=== PATIENT | female | born 1965 | race Caucasian/White ===

== ENCOUNTER 2023-09-18 17:48 | Inpatient (IN) | payer MEDICARE, MEDICAID, SELFPAY ==
[2023-09-18 17:57] VITALS: BP 158/99; PULSE 88; TEMP 36.6; O2SAT 98; BMI 39.5
--- NOTE | 2023-09-18 18:24 | XR_ITS ---
The [address] [address] Patient Name: DALIA MELENDEZ MRN: [id number] date: 1965 Sex: F Assigned Patient Location: ER Current Patient Location: ED.MAIN Accession/Order Number: [id number] Exam Date: 09/18/2023 18:59 Report Date: 09/18/2023 19:52 At the request of: CARMEN CONNELLY Procedure: XR foot LT min 3V IMAGES REVIEWED: XR foot LT min 3V COMPARISON: None available. CLINICAL INDICATION: osteomyelitis of heel FINDINGS/IMPRESSION: No radiographic evidence of osteomyelitis or acute osseous abnormality of the left foot/calcaneus. Mild calcaneal enthesopathy. Osteopenia. Mild dorsal foot soft tissue swelling. Electronically authenticated by: NELLY GARCIA Date: 09/18/2023 19:52
--- NOTE | 2023-09-18 18:25 | ED_ITS ---
HPI HPI - General Adult General Chief complaint: Wound/Laceration Stated complaint: lower extremity pain-sore on heal Time Seen by Provider: 09/18/23 18:11 Source: patient Mode of arrival: Wheelchair Limitations: no limitations History of Present Illness HPI narrative: Patient is a 57-year-old female with a history of diabetes who presents to the emergency department for redness and worsening diabetic ulcer of the left heel. She states she had an area almost 2 months ago that started as a blood blister. She states the area opened and ulcerated. She has had a visiting home physician coming to her home to manage the wound. The physician, Dr. Barbosa, evaluated the patient today and noted worsening redness surrounding the wound. There is no drainage. Patient states she has had no fevers or vomiting but does feel shaky. The area around the ulcer was marked and Dr. Barbosa apparently wrote his comments on orders for the patient on her skin next to the wound. No medications taken prior to arrival. Related Data Home Medications ?Medication ?Instructions ?Recorded ?Confirmed amitriptyline 150 mg tablet 150 mg PO .qhs 09/18/23 09/18/23 amlodipine 5 mg tablet 5 mg PO QDAY 09/18/23 09/18/23 atorvastatin 40 mg tablet 40 mg PO .qhs 09/18/23 09/18/23 baclofen 10 mg tablet 10 mg PO Q8H 09/18/23 09/18/23 cholecalciferol (vitamin D3) 50 50 mcg PO QDAY 09/18/23 09/18/23 mcg (2,000 unit) capsule (Vitamin D3) dicyclomine 20 mg tablet 20 mg PO TID 09/18/23 09/18/23 duloxetine 60 mg capsule,delayed 60 mg PO BID 09/18/23 09/18/23 release empagliflozin 10 mg tablet 10 mg PO QDAY 09/18/23 09/18/23 (Jardiance) gabapentin 100 mg capsule 100 mg PO .COMPLEX 09/18/23 09/18/23 glipizide 10 mg tablet 10 mg PO BID 09/18/23 09/18/23 hydroxyzine HCl 50 mg tablet 50 mg PO Q8H PRN anxiety 09/18/23 09/18/23 insulin glargine 100 unit/mL (3 70 unit subcut QPM 09/18/23 09/18/23 mL) subcutaneous pen (Lantus Solostar U-100 Insulin) lisinopril 20 mg tablet 20 mg PO QDAY 09/18/23 09/18/23 omeprazole 40 mg capsule,delayed 40 mg PO QAM 09/18/23 09/18/23 release semaglutide 0.25 mg or 0.5 mg (2 0.25 mg subcut .weekly 09/18/23 09/18/23 mg/3 mL) subcutaneous pen injector (Ozempic) Allergies Allergy/AdvReac Type Severity Reaction Status Date / Time bactrim Allergy Uncoded 09/18/23 17:57 diuretics AdvReac Severe Uncoded 09/18/23 17:57 Opioid HPI Opioid Management Most Recent Opioid Data: Last Pain Scale 7 09/18/23 18:47 Last MAR Pain Assessment 09/18/23 18:36 Review of Systems ROS Constitutional Denies: fever or chills Ears, nose, mouth, and throat Denies: throat pain or nasal congestion Cardiovascular Denies: chest pain Respiratory Denies: shortness of breath or cough Gastrointestinal Denies: nausea or vomiting Integumentary/Breast Reports: redness, skin pain and sores; Denies: rash Neurological Denies: headache Hematologic/Lymphatic Denies: easy bruising or easy bleeding Exam Narrative Exam Narrative: Gen.: Awake, alert, in no distress Head: Normocephalic, atraumatic ENT: Moist mucous membranes Respiratory: No respiratory distress Extremities: Moves extremities equally, 1.5 cm ulcerated area to the left medial calcaneus with surrounding erythema. No bony exposure or active drainage. No visible abscess. No red streaking or circumferential erythema of the left foot. Black marker surrounding the wound and on the foot. Psych: Normal mood and affect Neuro: No focal neuro deficit Skin: Warm, dry Constitutional Vital Signs, click to edit/add: Last Vital Signs Temp 97.8 F 09/18/23 17:57 Pulse 88 09/18/23 17:57 Resp 14 09/18/23 17:57 BP 158/99 H 09/18/23 17:57 Pulse Ox 98 09/18/23 17:57 O2 Del Method Room Air 09/18/23 17:57 Course Vital Signs Vital signs: Vital Signs Temperature 97.8 F 09/18/23 17:57 Pulse Rate 88 09/18/23 17:57 Respiratory Rate 14 09/18/23 17:57 Blood Pressure 158/99 H 09/18/23 17:57 Pulse Oximetry 98 09/18/23 17:57 Oxygen Delivery Method Room Air 09/18/23 17:57 Temperature 97.8 F 09/18/23 17:57 Pulse Rate 88 09/18/23 17:57 Respiratory Rate 14 09/18/23 17:57 Blood Pressure 158/99 H 09/18/23 17:57 Pulse Oximetry 98 09/18/23 17:57 Oxygen Delivery Method Room Air 09/18/23 17:57 Medical Decision Making MDM Narrative Medical decision making narrative: Labs obtained, no leukocytosis or evidence of sepsis. Sed rate is elevated although CRP is negative. X-ray with no evidence of osteomyelitis. Patient treated with IV fluids, Zosyn, vancomycin. Percocet given for pain. Case with Dr. Aguiar for podiatry, he will see the patient tomorrow, plan for debridement. N.p.o. after midnight. Patient stable at time of admission. Medical Records Medical records reviewed: Yes I reviewed the patient's medical records Lab Data Lab results reviewed: Yes I reviewed the patient's lab results Labs: Lab Results 09/18/23 09/18/23 Range/Units 18:51 19:02 WBC 9.1 (4.0-11.0) 10^3/uL RBC 4.41 (4.20-5.40) 10^6/uL Hgb 12.7 (12.0-16.0) g/dL Hct 39.5 (36.0-48.0) % MCV 89.6 (81.0-99.0) fL MCH 28.8 (26.7-34.0) pg MCHC 32.2 (29.9-35.2) g/dL RDW 13.2 (11.0-15.0) % Plt Count 197 (150-450) 10^3/uL MPV 9.7 (9.5-13.5) fL Neut % (Auto) 50.5 (43.0-75.0) % Lymph % (Auto) 39.1 (20.5-60.0) % [place] % (Auto) 7.2 (1.7-12.0) % Eos % (Auto) 2.1 (0.9-7.0) % Baso % (Auto) 0.7 (0.2-2.0) % Neut # (Auto) 4.6 (1.4-6.5) 10^3/uL Lymph # (Auto) 3.6 (1.2-3.8) 10^3/uL [place] # (Auto) 0.7 (0.3-0.8) 10^3/uL Eos # (Auto) 0.2 (0.0-0.7) 10^3/uL Baso # (Auto) 0.1 (0.0-0.1) 10^3/uL Abs Immat Gran (auto) 0.04 H (0.00-0.03) 10^3/uL Imm/Tot Granulo (auto) 0.4 (0.0-0.5) % ESR 73 H (<=30) mm/hr VBG pH 7.382 (7.330-7.430) VBG pCO2 42.4 (40.0-52.0) mmHg Sodium 134 L (136-145) mmol/L Potassium 4.1 (3.5-5.1) mmol/L Chloride 98 (98-107) mmol/L Carbon Dioxide 26.6 (21.0-32.0) mmol/L Anion Gap 13.5 BUN 22.0 H (7.0-18.0) mg/dL Creatinine 1.11 H (0.55-1.02) mg/dL Est GFR ( Amer) >60 (>=60) Est GFR (Non-Af Amer) 51 L (>=60) BUN/Creatinine Ratio 19.8 Glucose 327 H (74-106) mg/dL Lactate 1.9 (0.4-2.0) mmol/L Calcium 9.7 (8.5-10.1) mg/dL Total Bilirubin 0.3 (0.2-1.0) mg/dL AST 26 (15-37) U/L ALT 29 (14-59) U/L Alkaline Phosphatase 126 H (46-116) U/L C-Reactive Protein <0.50 (<=0.50) mg/dL Total Protein 8.1 (6.4-8.2) g/dL Albumin 3.4 (3.4-5.0) g/dL Globulin 4.7 g/dL Albumin/Globulin Ratio 0.7 Procalcitonin <0.05 (0.00-0.50) ng/mL Imaging Data xr foot: Attestation: I have reviewed the pertinent imaging results. Radiologist's impression: Procedure: XR foot LT min 3V IMAGES REVIEWED: XR foot LT min 3V COMPARISON: None available. CLINICAL INDICATION: osteomyelitis of heel FINDINGS/IMPRESSION: No radiographic evidence of osteomyelitis or acute osseous abnormality of the left foot/calcaneus. Mild calcaneal enthesopathy. Osteopenia. Mild dorsal foot soft tissue swelling. Electronically authenticated by: NELLY GARCIA Date: 09/18/2023 19:52 Discharge Plan Discharge Stand Alone Forms: Portal Instructions Chief Complaint: Wound/Laceration Patient Disposition: Admitted as Observation Time of Disposition Decision: 20:42 Prescriptions / Home Meds: No Action amitriptyline 150 mg tablet 150 mg PO .qhs amlodipine 5 mg tablet 5 mg PO QDAY atorvastatin 40 mg tablet 40 mg PO .qhs baclofen 10 mg tablet 10 mg PO Q8H cholecalciferol (vitamin D3) [Vitamin D3] 50 mcg (2,000 unit) capsule 50 mcg PO QDAY dicyclomine 20 mg tablet 20 mg PO TID duloxetine 60 mg capsule,delayed release(DR/EC) 60 mg PO BID Jardiance 10 mg tablet 10 mg PO QDAY gabapentin 100 mg capsule 100 mg PO .COMPLEX Rx Instructions: 100 mg orally 1tab at 9am and 3pm and 2 tabs at bedtime; glipizide 10 mg tablet 10 mg PO BID hydroxyzine HCl 50 mg tablet 50 mg PO Q8H PRN (Reason: anxiety) insulin glargine [Lantus Solostar U-100 Insulin] 100 unit/mL (3 mL) insulin pen 70 unit SUBCUT QPM lisinopril 20 mg tablet 20 mg PO QDAY omeprazole 40 mg capsule,delayed release(DR/EC) 40 mg PO QAM Rx Instructions: before breakfast Ozempic 0.25 mg or 0.5 mg (2 mg/3 mL) pen injector 0.25 mg SUBCUT .weekly Print Language: Serbian Referrals: Physician,Non-Staff, MD [Primary Care Provider] - 1 week
[2023-09-18] MEDS: OXYCODONE HCL/ACETAMINOPHEN 5MG/325MG 1 TAB PO ×2 (18:36→23:30)
[2023-09-18] MEDS: PIPERACILLIN SODIUM/TAZOBACTAM 3.375 GM in 0.9 % SODIUM CHLORIDE 50 ML IV (19:03)
[2023-09-18] MEDS: 0.9 % SODIUM CHLORIDE 1,000 ML 999 ML IV (19:03)
[2023-09-18 19:11] LABS: PCO2 VBG 42.4 mmHg (40.0-52.0); pH VBG 7.382 (7.330-7.430)
[2023-09-18 19:14] LABS: Basophils Absolute Auto 0.1 10^3/uL (0.0-0.1); Basophils Percent Auto 0.7 % (0.2-2.0); Eosinophils Absolute Auto 0.2 10^3/uL (0.0-0.7); Eosinophils Percent Auto 2.1 % (0.9-7.0); Hematocrit 39.5 % (36.0-48.0); Hemoglobin 12.7 g/dL (12.0-16.0); Immature Granulocytes Abs Auto 0.04 10^3/uL (0.00-0.03); Immature Granulocytes Pct Auto 0.4 % (0.0-0.5); Lymphocytes Absolute Auto 3.6 10^3/uL (1.2-3.8); Lymphocytes Percent Auto 39.1 % (20.5-60.0); Mean Corpuscular HGB Conc 32.2 g/dL (29.9-35.2); Mean Corpuscular Hemoglobin 28.8 pg (26.7-34.0); Mean Corpuscular Volume 89.6 fL (81.0-99.0); Mean Platelet Volume 9.7 fL (9.5-13.5); Monocytes Absolute Auto 0.7 10^3/uL (0.3-0.8); Monocytes Percent Auto 7.2 % (1.7-12.0); Neutrophils Absolute Auto 4.6 10^3/uL (1.4-6.5); Neutrophils Percent Auto 50.5 % (43.0-75.0); Platelet Count 197 10^3/uL (150-450); Red Blood Count 4.41 10^6/uL (4.20-5.40); Red Cell Distribution Width 13.2 % (11.0-15.0); White Blood Count 9.1 10^3/uL (4.0-11.0)
[2023-09-18 19:26] LABS: Erythrocyte Sedimentation Rate 73 mm/hr (<=30)
[2023-09-18] MEDS: VANCOMYCIN HCL 1,000 MG in 0.9 % SODIUM CHLORIDE 250 ML 250 MG IV (19:31)
[2023-09-18 19:33] LABS: Lactate/Lactic Acid 1.9 mmol/L (0.4-2.0)
[2023-09-18 19:40] LABS: Alanine Aminotransferase 29 U/L (14-59); Albumin Globulin Ratio 0.7; Albumin Level 3.4 g/dL (3.4-5.0); Alkaline Phosphatase 126 U/L (46-116); Anion Gap 13.5; Aspartate Amino Transferase 26 U/L (15-37); BUN Creatinine Ratio 19.8; Bilirubin Total 0.3 mg/dL (0.2-1.0); C Reactive Protein <0.50 mg/dL (<=0.50); Calcium 9.7 mg/dL (8.5-10.1); Carbon Dioxide 26.6 mmol/L (21.0-32.0); Chloride 98 mmol/L (98-107); Estimated GFR (African America >60 (>=60); Estimated GFR (Non-African Ame 51 (>=60); Globulin 4.7 g/dL; Glucose 327 mg/dL (74-106); Potassium 4.1 mmol/L (3.5-5.1); Sodium 134 mmol/L (136-145); Total Protein 8.1 g/dL (6.4-8.2)
[2023-09-18 19:46] LABS: PROCALCITONIN <0.05 ng/mL (0.00-0.50)
[2023-09-18 21:00] VITALS: BP 160/98; PULSE 80; O2SAT 99
[2023-09-18 21:26] VITALS: BP 148/88; PULSE 87; TEMP 36.6; O2SAT 96; BMI 41.0
--- NOTE | 2023-09-18 21:46 | PC.NURSE ---
2 brady earrings to right ear and 1 to left ear. They were put in with a tool. has a brady and blue fidget ringon left index finger
[2023-09-18 22:09] LABS: Glucometer 308 mg/dL (74-106)
[2023-09-18] MEDS: ENOXAPARIN SODIUM 40 MG/0.4 ML SYRINGE SUBQ (22:15)
[2023-09-18] MEDS: INSULIN ASPART 300 UNIT/3 ML PEN SUBQ (22:15)
[2023-09-18] MEDS: 0.9 % SODIUM CHLORIDE 1,000 ML 75 ML IV (22:16)
[2023-09-18] MEDS: BACLOFEN 10 MG TABLET PO (23:25)
[2023-09-18] MEDS: HYDROXYZINE PAMOATE 25 MG CAPSULE 50 MG PO (23:26)
[2023-09-18] MEDS: ATORVASTATIN CALCIUM 40 MG TABLET PO (23:26)
[2023-09-18] MEDS: DICYCLOMINE HCL 10 MG CAPSULE 20 MG PO (23:26)
[2023-09-18] MEDS: GABAPENTIN 100 MG CAPSULE 200 MG PO (23:26)
[2023-09-18] MEDS: AMITRIPTYLINE HCL 50 MG TABLET 150 MG PO (23:26)
[2023-09-19] VITALS (22 sets, daily range): BP systolic 104–151; BP diastolic 44–105; PULSE 85–91; TEMP 36.1–36.6; O2SAT 90–98
[2023-09-19] MEDS: PIPERACILLIN SODIUM/TAZOBACTAM 3.375 GM in 0.9 % SODIUM CHLORIDE 50 ML IV ×3 (02:34→22:37)
[2023-09-19 05:38] LABS: Basophils Absolute Auto 0.1 10^3/uL (0.0-0.1); Basophils Percent Auto 0.6 % (0.2-2.0); Eosinophils Absolute Auto 0.3 10^3/uL (0.0-0.7); Eosinophils Percent Auto 3.1 % (0.9-7.0); Hematocrit 35.6 % (36.0-48.0); Hemoglobin 11.5 g/dL (12.0-16.0); Immature Granulocytes Abs Auto 0.03 10^3/uL (0.00-0.03); Immature Granulocytes Pct Auto 0.4 % (0.0-0.5); Lymphocytes Absolute Auto 4.4 10^3/uL (1.2-3.8); Lymphocytes Percent Auto 55.2 % (20.5-60.0); Mean Corpuscular HGB Conc 32.3 g/dL (29.9-35.2); Mean Corpuscular Hemoglobin 28.9 pg (26.7-34.0); Mean Corpuscular Volume 89.4 fL (81.0-99.0); Mean Platelet Volume 9.8 fL (9.5-13.5); Monocytes Absolute Auto 0.7 10^3/uL (0.3-0.8); Monocytes Percent Auto 8.5 % (1.7-12.0); Neutrophils Absolute Auto 2.6 10^3/uL (1.4-6.5); Neutrophils Percent Auto 32.2 % (43.0-75.0); Platelet Count 192 10^3/uL (150-450); Red Blood Count 3.98 10^6/uL (4.20-5.40); Red Cell Distribution Width 13.2 % (11.0-15.0)
[2023-09-19 05:52] LABS: C Reactive Protein <0.50 mg/dL (<=0.50); Erythrocyte Sedimentation Rate 43 mm/hr (<=30)
[2023-09-19 06:05] LABS: Alanine Aminotransferase 24 U/L (14-59); Albumin Globulin Ratio 0.7; Albumin Level 2.9 g/dL (3.4-5.0); Alkaline Phosphatase 110 U/L (46-116); Anion Gap 13.8; Aspartate Amino Transferase 20 U/L (15-37); BUN Creatinine Ratio 20.4; Bilirubin Total 0.2 mg/dL (0.2-1.0); Calcium 9.3 mg/dL (8.5-10.1); Carbon Dioxide 25.2 mmol/L (21.0-32.0); Chloride 101 mmol/L (98-107); Estimated GFR (African America >60 (>=60); Estimated GFR (Non-African Ame 59 (>=60); Glucose 300 mg/dL (74-106); Sodium 136 mmol/L (136-145); Total Protein 6.9 g/dL (6.4-8.2)
[2023-09-19] MEDS: INSULIN ASPART 300 UNIT/3 ML PEN SUBQ ×3 (08:25→22:58)
[2023-09-19] MEDS: HYDROXYZINE PAMOATE 25 MG CAPSULE 50 MG PO (08:25)
[2023-09-19] MEDS: OXYCODONE HCL/ACETAMINOPHEN 5MG/325MG 2 TAB PO (08:25)
[2023-09-19] MEDS: LEVOTHYROXINE SODIUM 75 MCG TABLET 150 MCG PO (08:26)
--- NOTE | 2023-09-19 09:18 | P.PODCN_ITS ---
HPI - Podiatry Data of Consult Patient: new to practice Consult date: 09/19/23 Requesting physician: Shaikh Remy MD Primary care provider: Non-Staff Physician, Family provider: DMISC Consult Narrative Reason for consult: Left heel wound with concern for abscess and cellulitis Narrative: Patient is a pleasant 57F w/ PMH t2dm presents to [facility] with complaints of worsening left medial heel ulceration. States The wound has been present for approximately 3 weeks, started as a blister, denies any trauma. 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 She was recommended to present to the emergency department and was ultimately admitted with started on IV antibiotics and podiatry consulted for potential surgical intervention. She denies any other lower extremity complaints at this time denies any constitutional symptoms. She is on oxygen appeared to be short of breath during conversation, however she states this is normal for her. cc:: CC: Shaikh Remy MD [facility] Medical History (Updated 09/19/23 @ 09:25 by Luis Washburn DPM) Nocturnal hypoxia ?G47.34 - Idiopathic sleep related nonobstructive alveolar hypoventilation (ICD-10) History of heart attack ?I25.2 - Old myocardial infarction (ICD-10) Autoimmune thyroiditis ?E06.3 - Autoimmune thyroiditis (ICD-10) Hypothyroid ?E03.9 - Hypothyroidism, unspecified (ICD-10) Gastroparesis ?K31.84 - Gastroparesis (ICD-10) High blood pressure ?I10 - Essential (primary) hypertension (ICD-10) Manic-depression ?F31.9 - Bipolar disorder, unspecified (ICD-10) Anxiety ?F41.9 - Anxiety disorder, unspecified (ICD-10) Bipolar 1 disorder ?F31.9 - Bipolar disorder, unspecified (ICD-10) Diabetes ?E11.9 - Type 2 diabetes mellitus without complications (ICD-10) Surgical History (Updated 09/19/23 @ 02:37 by Joie Alvarez) Status post dilation of esophageal narrowing ?Z98.890 - Other specified postprocedural states (ICD-10) ?Z87.19 - Personal history of other diseases of the digestive system (ICD-10) S/P knee replacement ?Z96.659 - Presence of unspecified artificial knee joint (ICD-10) Femur fracture, right ?S72.91XA - Unspecified fracture of right femur, initial encounter for closed fracture (ICD-10) History of appendectomy ?Z90.49 - Acquired absence of other specified parts of digestive tract (ICD- 10) History of cholecystectomy ?Z90.49 - Acquired absence of other specified parts of digestive tract (ICD- 10) History of hysterectomy ?Z90.710 - Acquired absence of both cervix and uterus (ICD-10) Family History (Updated 09/18/23 @ 21:54 by Joie Alvarez) Sister Family history of cancer Family history of hypertension Mother Family history of diabetes mellitus Social History (Updated 09/18/23 @ 21:56 by Joie Alvarez) Within the past year, how often did you have a drink containing alcohol: monthly or less Smoking status: Former smoker Non-prescribed substance use: former substance user and crack/cocaine Previous occupational history: disabled Highest level of school completed/degree received: 11th grade Are you now , , , , never or living with a partner: refused to answer In a typical week, how many times do you talk on the telephone with family, friends, or neighbors: 3 or more times per week How often do you get together with friends or relatives: 3 or more times per week How often do you attend scientologist or zoroastrianism services: never Little interest or pleasure in doing things: several days Feeling down, depressed, or hopeless: several days Feel stressed/tense/nervous/anxious/difficulty sleeping: to some extent Do you think of yourself as: straight/heterosexual Gender Identity: female Exam Narrative Exam Narrative: Vascular: DP and PT pulses faintly palpable secondary to edema. CFT intact. Skin temperature warm and symmetric, mild focal increase to the left medial heel at the ulceration site. Approximately 2 cm erythema surrounding the medial heel ulcer, no ascending lymphangitis. 2+ pitting edema noted bilateral. Mild varicosities throughout lower extremities Neuro: Light touch and gross sensation intact. Protective sensation diminished. No hypersensitivity Derm: Circular full-thickness ulceration to the left medial heel with mixed fibrogranular base and central necrotic plug. Mild serous drainage, no malodor. No purulence. There is a superficial region of fluctuance just proximal to the ulcer, no crepitus or bogginess. MSK: Ankle subtalar range of motion supple with without pain or crepitus. Direct palpatory tenderness to develop scribed ulceration, and plantar medial instep of the left foot. Compartments are soft and compressible, no pain with calf or thigh compression. Constitutional Vital Signs, click to edit/add: Last Vital Signs Temp 97.8 F 09/19/23 08:20 Pulse 88 09/19/23 08:20 Resp 18 09/19/23 08:20 BP 121/79 09/19/23 08:20 Pulse Ox 97 09/19/23 08:20 O2 Del Method Nasal Cannula 09/19/23 08:20 O2 Flow Rate 4 09/19/23 08:20 Assessment and Plan Assessment and Plan (1) Non-pressure chronic ulcer of other part of left foot with fat layer exposed: (2) Cutaneous abscess of left foot: (3) T2DM (type 2 diabetes mellitus): Plan Patient examined evaluated. All findings discussed with patient all questions answered to patient's satisfaction. Pertinent labs and imaging reviewed. No leukocytosis, ESR mildly elevated, however CRP PCT and lactate within normal limits. Blood glucose was 350 upon admission, 300 today. No A1c as of yet. X-ray does not show any signs of cortical erosive changes, however the medial border of the calcaneus is difficult to visualize on provided views. Does appear to be superficial abscess just proximal to the left medial heel ulcer, recommended bedside debridement which patient declined and therefore we discussed incision and drainage in the operative room setting which we she was agreeable to. She has been n.p.o. since midnight. Will add onto the OR schedule for I&D of the left heel with possible wound VAC application at around 1130 today. Continue broad-spectrum antibiotics Will update plan following procedure today. Please call with questions or concerns.
[2023-09-19] MEDS: LACTATED RINGER'S SOLUTION 1,000 ML 50 ML IV (10:08)
[2023-09-19] MEDS: VANCOMYCIN HCL 1,250 MG in 0.9 % SODIUM CHLORIDE 250 ML 166.667000000000002 MG IV ×2 (11:23→22:38)
[2023-09-19 11:27] LABS: Glucometer 212 mg/dL (74-106)
--- NOTE | 2023-09-19 12:18 | CM.NOTE ---
Rounds made with Dr. Alberto, pt will go to OR today for I&D of foot wound. Pt will change to inpt status d/t need of IV antibiotics and possible wound vac therapy.
[2023-09-19 13:18] LABS: Glucometer 191 mg/dL (74-106)
--- NOTE | 2023-09-19 13:21 | W.PM.OPNOTE ---
Surgery Operative Note Operative Note Procedure Date: 09/19/23 Time Out Performed: yes Pre-op Diagnosis: Chronic nonhealing ulcer left foot, abscess left foot Post-op Diagnosis: same as pre-op Procedures performed: Incision and drainage with incision of bone cortex and primary closure of wound Anesthesia: MAC Primary Surgeon: Luis Miguel Aguiar Estimated blood loss (mL): 10 Findings: No purulence encountered. Specimens from calcaneus were obtained and appeared to have normal anatomic appearance and no clinical signs of infection. Specimens: Left heel wound for pathology, left calcaneus for micro and path Indications for Procedures: This is a pleasant 57-year-old female who presented to [facility] emergency department yesterday due to concerns of worsening left medial heel wound. States his wound has been present for approximately 3 weeks, started as a blister and were progressively worsened. 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 Her vital signs are stable and WBC, CRP, PCT and lactate were within normal limits. Her ESR was mildly elevated. Upon my examination, she did have a area of fluctuance just proximal to the wound as well as some tenderness at the plantar medial instep. Due to this I was concerned for abscess and was deemed necessary at this time to perform incision and drainage in the operative room setting. The nature of the problem anticipated procedures postoperative recovery and convalescence risk, risk and complications including not limited to infection, wound healing complications, hypertrophic scarring, none numbness tingling chronic pain, recurrence of condition and need for further procedures discussed with the patient in detail. All questions were answered today satisfaction and no guarantees were given as to the outcome of the procedure. She expressed understanding of this and agreed to move forward with surgical intervention. Detailed description of Procedure: Under mild sedation the patient was brought to the operating room placed on the operating table supine position. She was administered under monitored anesthesia care and the left lower extremity was prepped and draped in standard aseptic technique. The left lower extremity was exsanguinated with Esmarch and ankle tourniquet was insufflated 250 mmHg for total of 31 minutes for the procedure. After anesthesia was confirmed, attention was directed to the wound at the medial instep of the left heel where a 3-1 elliptical incision was made to excise the wound in its entirety. This was sent for pathologic diagnosis. Sharp and blunt dissection was then used to probe and dilate for any deeper underlying abscess of which none were found. I then used sharp dissection to access the medial border of the calcaneal tuberosity and clean instrumentation was used to obtain bone specimen for micro as well as pathology assessment. The bone had strong cortical properties and normal anatomic appearance. Hemostat was used to dilate proximally as well as distally into the plantar medial instep and no tracking tunneling or undermining was observed. 3 L of normal saline was used under pulsatile lavage to irrigate the surgical site. The tourniquet was then deflated and complete hemostasis was achieved with pressure.. The wound was then able to be primarily closed with 0 Prolene and 2-0 nylon retention sutures. There was a moderate amount of tension on the skin with intact CFT and therefore an incisional Prevena wound VAC was placed with Adaptic, black foam and VAC film dressing. VAC was set to 125 mmHg continuous. Left lower extremity was then well-padded at all bony prominences and around the VAC tubing and a well-padded modified Rodgers compressive dressing with short leg posterior splint was applied. Patient tolerated the procedure and anesthesia well in apparent satisfactory condition was transported to PACU for further monitoring prior to transfer back to her inpatient suite. Her vital signs are stable and vascular status intact all digits bilaterally. No complications were encountered She will be transported back to [facility] for further monitoring. LLE dressing to be left CDI. Nonweightbearing to left lower extremity. I understand she is essentially wheelchair-bound at baseline. May toe-touch for transfers if needed. Continue IV antibiotics, may be able to discharge as early as tomorrow with broad-spectrum oral antibiotics depending on pain control. Incisional wound VAC to the left heel to be changed 3 times per week via home health care with Adaptic over the incision, followed by black foam followed by adhesive film with VAC settings at 125 mmHg continuous. Follow-up in the [place] [facility] 1 week from discharge. Please call with any questions or concerns. Clarity Developer: Luis Washburn
--- NOTE | 2023-09-19 13:22 | PM.HP ---
HPI H&P: HPI History of Present Illness Chief complaint: lower extremity pain-sore on heal DIABETIC FOOT UL Narrative: 57-year-old female presents with chronic nonhealing ulcer of left foot associated with pain/swelling and erythema. She has been treated for it as outpatient and finished an oral antibiotic course about a month ago. Status started off as a blister about 2 months ago and has progressively worsened. Patient was evaluated in ER and was admitted for observation. Patient was started on IV vancomycin and Zosyn. She was evaluated by podiatry and although she was originally admitted as observation, based on my clinical evaluation and podiatry's assessment, she is sicker than originally thought and will require incision and drainage along with bone biopsy for her chronic nonhealing ulcer with high suspicion of osteomyelitis and foot abscess based on clinical exam. She is a type II diabetic with peripheral neuropathy and is at high risk of treatment failure/poor prognosis including possible support and amputation and will require at least 48 hours of IV antibiotics along with incision and drainage of abscess. I changed her to inpatient status as a result of factors explained above. She is scheduled for OR in the afternoon. There is also a possibility that she will require application of wound VAC postoperatively. Upon my evaluation, she was complaining of mild foot pain. She denies fever, chills, nausea, vomiting, constipation, diarrhea. Opioid HPI Opioid Management Most Recent Opioid Data: Last Pain Scale 6 09/19/23 09:25 Last Pain Assessment 09/19/23 13:26 Last MAR Pain Assessment 09/19/23 09:25 Last ORT Total Score 4 09/18/23 21:26 Last ORT Risk Category Moderate Risk 09/18/23 21:26 Review of Systems ROS Status of ROS 10 or more systems reviewed and unremarkable except as noted in history and below [facility] Medical History (Updated 09/19/23 @ 13:32 by Shaikh Remy MD) Nocturnal hypoxia ?G47.34 - Idiopathic sleep related nonobstructive alveolar hypoventilation (ICD-10) History of heart attack ?I25.2 - Old myocardial infarction (ICD-10) Autoimmune thyroiditis ?E06.3 - Autoimmune thyroiditis (ICD-10) Hypothyroid ?E03.9 - Hypothyroidism, unspecified (ICD-10) Gastroparesis ?K31.84 - Gastroparesis (ICD-10) High blood pressure ?I10 - Essential (primary) hypertension (ICD-10) Manic-depression ?F31.9 - Bipolar disorder, unspecified (ICD-10) Anxiety ?F41.9 - Anxiety disorder, unspecified (ICD-10) Bipolar 1 disorder ?F31.9 - Bipolar disorder, unspecified (ICD-10) Diabetes ?E11.9 - Type 2 diabetes mellitus without complications (ICD-10) Surgical History (Updated 09/19/23 @ 02:37 by Joie Alvarez) Status post dilation of esophageal narrowing ?Z98.890 - Other specified postprocedural states (ICD-10) ?Z87.19 - Personal history of other diseases of the digestive system (ICD-10) S/P knee replacement ?Z96.659 - Presence of unspecified artificial knee joint (ICD-10) Femur fracture, right ?S72.91XA - Unspecified fracture of right femur, initial encounter for closed fracture (ICD-10) History of appendectomy ?Z90.49 - Acquired absence of other specified parts of digestive tract (ICD-10) History of cholecystectomy ?Z90.49 - Acquired absence of other specified parts of digestive tract (ICD-10) History of hysterectomy ?Z90.710 - Acquired absence of both cervix and uterus (ICD-10) Family History (Updated 09/18/23 @ 21:54 by Joie Alvarez) Sister Family history of cancer Family history of hypertension Mother Family history of diabetes mellitus Social History (Updated 09/18/23 @ 21:56 by Joie Alvarez) Within the past year, how often did you have a drink containing alcohol: monthly or less Smoking status: Former smoker Non-prescribed substance use: former substance user and crack/cocaine Previous occupational history: disabled Highest level of school completed/degree received: 11th grade Are you now , , , , never or living with a partner: refused to answer In a typical week, how many times do you talk on the telephone with family, friends, or neighbors: 3 or more times per week How often do you get together with friends or relatives: 3 or more times per week How often do you attend buddhism or adventism services: never Little interest or pleasure in doing things: several days Feeling down, depressed, or hopeless: several days Feel stressed/tense/nervous/anxious/difficulty sleeping: to some extent Do you think of yourself as: straight/heterosexual Gender Identity: female Meds Home Medications and Allergies Home Medications ?Medication ?Instructions ?Recorded ?Confirmed ?Type amitriptyline 150 mg tablet 150 mg PO .qhs 09/18/23 09/18/23 History amlodipine 5 mg tablet 5 mg PO QDAY 09/18/23 09/18/23 History atorvastatin 40 mg tablet 40 mg PO .qhs 09/18/23 09/18/23 History baclofen 10 mg tablet 10 mg PO Q8H 09/18/23 09/18/23 History cholecalciferol (vitamin D3) 50 50 mcg PO QDAY 09/18/23 09/18/23 History mcg (2,000 unit) capsule (Vitamin D3) dicyclomine 20 mg tablet 20 mg PO TID 09/18/23 09/18/23 History duloxetine 60 mg capsule,delayed 60 mg PO BID 09/18/23 09/18/23 History release empagliflozin 10 mg tablet 10 mg PO QDAY 09/18/23 09/18/23 History (Jardiance) ezetimibe 10 mg tablet 10 mg PO DAILY 09/18/23 09/18/23 History gabapentin 100 mg capsule 100 mg PO .COMPLEX 09/18/23 09/18/23 History glipizide 10 mg tablet 10 mg PO BID 09/18/23 09/18/23 History home oxygen BEDTIME 09/18/23 History hydroxyzine HCl 50 mg tablet 50 mg PO Q8H PRN anxiety 09/18/23 09/18/23 History insulin glargine 100 unit/mL (3 70 unit subcut .qam and qpm 09/18/23 09/18/23 History mL) subcutaneous pen (Lantus Solostar U-100 Insulin) insulin glargine 100 unit/mL 60 unit subcut QAM 09/18/23 09/18/23 History subcutaneous solution (Lantus U-100 Insulin) levothyroxine 150 mcg capsule 150 mcg PO DAILY 09/18/23 09/18/23 History lisinopril 20 mg tablet 20 mg PO QDAY 09/18/23 09/18/23 History omeprazole 40 mg capsule,delayed 40 mg PO QAM 09/18/23 09/18/23 History release semaglutide 0.25 mg or 0.5 mg (2 0.25 mg subcut .weekly 09/18/23 09/18/23 History mg/3 mL) subcutaneous pen injector (Ozempic) Allergies Allergy/AdvReac Type Severity Reaction Status Date / Time bactrim Allergy Uncoded 09/18/23 17:57 diuretics AdvReac Severe Uncoded 09/18/23 17:57 Exam Constitutional Vital Signs, click to edit/add: Last Vital Signs Temp 96.9 F L 09/19/23 13:11 Pulse 91 H 09/19/23 13:11 Resp 14 09/19/23 13:11 BP 151/105 H 09/19/23 13:11 Pulse Ox 92 L 09/19/23 13:11 O2 Del Method Room Air 09/19/23 13:11 O2 Flow Rate 4 09/19/23 08:20 Documenting provider has reviewed patient's vital signs: yes Common normals: no apparent distress and oriented x3 Nutritional appearance: obese HENMT Common normals: normocephalic Respiratory Common normals: normal respiratory effort, no use of accessory muscles and clear to auscultation bilaterally Effort & inspection: able to speak in complete sentences Cardio Common normals: regular rate, regular rhythm, S1 normal heart sound and S2 normal heart sound GI Common normals: Normal to inspection, nondistended, normoactive bowel sounds present, soft to palpation and non-tender Extremity Other: Left foot --> ulcer with muscles exposed. Size of about a golf ball. Pain on palpation. Possible foot abscess. Associated cellulitis of surrounding skin Neuro Common normals: oriented x3, moves all extremities, no focal motor deficits and no sensory deficits noted Psych Common normals: mental status grossly normal, denies homicidal ideation and denies suicidal ideation Results Labs Labs: Short CBC 09/18/23 09/19/23 Range/Units 19:02 04:57 WBC 9.1 8.0 (4.0-11.0) 10^3/uL Hgb 12.7 11.5 L (12.0-16.0) g/dL Hct 39.5 35.6 L (36.0-48.0) % Plt Count 197 192 (150-450) 10^3/uL BMP 09/18/23 09/19/23 09/19/23 19:02 04:57 04:57 Sodium 134 L 136 136 Potassium 4.1 4.0 Chloride 98 Carbon Dioxide 26.6 BUN 22.0 H Creatinine 1.11 H Glucose 327 H Calcium 9.7 09/19/23 09/19/23 09/19/23 04:57 04:57 04:57 Sodium Potassium 4.0 Chloride 101 101 Carbon Dioxide 24.8 25.2 BUN 20.0 H Creatinine Glucose Calcium 09/19/23 09/19/23 09/19/23 04:57 04:57 04:57 Sodium Potassium Chloride Carbon Dioxide BUN 20.0 H Creatinine 1.02 0.98 Glucose 294 H 300 H Calcium 9.2 09/19/23 04:57 Sodium Potassium Chloride Carbon Dioxide BUN Creatinine Glucose Calcium 9.3 Liver Function 09/18/23 09/19/23 09/19/23 Range/Units 19:02 04:57 04:57 Total Bilirubin 0.3 0.2 0.2 (0.2-1.0) mg/dL AST 26 20 (15-37) U/L ALT 29 (14-59) U/L Alkaline Phosphatase 126 H (46-116) U/L Albumin 3.4 (3.4-5.0) g/dL 09/19/23 09/19/23 09/19/23 Range/Units 04:57 04:57 04:57 Total Bilirubin (0.2-1.0) mg/dL AST 20 (15-37) U/L ALT 25 24 (14-59) U/L Alkaline Phosphatase 108 110 (46-116) U/L Albumin 2.9 L (3.4-5.0) g/dL 09/19/23 Range/Units 04:57 Total Bilirubin (0.2-1.0) mg/dL AST (15-37) U/L ALT (14-59) U/L Alkaline Phosphatase (46-116) U/L Albumin 2.9 L (3.4-5.0) g/dL ABG ABG results: 09/18/23 18:51 VBG pH 7.382 VBG pCO2 42.4 Assessment and Plan Assessment and Plan (1) Non-pressure chronic ulcer of other part of left foot with fat layer exposed: Assessment and Plan: Continue with IV vancomycin and IV Zosyn. Patient is scheduled for incision and drainage in OR. Follow-up OR report, bone biopsy, cultures. (2) Cutaneous abscess of left foot: Assessment and Plan: Possible abscess on exam. Scheduled for incision and drainage later today. On broad-spectrum antibiotics (3) T2DM (type 2 diabetes mellitus): Assessment and Plan: Continue with home medications. Monitor blood glucose closely. 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 At baseline. (5) Hypothyroid: Assessment and Plan: Continue with levothyroxine. Qualifiers: Hypothyroidism type: unspecified Qualified Code(s): E03.9 - Hypothyroidism, unspecified (6) High blood pressure: Assessment and Plan: Continue with home medical Qualifiers: Hypertension type: primary hypertension Qualified Code(s): I10 - Essential (primary) hypertension (7) Bipolar 1 disorder: Assessment and Plan: Denies suicidal ideation/homicidal ideation. Continue with home medications
[2023-09-19] MEDS: LACTATED RINGER'S SOLUTION 1,000 ML 75 ML IV (13:56)
--- NOTE | 2023-09-19 15:58 | CM.NOTE ---
Important Message From Medicare discussed with pt, pt verbalizes understanding and signs paper. Original given to pt and copy placed in pt's chart. Discussed with pt about HH services, pt is active with [facility]. SW will send clinical for updates. Pt now will discharge to home with wound vac.
--- NOTE | 2023-09-19 16:14 | SWNOTE1 ---
CHASE and case management saw in operative note that pt has an incisional wound vac and needs dressing changes. Case management spoke with nursing and unsure of plan. VIN went to speak with pt and she is current with [facility]. SW and Case management called and spoke with wound fellow, Luis Washburn in regards to wound vac. It was decided that pt will come to wound center on Friday for a wound vac dressing change and that will allow time for HH to get supplies ordered. Luis voiced for her to come around 1:00 or 2:00. CHASE called and left a message for trade union secretary at wound center and for Giulia at wound center to call the patient on Friday morning to confirm the time of dressing change. CHASE sent physician note and operative note to [facility], along with the CRF with orders for dressing change. Plan is for discharge tomorrow. Case management updated nursing with all information.
[2023-09-19] MEDS: ENOXAPARIN SODIUM 40 MG/0.4 ML SYRINGE SUBQ (16:34)
[2023-09-19] MEDS: EZETIMIBE 10 MG TABLET PO (16:34)
[2023-09-19] MEDS: OMEPRAZOLE 40 MG CAPSULE.DR PO (16:35)
[2023-09-19 16:38] LABS: Glucometer 202 mg/dL (74-106)
--- NOTE | 2023-09-19 17:05 | US_ITS ---
The [address] [address] Patient Name: DALIA MELENDEZ MRN: [id number] date: 1965 Sex: F Assigned Patient Location: [place] Current Patient Location: [place] Accession/Order Number: [id number] Exam Date: 09/19/2023 18:40 Report Date: 09/19/2023 23:56 At the request of: DALILA ESTRADA Procedure: US arterial duplex LE LT EXAM: US arterial duplex LE LT; [id number] HISTORY: decreased pulses. TECHNIQUE: Arterial duplex examination utilizing B-mode, color flow Doppler and Spectral Doppler. COMPARISON: None. FINDINGS: LEFT: Peak systolic velocities as follows: Common femoral artery PSV: proximal 111 cm/s. Superficial femoral artery PSV: 133 cm/s, mid 117 cm/s, and distal 108 cm/s. Popliteal artery PSV: proximal 133 cm/s. Posterior tibial artery PSV: 55 cm/s Anterior tibial artery PSV: 68 cm/s Left waveforms: Triphasic waveforms level of the popliteal artery. There is mild blunting and loss of normal triphasic waveform in the proximal posterior tibial artery, however, the waveforms in the mid and distal posterior tibial artery has a more normal appearance. Waveforms in the anterior tibial artery are within expected limits. 1. IMPRESSION: No areas of abnormal focal velocity elevation to indicate significant arterial stenosis. 2. There is blunting of the waveform in the proximal posterior tibial artery with subsequent normal waveform distal to this. Differential includes mild upstream stenosis at the level of the distal popliteal versus sampling artifact. Electronically authenticated by: LOLITA SMITH Date: 09/19/2023 23:56
[2023-09-19] MEDS: ONDANSETRON PF 4 MG/2 ML VIAL IV (17:07)
[2023-09-19] MEDS: ACETAMINOPHEN 500 MG TABLET 1000 MG PO (19:59)
[2023-09-19] MEDS: OXYCODONE HCL 5 MG TABLET PO (19:59)
[2023-09-19] MEDS: 0.9 % SODIUM CHLORIDE 1,000 ML 75 ML IV (19:59)
[2023-09-19] MEDS: AMITRIPTYLINE HCL 50 MG TABLET 150 MG PO (22:38)
[2023-09-19] MEDS: BACLOFEN 10 MG TABLET PO (22:39)
[2023-09-19] MEDS: PREGABALIN 75 MG CAPSULE PO (22:39)
[2023-09-19] MEDS: GABAPENTIN 100 MG CAPSULE 200 MG PO (22:39)
[2023-09-19] MEDS: ATORVASTATIN CALCIUM 40 MG TABLET PO (22:39)
[2023-09-19] MEDS: DULOXETINE HCL 60 MG CAPSULE.DR PO (22:39)
[2023-09-19] MEDS: DICYCLOMINE HCL 10 MG CAPSULE 20 MG PO (22:39)
[2023-09-19] MEDS: INSULIN DETEMIR 300 UNIT/3 ML INSULN.PEN 70 UNIT SUBQ (22:59)
[2023-09-19 23:06] LABS: Glucometer 220 mg/dL (74-106)
[2023-09-20 01:00] VITALS: BP 127/74; PULSE 84; TEMP 36.4; O2SAT 94
[2023-09-20 05:58] LABS: Basophils Percent Auto 0.4 % (0.2-2.0); Eosinophils Absolute Auto 0.2 10^3/uL (0.0-0.7); Eosinophils Percent Auto 2.7 % (0.9-7.0); Hematocrit 37.5 % (36.0-48.0); Hemoglobin 11.5 g/dL (12.0-16.0); Immature Granulocytes Abs Auto 0.03 10^3/uL (0.00-0.03); Immature Granulocytes Pct Auto 0.3 % (0.0-0.5); Lymphocytes Absolute Auto 3.4 10^3/uL (1.2-3.8); Lymphocytes Percent Auto 38.5 % (20.5-60.0); Mean Corpuscular HGB Conc 30.7 g/dL (29.9-35.2); Mean Corpuscular Hemoglobin 28.6 pg (26.7-34.0); Mean Corpuscular Volume 93.3 fL (81.0-99.0); Mean Platelet Volume 9.8 fL (9.5-13.5); Monocytes Percent Auto 11.1 % (1.7-12.0); Neutrophils Absolute Auto 4.2 10^3/uL (1.4-6.5); Platelet Count 198 10^3/uL (150-450); Red Blood Count 4.02 10^6/uL (4.20-5.40); Red Cell Distribution Width 13.7 % (11.0-15.0); White Blood Count 8.9 10^3/uL (4.0-11.0)
[2023-09-20 06:00] VITALS: BP 132/76; PULSE 64; TEMP 36.4; O2SAT 95
[2023-09-20] MEDS: PIPERACILLIN SODIUM/TAZOBACTAM 3.375 GM in 0.9 % SODIUM CHLORIDE 50 ML IV (06:07)
[2023-09-20] MEDS: BACLOFEN 10 MG TABLET PO ×2 (06:07→14:18)
[2023-09-20] MEDS: LEVOTHYROXINE SODIUM 75 MCG TABLET 150 MCG PO (06:08)
[2023-09-20] MEDS: OXYCODONE HCL 5 MG TABLET 10 MG PO (06:08)
[2023-09-20] MEDS: DICYCLOMINE HCL 10 MG CAPSULE 20 MG PO ×2 (06:08→14:18)
[2023-09-20 06:16] LABS: Alanine Aminotransferase 27 U/L (14-59); Albumin Globulin Ratio 0.7; Alkaline Phosphatase 110 U/L (46-116); Anion Gap 11.7; Aspartate Amino Transferase 20 U/L (15-37); BUN Creatinine Ratio 17.7; Bilirubin Total 0.3 mg/dL (0.2-1.0); Calcium 9.4 mg/dL (8.5-10.1); Carbon Dioxide 26.4 mmol/L (21.0-32.0); Chloride 104 mmol/L (98-107); Estimated GFR (African America >60 (>=60); Estimated GFR (Non-African Ame >60 (>=60); Globulin 4.1 g/dL; Glucose 223 mg/dL (74-106); Potassium 4.1 mmol/L (3.5-5.1); Sodium 138 mmol/L (136-145); Total Protein 7.1 g/dL (6.4-8.2)
--- NOTE | 2023-09-20 07:23 | PM.PN ---
Progress Note: Subjective Subjective Interval history: Patient is POD1 from heel ulcer debridement. Patient sleeping at bedside. Relates to having difficulty with splint and heel pain. Denies n/v/f/c/sob/chest and calf pain Exam Narrative Exam Narrative: No strikethrough on the bandage however Marquis wrap is disheveled. The VAC holding suction with scant output. no calf pain on squeeze Constitutional Vital Signs, click to edit/add: Last Vital Signs Temp 97.6 F 09/20/23 06:00 Pulse 64 09/20/23 06:00 Resp 16 09/20/23 06:00 BP 132/76 09/20/23 06:00 Pulse Ox 95 09/20/23 06:00 O2 Del Method Nasal Cannula 09/20/23 06:00 O2 Flow Rate 4 09/20/23 06:00 Progress Note: Objective Labs Labs: Short CBC 09/20/23 Range/Units 04:33 WBC 8.9 (4.0-11.0) 10^3/uL Hgb 11.5 L (12.0-16.0) g/dL Hct 37.5 (36.0-48.0) % Plt Count 198 (150-450) 10^3/uL BMP 09/20/23 04:33 Sodium 138 Potassium 4.1 Chloride 104 Carbon Dioxide 26.4 BUN 17.0 Creatinine 0.96 Glucose 223 H Calcium 9.4 Liver Function 09/20/23 Range/Units 04:33 Total Bilirubin 0.3 (0.2-1.0) mg/dL AST 20 (15-37) U/L ALT 27 (14-59) U/L Alkaline Phosphatase 110 (46-116) U/L Albumin 3.0 L (3.4-5.0) g/dL Progress Note: A&P Assessment and Plan (1) Non-pressure chronic ulcer of other part of left foot with fat layer exposed: (2) Type 2 diabetes mellitus with diabetic polyneuropathy: Plan patient seen at bedside Patient underwent operative debridement with Dr. Washburn yesterday Cultures pending Rx for augmentin/doxycycline sent to pharmacy - will adjust if needed once cultures have returned Patient already has home health who can change VAC 3d a week F/u in [facility] wound center the week Dr. Alberto notified
[2023-09-20 08:12] LABS: Glucometer 191 mg/dL (74-106)
[2023-09-20] MEDS: DULOXETINE HCL 60 MG CAPSULE.DR PO (08:47)
[2023-09-20] MEDS: LISINOPRIL 20 MG TABLET PO (08:47)
[2023-09-20] MEDS: OMEPRAZOLE 40 MG CAPSULE.DR PO (08:47)
[2023-09-20] MEDS: PREGABALIN 75 MG CAPSULE PO (08:47)
[2023-09-20] MEDS: AMLODIPINE BESYLATE 5 MG TABLET PO (08:47)
[2023-09-20] MEDS: GABAPENTIN 100 MG CAPSULE PO ×2 (08:47→14:18)
[2023-09-20] MEDS: EZETIMIBE 10 MG TABLET PO (08:47)
[2023-09-20] MEDS: CHOLECALCIFEROL (VITAMIN D3) 25 MCG/1,000 UNITS TABLET 50 MCG PO (08:47)
[2023-09-20] MEDS: CANAGLIFLOZIN 100 MG TABLET PO (08:47)
[2023-09-20] MEDS: ENOXAPARIN SODIUM 40 MG/0.4 ML SYRINGE SUBQ (08:48)
[2023-09-20] MEDS: VANCOMYCIN HCL 1,250 MG in 0.9 % SODIUM CHLORIDE 250 ML 166 MG IV (08:48)
[2023-09-20] MEDS: INSULIN ASPART 300 UNIT/3 ML PEN SUBQ (08:49)
[2023-09-20] MEDS: INSULIN DETEMIR 300 UNIT/3 ML INSULN.PEN 70 UNIT SUBQ (08:50)
[2023-09-20 09:00] VITALS: BP 135/75; PULSE 87; TEMP 36.7; O2SAT 91
--- NOTE | 2023-09-20 09:46 | PM.DS1 ---
DS: Providers Provider Date of admission: 09/19/23 13:22 Primary care physician: Non-Staff Physician, Consults: 09/18/23 21:09 Consult to Pharmacy Routine Consulting Provider: Reason for consultation: vanco dose please Has provider been notified: No 09/18/23 21:16 Consult to Podiatry Routine Consulting Provider: Luis Miguel Aguiar Reason for consultation: Diabetif L Ankle ulcer Has provider been notified: Yes 09/19/23 13:37 Consult to Film Processing Utility Worker Routine Reason for consult:: Prison Other reason:: Possible SNF, anticipate DC home Physical Therapy Eval and Treat Routine Reason for consultation: postop gait eval/fall risk, nwb LLE DS: Diagnosis Discharge Diagnosis (1) Non-pressure chronic ulcer of other part of left foot with fat layer exposed: (2) Cutaneous abscess of left foot: (3) Type 2 diabetes mellitus with diabetic polyneuropathy: Qualifiers: Diabetes mellitus prison insulin use: with prison use Qualified Code(s): E11.42 - Type 2 diabetes mellitus with diabetic polyneuropathy; Z79.4 - group home (current) use of insulin (4) Controlled diabetes mellitus with hyperglycemia, with long-term current use of insulin: Qualifiers: Diabetes mellitus type: type 2 Qualified Code(s): E11.65 - Type 2 diabetes mellitus with hyperglycemia; Z79.4 - group home (current) use of insulin (5) High blood pressure: Qualifiers: Hypertension type: primary hypertension Qualified Code(s): I10 - Essential (primary) hypertension (6) Nocturnal hypoxia: (7) Bipolar 1 disorder: (8) Hypothyroid: Qualifiers: Hypothyroidism type: unspecified Qualified Code(s): E03.9 - Hypothyroidism, unspecified (9) Morbid obesity due to excess calories: DS: Summary Hospital Course Hospital Course: Reason for admission: See ER note and H&P for details. 57 y/o female to ER with redness and swelling to left foot. History of chronic ulcer and follows with podiatry. Home check found increased redness and drainage and sent to ER. In ER normal WBC and afebrile. X-ray without evidence of osteomyelitis and admitted. Hospital course: Started IV vancomycin and zosyn. Podiatry consulted. Resumed home medication. To OR for I&D and wound vac placed. Pain tolerable with medication. Remained without fever and normal WBC. Cultures pending. Discharged home in stable condition. Will take doxycycline and augmentin for infection. Home health to change wound vac. Use norco for pain. Resume home medication as directed. Follow up with podiatry in 1 week. Time Spent with Patient Time attestation: Total time spent providing and/or coordinating discharge services: Time spent: less than 30 minutes Exam Constitutional Vital Signs, click to edit/add: Last Vital Signs Temp 97.6 F 09/20/23 06:00 Pulse 64 09/20/23 06:00 Resp 16 09/20/23 06:00 BP 132/76 09/20/23 06:00 Pulse Ox 95 09/20/23 06:00 O2 Del Method Nasal Cannula 09/20/23 06:00 O2 Flow Rate 4 09/20/23 06:00 Documenting provider has reviewed patient's vital signs: yes Common normals: no apparent distress, oriented x3 and alert HENMT Common normals: normocephalic Eye Common normals: PERRL and EOMs intact bilaterally Respiratory Common normals: normal respiratory effort and clear to auscultation bilaterally Cardio Common normals: regular rate, regular rhythm, no gallops, no murmurs and no rub GI Common normals: Normal to inspection, nondistended, normoactive bowel sounds present and non-tender Extremity Common normals: no pedal edema DS: Data Data Completed and Pending Labs on day of discharge: Labs from last 24 hours 09/20/23 09/20/23 09/19/23 08:11 04:33 22:55 WBC 8.9 RBC 4.02 L Hgb 11.5 L Hct 37.5 MCV 93.3 MCH 28.6 MCHC 30.7 RDW 13.7 Plt Count 198 MPV 9.8 Neut % (Auto) 47.0 Lymph % (Auto) 38.5 [place] % (Auto) 11.1 Eos % (Auto) 2.7 Baso % (Auto) 0.4 Neut # (Auto) 4.2 Lymph # (Auto) 3.4 [place] # (Auto) 1.0 H Eos # (Auto) 0.2 Baso # (Auto) 0.0 Abs Immat Gran (auto) 0.03 Imm/Tot Granulo (auto) 0.3 Sodium 138 Potassium 4.1 Chloride 104 Carbon Dioxide 26.4 Anion Gap 11.7 BUN 17.0 Creatinine 0.96 Est GFR ( Amer) >60 Est GFR (Non-Af Amer) >60 BUN/Creatinine Ratio 17.7 Glucose 223 H Calcium 9.4 Total Bilirubin 0.3 AST 20 ALT 27 Alkaline Phosphatase 110 Total Protein 7.1 Albumin 3.0 L Globulin 4.1 Albumin/Globulin Ratio 0.7 POC Glucose 191 H 220 H 09/19/23 09/19/23 09/19/23 16:27 13:16 11:25 WBC RBC Hgb Hct MCV MCH MCHC RDW Plt Count MPV Neut % (Auto) Lymph % (Auto) [place] % (Auto) Eos % (Auto) Baso % (Auto) Neut # (Auto) Lymph # (Auto) [place] # (Auto) Eos # (Auto) Baso # (Auto) Abs Immat Gran (auto) Imm/Tot Granulo (auto) Sodium Potassium Chloride Carbon Dioxide Anion Gap BUN Creatinine Est GFR ( Amer) Est GFR (Non-Af Amer) BUN/Creatinine Ratio Glucose Calcium Total Bilirubin AST ALT Alkaline Phosphatase Total Protein Albumin Globulin Albumin/Globulin Ratio POC Glucose 202 H 191 H 212 H Discharge Plan Discharge Disposition: Home Health Service Condition: Good Discharge Medications: New doxycycline hyclate 100 mg capsule 100 mg PO BID 14 Days Qty: 28 0RF hydrocodone-acetaminophen 5-325 mg tablet 1 tab PO Q6H PRN (Reason: pain) 7 Days Qty: 28 0RF aspirin [Adult Low Dose Aspirin] 81 mg tablet,delayed release (DR/EC) 81 mg PO BID 30 Days Qty: 60 0RF ondansetron 4 mg tablet,disintegrating 4 mg PO Q8H PRN (Reason: nausea and vomiting) 5 Days Qty: 15 0RF naloxone [Narcan] 4 mg/actuation spray,non-aerosol 1 spray intranasal Q2M PRN (Reason: opioid overdose) Qty: 2 0RF Rx Instructions: spray 1 dose into ONE nostril; alternate nostrils w each dose until help arrives amoxicillin-pot clavulanate [Augmentin] 500-125 mg tablet 1 tab PO BID Qty: 30 0RF Continued amitriptyline 150 mg tablet 150 mg PO .qhs amlodipine 5 mg tablet 5 mg PO QDAY atorvastatin 40 mg tablet 40 mg PO .qhs baclofen 10 mg tablet 10 mg PO Q8H cholecalciferol (vitamin D3) [Vitamin D3] 50 mcg (2,000 unit) capsule 50 mcg PO QDAY dicyclomine 20 mg tablet 20 mg PO TID duloxetine 60 mg capsule,delayed release(DR/EC) 60 mg PO BID Jardiance 10 mg tablet 10 mg PO QDAY gabapentin 100 mg capsule 100 mg PO .COMPLEX Rx Instructions: 100 mg orally 1tab at 9am and 3pm and 2 tabs at bedtime; glipizide 10 mg tablet 10 mg PO BID hydroxyzine HCl 50 mg tablet 50 mg PO Q8H PRN (Reason: anxiety) insulin glargine [Lantus Solostar U-100 Insulin] 100 unit/mL (3 mL) insulin pen 70 unit SUBCUT .qam and qpm lisinopril 20 mg tablet 20 mg PO QDAY omeprazole 40 mg capsule,delayed release(DR/EC) 40 mg PO QAM Rx Instructions: before breakfast Ozempic 0.25 mg or 0.5 mg (2 mg/3 mL) pen injector 0.25 mg SUBCUT .weekly ezetimibe 10 mg tablet 10 mg PO DAILY levothyroxine 150 mcg capsule 150 mcg PO DAILY insulin glargine [Lantus U-100 Insulin] 100 unit/mL solution 60 unit subcut QAM home oxygen BEDTIME Activity: increase activity as tolerated Diet: advance to your usual diet Print Language: Greek 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 Aguiar's office to change wound vac dressing on Friday ( office will call patient Friday morning with time) other changes will be done by Home Health. Forms: Portal Instructions
[2023-09-20 10:57] LABS: Vancomycin Trough 22.6 ug/mL (5.0-20.0)
[2023-09-20 11:03] VITALS: O2SAT 92
--- NOTE | 2023-09-20 11:45 | PC.NURSE ---
[employer]ater called [facility] in [place] and left message for pharmacy to cancel prescription sent for Narcan. Dr Aguiar did not want this medication to be filled.
[2023-09-20 12:49] LABS: Glucometer 156 mg/dL (74-106)
[2023-09-20] MEDS: ACETAMINOPHEN 500 MG TABLET 1000 MG PO (14:18)
[2023-09-20 14:20] VITALS: BP 152/81; PULSE 87; TEMP 36.4; O2SAT 91
--- NOTE | 2023-09-23 09:32 | SWNOTE1 ---
SW sent over discharge summary, dc med rec, and progress note from podiatry to [facility]. SW was not in on 09/22/23 to send over finalized discharge information. The CRF was sent over on 09/19/23 to [facility] in regards to wound vac care orders.
--- NOTE | 2023-09-23 14:27 | CM.DCFOLLOWU ---
Person spoke with: patient How are you feeling? well How is your pain? minimal pain Did you understand your discharge instructions? yes Do you have any questions about your discharge instructions? no Were you given any prescriptions at discharge? yes Were you able to get your prescriptions filled? yes Do you understand how to take your medications as ordered? yes Do you have any questions about your follow up appointment and do you plan to keep your follow up appointment? no questions, had follow up with Dr. Aguiar on Friday, and [facility] has came in to home Is there anything else that you would like to discuss? no Questions/Comments/Concerns/Other: N/A
--- NOTE | 2023-09-24 12:05 | PC.NURSE ---
bovie pad applied but bovie not used
== END 2023-09-20 16:13 | disposition home health service (06) | DRG 629 ==
LOC: ER 20:43 → MS 09-19 09:07
PROVIDERS: Nurse Practitioner Acute Care; Physician Assistant; Podiatrist Foot & Ankle Surgery; Admitting Provider Internal Medicine; Emergency Provider Internal Medicine; Visit Provider Family Medicine
PROC: 0QBM3ZX Excision of Left Tarsal, Percutaneous Approach, Diagnostic (ICD-10-PCS; principal; 2023-09-19 11:30)
DX: E11.621 Type 2 diabetes mellitus with foot ulcer (principal); L02.612 Cutaneous abscess of left foot; Z68.41 Body mass index [BMI] 40.0-44.9, adult; L97.522 Non-pressure chronic ulcer of other part of left foot with fat layer exposed; Z79.4 Long term (current) use of insulin; E11.42 Type 2 diabetes mellitus with diabetic polyneuropathy; E11.65 Type 2 diabetes mellitus with hyperglycemia; I10 Essential (primary) hypertension; E66.01 Morbid (severe) obesity due to excess calories; Z79.899 Other long term (current) drug therapy; Z79.84 Long term (current) use of oral hypoglycemic drugs; Z79.85 Long-term (current) use of injectable non-insulin antidiabetic drugs; G47.34 Idiopathic sleep related nonobstructive alveolar hypoventilation; I25.2 Old myocardial infarction; E06.3 Autoimmune thyroiditis; F31.9 Bipolar disorder, unspecified; F41.9 Anxiety disorder, unspecified; Z96.659 Presence of unspecified artificial knee joint; Z90.49 Acquired absence of other specified parts of digestive tract; Z90.710 Acquired absence of both cervix and uterus; Z87.891 Personal history of nicotine dependence; Z87.898 Personal history of other specified conditions; B96.89 Other specified bacterial agents as the cause of diseases classified elsewhere; B95.61 Methicillin susceptible Staphylococcus aureus infection as the cause of diseases classified elsewhere
CPT/HCPCS: 36415; 73630; 80053; 80202; 82800; 82948; 83605; 84145; 85025; 85652; 86140; 87040; 87070; 87102; 87116; 87150; 87186; 87205; 87206; 88304; 88305; 93926; 94761; 96365; 96366; 96367; 96368; 96372; 97605; 99285; G0378; J2704; J3370

== ENCOUNTER 2023-09-22 15:10 | Outpatient (OUT) | payer MEDICARE, MEDICAID, SELFPAY | END 2023-09-22 15:11 | disposition home or self-care (01) | LOC: WC 15:10 | PROVIDERS: Visit Provider Physician Assistant | DX: E11.621 Type 2 diabetes mellitus with foot ulcer (principal); L97.422 Non-pressure chronic ulcer of left heel and midfoot with fat layer exposed | CPT/HCPCS: G0463 ==

== ENCOUNTER 2023-09-30 15:38 | Outpatient (OUT) | payer MEDICARE, MEDICAID, SELFPAY | END 2023-09-30 15:39 | disposition home or self-care (01) | LOC: WC 15:38 | PROVIDERS: Visit Provider Podiatrist Foot & Ankle Surgery | DX: E11.621 Type 2 diabetes mellitus with foot ulcer (principal); L97.422 Non-pressure chronic ulcer of left heel and midfoot with fat layer exposed | CPT/HCPCS: G0463 ==

== ENCOUNTER 2023-10-09 13:50 | Emergency (ER) | payer MEDICARE, MEDICAID, SELFPAY ==
[2023-10-09] VITALS (15 sets, daily range): BP systolic 167; BP diastolic 92; PULSE 72–88; TEMP 36.6; O2SAT 98; BMI 41.0
--- NOTE | 2023-10-09 14:30 | ED_ITS ---
HPI HPI - General Adult General Chief complaint: Skin/Abscess/Foreign Body Stated complaint: LOWER LEFT EXYTREMITY PAIN POST OP Time Seen by Provider: 10/09/23 14:21 Source: patient Mode of arrival: Wheelchair History of Present Illness HPI narrative: This patient is here for evaluation of a healing wound. She states that approximately 2 or 3 weeks ago she had Dr. Gelacio Becerril at this will perform a surgical procedure on her left foot. She said they went all the way to the bone but did not believe the bone was infected. She has followed up with them once but the stool sugars are still in place. She now has a home ground helper street railway doctor who looks at her wounds on a regular basis and he felt that she should come to the hospital because a history of labile blood sugars and some mild erythema around the wound. She has not had rigors or shaking chills. She is not currently on any antibiotics. Her sugars been running between 140 and 400. She is not having any chest pain or shortness of breath. She denies previous history of heart disease but says she may have had silent heart attack. Related Data Home Medications ?Medication ?Instructions ?Recorded ?Confirmed amitriptyline 150 mg tablet 150 mg PO .qhs 09/18/23 10/09/23 amlodipine 5 mg tablet 5 mg PO QDAY 09/18/23 10/09/23 atorvastatin 40 mg tablet 40 mg PO .qhs 09/18/23 10/09/23 baclofen 10 mg tablet 10 mg PO Q8H 09/18/23 10/09/23 cholecalciferol (vitamin D3) 50 50 mcg PO QDAY 09/18/23 09/18/23 mcg (2,000 unit) capsule (Vitamin D3) dicyclomine 20 mg tablet 20 mg PO TID 09/18/23 10/09/23 duloxetine 60 mg capsule,delayed 60 mg PO BID 09/18/23 10/09/23 release empagliflozin 10 mg tablet 10 mg PO QDAY 09/18/23 10/09/23 (Jardiance) ezetimibe 10 mg tablet 10 mg PO DAILY 09/18/23 10/09/23 gabapentin 100 mg capsule 100 mg PO .COMPLEX 09/18/23 10/09/23 glipizide 10 mg tablet 10 mg PO BID 09/18/23 10/09/23 home oxygen BEDTIME 09/18/23 hydroxyzine HCl 50 mg tablet 50 mg PO Q8H PRN anxiety 09/18/23 09/18/23 insulin glargine 100 unit/mL (3 70 unit subcut .qam and qpm 09/18/23 09/18/23 mL) subcutaneous pen (Lantus Solostar U-100 Insulin) insulin glargine 100 unit/mL 60 unit subcut QAM 09/18/23 09/18/23 subcutaneous solution (Lantus U-100 Insulin) levothyroxine 150 mcg capsule 150 mcg PO DAILY 09/18/23 09/18/23 lisinopril 20 mg tablet 20 mg PO QDAY 09/18/23 10/09/23 omeprazole 40 mg capsule,delayed 40 mg PO QAM 09/18/23 10/09/23 release semaglutide 0.25 mg or 0.5 mg (2 0.25 mg subcut .weekly 09/18/23 09/18/23 mg/3 mL) subcutaneous pen injector (Ozempic) Previous Rx's ?Medication ?Instructions ?Recorded aspirin 81 mg tablet,delayed 81 mg PO BID 30 days #60 tabs 09/19/23 release (Adult Low Dose Aspirin) doxycycline hyclate 100 mg capsule 100 mg PO BID 14 days #28 caps 09/19/23 hydrocodone 5 mg-acetaminophen 325 1 tab PO Q6H PRN pain 7 days #28 09/19/23 mg tablet tabs naloxone 4 mg/actuation nasal 1 spray intranasal Q2M PRN opioid 09/19/23 spray (Narcan) overdose #2 ea ondansetron 4 mg disintegrating 4 mg PO Q8H PRN nausea and 09/19/23 tablet vomiting 5 days #15 tabs hydrocodone 5 mg-acetaminophen 325 1 tab PO Q8H PRN pain 7 days #21 09/30/23 mg tablet tabs Allergies Allergy/AdvReac Type Severity Reaction Status Date / Time sulfamethoxazole Allergy Verified 10/09/23 14:04 [From Bactrim] trimethoprim [From Bactrim] Allergy Verified 10/09/23 14:04 diuretics AdvReac Severe Uncoded 10/09/23 14:01 Opioid HPI Opioid Management Most Recent Opioid Data: Last Pain Scale 7 10/09/23 14:46 Last ORT Total Score 4 09/18/23 21:26 Last ORT Risk Category Moderate Risk 09/18/23 21:[facility] Medical History (Updated 10/09/23 @ 16:55 by Thierno Figueroa MD) Morbid obesity due to excess calories ?E66.01 - Morbid (severe) obesity due to excess calories (ICD-10) Type 2 diabetes mellitus with diabetic polyneuropathy ?E11.42 - Type 2 diabetes mellitus with diabetic polyneuropathy (ICD-10) Controlled diabetes mellitus with hyperglycemia, with long-term current use of insulin ?E11.65 - Type 2 diabetes mellitus with hyperglycemia (ICD-10) ?Z79.4 - buttermaker continuous churn (current) use of insulin (ICD-10) Non-pressure chronic ulcer of other part of left foot with fat layer exposed ?L97.522 - Non-pressure chronic ulcer of other part of left foot with fat layer exposed (ICD-10) Nocturnal hypoxia ?G47.34 - Idiopathic sleep related nonobstructive alveolar hypoventilation (ICD-10) Hypothyroid ?E03.9 - Hypothyroidism, unspecified (ICD-10) High blood pressure ?I10 - Essential (primary) hypertension (ICD-10) Bipolar 1 disorder ?F31.9 - Bipolar disorder, unspecified (ICD-10) Diabetic foot ulcer ?E11.621 - Type 2 diabetes mellitus with foot ulcer (ICD-10) ?L97.509 - Non-pressure chronic ulcer of other part of unspecified foot with unspecified severity (ICD-10) T2DM (type 2 diabetes mellitus) ?E11.9 - Type 2 diabetes mellitus without complications (ICD-10) Wound infection ?T14.8XXA - Other injury of unspecified body region, initial encounter (ICD- 10) ?L08.9 - Local infection of the skin and subcutaneous tissue, unspecified (ICD-10) History of heart attack ?I25.2 - Old myocardial infarction (ICD-10) Autoimmune thyroiditis ?E06.3 - Autoimmune thyroiditis (ICD-10) Gastroparesis ?K31.84 - Gastroparesis (ICD-10) Manic-depression ?F31.9 - Bipolar disorder, unspecified (ICD-10) Anxiety ?F41.9 - Anxiety disorder, unspecified (ICD-10) Diabetes ?E11.9 - Type 2 diabetes mellitus without complications (ICD-10) Surgical History (Updated 09/19/23 @ 02:37 by Joie Alvarez) Status post dilation of esophageal narrowing ?Z98.890 - Other specified postprocedural states (ICD-10) ?Z87.19 - Personal history of other diseases of the digestive system (ICD-10) S/P knee replacement ?Z96.659 - Presence of unspecified artificial knee joint (ICD-10) Femur fracture, right ?S72.91XA - Unspecified fracture of right femur, initial encounter for closed fracture (ICD-10) History of appendectomy ?Z90.49 - Acquired absence of other specified parts of digestive tract (ICD- 10) History of cholecystectomy ?Z90.49 - Acquired absence of other specified parts of digestive tract (ICD- 10) History of hysterectomy ?Z90.710 - Acquired absence of both cervix and uterus (ICD-10) Family History (Updated 09/18/23 @ 21:54 by Joie Alvarez) Sister Family history of cancer Family history of hypertension Mother Family history of diabetes mellitus Social History (Updated 09/18/23 @ 21:56 by Joie Alvarez) Within the past year, how often did you have a drink containing alcohol: monthly or less Smoking status: Former smoker Non-prescribed substance use: former substance user and crack/cocaine Previous occupational history: disabled Highest level of school completed/degree received: 11th grade Are you now , , , , never or living with a partner: refused to answer In a typical week, how many times do you talk on the telephone with family, friends, or neighbors: 3 or more times per week How often do you get together with friends or relatives: 3 or more times per week How often do you attend yazdanism or christian services: never Little interest or pleasure in doing things: several days Feeling down, depressed, or hopeless: several days Feel stressed/tense/nervous/anxious/difficulty sleeping: to some extent Do you think of yourself as: straight/heterosexual Gender Identity: female Exam Narrative Exam Narrative: Awake alert oriented x 3 does not appear ill or toxic Vitals: There are no did not appear normal. Temperature is a. Blood pressure good. Problem focused examination she does have some swelling of her right leg. We are awaiting for the ultrasound come back on that side. Her left leg the dressings were taken down and she does have a healing wound with sutures intact. There is normal tissue healing in my opinion with very minimal erythema around the wound margins. There is no subcutaneous emphysema or necrotic tissue. There is no purulence or drainage. Constitutional Vital Signs, click to edit/add: Last Vital Signs Temp 97.9 F 10/09/23 14:01 Pulse 80 10/09/23 16:50 Resp 16 10/09/23 16:50 BP 167/92 H 10/09/23 14:01 Pulse Ox 98 10/09/23 14:01 O2 Del Method Room Air 10/09/23 14:01 Course Vital Signs Vital signs: Vital Signs Temperature 97.9 F 10/09/23 14:01 Pulse Rate 88 10/09/23 14:01 Respiratory Rate 20 10/09/23 14:01 Blood Pressure 167/92 H 10/09/23 14:01 Pulse Oximetry 98 10/09/23 14:01 Oxygen Delivery Method Room Air 10/09/23 14:01 Temperature 97.9 F 10/09/23 14:01 Pulse Rate 80 10/09/23 16:50 Respiratory Rate 16 10/09/23 16:50 Blood Pressure 167/92 H 10/09/23 14:01 Pulse Oximetry 98 10/09/23 14:01 Oxygen Delivery Method Room Air 10/09/23 14:01 Medical Decision Making MDM Narrative Medical decision making narrative: After obtaining laboratory values and x-rays I discussed the case with the on- call ground helper street railway Dr. Hicks. He is familiar with the patient as he performed the surgery. He said there there really was no infection at the time of the wound debridement. With her white blood cell count being normal and afebrile x-rays being normal he feels we can safely see her in the patient in the office tomorrow. We will give her a dose of Unasyn and then start her on Augmentin. This was explained carefully to the patient that she does not need acute admission at this time but will monitor very very closely as an outpatient. Although she is a diabetic I think the current treatment recommendations should be sufficient. We did recognize that her lactate was up but she is not tachycardic or hypotensive and clinically is stable Lab Data Labs: Lab Results 10/09/23 Range/Units 14:39 WBC 9.9 (4.0-11.0) 10^3/uL RBC 4.39 (4.20-5.40) 10^6/uL Hgb 12.8 (12.0-16.0) g/dL Hct 40.3 (36.0-48.0) % MCV 91.8 (81.0-99.0) fL MCH 29.2 (26.7-34.0) pg MCHC 31.8 (29.9-35.2) g/dL RDW 13.7 (11.0-15.0) % Plt Count 229 (150-450) 10^3/uL MPV 9.6 (9.5-13.5) fL Neut % (Auto) 48.6 (43.0-75.0) % Lymph % (Auto) 39.8 (20.5-60.0) % Carson % (Auto) 8.6 (1.7-12.0) % Eos % (Auto) 2.3 (0.9-7.0) % Baso % (Auto) 0.4 (0.2-2.0) % Neut # (Auto) 4.8 (1.4-6.5) 10^3/uL Lymph # (Auto) 3.9 H (1.2-3.8) 10^3/uL Carson # (Auto) 0.9 H (0.3-0.8) 10^3/uL Eos # (Auto) 0.2 (0.0-0.7) 10^3/uL Baso # (Auto) 0.0 (0.0-0.1) 10^3/uL Abs Immat Gran (auto) 0.03 (0.00-0.03) 10^3/uL Imm/Tot Granulo (auto) 0.3 (0.0-0.5) % ESR 45 H (<=30) mm/hr VBG pH 7.390 (7.330-7.430) VBG pCO2 41.0 (40.0-52.0) mmHg Sodium 133 L (136-145) mmol/L Potassium 4.4 (3.5-5.1) mmol/L Chloride 97 L (98-107) mmol/L Carbon Dioxide 27.3 (21.0-32.0) mmol/L Anion Gap 13.1 BUN 22.0 H (7.0-18.0) mg/dL Creatinine 1.14 H (0.55-1.02) mg/dL Est GFR ( Amer) 60 (>=60) Est GFR (Non-Af Amer) 49 L (>=60) BUN/Creatinine Ratio 19.3 Glucose 266 H (74-106) mg/dL Lactate 3.4 H* (0.4-2.0) mmol/L Calcium 9.2 (8.5-10.1) mg/dL Magnesium 1.9 (1.8-2.4) mg/dL Discharge Plan Discharge Stand Alone Forms: Portal Instructions Chief Complaint: Skin/Abscess/Foreign Body Clinical Impression: Healing wound Patient Disposition: Home, Self-Care Time of Disposition Decision: 16:54 Prescriptions / Home Meds: No Action amitriptyline 150 mg tablet 150 mg PO .qhs amlodipine 5 mg tablet 5 mg PO QDAY atorvastatin 40 mg tablet 40 mg PO .qhs baclofen 10 mg tablet 10 mg PO Q8H cholecalciferol (vitamin D3) [Vitamin D3] 50 mcg (2,000 unit) capsule 50 mcg PO QDAY dicyclomine 20 mg tablet 20 mg PO TID duloxetine 60 mg capsule,delayed release(DR/EC) 60 mg PO BID Jardiance 10 mg tablet 10 mg PO QDAY gabapentin 100 mg capsule 100 mg PO .COMPLEX Rx Instructions: 100 mg orally 1tab at 9am and 3pm and 2 tabs at bedtime; glipizide 10 mg tablet 10 mg PO BID hydroxyzine HCl 50 mg tablet 50 mg PO Q8H PRN (Reason: anxiety) insulin glargine [Lantus Solostar U-100 Insulin] 100 unit/mL (3 mL) insulin pen 70 unit SUBCUT .qam and qpm lisinopril 20 mg tablet 20 mg PO QDAY omeprazole 40 mg capsule,delayed release(DR/EC) 40 mg PO QAM Rx Instructions: before breakfast Ozempic 0.25 mg or 0.5 mg (2 mg/3 mL) pen injector 0.25 mg SUBCUT .weekly ezetimibe 10 mg tablet 10 mg PO DAILY levothyroxine 150 mcg capsule 150 mcg PO DAILY insulin glargine [Lantus U-100 Insulin] 100 unit/mL solution 60 unit subcut QAM home oxygen BEDTIME doxycycline hyclate 100 mg capsule 100 mg PO BID 14 Days Qty: 28 0RF hydrocodone-acetaminophen 5-325 mg tablet 1 tab PO Q6H PRN (Reason: pain) 7 Days Qty: 28 0RF aspirin [Adult Low Dose Aspirin] 81 mg tablet,delayed release (DR/EC) 81 mg PO BID 30 Days Qty: 60 0RF ondansetron 4 mg tablet,disintegrating 4 mg PO Q8H PRN (Reason: nausea and vomiting) 5 Days Qty: 15 0RF naloxone [Narcan] 4 mg/actuation spray,non-aerosol 1 spray intranasal Q2M PRN (Reason: opioid overdose) Qty: 2 0RF Rx Instructions: spray 1 dose into ONE nostril; alternate nostrils w each dose until help arrives hydrocodone-acetaminophen 5-325 mg tablet 1 tab PO Q8H PRN (Reason: pain) 7 Days Qty: 21 0RF Print Language: Nauruan Additional Instructions: Start Augmentin late tonight, begin doxycycline today. See your foot doctor tomorrow Referrals: Physician,Non-Staff, MD [Primary Care Provider] - 1 week
--- NOTE | 2023-10-09 14:31 | ECG_ITS ---
[facility] Test Date: 2023-10-09 Pat Name: DALIA MELENDEZ Department: Room: - Gender: Female [employer]: : 1965 Requested By: Order Number: [id number] Reading MD: MARQUITA GLOVER Measurements Intervals [place] Rate: 82 P: 62 HI: 174 QRS: 79 QRSD: 116 T: -30 QT: 390 QTc: 428 Interpretive Statements 1100 Sinus rhythm 3633 Inferior myocardial infarction, probably old 9150 abnormal ECG No previous ECG available for comparison Electronically Signed On 10-09-2023 22:40:05 EDT by MARQUITA GLOVER
--- NOTE | 2023-10-09 14:40 | US_ITS ---
[address] [address] Patient Name: DALIA MELENDEZ MRN: [id number] date: 1965 Sex: F Assigned Patient Location: ER Current Patient Location: ER Accession/Order Number: [id number] Exam Date: 10/09/2023 14:41 Report Date: 10/09/2023 16:04 At the request of: RAQUEL AMADOR Procedure: US venous doppler LE RT EXAM: US venous doppler LE RT HISTORY: swelling COMPARISON: None. TECHNIQUE: Grayscale, color and Doppler FINDINGS: Region: Right leg Thrombus: None Flow: Normal Augmentation: Normal Compressibility: Normal Other: Limited visualization of the peroneal veins US/US venous doppler LE RT IMPRESSION: No deep or superficial vein thrombus identified in the right leg Electronically authenticated by: ROMAN METZGER Date: 10/09/2023 16:04
[2023-10-09] MEDS: 0.9 % SODIUM CHLORIDE 1,000 ML 100 ML IV (15:01)
--- NOTE | 2023-10-09 15:03 | PC.NURSE ---
patient was seen at by her in home pediatrist for check up following surgery with dr. brown 3 weeks ago for infected abscess that was debrided here at [facility]. patient states she finished her amoxicillin last week. today pediatrist when to change dressing and states that she should come to ED for antibiotic therapy and have diabetic counseling. patient states home blood sugars have been all over the place. patient takes ozempic, regular insulin and lantas. states last night her sugar was 400 and this morning it was 140s. patient abscess is dress nicely. sutures intact with light yellow/white/greenish drainage. not enough to saturate pad. pagtient is nonweight baring for 5 years.
[2023-10-09 15:04] LABS: Basophils Percent Auto 0.4 % (0.2-2.0); Eosinophils Absolute Auto 0.2 10^3/uL (0.0-0.7); Eosinophils Percent Auto 2.3 % (0.9-7.0); Hematocrit 40.3 % (36.0-48.0); Hemoglobin 12.8 g/dL (12.0-16.0); Immature Granulocytes Abs Auto 0.03 10^3/uL (0.00-0.03); Immature Granulocytes Pct Auto 0.3 % (0.0-0.5); Lymphocytes Absolute Auto 3.9 10^3/uL (1.2-3.8); Lymphocytes Percent Auto 39.8 % (20.5-60.0); Mean Corpuscular HGB Conc 31.8 g/dL (29.9-35.2); Mean Corpuscular Hemoglobin 29.2 pg (26.7-34.0); Mean Corpuscular Volume 91.8 fL (81.0-99.0); Mean Platelet Volume 9.6 fL (9.5-13.5); Monocytes Absolute Auto 0.9 10^3/uL (0.3-0.8); Monocytes Percent Auto 8.6 % (1.7-12.0); Neutrophils Absolute Auto 4.8 10^3/uL (1.4-6.5); Neutrophils Percent Auto 48.6 % (43.0-75.0); Platelet Count 229 10^3/uL (150-450); Red Blood Count 4.39 10^6/uL (4.20-5.40); Red Cell Distribution Width 13.7 % (11.0-15.0); White Blood Count 9.9 10^3/uL (4.0-11.0)
--- NOTE | 2023-10-09 15:05 | XR_ITS ---
The [address] [address] Patient Name: DALIA MELENDEZ MRN: [id number] date: 1965 Sex: F Assigned Patient Location: ER Current Patient Location: ER Accession/Order Number: [id number] Exam Date: 10/09/2023 14:58 Report Date: 10/09/2023 15:38 At the request of: RAQUEL AMADOR Procedure: XR foot LT min 3V PROCEDURE: XR foot LT min 3V COMPARISON: 09/14/2023 HISTORY: Rule out osteomyelitis FINDINGS: BONES:No acute fracture or dislocation. Mild degenerative changes. Mild enthesopathic spurring the calcaneus. No focal lytic or sclerotic changes SOFT TISSUES:Soft tissue injury/ulcer to the plantar heel EFFUSION:None visible. OTHER: Negative. XR/XR foot LT min 3V IMPRESSION: No plain film evidence of osteomyelitis Electronically authenticated by: ROMAN METZGER Date: 10/09/2023 15:38
--- NOTE | 2023-10-09 15:05 | XR_ITS ---
The [address] [address] Patient Name: DALIA MELENDEZ MRN: [id number] date: 1965 Sex: F Assigned Patient Location: ER Current Patient Location: ER Accession/Order Number: [id number] Exam Date: 10/09/2023 14:58 Report Date: 10/09/2023 15:36 At the request of: RAQUEL AMADOR Procedure: XR chest 1V EXAMINATION: XR chest 1V HISTORY: Weakness COMPARISON: No relevant comparison available. TECHNIQUE: AP portable FINDINGS: LUNGS: No significant pulmonary parenchymal abnormalities. VASCULATURE: No increased pulmonary vasculature. PLEURA: No pneumothorax, effusion, or pleural thickening. CARDIAC: No cardiomegaly or cardiac silhouette abnormality. MEDIASTINUM: No visible mass or adenopathy. BONES: No fracture or visible bone lesion. OTHER: Negative. XR/XR chest 1V IMPRESSION: No acute cardiopulmonary process Electronically authenticated by: ROMAN METZGER Date: 10/09/2023 15:36
[2023-10-09 15:15] LABS: Anion Gap 13.1; BUN Creatinine Ratio 19.3; Calcium 9.2 mg/dL (8.5-10.1); Carbon Dioxide 27.3 mmol/L (21.0-32.0); Chloride 97 mmol/L (98-107); Erythrocyte Sedimentation Rate 45 mm/hr (<=30); Estimated GFR (African America 60 (>=60); Estimated GFR (Non-African Ame 49 (>=60); Glucose 266 mg/dL (74-106); Magnesium 1.9 mg/dL (1.8-2.4); Potassium 4.4 mmol/L (3.5-5.1); Sodium 133 mmol/L (136-145)
[2023-10-09 15:30] LABS: Lactate/Lactic Acid 3.4 mmol/L (0.4-2.0)
[2023-10-09] MEDS: AMPICILLIN SODIUM/SULBACTAM NA 3 GM in 0.9 % SODIUM CHLORIDE 100 ML IV (15:46)
== END 2023-10-09 17:02 | disposition home or self-care (01) ==
PROVIDERS: Emergency Provider Emergency Medicine Emergency Medical Services
DX: Z09 Encounter for follow-up examination after completed treatment for conditions other than malignant neoplasm (principal); E11.9 Type 2 diabetes mellitus without complications; M79.89 Other specified soft tissue disorders
CPT/HCPCS: 36415; 71045; 73630; 80048; 82800; 83605; 83735; 85025; 85652; 87040; 93005; 93971; 96365; 99285

== ENCOUNTER 2023-10-10 11:05 | Outpatient (OUT) | payer MEDICARE, MEDICAID, SELFPAY | END 2023-10-10 11:06 | disposition home or self-care (01) | LOC: WC 11:06 | PROVIDERS: Visit Provider Podiatrist Foot & Ankle Surgery | DX: E11.621 Type 2 diabetes mellitus with foot ulcer (principal); L97.422 Non-pressure chronic ulcer of left heel and midfoot with fat layer exposed | CPT/HCPCS: G0463 ==

== ENCOUNTER 2023-11-21 16:40 | Observation (INO) | payer MEDICARE, MEDICAID, SELFPAY ==
[2023-11-21 16:55] VITALS: BP 150/90; PULSE 90; TEMP 36.8; O2SAT 96; BMI 40.7
--- NOTE | 2023-11-21 20:02 | XR_ITS ---
The [address] [address] Patient Name: DALIA MELENDEZ MRN: [id number] date: 1965 Sex: F Assigned Patient Location: ER Current Patient Location: ER Accession/Order Number: [id number] Exam Date: 11/21/2023 20:25 Report Date: 11/21/2023 21:11 At the request of: CARMEN CONNELLY Procedure: XR calcaneus LT min 2V EXAM: XR calcaneus LT min 2V HISTORY: Osteomyelitis COMPARISON: 10/09/2023 TECHNIQUE: 2 views are performed. FINDINGS: There is a tiny retrocalcaneal spur, and a tiny enthesophyte at the insertion of the Achilles tendon. No fracture or bony erosion. No soft tissue gas. XR/XR calcaneus LT min 2V IMPRESSION: No acute bony abnormality. Electronically authenticated by: OZRAN CLARK Date: 11/21/2023 21:11
--- NOTE | 2023-11-21 20:04 | ED.GENADUL1 ---
HPI HPI - General Adult General Chief complaint: Wound/Laceration Stated complaint: lower extremity wound draining Time Seen by Provider: 11/21/23 17:01 Source: patient Mode of arrival: Wheelchair Limitations: no limitations History of Present Illness HPI narrative: Patient is a 58-year-old female with a history of diabetes who presents to the emergency department for worsening redness and necrosis and wound of the left medial heel. This wound has been present for several months, she states her home health nurse has been doing weekly dressing changes and noted an open blistered area with necrosis and surrounding erythema today. Patient believes the area has been open for the last 2 days. She has not had fevers or vomiting. She reports some pain in the wound. Related Data Home Medications ?Medication ?Instructions ?Recorded ?Confirmed amitriptyline 150 mg tablet 150 mg PO .qhs 09/18/23 11/21/23 amlodipine 5 mg tablet 5 mg PO QDAY 09/18/23 11/21/23 atorvastatin 40 mg tablet 40 mg PO .qhs 09/18/23 11/21/23 baclofen 10 mg tablet 10 mg PO Q8H 09/18/23 11/21/23 cholecalciferol (vitamin D3) 50 50 mcg PO QDAY 09/18/23 11/21/23 mcg (2,000 unit) capsule (Vitamin D3) dicyclomine 20 mg tablet 20 mg PO TID 09/18/23 11/21/23 duloxetine 60 mg capsule,delayed 60 mg PO BID 09/18/23 11/21/23 release empagliflozin 10 mg tablet 10 mg PO QDAY 09/18/23 11/21/23 (Jardiance) ezetimibe 10 mg tablet 10 mg PO DAILY 09/18/23 11/21/23 glipizide 10 mg tablet 10 mg PO BID 09/18/23 11/21/23 home oxygen BEDTIME 09/18/23 hydroxyzine HCl 50 mg tablet 50 mg PO Q8H PRN anxiety 09/18/23 11/21/23 insulin glargine 100 unit/mL (3 70 unit subcut .qam and qpm 09/18/23 11/21/23 mL) subcutaneous pen (Lantus Solostar U-100 Insulin) lisinopril 20 mg tablet 20 mg PO QDAY 09/18/23 11/21/23 omeprazole 40 mg capsule,delayed 40 mg PO QAM 09/18/23 11/21/23 release gabapentin 300 mg capsule 300 mg PO Q8H 11/21/23 11/21/23 levothyroxine 200 mcg tablet 200 mcg PO DAILY 11/21/23 11/21/23 nystatin 100,000 unit/gram topical 1 applic topical TID PRN skin 11/21/23 11/21/23 powder irritation semaglutide 2 mg/dose (8 mg/3 mL) 2 mg subcut .WEEKLY 11/21/23 11/21/23 subcutaneous pen injector (Ozempic) Previous Rx's ?Medication ?Instructions ?Recorded aspirin 81 mg tablet,delayed 81 mg PO BID 30 days #60 tabs 09/19/23 release (Adult Low Dose Aspirin) naloxone 4 mg/actuation nasal 1 spray intranasal Q2M PRN opioid 09/19/23 spray (Narcan) overdose #2 ea Allergies Allergy/AdvReac Type Severity Reaction Status Date / Time sulfamethoxazole Allergy itchy Verified 11/21/23 17:02 [From Bactrim] trimethoprim [From Bactrim] Allergy itchy Verified 11/21/23 17:02 diuretics AdvReac Severe organ Uncoded 11/21/23 17:02 failure Opioid HPI Opioid Management Most Recent Opioid Data: Last Pain Scale 6 11/22/23 04:20 Last Pain Assessment 11/22/23 06:00 Last MAR Pain Assessment 11/22/23 05:20 Last ORT Total Score 6 11/21/23 22:45 Last ORT Risk Category Moderate Risk 11/21/23 22:45 Review of Systems ROS Constitutional Denies: fever or chills Ears, nose, mouth, and throat Denies: throat pain or nasal congestion Respiratory Denies: shortness of breath Gastrointestinal Denies: nausea or vomiting Musculoskeletal Denies: back pain Integumentary/Breast Reports: redness, skin pain, skin tenderness and new lesion; Denies: rash Hematologic/Lymphatic Denies: easy bruising or easy bleeding [facility] Medical History (Updated 11/21/23 @ 21:42 by DION Johnson) Morbid obesity due to excess calories ?E66.01 - Morbid (severe) obesity due to excess calories (ICD-10) Type 2 diabetes mellitus with diabetic polyneuropathy ?E11.42 - Type 2 diabetes mellitus with diabetic polyneuropathy (ICD-10) Controlled diabetes mellitus with hyperglycemia, with long-term current use of insulin ?E11.65 - Type 2 diabetes mellitus with hyperglycemia (ICD-10) ?Z79.4 - [facility] care (current) use of insulin (ICD-10) Non-pressure chronic ulcer of other part of left foot with fat layer exposed ?L97.522 - Non-pressure chronic ulcer of other part of left foot with fat layer exposed (ICD-10) Nocturnal hypoxia ?G47.34 - Idiopathic sleep related nonobstructive alveolar hypoventilation (ICD-10) Hypothyroid ?E03.9 - Hypothyroidism, unspecified (ICD-10) High blood pressure ?I10 - Essential (primary) hypertension (ICD-10) Bipolar 1 disorder ?F31.9 - Bipolar disorder, unspecified (ICD-10) Diabetic foot ulcer ?E11.621 - Type 2 diabetes mellitus with foot ulcer (ICD-10) ?L97.509 - Non-pressure chronic ulcer of other part of unspecified foot with unspecified severity (ICD-10) T2DM (type 2 diabetes mellitus) ?E11.9 - Type 2 diabetes mellitus without complications (ICD-10) Wound infection ?T14.8XXA - Other injury of unspecified body region, initial encounter (ICD-10) ?L08.9 - Local infection of the skin and subcutaneous tissue, unspecified (ICD-10) History of heart attack ?I25.2 - Old myocardial infarction (ICD-10) Autoimmune thyroiditis ?E06.3 - Autoimmune thyroiditis (ICD-10) Gastroparesis ?K31.84 - Gastroparesis (ICD-10) Manic-depression ?F31.9 - Bipolar disorder, unspecified (ICD-10) Anxiety ?F41.9 - Anxiety disorder, unspecified (ICD-10) Diabetes ?E11.9 - Type 2 diabetes mellitus without complications (ICD-10) Surgical History (Updated 09/19/23 @ 02:37 by Joie Alvarez) Status post dilation of esophageal narrowing ?Z98.890 - Other specified postprocedural states (ICD-10) ?Z87.19 - Personal history of other diseases of the digestive system (ICD-10) S/P knee replacement ?Z96.659 - Presence of unspecified artificial knee joint (ICD-10) Femur fracture, right ?S72.91XA - Unspecified fracture of right femur, initial encounter for closed fracture (ICD-10) History of appendectomy ?Z90.49 - Acquired absence of other specified parts of digestive tract (ICD-10) History of cholecystectomy ?Z90.49 - Acquired absence of other specified parts of digestive tract (ICD-10) History of hysterectomy ?Z90.710 - Acquired absence of both cervix and uterus (ICD-10) Family History (Updated 09/18/23 @ 21:54 by Joie Alvarez) Sister Family history of cancer Family history of hypertension Mother Family history of diabetes mellitus Social History Within the past year, how often did you have a drink containing alcohol: monthly or less Smoking status: Former smoker Non-prescribed substance use: former substance user and crack/cocaine Previous occupational history: disabled Highest level of school completed/degree received: high school graduate Are you now , , , , never or living with a partner: refused to answer In a typical week, how many times do you talk on the telephone with family, friends, or neighbors: 3 or more times per week How often do you get together with friends or relatives: 3 or more times per week How often do you attend denominational or denominational services: never Little interest or pleasure in doing things: several days Feeling down, depressed, or hopeless: several days Feel stressed/tense/nervous/anxious/difficulty sleeping: to some extent Do you think of yourself as: straight/heterosexual Gender Identity: female Exam Narrative Exam Narrative: Gen.: Awake, alert, in no distress Head: Normocephalic, atraumatic ENT: Moist mucous membranes Respiratory: No respiratory distress Extremities: Moves extremities equally, 3 cm open blistered wound consistent with diabetic ulcer to the left medial calcaneus with surrounding blanching erythema. No circumferential swelling or redness of the foot. No bony exposure Psych: Normal mood and affect Neuro: No focal neuro deficit Skin: Warm, dry, intact Constitutional Vital Signs, click to edit/add: Last Vital Signs Temp 98.7 F 11/22/23 05:38 Pulse 94 H 11/22/23 05:38 Resp 18 11/22/23 05:38 BP 111/67 11/22/23 05:38 Pulse Ox 95 11/22/23 05:38 O2 Del Method Nasal Cannula 11/22/23 05:38 O2 Flow Rate 2 11/22/23 05:38 Course Vital Signs Vital signs: Vital Signs Temperature 98.2 F 11/21/23 16:55 Pulse Rate 90 11/21/23 16:55 Respiratory Rate 18 11/21/23 16:55 Blood Pressure 150/90 H 11/21/23 16:55 Pulse Oximetry 96 11/21/23 16:55 Oxygen Delivery Method Room Air 11/21/23 16:55 Temperature 98.7 F 11/22/23 05:38 Pulse Rate 94 H 11/22/23 05:38 Respiratory Rate 18 11/22/23 05:38 Blood Pressure 111/67 11/22/23 05:38 Pulse Oximetry 95 11/22/23 05:38 Oxygen Delivery Method Nasal Cannula 11/22/23 05:38 Oxygen Delivery Flow Rate 2 11/22/23 05:38 Medical Decision Making MDM Narrative Medical decision making narrative: Patient treated with IV antibiotics. Labs are stable, patient is hemodynamically stable. Based on her history of diabetes and wound infection, we will admit for IV antibiotics, Dr. Aguiar will see the patient in the morning to determine if she needs a bedside debridement. She does not need to be n.p.o. after midnight at this time. Stable at time of admission. SUPERVISED APC VISIT, PHYSICIAN ATTESTATION: Based on the medical record the care appears appropriate. ? Medical Records Medical records reviewed: Yes I reviewed the patient's medical records Lab Data Lab results reviewed: Yes I reviewed the patient's lab results Labs: Lab Results 11/21/23 Range/Units 20:22 WBC 9.6 (4.0-11.0) 10^3/uL RBC 4.46 (4.20-5.40) 10^6/uL Hgb 13.1 (12.0-16.0) g/dL Hct 40.2 (36.0-48.0) % MCV 90.1 (81.0-99.0) fL MCH 29.4 (26.7-34.0) pg MCHC 32.6 (29.9-35.2) g/dL RDW 12.9 (11.0-15.0) % Plt Count 246 (150-450) 10^3/uL MPV 9.6 (9.5-13.5) fL Neut % (Auto) 46.2 (43.0-75.0) % Lymph % (Auto) 43.7 (20.5-60.0) % [place] % (Auto) 7.7 (1.7-12.0) % Eos % (Auto) 1.6 (0.9-7.0) % Baso % (Auto) 0.5 (0.2-2.0) % Neut # (Auto) 4.4 (1.4-6.5) 10^3/uL Lymph # (Auto) 4.2 H (1.2-3.8) 10^3/uL [place] # (Auto) 0.7 (0.3-0.8) 10^3/uL Eos # (Auto) 0.2 (0.0-0.7) 10^3/uL Baso # (Auto) 0.1 (0.0-0.1) 10^3/uL Abs Immat Gran (auto) 0.03 (0.00-0.03) 10^3/uL Imm/Tot Granulo (auto) 0.3 (0.0-0.5) % ESR 66 H (<=30) mm/hr PT 10.4 (9.0-11.6) sec INR 0.98 VBG pH 7.376 (7.330-7.430) VBG pCO2 37.9 L (40.0-52.0) mmHg Sodium 132 L (136-145) mmol/L Potassium 4.3 (3.5-5.1) mmol/L Chloride 98 (98-107) mmol/L Carbon Dioxide 22.3 (21.0-32.0) mmol/L Anion Gap 16.0 BUN 19.0 H (7.0-18.0) mg/dL Creatinine 1.35 H (0.55-1.02) mg/dL Est GFR ( Amer) 49 L (>=60) Est GFR (Non-Af Amer) 41 L (>=60) BUN/Creatinine Ratio 14.1 Glucose 285 H (74-106) mg/dL Lactate 2.2 H* (0.4-2.0) mmol/L Calcium 9.3 (8.5-10.1) mg/dL Total Bilirubin 0.4 (0.2-1.0) mg/dL AST 19 (15-37) U/L ALT 34 (14-59) U/L Alkaline Phosphatase 122 H (46-116) U/L C-Reactive Protein <0.50 (<=0.50) mg/dL Total Protein 8.3 H (6.4-8.2) g/dL Albumin 3.6 (3.4-5.0) g/dL Globulin 4.7 g/dL Albumin/Globulin Ratio 0.8 Imaging Data xr calcaneus: Attestation: I have reviewed the pertinent imaging results. Radiologist's impression: ITS Impressions Calcaneus X-Ray 11/21/23 20:02 IMPRESSION: No acute bony abnormality. Electronically authenticated by: ZORAN CLARK Date: 11/21/2023 21:11 Discharge Plan Discharge Chief Complaint: Wound/Laceration Clinical Impression: Diabetic foot ulcer, Wound infection Patient Disposition: Admitted as Observation Time of Disposition Decision: 21:42 Discharge Date/Time: 11/21/23 22:30
[2023-11-21 20:38] LABS: Basophils Absolute Auto 0.1 10^3/uL (0.0-0.1); Basophils Percent Auto 0.5 % (0.2-2.0); Eosinophils Absolute Auto 0.2 10^3/uL (0.0-0.7); Eosinophils Percent Auto 1.6 % (0.9-7.0); Hematocrit 40.2 % (36.0-48.0); Hemoglobin 13.1 g/dL (12.0-16.0); Immature Granulocytes Abs Auto 0.03 10^3/uL (0.00-0.03); Immature Granulocytes Pct Auto 0.3 % (0.0-0.5); Lymphocytes Absolute Auto 4.2 10^3/uL (1.2-3.8); Lymphocytes Percent Auto 43.7 % (20.5-60.0); Mean Corpuscular HGB Conc 32.6 g/dL (29.9-35.2); Mean Corpuscular Hemoglobin 29.4 pg (26.7-34.0); Mean Corpuscular Volume 90.1 fL (81.0-99.0); Mean Platelet Volume 9.6 fL (9.5-13.5); Monocytes Absolute Auto 0.7 10^3/uL (0.3-0.8); Monocytes Percent Auto 7.7 % (1.7-12.0); Neutrophils Absolute Auto 4.4 10^3/uL (1.4-6.5); Neutrophils Percent Auto 46.2 % (43.0-75.0); Platelet Count 246 10^3/uL (150-450); Red Blood Count 4.46 10^6/uL (4.20-5.40); Red Cell Distribution Width 12.9 % (11.0-15.0); White Blood Count 9.6 10^3/uL (4.0-11.0)
[2023-11-21 20:44] LABS: PCO2 VBG 37.9 mmHg (40.0-52.0); pH VBG 7.376 (7.330-7.430)
[2023-11-21 20:46] LABS: Erythrocyte Sedimentation Rate 66 mm/hr (<=30)
[2023-11-21 20:54] LABS: INR 0.98; Prothrombin Time 10.4 sec (9.0-11.6)
[2023-11-21] MEDS: VANCOMYCIN HCL 1,750 MG in 0.9 % SODIUM CHLORIDE 500 ML 250 MG IV (20:55)
[2023-11-21 20:57] LABS: Alanine Aminotransferase 34 U/L (14-59); Albumin Globulin Ratio 0.8; Albumin Level 3.6 g/dL (3.4-5.0); Alkaline Phosphatase 122 U/L (46-116); Aspartate Amino Transferase 19 U/L (15-37); BUN Creatinine Ratio 14.1; Bilirubin Total 0.4 mg/dL (0.2-1.0); C Reactive Protein <0.50 mg/dL (<=0.50); Calcium 9.3 mg/dL (8.5-10.1); Carbon Dioxide 22.3 mmol/L (21.0-32.0); Chloride 98 mmol/L (98-107); Estimated GFR (African America 49 (>=60); Estimated GFR (Non-African Ame 41 (>=60); Globulin 4.7 g/dL; Glucose 285 mg/dL (74-106); Potassium 4.3 mmol/L (3.5-5.1); Sodium 132 mmol/L (136-145); Total Protein 8.3 g/dL (6.4-8.2)
[2023-11-21] MEDS: OXYCODONE HCL/ACETAMINOPHEN 5MG/325MG 1 TAB PO (20:57)
[2023-11-21 21:21] LABS: Lactate/Lactic Acid 2.2 mmol/L (0.4-2.0)
[2023-11-21 21:43] VITALS: BP 141/74; PULSE 86; TEMP 36.4; O2SAT 97
[2023-11-21 22:45] VITALS: BP 141/74; PULSE 86; TEMP 36.4; O2SAT 97; BMI 41.8
--- NOTE | 2023-11-21 22:53 | PC.NURSE ---
Picture taken at this time of stasis ulcer on patients left heel with the IPAD for wound management to see in morning.
[2023-11-21] MEDS: ATORVASTATIN CALCIUM 40 MG TABLET PO (23:08)
[2023-11-21] MEDS: DICYCLOMINE HCL 10 MG CAPSULE 20 MG PO (23:08)
[2023-11-21] MEDS: GABAPENTIN 300 MG CAPSULE PO (23:08)
[2023-11-21] MEDS: INSULIN ASPART 300 UNIT/3 ML PEN SUBQ (23:08)
[2023-11-21] MEDS: AMITRIPTYLINE HCL 50 MG TABLET 150 MG PO (23:08)
[2023-11-21] MEDS: HYDROXYZINE HCL 25 MG TABLET 50 MG PO (23:08)
[2023-11-21] MEDS: 0.9 % SODIUM CHLORIDE 1,000 ML 100 ML IV (23:09)
[2023-11-21] MEDS: PIPERACILLIN SODIUM/TAZOBACTAM 3.375 GM in 0.9 % SODIUM CHLORIDE 50 ML IV (23:09)
[2023-11-21] MEDS: BACLOFEN 10 MG TABLET PO (23:12)
[2023-11-21 23:18] LABS: Glucometer 284 mg/dL (74-106)
[2023-11-22 00:07] LABS: Lactate/Lactic Acid 1.9 mmol/L (0.4-2.0)
[2023-11-22] MEDS: PIPERACILLIN SODIUM/TAZOBACTAM 3.375 GM in 0.9 % SODIUM CHLORIDE 50 ML IV ×2 (04:20→11:12)
[2023-11-22] MEDS: OXYCODONE HCL/ACETAMINOPHEN 5MG/325MG 1 TAB PO (04:20)
[2023-11-22 05:38] VITALS: BP 111/67; PULSE 94; TEMP 37.1; O2SAT 95
[2023-11-22 06:05] LABS: Alanine Aminotransferase 30 U/L (14-59); Albumin Globulin Ratio 0.7; Alkaline Phosphatase 103 U/L (46-116); Anion Gap 12.7; Aspartate Amino Transferase 19 U/L (15-37); BUN Creatinine Ratio 14.4; Bilirubin Total 0.4 mg/dL (0.2-1.0); Calcium 8.9 mg/dL (8.5-10.1); Carbon Dioxide 24.4 mmol/L (21.0-32.0); Chloride 102 mmol/L (98-107); Estimated GFR (African America 57 (>=60); Estimated GFR (Non-African Ame 47 (>=60); Globulin 4.1 g/dL; Glucose 235 mg/dL (74-106); Potassium 4.1 mmol/L (3.5-5.1); Sodium 135 mmol/L (136-145); Total Protein 7.1 g/dL (6.4-8.2)
[2023-11-22] MEDS: GABAPENTIN 300 MG CAPSULE PO (06:12)
[2023-11-22] MEDS: DICYCLOMINE HCL 10 MG CAPSULE 20 MG PO (06:12)
[2023-11-22] MEDS: BACLOFEN 10 MG TABLET PO (06:12)
[2023-11-22] MEDS: LEVOTHYROXINE SODIUM 100 MCG TABLET 200 MCG PO (06:12)
[2023-11-22 06:14] LABS: Basophils Percent Auto 0.3 % (0.2-2.0); Eosinophils Absolute Auto 0.2 10^3/uL (0.0-0.7); Eosinophils Percent Auto 2.3 % (0.9-7.0); Hematocrit 35.9 % (36.0-48.0); Hemoglobin 11.9 g/dL (12.0-16.0); Immature Granulocytes Abs Auto 0.02 10^3/uL (0.00-0.03); Immature Granulocytes Pct Auto 0.3 % (0.0-0.5); Lymphocytes Absolute Auto 2.3 10^3/uL (1.2-3.8); Lymphocytes Percent Auto 31.5 % (20.5-60.0); Mean Corpuscular HGB Conc 33.1 g/dL (29.9-35.2); Mean Corpuscular Hemoglobin 29.9 pg (26.7-34.0); Mean Corpuscular Volume 90.2 fL (81.0-99.0); Mean Platelet Volume 11.2 fL (9.5-13.5); Monocytes Absolute Auto 0.9 10^3/uL (0.3-0.8); Monocytes Percent Auto 11.7 % (1.7-12.0); Neutrophils Percent Auto 53.9 % (43.0-75.0); Platelet Count 107 10^3/uL (150-450); Red Blood Count 3.98 10^6/uL (4.20-5.40); White Blood Count 7.4 10^3/uL (4.0-11.0)
[2023-11-22 07:21] LABS: C Reactive Protein <0.50 mg/dL (<=0.50)
--- NOTE | 2023-11-22 07:25 | P.CN_ITS ---
Consult Note: [facility] Data of Consult Consult date: 11/22/23 Requesting Physician: Rikki Cameron MD Primary Care Provider: Non-Staff Physician, Family Provider: DMISC Consult Narrative Reason for consult: Left heel ulcer Narrative: Patient is a 58-year-old poorly controlled diabetic female who has had a nonhealing left heel ulcer for months. She initially presented to me in September of this year for this left heel ulcer and underwent operative debridement on 10/03/2023. At that time bone biopsy was negative for osteomyelitis but the wound cultured staph aureus and Enterobacter. And since she has been following up in the wound center. She relates that she finished her last oral antibiotics at least a week ago. Yesterday home health care was changing her dressing and noted increased drainage which concerned the patient so she presented to the emergency department. X-rays were negative for bony abnormality and soft tissue gas. No leukocytosis, CRP less than 0.5, ESR 66 and creatinine 1.18. Vital signs have been stable since admission and she has been afebrile. At bedside she denies systemic signs of infection. Relates to a good appetite. She denies pain unless she puts weight/pressure over her heel. cc:: CC: Rikki Cameron MD Review of Systems ROS Status of ROS 10 or more systems reviewed and unremark able except as noted in history and below [facility] Medical History (Updated 11/22/23 @ 07:40 by Luis Miguel Aguiar DPM) Morbid obesity due to excess calories ?E66.01 - Morbid (severe) obesity due to excess calories (ICD-10) Type 2 diabetes mellitus with diabetic polyneuropathy ?E11.42 - Type 2 diabetes mellitus with diabetic polyneuropathy (ICD-10) Controlled diabetes mellitus with hyperglycemia, with long-term current use of insulin ?E11.65 - Type 2 diabetes mellitus with hyperglycemia (ICD-10) ?Z79.4 - [facility] (current) use of insulin (ICD-10) Non-pressure chronic ulcer of other part of left foot with fat layer exposed ?L97.522 - Non-pressure chronic ulcer of other part of left foot with fat layer exposed (ICD-10) Nocturnal hypoxia ?G47.34 - Idiopathic sleep related nonobstructive alveolar hypoventilation (ICD-10) Hypothyroid ?E03.9 - Hypothyroidism, unspecified (ICD-10) High blood pressure ?I10 - Essential (primary) hypertension (ICD-10) Bipolar 1 disorder ?F31.9 - Bipolar disorder, unspecified (ICD-10) Diabetic foot ulcer ?E11.621 - Type 2 diabetes mellitus with foot ulcer (ICD-10) ?L97.509 - Non-pressure chronic ulcer of other part of unspecified foot with unspecified severity (ICD-10) T2DM (type 2 diabetes mellitus) ?E11.9 - Type 2 diabetes mellitus without complications (ICD-10) Wound infection ?T14.8XXA - Other injury of unspecified body region, initial encounter (ICD- 10) ?L08.9 - Local infection of the skin and subcutaneous tissue, unspecified (ICD-10) History of heart attack ?I25.2 - Old myocardial infarction (ICD-10) Autoimmune thyroiditis ?E06.3 - Autoimmune thyroiditis (ICD-10) Gastroparesis ?K31.84 - Gastroparesis (ICD-10) Manic-depression ?F31.9 - Bipolar disorder, unspecified (ICD-10) Anxiety ?F41.9 - Anxiety disorder, unspecified (ICD-10) Diabetes ?E11.9 - Type 2 diabetes mellitus without complications (ICD-10) Surgical History (Updated 09/19/23 @ 02:37 by Joie Alvarez) Status post dilation of esophageal narrowing ?Z98.890 - Other specified postprocedural states (ICD-10) ?Z87.19 - Personal history of other diseases of the digestive system (ICD-10) S/P knee replacement ?Z96.659 - Presence of unspecified artificial knee joint (ICD-10) Femur fracture, right ?S72.91XA - Unspecified fracture of right femur, initial encounter for closed fracture (ICD-10) History of appendectomy ?Z90.49 - Acquired absence of other specified parts of digestive tract (ICD- 10) History of cholecystectomy ?Z90.49 - Acquired absence of other specified parts of digestive tract (ICD- 10) History of hysterectomy ?Z90.710 - Acquired absence of both cervix and uterus (ICD-10) Family History (Updated 09/18/23 @ 21:54 by Joie Alvarez) Sister Family history of cancer Family history of hypertension Mother Family history of diabetes mellitus Social History Within the past year, how often did you have a drink containing alcohol: monthly or less Smoking status: Former smoker Non-prescribed substance use: former substance user and crack/cocaine Previous occupational history: disabled Highest level of school completed/degree received: high school graduate Are you now , , , , never or living with a partner: refused to answer In a typical week, how many times do you talk on the telephone with family, friends, or neighbors: 3 or more times per week How often do you get together with friends or relatives: 3 or more times per week How often do you attend yarsani or cheondoism services: never Little interest or pleasure in doing things: several days Feeling down, depressed, or hopeless: several days Feel stressed/tense/nervous/anxious/difficulty sleeping: to some extent Do you think of yourself as: straight/heterosexual Gender Identity: female Meds Home Medications and Allergies Home Medications ?Medication ?Instructions ?Recorded ?Confirmed ?Type amitriptyline 150 mg tablet 150 mg PO .qhs 09/18/23 11/21/23 History amlodipine 5 mg tablet 5 mg PO QDAY 09/18/23 11/21/23 History atorvastatin 40 mg tablet 40 mg PO .qhs 09/18/23 11/21/23 History baclofen 10 mg tablet 10 mg PO Q8H 09/18/23 11/21/23 History cholecalciferol (vitamin D3) 50 50 mcg PO QDAY 09/18/23 11/21/23 History mcg (2,000 unit) capsule (Vitamin D3) dicyclomine 20 mg tablet 20 mg PO TID 09/18/23 11/21/23 History duloxetine 60 mg capsule,delayed 60 mg PO BID 09/18/23 11/21/23 History release empagliflozin 10 mg tablet 10 mg PO QDAY 09/18/23 11/21/23 History (Jardiance) ezetimibe 10 mg tablet 10 mg PO DAILY 09/18/23 11/21/23 History glipizide 10 mg tablet 10 mg PO BID 09/18/23 11/21/23 History home oxygen BEDTIME 09/18/23 History hydroxyzine HCl 50 mg tablet 50 mg PO Q8H PRN anxiety 09/18/23 11/21/23 History insulin glargine 100 unit/mL (3 70 unit subcut .qam and qpm 09/18/23 11/21/23 History mL) subcutaneous pen (Lantus Solostar U-100 Insulin) lisinopril 20 mg tablet 20 mg PO QDAY 09/18/23 11/21/23 History omeprazole 40 mg capsule,delayed 40 mg PO QAM 09/18/23 11/21/23 History release aspirin 81 mg tablet,delayed 81 mg PO BID 30 days #60 tabs 09/19/23 11/21/23 Rx release (Adult Low Dose Aspirin) naloxone 4 mg/actuation nasal 1 spray intranasal Q2M PRN opioid 09/19/23 11/21/23 Rx spray (Narcan) overdose #2 ea gabapentin 300 mg capsule 300 mg PO Q8H 11/21/23 11/21/23 History levothyroxine 200 mcg tablet 200 mcg PO DAILY 11/21/23 11/21/23 History nystatin 100,000 unit/gram topical 1 applic topical TID PRN skin 11/21/23 11/21/23 History powder irritation semaglutide 2 mg/dose (8 mg/3 mL) 2 mg subcut .WEEKLY 11/21/23 11/21/23 History subcutaneous pen injector (Ozempic) Allergies Allergy/AdvReac Type Severity Reaction Status Date / Time sulfamethoxazole Allergy itchy Verified 11/21/23 17:02 [From Bactrim] trimethoprim [From Bactrim] Allergy itchy Verified 11/21/23 17:02 diuretics AdvReac Severe organ Uncoded 11/21/23 17:02 failure Exam Narrative Exam Narrative: Skin: There is a granular full-thickness wound on the posterior medial left heel with less than 2 cm of surrounding erythema. Negative probe to bone. Mild periwound maceration. Vascular: Pedal pulses are faintly palpable, absent digital hair growth, no calf pain on squeeze Neuro: Light touch sensation is intact however protective sensation is absent Musculoskeletal: No pain on palpation. No fluctuance. Patient is able to wiggle toes and no significant gross deformity Constitutional Vital Signs, click to edit/add: Last Vital Signs Temp 98.7 F 11/22/23 05:38 Pulse 94 H 11/22/23 05:38 Resp 18 11/22/23 05:38 BP 111/67 11/22/23 05:38 Pulse Ox 95 11/22/23 05:38 O2 Del Method Nasal Cannula 11/22/23 05:38 O2 Flow Rate 2 11/22/23 05:38 Results Labs Labs: Short CBC 11/21/23 11/22/23 Range/Units 20:22 04:53 WBC 9.6 7.4 (4.0-11.0) 10^3/uL Hgb 13.1 11.9 L (12.0-16.0) g/dL Hct 40.2 35.9 L (36.0-48.0) % Plt Count 246 107 L (150-450) 10^3/uL BMP 11/21/23 11/22/23 20:22 04:53 Sodium 132 L 135 L Potassium 4.3 4.1 Chloride 98 102 Carbon Dioxide 22.3 24.4 BUN 19.0 H 17.0 Creatinine 1.35 H 1.18 H Glucose 285 H 235 H Calcium 9.3 8.9 Liver Function 11/21/23 11/22/23 Range/Units 20:22 04:53 Total Bilirubin 0.4 0.4 (0.2-1.0) mg/dL AST 19 19 (15-37) U/L ALT 34 30 (14-59) U/L Alkaline Phosphatase 122 H 103 (46-116) U/L Albumin 3.6 3.0 L (3.4-5.0) g/dL ABG ABG results: 11/21/23 20:22 VBG pH 7.376 VBG pCO2 37.9 L Additional Findings Additional findings: X-rays were reviewed of the left heel which were obtained yesterday in the emergency department. I agree with radiologist interpretation of no acute bony abnormality. Small posterior calcaneal enthesophyte Assessment and Plan Assessment and Plan (1) Ulcer of left foot due to type 2 diabetes mellitus: Assessment and Plan: Dressing was removed to assess wound. Recommended daily dressing changes with Santyl to the wound base then to paint with Betadine followed by a nonadherent dry sterile dressing. 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 Mann notified Patient may be discharged home on oral antibiotics and should follow-up next week Cultures obtained on 10/02 resulted & staph aureus and Enterobacter Bone biopsy was negative for osteomyelitis on 10/02 Daily dressing changes with Santyl and Betadine No surgery necessary during this visit Wound is 100% granular with no deep soft tissue or bone exposure Please call with changes or updates
[2023-11-22 07:50] LABS: Glucometer 274 mg/dL (74-106)
[2023-11-22 08:23] VITALS: BP 102/51; PULSE 87; TEMP 36.6; O2SAT 92
[2023-11-22] MEDS: CHOLECALCIFEROL (VITAMIN D3) 25 MCG/1,000 UNITS TABLET 50 MCG PO (08:33)
[2023-11-22] MEDS: OMEPRAZOLE 40 MG CAPSULE.DR PO (08:33)
[2023-11-22] MEDS: ASPIRIN 81 MG TAB.CHEW PO (08:33)
[2023-11-22] MEDS: GLIPIZIDE 10 MG TABLET PO (08:33)
[2023-11-22] MEDS: DULOXETINE HCL 60 MG CAPSULE.DR PO (08:33)
[2023-11-22] MEDS: CANAGLIFLOZIN 100 MG TABLET PO (08:33)
[2023-11-22] MEDS: VANCOMYCIN HCL 1,000 MG in 0.9 % SODIUM CHLORIDE 250 ML 250 MG IV (08:33)
[2023-11-22] MEDS: EZETIMIBE 10 MG TABLET PO (08:33)
[2023-11-22] MEDS: INSULIN DETEMIR 300 UNIT/3 ML INSULN.PEN 70 UNIT SQ (08:34)
[2023-11-22] MEDS: ENOXAPARIN SODIUM 40 MG/0.4 ML SYRINGE SUBQ (08:34)
[2023-11-22] MEDS: INSULIN ASPART 300 UNIT/3 ML PEN SUBQ ×2 (08:36→11:13)
[2023-11-22] MEDS: COLLAGENASE CLOSTRIDIUM HIST. 250 UNITS/GM 30 GRAM TUBE 1 APPLIC TOPICAL (08:37)
[2023-11-22] MEDS: HYDROXYZINE HCL 25 MG TABLET 50 MG PO (08:53)
--- NOTE | 2023-11-22 10:03 | P.HP_ITS ---
HPI H&P: HPI History of Present Illness Chief complaint: DIABETIC FOOT ULCER, WOUND INFECTION Narrative: Patient presented to the emergency room with increasing erythema and pain in her foot. She had a history of MRSA and Enterococcus infections in the foot. She states been wound has been getting worse over the last several days. Patient was admitted for IV antibiotics. When I saw the patient up on the medical surgical floor, she was resting comfortably in bed, foot felt about the same to her, discussed evaluation from podiatry who is recommending switching to orals and outpatient treatment. Patient also admitted with some mild dehydration on laboratory evaluation appears to be improved. Opioid HPI Opioid Management Most Recent Pain and Opioid Data: Last Pain Scale 0 11/22/23 11:38 Last Pain Assessment 11/22/23 11:38 Last MAR Pain Assessment 11/22/23 05:20 Last ORT Total Score 6 11/21/23 22:45 Last ORT Risk Category Moderate Risk 11/21/23 22:45 Review of Systems ROS Status of ROS 10 or more systems reviewed and unremark able except as noted in history and below PFSH PFS Medical History (Updated 11/22/23 @ 07:40 by Luis Miguel Aguiar DPM) Morbid obesity due to excess calories ?E66.01 - Morbid (severe) obesity due to excess calories (ICD-10) Type 2 diabetes mellitus with diabetic polyneuropathy ?E11.42 - Type 2 diabetes mellitus with diabetic polyneuropathy (ICD-10) Controlled diabetes mellitus with hyperglycemia, with long-term current use of insulin ?E11.65 - Type 2 diabetes mellitus with hyperglycemia (ICD-10) ?Z79.4 - alf (current) use of insulin (ICD-10) Non-pressure chronic ulcer of other part of left foot with fat layer exposed ?L97.522 - Non-pressure chronic ulcer of other part of left foot with fat layer exposed (ICD-10) Nocturnal hypoxia ?G47.34 - Idiopathic sleep related nonobstructive alveolar hypoventilation (ICD-10) Hypothyroid ?E03.9 - Hypothyroidism, unspecified (ICD-10) High blood pressure ?I10 - Essential (primary) hypertension (ICD-10) Bipolar 1 disorder ?F31.9 - Bipolar disorder, unspecified (ICD-10) Diabetic foot ulcer ?E11.621 - Type 2 diabetes mellitus with foot ulcer (ICD-10) ?L97.509 - Non-pressure chronic ulcer of other part of unspecified foot with unspecified severity (ICD-10) T2DM (type 2 diabetes mellitus) ?E11.9 - Type 2 diabetes mellitus without complications (ICD-10) Wound infection ?T14.8XXA - Other injury of unspecified body region, initial encounter (ICD- 10) ?L08.9 - Local infection of the skin and subcutaneous tissue, unspecified (ICD-10) History of heart attack ?I25.2 - Old myocardial infarction (ICD-10) Autoimmune thyroiditis ?E06.3 - Autoimmune thyroiditis (ICD-10) Gastroparesis ?K31.84 - Gastroparesis (ICD-10) Manic-depression ?F31.9 - Bipolar disorder, unspecified (ICD-10) Anxiety ?F41.9 - Anxiety disorder, unspecified (ICD-10) Diabetes ?E11.9 - Type 2 diabetes mellitus without complications (ICD-10) Surgical History (Updated 09/19/23 @ 02:37 by Joie Alvarez) Status post dilation of esophageal narrowing ?Z98.890 - Other specified postprocedural states (ICD-10) ?Z87.19 - Personal history of other diseases of the digestive system (ICD-10) S/P knee replacement ?Z96.659 - Presence of unspecified artificial knee joint (ICD-10) Femur fracture, right ?S72.91XA - Unspecified fracture of right femur, initial encounter for closed fracture (ICD-10) History of appendectomy ?Z90.49 - Acquired absence of other specified parts of digestive tract (ICD- 10) History of cholecystectomy ?Z90.49 - Acquired absence of other specified parts of digestive tract (ICD- 10) History of hysterectomy ?Z90.710 - Acquired absence of both cervix and uterus (ICD-10) Family History (Updated 09/18/23 @ 21:54 by Joie Alvarez) Sister Family history of cancer Family history of hypertension Mother Family history of diabetes mellitus Social History Within the past year, how often did you have a drink containing alcohol: monthly or less Smoking status: Former smoker Non-prescribed substance use: former substance user and crack/cocaine Previous occupational history: disabled Highest level of school completed/degree received: high school graduate Are you now , , , , never or living with a partner: refused to answer In a typical week, how many times do you talk on the telephone with family, friends, or neighbors: 3 or more times per week How often do you get together with friends or relatives: 3 or more times per week How often do you attend methodist or mandaeism services: never Little interest or pleasure in doing things: several days Feeling down, depressed, or hopeless: several days Feel stressed/tense/nervous/anxious/difficulty sleeping: to some extent Do you think of yourself as: straight/heterosexual Gender Identity: female Meds Home Medications and Allergies Home Medications ?Medication ?Instructions ?Recorded ?Confirmed ?Type amitriptyline 150 mg tablet 150 mg PO .qhs 09/18/23 11/21/23 History amlodipine 5 mg tablet 5 mg PO QDAY 09/18/23 11/21/23 History atorvastatin 40 mg tablet 40 mg PO .qhs 09/18/23 11/21/23 History baclofen 10 mg tablet 10 mg PO Q8H 09/18/23 11/21/23 History cholecalciferol (vitamin D3) 50 50 mcg PO QDAY 09/18/23 11/21/23 History mcg (2,000 unit) capsule (Vitamin D3) dicyclomine 20 mg tablet 20 mg PO TID 09/18/23 11/21/23 History duloxetine 60 mg capsule,delayed 60 mg PO BID 09/18/23 11/21/23 History release empagliflozin 10 mg tablet 10 mg PO QDAY 09/18/23 11/21/23 History (Jardiance) ezetimibe 10 mg tablet 10 mg PO DAILY 09/18/23 11/21/23 History glipizide 10 mg tablet 10 mg PO BID 09/18/23 11/21/23 History home oxygen BEDTIME 09/18/23 History hydroxyzine HCl 50 mg tablet 50 mg PO Q8H PRN anxiety 09/18/23 11/21/23 History insulin glargine 100 unit/mL (3 70 unit subcut .qam and qpm 09/18/23 11/21/23 History mL) subcutaneous pen (Lantus Solostar U-100 Insulin) lisinopril 20 mg tablet 20 mg PO QDAY 09/18/23 11/21/23 History omeprazole 40 mg capsule,delayed 40 mg PO QAM 09/18/23 11/21/23 History release aspirin 81 mg tablet,delayed 81 mg PO BID 30 days #60 tabs 09/19/23 11/21/23 Rx release (Adult Low Dose Aspirin) naloxone 4 mg/actuation nasal 1 spray intranasal Q2M PRN opioid 09/19/23 11/21/23 Rx spray (Narcan) overdose #2 ea gabapentin 300 mg capsule 300 mg PO Q8H 11/21/23 11/21/23 History levothyroxine 200 mcg tablet 200 mcg PO DAILY 11/21/23 11/21/23 History nystatin 100,000 unit/gram topical 1 applic topical TID PRN skin 11/21/23 11/21/23 History powder irritation semaglutide 2 mg/dose (8 mg/3 mL) 2 mg subcut .WEEKLY 11/21/23 11/21/23 History subcutaneous pen injector (Ozempic) cefdinir 300 mg capsule 600 mg (2 x 300 mg) PO DAILY #20 11/22/23 Rx caps doxycycline monohydrate 100 mg 100 mg PO BID 10 days #20 caps 11/22/23 Rx capsule Allergies Allergy/AdvReac Type Severity Reaction Status Date / Time sulfamethoxazole Allergy itchy Verified 11/21/23 17:02 [From Bactrim] trimethoprim [From Bactrim] Allergy itchy Verified 11/21/23 17:02 diuretics AdvReac Severe organ Uncoded 11/21/23 17:02 failure Exam Constitutional Vital Signs, click to edit/add: Last Vital Signs Temp 97.9 F 11/22/23 08:23 Pulse 87 11/22/23 08:23 Resp 16 11/22/23 08:23 BP 102/51 11/22/23 08:23 Pulse Ox 92 L 11/22/23 08:23 O2 Del Method Room Air 11/22/23 08:23 O2 Flow Rate 2 11/22/23 05:38 Documenting provider has reviewed patient's vital signs: yes Common normals: no apparent distress Chest Common normals: inspection of chest normal Respiratory Common normals: normal respiratory effort and no retractions Cardio Common normals: regular rate, regular rhythm and no murmurs GI Common normals: Normal to inspection, nondistended, normoactive bowel sounds present and soft to palpation Extremity Common normals: abnormal to inspection (See podiatry notes) Results Labs Labs: Short CBC 11/21/23 11/22/23 Range/Units 20:22 04:53 WBC 9.6 7.4 (4.0-11.0) 10^3/uL Hgb 13.1 11.9 L (12.0-16.0) g/dL Hct 40.2 35.9 L (36.0-48.0) % Plt Count 246 107 L (150-450) 10^3/uL BMP 11/21/23 11/22/23 20:22 04:53 Sodium 132 L 135 L Potassium 4.3 4.1 Chloride 98 102 Carbon Dioxide 22.3 24.4 BUN 19.0 H 17.0 Creatinine 1.35 H 1.18 H Glucose 285 H 235 H Calcium 9.3 8.9 Liver Function 11/21/23 11/22/23 Range/Units 20:22 04:53 Total Bilirubin 0.4 0.4 (0.2-1.0) mg/dL AST 19 19 (15-37) U/L ALT 34 30 (14-59) U/L Alkaline Phosphatase 122 H 103 (46-116) U/L Albumin 3.6 3.0 L (3.4-5.0) g/dL ABG ABG results: 11/21/23 20:22 VBG pH 7.376 VBG pCO2 37.9 L Assessment and Plan Assessment and Plan (1) Ulcer of left foot due to type 2 diabetes mellitus: (2) Ulcer of left heel and midfoot with fat layer exposed: (3) Type 2 diabetes mellitus with diabetic polyneuropathy: Qualifiers: Diabetes mellitus half-way insulin use: with watermaster use Qualified Code(s): E11.42 - Type 2 diabetes mellitus with diabetic polyneuropathy; Z79.4 - alf (current) use of insulin Plan Diabetic foot ulcer with a history of MRSA and Enterococcus, foot ulcer secon doug to poorly controlled diabetes mellitus-evaluation by podiatry, no surgical intervention at this time, recommending oral agents, the organism previously was actually fairly sensitive organism. So at this point as long as she is eating, I believe her mild dehydration is improved, she can be discharged home in improving condition later today Mild dehydration secondary to poorly controlled diabetes-hyponatremia on admission is improved, acute kidney injury on admission, would follow-up with that as an outpatient, it is improved today. She is approximately 135% above baseline on admission. IDDM-continue with home protocol. GERD-continue with home medications Hypothyroidism-continue with home medications Diabetic neuropathy-continue with home medications Irritable bowel syndrome-continue with home medications Hypertension-continue with home medications Admission status: Patient with diabetic foot ulcer, cleared by podiatry for oral agents, so we will likely discharge patient to home later today. Observation status.
--- NOTE | 2023-11-22 10:03 | P.DS_ITS ---
DS: Providers Provider Date of admission: 11/21/23 22:30 Primary care physician: Non-Staff Physician, Consults: 11/22/23 07:06 Consult to Podiatry Routine Consulting Provider: Luis Miguel Aguiar Reason for consultation: foot infection Has provider been notified: No 11/22/23 07:09 Physical Therapy Eval and Treat Routine Reason for consultation: Eval and Treat Has provider been notified: No DS: Diagnosis Discharge Diagnosis (1) Ulcer of left foot due to type 2 diabetes mellitus: (2) Ulcer of left heel and midfoot with fat layer exposed: (3) Type 2 diabetes mellitus with diabetic polyneuropathy: Qualifiers: 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 So at this point as long as she is eating, I believe her mild dehydration is improved, she can be discharged home in improving condition later today, medication see list, follow-up with podiatry-wound next week Mild dehydration secondary to poorly controlled diabetes-hyponatremia on ad mission is improved, acute kidney injury on admission, improving at the time of discharge IDDM-continue with home protocol. GERD-continue with home medications Hypothyroidism-continue with home medications Diabetic neuropathy-continue with home medications Irritable bowel syndrome-continue with home medications Hypertension-continue with home medications Admission status: Patient with diabetic foot ulcer, cleared by podiatry for oral agents, so we will likely discharge patient to home later today. Observation status. DS: Summary Hospital Course Hospital Course: Patient mated for evaluation of diabetic foot ulcer secondary to poorly controlled diabetes mellitus and diabetic peripheral neuropathy. Mild dehydration as well. She was given IV fluids overnight. Started on Zosyn and vancomycin. Evaluation by podiatry felt no surgical intervention was involved. Medications to be managed as an outpatient. With her dehydration improved acute kidney injury improved, she will be discharged home in improving condition. Medications see list. Follow-up with PCP within the next week. Follow-up with podiatry within the next week also. Status at Discharge Overall status at discharge: patient is not back to baseline Time Spent with Patient Time attestation: Total time spent providing and/or coordinating discharge services: Time spent: greater than 30 minutes Exam Constitutional Vital Signs, click to edit/add: Last Vital Signs Temp 97.9 F 11/22/23 08:23 Pulse 87 11/22/23 08:23 Resp 16 11/22/23 08:23 BP 102/51 11/22/23 08:23 Pulse Ox 92 L 11/22/23 08:23 O2 Del Method Room Air 11/22/23 08:23 O2 Flow Rate 2 11/22/23 05:38 Documenting provider has reviewed patient's vital signs: yes Common normals: no apparent distress Chest Common normals: inspection of chest normal Respiratory Common normals: normal respiratory effort and no retractions Cardio Common normals: regular rate, regular rhythm and no murmurs GI Common normals: Normal to inspection, nondistended, normoactive bowel sounds present and soft to palpation Extremity Common normals: abnormal to inspection (See podiatry notes) DS: Data Data Completed and Pending Labs on day of discharge: Labs from last 24 hours 11/22/23 11/22/23 11/21/23 07:49 04:53 23:35 WBC 7.4 RBC 3.98 L Hgb 11.9 L Hct 35.9 L MCV 90.2 MCH 29.9 MCHC 33.1 RDW 13.0 Plt Count 107 L MPV 11.2 Neut % (Auto) 53.9 Lymph % (Auto) 31.5 Glenn % (Auto) 11.7 Eos % (Auto) 2.3 Baso % (Auto) 0.3 Neut # (Auto) 4.0 Lymph # (Auto) 2.3 Glenn # (Auto) 0.9 H Eos # (Auto) 0.2 Baso # (Auto) 0.0 Abs Immat Gran (auto) 0.02 Imm/Tot Granulo (auto) 0.3 ESR PT INR VBG pH VBG pCO2 Sodium 135 L Potassium 4.1 Chloride 102 Carbon Dioxide 24.4 Anion Gap 12.7 BUN 17.0 Creatinine 1.18 H Est GFR ( Amer) 57 L Est GFR (Non-Af Amer) 47 L BUN/Creatinine Ratio 14.4 Glucose 235 H Lactate 1.9 Calcium 8.9 Total Bilirubin 0.4 AST 19 ALT 30 Alkaline Phosphatase 103 C-Reactive Protein <0.50 Total Protein 7.1 Albumin 3.0 L Globulin 4.1 Albumin/Globulin Ratio 0.7 POC Glucose 274 H 11/21/23 11/21/23 23:07 20:22 WBC 9.6 RBC 4.46 Hgb 13.1 Hct 40.2 MCV 90.1 MCH 29.4 MCHC 32.6 RDW 12.9 Plt Count 246 MPV 9.6 Neut % (Auto) 46.2 Lymph % (Auto) 43.7 Glenn % (Auto) 7.7 Eos % (Auto) 1.6 Baso % (Auto) 0.5 Neut # (Auto) 4.4 Lymph # (Auto) 4.2 H Glenn # (Auto) 0.7 Eos # (Auto) 0.2 Baso # (Auto) 0.1 Abs Immat Gran (auto) 0.03 Imm/Tot Granulo (auto) 0.3 ESR 66 H PT 10.4 INR 0.98 VBG pH 7.376 VBG pCO2 37.9 L Sodium 132 L Potassium 4.3 Chloride 98 Carbon Dioxide 22.3 Anion Gap 16.0 BUN 19.0 H Creatinine 1.35 H Est GFR ( Amer) 49 L Est GFR (Non-Af Amer) 41 L BUN/Creatinine Ratio 14.1 Glucose 285 H Lactate 2.2 H* Calcium 9.3 Total Bilirubin 0.4 AST 19 ALT 34 Alkaline Phosphatase 122 H C-Reactive Protein <0.50 Total Protein 8.3 H Albumin 3.6 Globulin 4.7 Albumin/Globulin Ratio 0.8 POC Glucose 284 H Discharge Plan Discharge Disposition: Home, Self-Care Discharge Medications: New cefdinir 300 mg capsule 600 mg PO DAILY Qty: 20 0RF doxycycline monohydrate 100 mg capsule 100 mg PO BID 10 Days Qty: 20 0RF Continued gabapentin 300 mg capsule 300 mg PO Q8H levothyroxine 200 mcg tablet 200 mcg PO DAILY nystatin 100,000 unit/gram powder 1 applic TOPICAL TID PRN (Reason: skin irritation) Ozempic 2 mg/dose (8 mg/3 mL) pen injector 2 mg SUBCUT .WEEKLY amitriptyline 150 mg tablet 150 mg PO .qhs amlodipine 5 mg tablet 5 mg PO QDAY atorvastatin 40 mg tablet 40 mg PO .qhs baclofen 10 mg tablet 10 mg PO Q8H cholecalciferol (vitamin D3) [Vitamin D3] 50 mcg (2,000 unit) capsule 50 mcg PO QDAY dicyclomine 20 mg tablet 20 mg PO TID duloxetine 60 mg capsule,delayed release(DR/EC) 60 mg PO BID Jardiance 10 mg tablet 10 mg PO QDAY glipizide 10 mg tablet 10 mg PO BID hydroxyzine HCl 50 mg tablet 50 mg PO Q8H PRN (Reason: anxiety) insulin glargine [Lantus Solostar U-100 Insulin] 100 unit/mL (3 mL) insulin pen 70 unit SUBCUT .qam and qpm lisinopril 20 mg tablet 20 mg PO QDAY omeprazole 40 mg capsule,delayed release(DR/EC) 40 mg PO QAM Rx Instructions: before breakfast ezetimibe 10 mg tablet 10 mg PO DAILY home oxygen BEDTIME aspirin [Adult Low Dose Aspirin] 81 mg tablet,delayed release (DR/EC) 81 mg PO BID 30 Days Qty: 60 0RF naloxone [Narcan] 4 mg/actuation spray,non-aerosol 1 spray intranasal Q2M PRN (Reason: opioid overdose) Qty: 2 0RF Rx Instructions: spray 1 dose into ONE nostril; alternate nostrils w each dose until help arrives Activity: increase activity as tolerated Diet: advance to your usual diet Print Language: [place] Patient Instructions: Doxycycline (By mouth), Cefdinir (By mouth), Foot Care for People with Diabetes (DC), Chronic Wounds (DC) Forms: Portal Instructions Follow Up Appointments: please schedule follow up with dr aguiar on friday for within one week [phone]
[2023-11-22 10:58] LABS: Glucometer 243 mg/dL (74-106)
[2023-11-22 12:23] VITALS: O2SAT 95
[2023-11-22 12:25] VITALS: O2SAT 100
--- NOTE | 2023-11-24 13:46 | CM.DCFOLLOWU ---
1st attempt 11/24/23
--- NOTE | 2023-11-25 12:39 | CM.DCFOLLOWU ---
Person spoke with: patient How are you feeling? well How is your pain? controlled Did you understand your discharge instructions? yes Do you have any questions about your discharge instructions? no Were you given any prescriptions at discharge? yes Were you able to get your prescriptions filled? yes Do you understand how to take your medications as ordered? yes Do you have any questions about your follow up appointment and do you plan to keep your follow up appointment? no questions, follow up scheduled Is there anything else that you would like to discuss? no Questions/Comments/Concerns/Other: none
== END 2023-11-22 14:08 | disposition home or self-care (01) ==
LOC: ER 21:42 → MS 22:45
PROVIDERS: Family Medicine; Physician Assistant; Registered Nurse; Admitting Provider Family Medicine; Emergency Provider Internal Medicine; Visit Provider Family Medicine
DX: E11.621 Type 2 diabetes mellitus with foot ulcer (principal); L97.422 Non-pressure chronic ulcer of left heel and midfoot with fat layer exposed; E11.42 Type 2 diabetes mellitus with diabetic polyneuropathy; E11.65 Type 2 diabetes mellitus with hyperglycemia; E86.0 Dehydration; N17.9 Acute kidney failure, unspecified; K21.9 Gastro-esophageal reflux disease without esophagitis; E03.9 Hypothyroidism, unspecified; I10 Essential (primary) hypertension; K58.9 Irritable bowel syndrome, unspecified; Z79.4 Long term (current) use of insulin; Z87.891 Personal history of nicotine dependence; Z86.14 Personal history of Methicillin resistant Staphylococcus aureus infection
CPT/HCPCS: 36415; 73650; 80053; 82800; 82948; 83605; 85025; 85610; 85652; 86140; 87040; 94761; 96361; 96365; 96366; 96368; 96372; 99285; G0378; J1650; J2543; J3370

== ENCOUNTER 2023-11-27 15:46 | Outpatient (OUT) | payer MEDICARE, MEDICAID, SELFPAY | END 2023-11-27 15:47 | disposition home or self-care (01) | LOC: WC 15:47 | PROVIDERS: Visit Provider Physician Assistant | DX: E11.621 Type 2 diabetes mellitus with foot ulcer (principal); L97.422 Non-pressure chronic ulcer of left heel and midfoot with fat layer exposed | CPT/HCPCS: G0463 ==

== ENCOUNTER 2023-12-13 20:45 | Emergency (ER) | payer MEDICARE, MEDICAID, SELFPAY ==
[2023-12-13 20:52] VITALS: BP 140/80; PULSE 89; TEMP 36.8; O2SAT 96; BMI 39.5
--- OUTSIDE RECORDS SUMMARY | 2023-12-13 20:55 | XMS_ITS | CCD ---
Author Organization [facility] Care Team Providers Care Hearing Aid Assistant Name Role Phone TRINITY MINISTERIO Unavailable Unavailable RUMSCHLAG, JOY Unavailable Unavailable LYSTER, MINISTERIO Unavailable Unavailable RUMSCHLAG, JOY Unavailable Unavailable MA Procedure Practitioner Unavailab le SELF, REFERRED Referring Unavailable JAY TAPIA Surgeon Unavailable KASSANDRA SIMS Admitting Unavailable REY HICKS Attending Unavailable [facility] Primary Care Unavai lable UNKNOWN, PHYSICIAN Referring Unavailable UNKNOWN, PHYSICIAN Primary Care Unavailable ROMAN RYAN Admitting Unavailable GORDON REECE Attending Unavailable UNKNOWN, PHYSICIAN Referring Unavailable PENG PASCUAL Primary Care Unavailable EBRAHEIMADAM Attending Unavailable EBRAHEIM, ADAM Admitting Unavailable MA Procedure Practitioner Unavailab le EBRAHEIM, ADAM Surgeon Unavailable Mast, Desire E Primary Care Provider Aliyah Gagnon Unavailable [phone] Freddie Dumont Unavailable MD Megha Pascual Primary Care Provider MD Johnnie Shetty Attending Provider DENIS Adkins Attending Provider DO Freddie Dumont Attending Provider ALIYAH GAGNON Primary Care Physician Boo Ruano Unavailable MD Megha Pascual Primary Care Provider MD Johnnie Shetty Attending Provider DENIS Adkins Attending Provider Donny Lozano Unavailable MD Megha Pascula Primary Care Provider DENIS Shane Emergency Provider MD Aliyah Gagnon Attending Provider MD Donny Lozano Attending Provider MD Megha Pascual Primary Care Provider DENIS Shane Emergency Provider [phone] MD Aliyah Gagnon Attending Provider MD Donny Lozano Attending Provider DO Jose Keyes Emergency Provider NON STAFF Primary Care Provider UnavailMD Aliyah Jules Attending Provider DENIS Castellano Emergency Provider DO Jose Keyes Emergency Provider Unavailab le NON STAFF Primary Care Provider UnavailDENIS Valdez Emergency Provider [phone] DO Shalom Reed Emergency Provider [phone] NON STAFF Primary Care Provider UnavailMD Aliyah Jules Attending Provider [phone] NON STAFF Primary Care Provider Unavailabl e LÓPEZ Jennings Emergency Provider DO Josiah Castellano Emergency Provider [phone] [facility] Primary Care Prov ider NORBERT Pittman Attending Pr ovider LÓPEZ Carpio Attending Provider NO FAMILY, PHYSICIAN Primary Care Provider Unava ilable DO Shalom Reed Emergency Provider [phone] DILSHAD Aguiar Attending Provider [facility] Primary Care Prov ider NORBERT Pittman Attending Pr ovider Laila Pittman Attending U [facility] Primary Care U [facility] Laila Pittman Admitting U navailable NON STAFF Primary Care Unavailable Saffle, Annamarie N Admitting Unavailable Saffle, Annamarie N Attending Unavailable Josiah Castellano Admitting Unavailable Josiah Castellano Attending Unavailable NON STAFF Primary Care Unavailable NON STAFF Primary Care Unavailable Saffle, Annamarie N Admitting Unavailable Saffle, Annamarie N Attending Unavailable NON STAFF Primary Care Unavailable Josiah Castellano M Admitting Unavailable Josiah Castellano Attending Unavailable NO FAMILY, PHYSICIAN Primary Care Unavailable Shalom Reed Admitting Unavailable Shalom Reed Attending Unavailable Luis Miguel Aguiar Admitting Unavailable Luis Miguel Aguiar Attending Unavailable Zain, Laila Ramírez [facility], Laila Ramírez Admitting U [facility] Primary Care U navailable Pittman, Laila Ramírez Attending U navailable Pittman, Laila Ramírez Admitting U navailable Pittman, Laila Ramírez Attending [facility] Pittman, Laila Ramírez Admitting U navailable Pittman, Laila Ramírez Attending U [facility] Primary Care U navailable Pittman, Laila Ramírez Admitting U [facility] Primary Care U navailable Dalia Carpio Admitting Unavailable Dalia Carpio Attending Unavailable Allergies Allergy Classification Reported Allergen(s) Allergy Type Date of Onset Reaction(s) Facility Acetaminophen / HYDROcodone (1 source) Acetaminophen / HYDROcodone Drug Allergy 11-27-19 [address] Status Change [facility] Anti-Epileptic Agents (1 source) gabapentin Drug Allergy 11-27-19 13 Other: See Comments [facility] Furosemide (1 source) Furosemide Drug Allergy 08-26-[address] [facility] Iodine (and Iodine containting drugs) (1 source) Iodine Drug Allergy 09-06-[address] [facility] Work Phone: Opioid Agonists (1 source) traMADol Drug Allergy 11-27-19 [address] Status Change [facility] Unclassified (1 source) Thiazides Propensity to adverse reactions 08-26-[address] [facility] Unclassified (1 source) seafood [Other] Propensity to adverse reactions 09-06-[address] [facility] Work Phone: (1 source) Acetaminophen / oxyCODONE Drug Allergy 06-24-19 20 [facility] (20 sources) ARIPiprazole Drug Allergy 05-01-20 18 Unknown [facility] (7 sources) Codeine Drug Allergy 02-18-20 17 Unknown Reaction [facility] (2 sources) Furosemide; Translations: [LASIX] Drug Allergy 10-20-19 [facility] (20 sources) HYDROcodone Drug Allergy 02-18-20 17 Hives [facility] (1 source) Iodine (And Iodine Containting Drugs) Drug allergy (disorder) 03-22-20 09 [facility] (3 sources) traMADol; Translations: [ULTRAM] Drug Allergy 12-19-19 18 [facility] (1 source) all diuretics; Translations: [Unknown] Propensity to adverse reactions (disorder) 12-19-19 18 [facility] (20 sources) Acetaminophen / HYDROcodone; Translations: [Acetaminophen / Hydrocodone] Drug Allergy Unknown [employer] Other (20 sources) Codeine Drug Allergy Unknown [employer] Other (20 sources) HYDROcodone Drug Allergy Unknown [employer] Other (20 sources) Iodine; Translations: [iodine] Drug Allergy 09-21-19 Unknown, Dry Mucus Membranes [facility] (20 sources) tiZANidine Drug Allergy Unknown [facility] [employer] Other (20 sources) traMADol Drug Allergy 09-21-19 Unknown, Swelling of Lip/Tongue/Thr oat [facility] (20 sources) ALL DIURECTICS Propensity to adverse reactions 04-10-20 Unknown, Unknown Reaction [facility] (20 sources) Ultram,neurontin, iodine Propensity to adverse reactions 04-10-20 ([facility]) 03/25/2011 [facility] (20 sources) Furosemide Drug Allergy 09-21-19 22 all diuretics, SYNCOPE, SYNCOPE, all diuretics [facility] (11 sources) gabapentin; Translations: [gabapentin] Drug Allergy 09-21-19 Unknown (qualifier value) [facility] (20 sources) meloxicam Drug Allergy 09-21-19 Unknown Reaction [facility] (20 sources) oxyCODONE Drug Allergy 09-21-19 HISTORY OF ADDICTION [facility] (20 sources) diuretics Allergy to substance 09-21-19 Unknown Reaction [facility] (2 sources) Contrast media Drug allergy [facility] (2 sources) Shellfish; Translations: [shellfish] Drug allergy [facility] (1 source) Acetaminophen / oxyCODONE; Translations: [acetaminophen-ox ycodone] Drug Allergy Unknown (qualifier value) [facility] (6 sources) Acetaminophen Drug Allergy 04-10-20 Unknown Reaction [facility] (6 sources) ARIPiprazole Drug Allergy 04-10-20 Unknown Reaction [facility] (6 sources) tiZANidine Drug Allergy 04-10-20 Unknown Reaction [facility] Medications Current Medications Medication Drug Class(es) Dates Sig (Normalized) Sig (Original) Excedrin (1 source) Platelet Aggregation Inhibitor, Nonsteroidal Anti-inflammatory Drug, Central Nervous System Stimulant, Methylxanthine Start: 10-13-2013 take 2 tablets by mouth every six hours Excedrin 2 tab(s), Oral, q6hr, Refill(s) 0 Start Date: 10/13/13 Status: Ordered amitriptyline hydrochloride 150 mg oral tablet (20 sources) Tricyclic Antidepressant Start: 03-19-2021 take 150 mg by mouth once daily Amitriptyline Active 150 MG PO Daily March 19, 2021 1:00am Start: 10-06-2018 End: 07-02-2020 take 150 mg by mouth at bedtime Amitriptyline Disconti nued 150 MG PO Bedtime 45 October 08, 2019 10:37am July 02, 2020 1:48pm Start: 07-10-2017 End: 10-06-2018 take 200 mg by mouth at bedtime Amitriptyline Disconti nued 200 MG PO Bedtime July 11, 2017 10:48am October 06, 2018 5:21pm take 1 tablet by jon th once daily at bedtime amitriptyline 25 mg tablet Indications: Gastroparesis Take 25 mg by mouth daily at bedtime. 0 Active Comment on above: Take 25 mg by mouth daily at bedtime. amLODIPine 5 mg oral tablet (20 sources) Dihydropyridine Calcium Channel Apolonia Start: 2 take 1 mg by mouth once daily amLODIPine 5 mg Tab mg tab(s), Oral, Daily, Refills(s) 0 Start Date: 01/04/22 Status: Ordered Start: 06-30-2020 take 10 mg by mouth once daily Amlodipine Active 10 MG PO Daily June 30, 2020 1:00am Start: 12-28-2018 End: 09-29-2019 take 2.5 mg by mouth once daily Amlodipine Discontinue d 2.5 MG PO Daily December 28, 2018 12:00am September 29, 2019 12:22am Start: 10-06-2018 End: 12-28-2018 take 5 mg by mouth once daily Amlodipine Discontinued 5 MG PO Daily October 06, 2018 12:00am December 28, 2018 9:58pm take 1 tablet by jon th every twenty-four hours amLODIPine Besylate 2.5 MG 1 tablet Orally Once a day Active Comment on above: Take 5 mg by mouth o nce daily. atorvastatin 40 mg oral tablet (20 sources) HMG-CoA Reductase Inhibitor Start: take 40 mg by mouth once daily at bedtime Atorvastatin Active 40 MG PO Daily at bedtime August 12, 2023 12:00am Start: 07-02-2019 End: 07-26-2022 take 1 tablet by mouth once daily Atorvastatin (Lipitor) 20 mg Tablet Discontinued 20 MG PO Daily October 08, 2019 10:37am March 19, 2021 11:20pm Start: 07-10-2017 End: 11-10-2018 take 40 mg by mouth once daily Atorvastatin Discontinu ed 40 MG PO Daily July 10, 2017 1:00am November 10, 2018 9:56am baclofen 10 mg oral tablet (20 sources) gamma-Aminobutyric Acid-ergic Agonist Start: 08-12-2023 take 10 mg by mouth once daily Baclofen Active 10 MG PO Daily August 12, 2023 12:00am Start: 06-30-2020 take 10 mg by mouth three times daily Baclofen Active 10 MG PO Three times daily June 30, 2020 2:01am Start: 10-08-2019 End: 06-30-2020 take 10 mg by mouth twice daily Baclofen Discontinued 10 MG PO Twice daily 60 October 08, 2019 10:37am June 30, 2020 2:01am Start: 11-10-2018 End: 10-08-2019 take 10 mg by mouth three times daily Baclofen Discontinued 10 MG PO Three times daily November 10, 2018 12:00am October 08, 2019 10:38am Comment on above: Take 10 mg by mouth three times daily. buPROPion hydrochloride 100 mg oral tablet (2 sources) Aminoketone Start: 4 take 100 mg by mouth twice daily Wellbutrin 100 mg, Oral, BID, Refills(s) 0 Start Date: 10/13/13 Status: Ordered BUPROPION HCL (W ELLBUTRIN ORAL) Take 40 mg by mouth. 0 Active Comment on above: Take 40 mg by mouth. cholecalciferol 0.05 mg oral capsule (5 sources) Vitamin D Start: 024 take 50 ug by mouth once daily Cholecalciferol (Vitamin D3) Active 50 MCG PO Daily August 12, 2023 12:00am dicyclomine hydrochloride 20 mg oral tablet (20 sources) Anticholinergic Start: 022 take 1 mg by mouth four times daily dicyclomine 20 mg Tab mg tab(s), Oral, QID, Refills(s) 0 Start Date: 01/04/22 Status: Ordered Start: 10-06-2018 End: 10-08-2019 take 20 mg by mouth three times daily Dicyclomine Active 20 MG PO Three times daily 90 October 08, 2019 10:37am Start: 01-10-2017 End: 07-10-2017 take 2 capsules by mouth four times daily Dicyclomine (Bentyl) 10 mg Capsule Discontinued 20 MG PO Four times daily January 10, 2017 12:00am July 10, 2017 10:27am take 1 tablet by jon every eight hours Comment on above: Take 20 mg by mouth every 6 hours. DULoxetine 60 mg delayed release oral capsule (20 sources) Serotonin and Norepinephrine Reuptake Inhibitor Start: 1 take 60 mg by mouth once daily Duloxetine Active 60 MG PO Daily March 19, 2021 1:00am Start: 07-02-2019 End: 09-29-2019 take 30 mg by mouth once daily in the morning Duloxetine Discontinued 30 MG PO Every morning July 02, 2019 1:00am September 29, 2019 12:26am Start: 12-05-2018 End: 03-19-2021 take 60 mg by mouth twice daily Duloxetine Discontinue d 60 MG PO Twice daily 60 30 October 08, 2019 10:37am March 19, 2021 11:39pm Start: 11-10-2018 End: 12-05-2018 take 30 mg by mouth once daily Duloxetine Discontinued 30 MG PO Daily November 10, 2018 12:00am December 05, 2018 5:31pm Start: 10-06-2018 End: 12-05-2018 Duloxetine (Cymbalta) 60 mg capsule,delayed release(DR/EC) Discontinued 30 MG PO Every morning October 06, 2018 5:21pm December 05, 2018 5:31pm Start: 10-06-2018 End: 12-28-2018 take 30 mg by mouth once daily in the morning Duloxetine Discontinued 30 MG PO Every morning October 06, 2018 12:00am December 28, 2018 10:06pm Start: 01-10-2017 End: 10-06-2018 take 1 capsule by mouth at bedtime Duloxetine (Cymbalta) 60 mg Capsule,Delayed Release(Dr/Ec) Discontinued 60 MG PO Bedtime July 11, 2017 10:48am October 06, 2018 5:21pm Start: 10-13-2013 take 60 mg by mouth twice marcelo y Cymbalta 60 mg, Oral, BID, Refills(s) 0 Start Date: 10/13/13 Status: Ordered Comment on above: Take 60 mg by mouth once daily. empagliflozin 10 mg oral tablet (5 sources) Sodium-Glucose Cotransporter 2 Inhibitor Start: 08-12-19 24 take 1 tablet by mouth once daily Empagliflozin (Jardiance) 10 mg tablet Active 10 MG PO Daily August 12, 2023 12:00am estradiol 0.1 mg/ml vaginal cream (1 source) Estrogen Start: 01-05-20 22 Estrace 0.1 mg/g Cream See Instructions, 42.5 gm, Refill(s) 5, Insert 1 gram vaginally and rub some around urethral opening nightly x 3 weeks then 3x/week thereafter for maintenance., [facility] [id number], 167, cm, 01/04/22 14:38:00 EDT, Height/Length Dosing Start Date: 01/04/22 Status: Ordered ezetimibe 10 mg oral tablet (5 sources) Dietary Cholesterol Absorption Inhibitor Start: 08-12-19 take 10 mg by mouth once daily Ezetimibe Active 10 MG PO Daily August 12, 2023 12:00am folic acid 0.8 mg oral tablet (5 sources) Start: 08-12-19 take 0.8 mg by mouth once daily Folic Acid Active 0.8 MG PO Daily August 12, 2023 12:00am gabapentin 100 mg oral capsule (20 sources) Anti-epileptic Agent Start: 08-12-19 take 100 mg by mouth three times daily Gabapentin Active 100 MG PO Three times daily August 12, 2023 12:00am Start: 07-10-2017 End: 07-11-2017 take 300 mg by mouth twice daily Gabapentin Discontinued 300 MG PO Twice daily July 10, 2017 1:00am July 11, 2017 10:45am glipiZIDE 10 mg oral tablet (5 sources) Sulfonylurea Start: 08-12-2023 take 10 mg by mouth twice daily Glipizide Active 10 MG PO Twice daily August 12, 2023 12:00am insulin aspart, human (20 sources) Insulin Analog Start: 10-08-2019 inject 1 dose by subcutaneous injection at bedtime Insulin Aspart U-100 Active 1 sliding scale dose SUBCUT Before meals and at bedtime October 08, 2019 9:37am Start: 10-08-2019 inject 1 dose by sub cutaneous injection at bedtime Insulin Aspart U-100 Active 1 sliding scale dose SUBCUT Before meals and at bedtime October 08, 2019 10:37am Start: 07-02-2019 End: 10-08-2019 inject 1 dose by subcutaneous injection at bedtime Insulin Aspart U-100 Discontinued 1 sliding scale dose SUBCUT Before meals and at bedtime July 02, 2019 12:00am October 08, 2019 9:38am Start: 07-02-2019 End: 10-08-2019 inject 1 dose by subcutaneous injection at bedtime Insulin Aspart U-100 Discontinued 1 sliding scale dose SUBCUT Before meals and at bedtime July 02, 2019 1:00am October 08, 2019 10:38am Start: 09-06-2017 End: 07-02-2019 Insulin Aspart U-100 (Novolo g Flexpen U-100 Insulin) 100 unit/mL insulin pen Discontinued 0 .ROUTE .COMPLEX September 06, 2017 6:36pm July 02, 2019 12:25pm Sliding scale. Start: 07-14-2017 End: 09-06-2017 inject 1 [IU] by subcutaneous injection at bedtime Insulin Aspart U-100 (Novolog Flexpen U-100 Insulin) 100 unit/mL Insulin Pen Discontinued 1 UNITS SUBCUT Before meals and at bedtime 1 July 14, 2017 1:59pm September 06, 2017 6:36pm Continue sliding scale as before Start: 07-14-2017 End: 07-14-2017 Insulin Aspart U-100 (Novolo g Flexpen) 100 unit/mL Insulin Pen Discontinued July 14, 2017 1:00am July 14, 2017 1:59pm Patient has information on sliding scale at home. Start: 01-10-2017 End: 07-10-2017 Insulin Aspart U-100 (Novolo g Flexpen U-100 Insulin) 100 unit/mL Insulin Pen Discontinued 10 UNIT SUBCUT As Directed January 10, 2017 12:00am July 10, 2017 10:51am Start: 10-13-2013 NovoLog 10 uni t(s), SubCutaneous, blood sugar above 150, Refills(s) 0 Start Date: 10/13/13 Status: Ordered INSULIN ASPART ( NOVOLOG SUBCUTANEOUS) Inject subcutaneously. Sliding scale 0 Active Comment on above: Inject subcutaneousl y. Sliding scale 3 ml insulin glargine 100 unt/ml pen injector (20 sources) Insulin Analog Start: 03-19-2021 Insulin Glargine (Lantus Solostar U-100 Insulin) 100 unit/mL (3 mL) insulin pen Active 70 UNIT SUBCUT Bedtime March 19, 2021 1:00am Start: 07-02-2019 End: 03-19-2021 inject 48 [IU] by subcutaneous injection twice daily Insulin Glargine Discontinued 48 UNIT SUBCUT Twice daily October 08, 2019 10:37am March 19, 2021 11:22pm Start: 12-08-2018 End: 07-02-2019 inject 60 [IU] by subcutaneous injection once daily at bedtime Insulin Glargine Discontinued 60 UNIT SUBCUT Daily at bedtime 0 December 08, 2018 12:03pm July 02, 2019 12:22pm Start: 12-05-2018 End: 12-08-2018 Insulin Glargine (Lantus Pricila ostar U-100 Insulin) 100 unit/mL (3 mL) insulin pen Discontinued 40 UNITS SUBCUT Daily at bedtime December 05, 2018 12:00am December 08, 2018 12:04pm Start: 10-06-2018 End: 12-05-2018 inject 40 [IU] by subcutaneous injection once daily at bedtime Insulin Glargine (Lantus U-100 Insulin) 100 unit/mL solution Discontinued 40 UNIT SUBCUT Daily at bedtime October 06, 2018 5:21pm December 05, 2018 5:35pm Start: 07-14-2017 End: 10-06-2018 inject 70 [IU] by subcutaneous injection once daily Insulin Glargine (Lantus U-100 Insulin) 100 unit/mL Solution Discontinued 70 UNIT SUBCUT Daily July 14, 2017 1:59pm October 06, 2018 5:21pm Start: 01-10-2017 End: 07-10-2017 Insulin Glargine (Lantus Pricila ostar U-100 Insulin) 100 unit/mL (3 mL) Insulin Pen Discontinued 45 UNIT SUBCUT Daily at bedtime January 10, 2017 12:00am July 10, 2017 10:51am Start: 10-13-2013 inject 80 [IU] by llamas bcutaneous injection twice daily Lantus 80 unit(s), SubCutaneous, BID, Refills(s) 0 Start Date: 10/13/13 Status: Ordered lactulose 667 mg/ml oral solution (20 sources) Osmotic Laxative Start: 12-27-2022 take 30 mL by mouth four times daily Lactulose 20 GM/30ML 30 ml Orally four times a day for 30 days Dec, Active Start: 08-20-2022 End: 08-12-2023 take 20 g by mouth four times daily Lactulose Discontinued 20 GM PO Four times daily 1199August 20, 2022 12:00am August 12, 2023 1:50pm Start: 07-02-2020 End: 03-19-2021 take 20 g by mouth twice daily Lactulose Discontinued 20 GM PO Twice daily July 24, 2020 3:54pm March 19, 2021 11:22pm levothyroxine sodium 0.2 mg oral tablet (20 sources) l-Thyroxine Start: 01-04-2022 take 1 tablet by mouth once daily levothyroxine 200 mcg (0.2 mg) Tab mcg tab(s), Oral, Daily, Refills(s) 0 Start Date: 01/04/22 Status: Ordered Start: 03-19-2021 take 200 ug by mouth once daily Levothyroxine Active 200 MCG PO Daily March 19, 2021 1:00am Start: 09-29-2019 End: 03-19-2021 take 175 ug by mouth once daily Levothyroxine Discontinued 175 MCG PO Daily October 08, 2019 12:00am March 19, 2021 11:23pm Start: 12-28-2018 End: 07-02-2019 take 175 ug by mouth once daily Levothyroxine Discontinued 175 MCG PO Daily December 28, 2018 12:00am July 02, 2019 12:21pm Start: 01-10-2017 End: 12-28-2018 take 175 ug by mouth once daily Levothyroxine Discontinued 175 MCG PO Daily January 10, 2017 12:00am December 28, 2018 9:58pm Start: 10-13-2013 Synthroid 300 microgram, Oral, Daily, Refills(s) 0 Start Date: 10/13/13 Status: Ordered Start: 10-09-2004 SYNTHROID 300 MCG ORAL TAB .qod 0 10/09/2004 Active take 1 tablet by jon th every twenty-four hours Levothyroxine Sodium 50 MCG 1 tablet Orally Once a day Active Comment on above: .qod lisinopril 20 mg oral tablet (20 sources) Angiotensin Converting Enzyme Inhibitor Start: 03-19-2021 take 20 mg by mouth once daily Lisinopril Active 20 MG PO Daily March 19, 2021 1:00am Start: 07-02-2019 End: 03-19-2021 take 5 mg by mouth once daily Lisinopril Discontinued 5 MG PO Daily October 08, 2019 10:37am March 19, 2021 11:44pm Start: 10-13-2013 End: 07-02-2019 take 40 mg by mouth once daily Lisinopril Discontinued 40 MG PO Daily July 10, 2017 1:00am July 02, 2019 12:20pm Comment on above: Take 40 mg by mouth once daily. nystatin 100 unt/mg topical powder (20 sources) Polyene Antifungal Start: 03-19-2021 Nystatin (Nyamyc) 100,000 unit/gram powder Active 30 APPLIC TOPICAL Three times daily March 19, 2021 1:00am Start: 10-08-2019 End: 06-30-2020 Nystatin (Nystop) 100,000 un it/gram Powder Discontinued 1 APPLIC TOPICAL Twice daily October 08, 2019 12:00am June 30, 2020 10:27am Start: 07-11-2017 End: 07-02-2019 Nystatin (Nystop) 100,000 un it/gram Powder Discontinued 1 APPLIC TOPICAL Twice daily July 11, 2017 1:00am July 02, 2019 12:21pm omeprazole 20 mg delayed release oral capsule (20 sources) Proton Pump Inhibitor Start: 01-04-2022 take 1 mg by mouth once daily omeprazole 20 mg Cap-DR mg cap(s), Oral, Daily, Refills(s) 0 Start Date: 01/04/22 Status: Ordered Start: 03-19-2021 take 20 mg by mouth twice marcelo y Omeprazole Active 20 MG PO Twice daily March 19, 2021 1:00am Start: 01-10-2017 End: 03-19-2021 take 20 mg by mouth once daily Omeprazole Discontinued 20 MG PO daily October 08, 2019 10:37am March 19, 2021 11:42pm Start: 10-13-2013 take 20 mg by mouth once daily Prilosec 20 mg, Oral, Daily, Refills(s) 0 Start Date: 10/13/13 Status: Ordered take 1 capsule by [facility] once daily Omeprazole 40 mg capsule Indications: Gastroparesis Take 40 mg by mouth once daily. 0 Active Comment on above: Take 40 mg by mouth once daily. polyethylene glycol [id number] [id number] mg / potassium chloride 2970 mg / sodium bicarbonate 6740 mg / sodium chloride 5860 mg / sodium sulfate 07288 mg powder for oral solution (5 sources) Osmotic Laxative Start: 08-02-2022 Golytely 236 GM At 4:00 pm the day prior to colonoscopy Orally 8 ounces every 15 minutes for 1 days PLEASE CHECK ALLERGIES Aug, Active Completed/Discontinued Medications Medication Drug Class(es) Dates Sig (Normalized) Sig (Original) acetaminophen 325 mg oral tablet (20 sources) Start: 07-02-2019 End: 10-08-2019 take 650 mg by mouth every six hours Acetaminophen Discontinued 650 MG PO Q6H July 02, 2019 1:00am October 08, 2019 10:38am acetaminophen 325 mg / butalbital 50 mg / caffeine 40 mg oral tablet (20 sources) Barbiturate, Central Nervous System Stimulant, Methylxanthine Start: 07-24-2020 End: 03-19-2021 take 1 tablet by mouth every four hours Butalbital-Acetami nophen-Caff Discontinued 1 TAB PO Q4H July 24, 2020 12:00am March 19, 2021 11:20pm Start: 11-10-2018 End: 07-02-2019 take 1 capsule by mouth every four to six hours Zvatjhzsyb-Dlhldgzfqigrm-Emoz (Fioricet) 50-300-40 mg Capsule Discontinued 1 CAP PO EVERY 4-6 HOURS November 10, 2018 12:00am July 02, 2019 12:21pm Start: 11-29-2014 Fioricet See I nstructions, as needed for pain, Refill(s) 0, 350/50/50 not to exceed 6 tablets/day Start Date: 11/29/14 Status: Ordered acetaminophen 325 mg / HYDROcodone bitartrate 5 mg oral tablet (20 sources) Opioid Agonist Start: 09-20-2021 End: 07-26-2022 take 1 tablet by mouth every six hours Hydrocodone-Acetaminophen Discontinued 1 TAB PO Q6H 20 5 September 20, 2021 July 26, 2022 1:35pm ascorbic acid 500 mg oral tablet (1 source) Vitamin C Start: 09-24-2004 take 1 tablet by mouth once daily VITAMIN C 500 MG ORAL TAB Take one(1) tablet daily. 0 09/24/2004 Active Comment on above: Take one(1) tablet d aily. atropine sulfate 0.025 mg / diphenoxylate hydrochloride 2.5 mg oral tablet (20 sources) Anticholinergic, Cholinergic Muscarinic Antagonist, Antidiarrheal Start: 07-02-2019 End: 10-08-2019 take 2 tablets by mouth twice daily Diphenoxylate-Atropine Discontinued 2 TAB PO Twice daily July 02, 2019 1:00am October 08, 2019 10:38am Balsam [place] Oil (Venelex) Ointment (20 sources) Start: 10-08-2019 End: 06-30-2020 Balsam [place] Oil (Venelex) Ointment Discontinued 1 APPLIC TOPICAL Twice daily 30 October 07, 2019 11:00pm June 30, 2020 9:27am Start: 10-08-2019 End: 06-30-2020 Balsam [place] Oil (Vene tamela) Ointment Discontinued 1 APPLIC TOPICAL Twice daily October 08, 2019 12:00am June 30, 2020 10:27am benzonatate 100 mg oral capsule (20 sources) Non-narcotic Antitussive Start: 05-24-2021 End: 07-26-2022 take 100 mg by mouth twice daily Benzonatate Discontinued 100 MG PO Twice daily 10 May 24, 2021 1:00am July 26, 2022 1:35pm bethanechol chloride 10 mg oral tablet (1 source) Cholinergic Muscarinic Agonist take 1 tablet by mouth three times daily bethanechol 10 mg tablet Indications: Gastroparesis Take 10 mg by mouth three times daily. 0 Active Comment on above: Take 10 mg by mouth three times daily. bisacodyl 10 mg rectal suppository (20 sources) Stimulant Laxative Start: 07-02-2019 End: 09-29-2019 Bisacodyl Discontinued 10 MG MA Q6H July 02, 2019 1:00am September 29, 2019 12:43am Budesonide (20 sources) Corticosteroid Start: 05-24-2021 End: 07-26-2022 Budesonide Discontinued 1 INH INHALATION Twice daily 05 18May 24, 2021 3:58pm July 26, 2022 1:35pm Start: 05-24-2021 Budesonide Act nanda 1 INH INHALATION Twice daily 1 May 24, 2021 2:58pm Start: 05-24-2021 Budesonide Act nanda 1 INH INHALATION Twice daily 05 18May 24, 2021 3:58pm busPIRone hydrochloride 15 mg oral tablet (20 sources) Start: 07-02-2019 End: 07-26-2022 take 15 mg by mouth twice daily Buspirone Discontinued 15 MG PO Twice daily 60 October 08, 2019 10:37am March 19, 2021 11:38pm canagliflozin 300 mg oral tablet (20 sources) Sodium-Glucose Cotransporter 2 Inhibitor Start: 01-10-2017 End: 07-26-2022 take 1 tablet by mouth once daily Canagliflozin (Invokana) 300 mg Tablet Discontinued 300 MG PO Daily 30 October 08, 2019 10:37am July 26, 2022 1:36pm cariprazine 3 mg oral capsule (20 sources) Atypical Antipsychotic Start: 07-11-2017 End: 12-05-2018 take 3 mg by mouth once daily at bedtime Cariprazine Discontinued 3 MG PO Daily at bedtime July 11, 2017 1:00am December 05, 2018 5:31pm cefdinir 300 mg oral capsule (20 sources) Cephalosporin Antibacterial Start: 09-29-2019 End: 10-08-2019 take 1 dose by mouth every twelve hours Cefdinir Discontinued 300 MG PO Q12H September 29, 2019 12:00am October 08, 2019 10:38am LAST DOSE TO BE ON 09/29/19 AT 2200 cephalexin 500 mg oral capsule (20 sources) Cephalosporin Antibacterial Start: 01-06-2023 End: 08-12-2023 take 500 mg by mouth twice daily Cephalexin Discontinued 500 MG PO Twice daily 28 02February 04, 2023 12:00am August 12, 2023 1:45pm Start: 12-13-2022 End: 08-12-2023 take 500 mg by mouth three times daily Cephalexin Discontinued 500 MG PO Three times daily 30 December 13, 2022 12:00am August 12, 2023 1:45pm Start: 05-08-2019 End: 09-29-2019 take 1 capsule by mouth twice daily Cephalexin (Keflex) 500 mg capsule Discontinued 500 MG PO Twice daily 14 July 02, 2019 1:00am September 29, 2019 12:24am Start: 10-06-2018 End: 11-10-2018 take 1 capsule by mouth four times daily Cephalexin (Keflex) 500 mg Capsule Discontinued 500 MG PO Four times daily October 06, 2018 12:00am November 10, 2018 10:01am Start: 05-20-2017 End: 07-09-2017 take 1 capsule by mouth four times daily Cephalexin (Keflex) 500 mg capsule Discontinued 500 MG PO Four times daily May 20, 2017 1:00am July 09, 2017 5:58pm clonazePAM 1 mg oral tablet (20 sources) Benzodiazepine Start: 01-10-2017 End: 07-09-2017 take 1 tablet by mouth once daily Clonazepam (Klonopin) 1 mg Tablet Discontinued 1 TAB PO Daily January 10, 2017 12:00am July 09, 2017 5:58pm Start: 10-13-2013 take 10 mg by mouth three times daily Klonopin 10 mg, Oral, TID, Refills(s) 0 Start Date: 10/13/13 Status: Ordered take 1 tablet by jon every twelve hours as needed clonazePAM (KLONOPIN) 1 mg tablet Take 1 mg by mouth twice daily as needed. 0 Active Comment on above: Take 1 mg by mouth t wice daily as needed. COMPOUNDED PRESCRIPTION (1 source) Start: End: take 1 capsule by mouth three times daily COMPOUNDED PRESCRIPTION Indications: Gastroparesis Domperidone 5 mg po TID 60 capsule 3 01/07/2013 09/02/2013 Discontinued (Discontinued by Patient) Comment on above: Domperidone 5 mg po TID cyclobenzaprine hydrochloride 10 mg oral tablet (20 sources) Muscle Relaxant Start: End: take 5 mg by mouth three times daily Cyclobenzaprine Discontinued 5 MG PO Three times daily October 06, 2018 12:00am December 05, 2018 5:31pm cyproheptadine hydrochloride 4 mg oral tablet (20 sources) Start: End: take 4 mg by mouth at bedtime Cyproheptadine Discontinued 4 MG PO Bedtime June 30, 2020 1:00am July 26, 2022 1:35pm diclofenac sodium 75 mg delayed release oral tablet (20 sources) Nonsteroidal Anti-inflammatory Drug Start: End: take 75 mg by mouth once daily Diclofenac Sodium Discontinued 75 MG PO Daily December 02, 2017 12:00am December 05, 2018 5:31pm Start: 04-27-2017 End: 07-10-2017 take 1 tablet by mouth once daily Diclofenac Sodium (Voltaren-Xr) 100 mg Tablet Extended Release 24 Hr Discontinued 100 MG PO Daily April 27, 2017 1:00am July 10, 2017 10:26am diphenhydrAMINE hydrochloride 25 mg oral tablet (20 sources) Histamine-1 Receptor Antagonist Start: 12-28-2018 End: 07-02-2019 take 25 mg by mouth three times daily Diphenhydramine Hcl Discontinued 25 MG PO Three times daily December 28, 2018 12:00am July 02, 2019 12:21pm doxycycline hyclate 100 mg oral capsule (20 sources) Tetracycline-clas s Drug Start: 01-08-2023 End: 08-12-2023 take 100 mg by mouth twice daily Doxycycline Hyclate Discontinued 100 MG PO Twice daily January 08, 2023 12:00am August 12, 2023 1:45pm Start: 12-24-2018 End: 07-02-2019 take 100 mg by mouth twice daily Doxycycline Hyclate Discontinued 100 MG PO Twice daily 28 02December 24, 2018 12:00am July 02, 2019 12:22pm Start: 12-08-2018 End: 12-24-2018 take 100 mg by mouth twice daily Doxycycline Hyclate Discontinued 100 MG PO Twice daily 10 December 08, 2018 12:00am December 24, 2018 2:00pm 0.4 ml enoxaparin sodium 100 mg/ml prefilled syringe (20 sources) Low Molecular Weight Heparin Start: 07-02-2019 End: 09-29-2019 Enoxaparin (Lovenox) 40 mg/0.4 mL Syringe Discontinued 40 MG SUBCUT Daily July 02, 2019 1:00am September 29, 2019 12:40am 1 ml erenumab-aooe 140 mg/ml auto-injector (20 sources) Start: 03-19-2021 End: 07-26-2022 inject 140 mg by subcutaneous injection once daily Erenumab-Aooe (Aimovig Autoinjector) 140 mg/mL auto-injector Discontinued 140 MG SUBCUT Daily March 19, 2021 1:00am July 26, 2022 1:32pm Ergocalciferol (20 sources) Provitamin D2 Compound Start: 10-06-2018 End: 10-08-2019 take 49167 [IU] by mouth every week Ergocalciferol (Vitamin D2) Discontinued 29208 UNIT PO every week October 05, 2018 11:00pm October 08, 2019 9:38am Q FRIDAY Start: 10-06-2018 End: 10-08-2019 take 82596 [IU] by mouth every week Ergocalciferol (Vitamin D2) Discontinued 75722 UNIT PO every week October 06, 2018 12:00am October 08, 2019 10:38am Q FRIDAY ERGOCALCIFEROL, VITAMIN D2, (VITAMIN D ORAL) (1 source) ERGOCALCIFEROL, VITAMIN D2, (VITAMIN D ORAL) Indications: Gastroparesis Take by mouth. 0 Active Comment on above: Take by mouth. 12 hr guaiFENesin 600 mg / pseudoephedrine hydrochloride 60 mg extended release oral tablet (1 source) alpha-Adrenergic Agonist Start: 005 GUAIFENEX PSE 60 60 MG-600 MG ORAL TB12 PRN UNSURE OF DOSE 0 09/24/2004 Active Comment on above: PRN UNSURE OF DOSE hydrOXYzine hydrochloride 50 mg oral tablet (20 sources) Antihistamine Start: 021 End: 023 take 50 mg by mouth four times daily Hydroxyzine Hcl Discontinued 50 MG PO Four times daily May 18, 2020 1:00am July 26, 2022 1:35pm Start: 10-08-2019 End: 03-19-2021 take 25 mg by mouth every six hours Hydroxyzine Pamoate Discontinued 25 MG PO Q6H 180 30 October 08, 2019 12:00am March 19, 2021 11:22pm Start: 07-02-2019 End: 10-08-2019 take 50 mg by mouth four times daily Hydroxyzine Hcl Discontinued 50 MG PO Four times daily July 02, 2019 1:00am October 08, 2019 10:38am Start: 10-06-2018 End: 07-02-2019 take 50 mg by mouth three times daily Hydroxyzine Hcl Discontinued 50 MG PO Three times daily October 06, 2018 12:00am July 02, 2019 12:21pm take 1 tablet by jon th every twenty-four hours hydrOXYzine HCl 25 MG 1 tablet at bedtime as needed Orally Once a day Active ibuprofen 600 mg oral tablet (20 sources) Nonsteroidal Anti-inflammatory Drug Start: 12-28-2018 End: 07-02-2019 take 600 mg by mouth three times daily Ibuprofen Discontinued 600 MG PO Three times daily December 28, 2018 12:00am July 02, 2019 12:21pm Start: 12-05-2018 End: 12-28-2018 take 600 mg by mouth three times daily Ibuprofen Discontinued 600 MG PO Three times daily December 05, 2018 5:32pm December 28, 2018 9:59pm Start: 09-06-2017 End: 12-05-2018 take 800 mg by mouth three times daily Ibuprofen Discontinued 800 MG PO Three times daily October 06, 2018 12:00am December 05, 2018 5:32pm Start: 07-14-2017 End: 09-06-2017 take 400 mg by mouth every four hours Ibuprofen Discontinued 400 MG PO Every 4 hours July 14, 2017 1:00am September 06, 2017 6:34pm 3 ml insulin detemir 100 unt/ml pen injector (20 sources) Insulin Analog Start: 07-14-2017 End: 07-14-2017 Insulin Detemir U-100 (Levemir Flextouch) 100 unit/mL (3 mL) Insulin Pen Discontinued 20 UNITS SUBCUT Daily 0 July 14, 2017 1:00am July 14, 2017 1:06pm INSULIN GLARGINE,HUM.REC. ANLOG (LANTUS SUBCUTANEOUS) (1 source) INSULIN GLARGINE,HUM.REC.ANL OG (LANTUS SUBCUTANEOUS) Inject 40 Units subcutaneously as directed. 40 in AM and 40 at night 0 Active Comment on above: Inject 40 Units subc utaneously as directed. 40 in AM and 40 at night Ketorolac (19 sources) Nonsteroidal Anti-inflammatory Drug, Cyclooxygenase Inhibitor Start: 07-12-2013 Toradol per 15 mg Jul, 60 mg lamoTRIgine 100 mg oral tablet (20 sources) Mood Stabilizer, Anti-epileptic Agent Start: 11-10-2018 End: 07-26-2022 take 1 tablet by mouth twice daily Lamotrigine (Lamictal) 100 mg Tablet Discontinued 100 MG PO Twice daily 60 October 08, 2019 10:37am July 26, 2022 1:36pm Start: 04-30-2018 End: 12-05-2018 take 1 tablet by mouth once daily Lamotrigine (Lamictal Xr) 25 mg Tablet Extended Release 24hr Discontinued 25 MG PO Daily April 30, 2018 1:00am December 05, 2018 5:33pm take 1 tablet by jon th every twenty-four hours lamoTRIgine 100 MG 1 tablet Orally Once a day Not-Taking loperamide hydrochloride 2 mg oral tablet (20 sources) Opioid Agonist Start: 04-30-2018 End: 07-02-2019 Loperamide (Imodium A-D) 2 mg Tablet Discontinued 2 MG PO EVERY 2-4 HOURS April 30, 2018 1:00am July 02, 2019 12:21pm LORazepam 1 mg oral tablet (20 sources) Benzodiazepine Start: 07-09-2017 End: 07-11-2017 take 1 mg by mouth three times daily Lorazepam Discontinued 1 MG PO Three times daily July 09, 2017 1:00am July 11, 2017 10:46am lurasidone hydrochloride 20 mg oral tablet (20 sources) Atypical Antipsychotic Start: 11-10-2018 End: 07-26-2022 take 20 mg by mouth once daily Lurasidone Discontinued 20 MG PO Daily July 24, 2020 12:00am July 26, 2022 1:36pm take 1 tablet by jon th every twenty-four hours Latuda 80 MG 1 tablet with food Orally Once a day Active magnesium citrate 58.2 mg/ml oral solution (20 sources) Start: 06-21-2020 End: 06-30-2020 take 1 mL by mouth once Magnesium Citrate Discontinued 120 ML PO Once 120 June 21, 2020 1:00am June 30, 2020 10:27am meclizine hydrochloride 25 mg oral tablet (20 sources) Antiemetic Start: 07-24-2020 End: 07-26-2022 take 25 mg by mouth twice daily Meclizine Discontinued 25 MG PO Twice daily July 24, 2020 12:00am July 26, 2022 1:37pm melatonin 10 mg oral tablet (20 sources) Start: 06-30-2020 End: 07-26-2022 take 10 mg by mouth at bedtime Melatonin Discontinued 10 MG PO Bedtime June 30, 2020 1:00am July 26, 2022 1:37pm meloxicam 15 mg oral tablet (20 sources) Nonsteroidal Anti-inflammatory Drug Start: 08-29-2021 take 1 tablet by mouth every twenty-four hours Meloxicam 15 MG 1 tablet Orally Once a day for 30 day(s) Aug, Not-Taking Start: 09-29-2019 End: 10-08-2019 take 15 mg by mouth once daily Meloxicam Discontinued 15 MG PO Daily September 29, 2019 12:00am October 08, 2019 10:38am metoclopramide 10 mg oral tablet (20 sources) Dopamine-2 Receptor Antagonist Start: 07-02-2019 End: 06-30-2020 take 10 mg by mouth twice daily Metoclopramide Hcl Discontinued 10 MG PO Twice daily 60 October 08, 2019 10:37am June 30, 2020 10:27am Start: 01-10-2017 End: 07-10-2017 take 1 tablet by mouth twice daily Metoclopramide Hcl (Reglan) 10 mg Tablet Discontinued 10 MG PO Twice daily January 10, 2017 12:00am July 10, 2017 10:34am morphine sulfate 2 mg/ml oral solution (20 sources) Opioid Agonist Start: 07-02-2019 End: 09-29-2019 take 10 mg by mouth every eight hours Morphine Discontinued 10 MG PO Q8H July 02, 2019 1:00am September 29, 2019 12:39am MULTIVITAMIN ORAL TAB (1 source) Start: 09-24-2004 MULTIVITAMIN ORAL TAB WITH IRON QD 0 09/24/2004 Active Comment on above: WITH IRON QD naproxen 500 mg oral tablet (17 sources) Nonsteroidal Anti-inflammatory Drug Start: 04-22-2022 End: 08-20-2022 take 500 mg by mouth twice daily at mealtime Naproxen Discontinued 500 MG PO Twice daily April 22, 2022 1:00am August 20, 2022 9:17am administer with food or milk Start: 11-29-2014 take 1 tablet by jon th twice daily as needed for pain naproxen 500 mg Tab 500 mg = 1 tab(s), Oral, BID, PRN as needed for pain, Refills(s) 0 Start Date: 11/29/14 Status: Ordered 24 hr NIFEdipine 60 mg extended release oral tablet (1 source) Dihydropyridine Calcium Channel Apolonia End: 09-02-2013 take 1 tablet by mouth once daily NIFEdipine XL 60 mg 24 hr tablet Indications: Gastroparesis Take 60 mg by mouth once daily. 0 09/02/2013 Discontinued (Discontinued by Patient) Comment on above: Take 60 mg by mouth once daily. Nirmatrelvir-Naveed navir (20 sources) Start: 05-24-2021 End: 07-26-2022 Nirmatrelvir-Ritona vir (Paxlovid (Eua)) 300 mg (150 mg x 2)-100 mg tablet Discontinued 0 PO .COMPLEX May 24, 2021 1:00am July 26, 2022 1:37pm orally per package directions Start: 05-24-2021 Nirmatrelvir-R itonavir (Paxlovid (Eua)) 300 mg (150 mg x 2)- 100 mg tablet Active 0 PO .COMPLEX May 24, 2021 12:00am orally per package directions Start: 05-24-2021 Nirmatrelvir-R itonavir (Paxlovid (Eua)) 300 mg (150 mg x 2)- 100 mg tablet Active 0 PO .COMPLEX May 24, 2021 1:00am orally per package directions nitrofurantoin, macrocrystals 25 mg / nitrofurantoin, monohydrate 75 mg oral capsule (20 sources) Nitrofuran Antibacterial Start: 12-25-2018 End: 12-28-2018 take 1 capsule by mouth twice daily at mealtime Nitrofurantoin Monohyd/M-Cryst (Macrobid) 100 mg capsule Discontinued 100 MG PO Twice daily December 25, 2018 12:00am December 28, 2018 10:09pm must administer with a meal/food [place] 0-Biu-Xdu-Fish Oil (Lind[place]-3) 350 mg-235 mg- 90 mg-597 mg Capsule,Delayed Release(Dr/Ec) (20 sources) Start: 11-10-2018 End: 12-06-2018 take 1 tablet by mouth once daily [place] 2-Hju-Nbu-Fish Oil (Linden-3) 350 mg-235 mg- 90 mg-597 mg Capsule,Delayed Release(Dr/Ec) Discontinued 1 TAB PO Daily November 09, 2018 11:00pm December 06, 2018 10:33am Start: 11-10-2018 End: 12-06-2018 take 1 tablet by mouth once daily [place] 9-Swn-Tfy-Fish Oil (Linden-3) 350 mg-235 mg- 90 mg-597 mg Capsule,Delayed Release(Dr/Ec) Discontinued 1 TAB PO Daily November 10, 2018 12:00am December 06, 2018 11:33am ondansetron 4 mg oral tablet (20 sources) Serotonin-3 Receptor Antagonist Start: 11-10-2018 End: 12-28-2018 take 4 mg by mouth every six hours Ondansetron Discontinued 4 MG PO Q6H November 10, 2018 12:00am December 28, 2018 10:10pm Start: 11-10-2018 End: 12-28-2018 take 4 mg by mouth every six hours Ondansetron Discontinued 4 MG PO Q6H November 10, 2018 12:00am December 28, 2018 10:10pm Start: 10-13-2013 Zofran Oral, P RN as needed for nausea/vomiting, Refills(s) 0 Start Date: 10/13/13 Status: Ordered Start: 12-17-2012 End: 05-27-2013 take 1 tablet by mouth every four hours as needed ondansetron orally disintegrating 4 mg disintegrating tablet Take 1 tablet by mouth every 4 hours as needed for Nausea/Vomiting. 15 tablet 0 12/17/2012 05/27/2013 Discontinued Comment on above: Take 1 tablet by jon th every 4 hours as needed for Nausea/Vomiting. OXcarbazepine 300 mg oral tablet (20 sources) Anti-epileptic Agent Start: 06-30-19 End: 07-25-19 take 300 mg by mouth once daily Oxcarbazepine Discontinued 300 MG PO Daily June 30, 2020 2:01am July 24, 2020 3:56pm Start: 07-02-2019 End: 06-30-2020 take 300 mg by mouth twice daily Oxcarbazepine Discontinued 300 MG PO Twice daily 60 30 October 08, 2019 10:37am June 30, 2020 2:01am Plecanatide (20 sources) Start: 07-24-2020 End: 07-26-2022 take 3 mg by mouth once daily Plecanatide Discontinued 3 MG PO Daily July 24, 2020 12:00am July 26, 2022 1:37pm Start: 07-24-2020 take 3 mg by mouth once daily Plecanatide Active 3 MG PO Daily July 23, 2020 11:00pm Start: 07-24-2020 take 3 mg by mouth once daily Plecanatide Active 3 MG PO Daily July 24, 2020 12:00am plecanatide 3 mg oral tablet (9 sources) Start: 02-01-2022 take 1 tablet by mouth every twenty-four hours Trulance 3 MG 1 tablet Orally Once a day for 30 day(s) Jan, Not-Taking polyethylene glycol 3350 74717 mg powder for oral solution (20 sources) Osmotic Laxative Start: 06-26-2020 End: 06-30-2020 Polyethylene Glycol 3350 (Miralax) 17 gram/dose powder Discontinued 51 GM PO Four times daily 816 4 June 26, 2020 1:00am June 30, 2020 10:27am Start: 02-16-2013 End: 03-18-2013 polyethylene glycol 3350 (PA RALAX) 17 gram/dose powder Indications: Dysphagia , Constipation Take 17 g by mouth once daily for 30 days. 510 g 0 02/16/2013 03/18/2013 Comment on above: Take 17 g by mouth o nce daily for 30 days. prochlorperazine 10 mg oral tablet (16 sources) Phenothiazine Start: 022 End: 023 take 1 tablet by mouth three times daily Prochlorperazine Maleate (Compazine) 10 mg tablet Discontinued 10 MG PO Three times daily 7 3 April 22, 2022 1:00am July 26, 2022 1:37pm promethazine hydrochloride 25 mg oral tablet (20 sources) Phenothiazine Start: 015 Phenergan 12.5 mg, Oral, PRN as needed for nausea/vomiting, Refills(s) 0 Start Date: 11/29/14 Status: Ordered Start: 09-24-2004 End: 07-02-2019 take 25 mg by mouth every six hours Promethazine Discontinued 25 MG PO Q6H 4 December 25, 2018 12:00am July 02, 2019 12:21pm Comment on above: PRN pyridostigmine bromide 60 mg oral tablet (20 sources) Start: 021 End: 023 take 60 mg by mouth twice daily Pyridostigmine [place] Discontinued 60 MG PO Twice daily 60 July 27, 2020 12:00am July 26, 2022 1:38pm QUEtiapine 300 mg oral tablet (20 sources) Atypical Antipsychotic Start: 018 End: 018 take 600 mg by mouth at bedtime Quetiapine Discontinued 600 MG PO Bedtime July 11, 2017 10:48am December 02, 2017 8:59am Start: 10-13-2013 take 50 mg by mouth twice marcelo y Seroquel 50 mg, Oral, BID, Refills(s) 0 Start Date: 10/13/13 Status: Ordered QUETIAPINE FUMAR ATE (SEROQUEL ORAL) Take by mouth once daily. 0 Active Comment on above: Take by mouth once d aily. risperiDONE 1 mg oral tablet (20 sources) Atypical Antipsychotic Start: 8 End: 8 take 1 mg by mouth twice daily Risperidone Discontinued 1 MG PO Twice daily July 14, 2017 10:01am December 02, 2017 8:59am Start: 04-27-2017 End: 07-11-2017 take 3 mg by mouth twice daily Risperidone (Risperdal) 2 mg Tablet Discontinued 3 MG PO Twice daily April 27, 2017 1:00am July 11, 2017 10:46am rOPINIRole 0.25 mg oral tablet (20 sources) Nonergot Dopamine Agonist Start: 10-06-2018 End: 12-05-2018 take 0.25 mg by mouth once daily at bedtime Ropinirole Discontinued 0.25 MG PO Daily at bedtime October 06, 2018 12:00am December 05, 2018 5:37pm SUPARTZ FX SODIUM HYALURONATE (20 sources) Start: 08-26-2016 SUPARTZ FX SOD IUM HYALURONATE Aug, 25 mg Start: 08-19-2016 SUPARTZ FX SOD IUM HYALURONATE Aug, 25 mg Start: 08-12-2016 SUPARTZ FX SOD IUM HYALURONATE Aug, 25 mg Start: 08-05-2016 SUPARTZ FX SOD IUM HYALURONATE Jul, 25 mg Start: 07-29-2016 SUPARTZ FX SOD IUM HYALURONATE Jul, 25 mg tiZANidine 4 mg oral capsule (20 sources) Central alpha-2 Adrenergic Agonist Start: 01-10-2017 End: 04-27-2017 take 1 tablet by mouth twice daily Tizanidine (Zanaflex) 4 mg Capsule Discontinued 1 TAB PO Twice daily January 10, 2017 12:00am April 27, 2017 11:44pm traMADol hydrochloride 50 mg oral tablet (20 sources) Opioid Agonist Start: 10-08-2019 End: 05-17-2020 take 50 mg by mouth every six hours Tramadol Discontinued 50 MG PO Q6H 28 October 08, 2019 12:00am May 17, 2020 12:46pm triamcinolone acetonide 40 mg/ml injectable suspension (20 sources) Corticosteroid Start: 02-20-2022 Kenalog-40 Feb, 60 mg Start: 07-26-2021 Kenalog-40 Dec, 40 mg Start: 07-26-2021 Kenalog -40 mg Jul, 40 mg Start: 07-15-2016 Kenalog -40 mg Jul, Trulance 3 MG (4 sources) Start: 02-01-2022 take 1 tablet by mouth once daily Trulance 3 MG 1 tablet Orally Once a day for 30 day(s) Jan, Not-Taking valACYclovir 500 mg oral tablet (20 sources) Herpesvirus Nucleoside Analog DNA Polymerase Inhibitor, Herpes Simplex Virus Nucleoside Analog DNA Polymerase Inhibitor, Herpes Zoster Virus Nucleoside Analog DNA Polymerase Inhibitor Start: 03-19-2021 End: 07-26-2022 take 500 mg by mouth once daily Valacyclovir Discontinued 500 MG PO Daily March 19, 2021 1:00am July 26, 2022 1:38pm 24 hr venlafaxine 75 mg extended release oral capsule (20 sources) Serotonin and Norepinephrine Reuptake Inhibitor Start: 07-11-2017 End: 12-02-2017 take 75 mg by mouth once daily Venlafaxine Discontinued 75 MG PO Daily July 11, 2017 1:00am December 02, 2017 8:59am Problems Active Problems Problem Classification Problem Date Documented Da te Episodic/Chronic Abdominal pain (20 sources) Abdominal pain; Translations: [Unspecified abdominal pain] 05-17-2020 Episodic Acute and unspecified renal failure (20 sources) Injury of kidney; Translations: [Acute kidney failure, unspecified] 05-17-2020 Episodic Administrative/social admission (20 sources) Other reduced mobility; Translations: [Impaired mobility and activities of daily living] 09-29-2019 Episodic Allergic reactions (20 sources) Eczema; Translations: [Dermatitis, unspecified] 12-08-2018 Episodic Anxiety disorders (20 sources) Panic disorder with agoraphobia; Translations: [Agoraphobia with panic disorder] Onset: 4 06-04-2013 Chronic Bacterial infection; unspecified site (2 sources) Rheumatic fever 11-29-2014 Episodic Chronic ulcer of skin (1 source) Non-pressure chronic ulcer of left heel and midfoot limited to breakdown of skin; Translations: [Non-pressure chronic ulcer of left heel and midfoot limited to breakdown of skin] Onset: 4 Chronic Complication of device; implant or graft (20 sources) Fracture of femur; Translations: [Fracture of femur following insertion of orthopedic implant, joint prosthesis, or bone plate, right leg] 07-15-2017 Episodic Complications of surgical procedures or medical care (20 sources) Drug therapy finding; Translations: [Unspecified adverse effect of drug or medicament, initial encounter] 07-02-2019 Episodic Conditions associated with dizziness or vertigo (20 sources) Dizziness; Translations: [Dizziness and giddiness] 06-29-2020 Episodic Diabetes mellitus with complications (20 sources) Gastroparesis due to diabetes mellitus; Translations: [Other specified diabetes mellitus with diabetic autonomic (poly)neuropathy] Onset: 4 09-29-2019 Chronic Diabetes mellitus without complication (20 sources) Diabetes mellitus; Translations: [Type 2 diabetes mellitus without complications] Onset: 2 05-17-2020 Chronic Diabetes mellitus without complication (20 sources) Acute hyperglycemia; Translations: [Hyperglycemia, unspecified] 10-15-2019 Episodic Diseases of white blood cells (20 sources) Leukocytosis; Translations: [Elevated white blood cell count, unspecified] 05-17-2020 Chronic Disorders of lipid metabolism (20 sources) Hyperlipidemia; Translations: [Hyperlipidemia, unspecified] 12-08-2018 Chronic E Codes: Fall (20 sources) Fall; Translations: [Unspecified fall, initial encounter] 09-23-2019 Episodic Esophageal disorders (20 sources) Gastroesophageal reflux disease; Translations: [Gastro-esophageal reflux disease without esophagitis] 09-29-2019 Chronic Essential hypertension (20 sources) Benign essential hypertension; Translations: [Essential (primary) hypertension] Onset: 4 07-15-2017 Chronic Fracture of lower limb (20 sources) Closed fracture of upper end of tibia; Translations: [Unspecified fracture of upper end of right tibia, initial encounter for closed fracture] 06-22-2019 Episodic Gastritis and duodenitis (20 sources) Atrophic gastritis; Translations: [Unspecified chronic gastritis without bleeding] Chronic Genitourinary symptoms and ill-defined conditions (20 sources) Incontinence; Translations: [Unspecified urinary incontinence] Onset: 2 Resolved: 2 Chronic Genitourinary symptoms and ill-defined conditions (20 sources) Increased frequency of urination; Translations: [Frequency of micturition] Onset: 2 10-15-2019 Episodic Intestinal obstruction without hernia (20 sources) Small bowel obstruction; Translations: [Unspecified intestinal obstruction, unspecified as to partial versus complete obstruction] 05-17-2020 Episodic Malaise and fatigue (1 source) Chronic fatigue, unspecified; Translations: [Chronic fatigue, unspecified] Onset: 4 Chronic Malaise and fatigue (7 sources) Asthenia; Translations: [Weakness] 02-04-2023 Episodic Miscellaneous mental health disorders (20 sources) Psychological finding; Translations: [Psychological and behavioral factors associated with disorders or diseases classified elsewhere] Onset: 4 06-04-2013 Chronic Mood disorders (20 sources) Bipolar disorder; Translations: [Bipolar disorder, unspecified] Onset: 1 07-10-2010 Chronic Nausea and vomiting (20 sources) Nausea and vomiting; Translations: [Nausea with vomiting, unspecified] 05-17-2020 Episodic Nutritional deficiencies (1 source) Vitamin D deficiency, unspecified; Translations: [Vitamin D deficiency, unspecified] Onset: 4 Chronic Osteoarthritis (20 sources) Osteoarthritis of knee; Translations: [Unilateral primary osteoarthritis, right knee] Chronic Other aftercare (20 sources) Long-term current use of insulin; Translations: [half-way (current) use of insulin] Episodic Other and unspecified benign neoplasm (5 sources) Benign neoplastic disease; Translations: [Benign neoplasm, unspecified site] 08-12-2023 Episodic Other and unspecified benign neoplasm (5 sources) Benign neoplasm, unspecified site; Translations: [Benign neoplasm of unspecified site] 08-12-2023 Episodic Other connective tissue disease (20 sources) Pain in lower limb; Translations: [Pain in leg, unspecified] 09-23-2019 Episodic Other connective tissue disease (20 sources) Musculoskeletal pain; Translations: [Myalgia, other site] 09-29-2019 Episodic Other connective tissue disease (2 sources) Fibromyositis 06-29-2019 Episodic Other connective tissue disease (12 sources) Fibromyalgia; Translations: [Fibromyalgia] Episodic Other connective tissue disease (2 sources) Myalgia, other site Episodic Other connective tissue disease (1 source) Fibromyalgia Episodic Other diseases of veins and lymphatics (13 sources) Chronic acquired lymphedema; Translations: [Lymphedema, not elsewhere classified] 07-21-2022 Chronic Other diseases of veins and lymphatics (5 sources) Lymphedema, not elsewhere classified; Translations: [Other lymphedema] 08-12-2023 Chronic Other diseases of veins and lymphatics (20 sources) Venous insufficiency of leg; Translations: [Venous insufficiency (chronic) (peripheral)] Episodic Other disorders of stomach and duodenum (20 sources) Gastroparesis syndrome; Translations: [Gastroparesis] 06-29-2019 Episodic Other gastrointestinal disorders (20 sources) Irritable bowel syndrome characterized by constipation; Translations: [Irritable bowel syndrome with constipation] Chronic Other gastrointestinal disorders (20 sources) Irritable bowel syndrome with diarrhea; Translations: [Irritable bowel syndrome with diarrhea] Chronic Other gastrointestinal disorders (20 sources) Diarrhea; Translations: [Diarrhea, unspecified] Episodic Other gastrointestinal disorders (20 sources) Dysphagia; Translations: [Dysphagia, unspecified] 07-15-2017 Episodic Other gastrointestinal disorders (20 sources) Heartburn; Translations: [Heartburn] Episodic Other gastrointestinal disorders (20 sources) Abdominal bloating; Translations: [Abdominal distension (gaseous)] Episodic Other gastrointestinal disorders (20 sources) Swollen abdomen; Translations: [Abdominal distension (gaseous)] Episodic Other gastrointestinal disorders (20 sources) Constipation; Translations: [Constipation, unspecified] 06-21-2020 Episodic Other gastrointestinal disorders (7 sources) Constipation, unspecified; Translations: [Constipation, unspecified] Onset: 2 Resolved: 2 Episodic Other hereditary and degenerative nervous system conditions (1 source) Restless legs syndrome; Translations: [Restless legs syndrome] Onset: 4 Chronic Other injuries and conditions due to external causes (20 sources) History of fall; Translations: [History of falling] 09-29-2019 Episodic Other injuries and conditions due to external causes (1 source) Unspecified foreign body in larynx causing other injury, initial encounter; Translations: [Unspecified foreign body in larynx causing other injury, initial encounter] Onset: 4 Episodic Other liver diseases (2 sources) Steatosis of liver 11-29-2014 Chronic Other nervous system disorders (20 sources) Chronic pain; Translations: [Other chronic pain] Chronic Other nervous system disorders (20 sources) Lesion of ulnar nerve, left upper limb; Translations: [Cubital tunnel syndrome on left] Chronic Other nervous system disorders (20 sources) Lesion of ulnar nerve, right upper limb; Translations: [Cubital tunnel syndrome on right] Chronic Other nervous system disorders (20 sources) Bilateral carpal tunnel syndrome; Translations: [Carpal tunnel syndrome, bilateral upper limbs] Chronic Other nervous system disorders (20 sources) Neuropathy; Translations: [Polyneuropathy, unspecified] 09-29-2019 Chronic Other nervous system disorders (4 sources) Other chronic pain Onset: 2 Resolved: 2 Chronic Other nervous system disorders (1 source) Polyneuropathy, unspecified; Translations: [Polyneuropathy, unspecified] Onset: 4 Chronic Other nervous system disorders (20 sources) Acute postoperative pain; Translations: [Other acute postprocedural pain] 09-20-2021 Episodic Other nervous system disorders (20 sources) Paresthesia; Translations: [Paresthesia of skin] 12-25-2018 Episodic Other nervous system disorders (2 sources) Numbness 11-29-2014 Episodic Other non-traumatic joint disorders (2 sources) Pain in right shoulder Episodic Other nutritional; endocrine; and metabolic disorders (20 sources) Morbid obesity; Translations: [Morbid (severe) obesity due to excess calories] Onset: 4 06-04-2013 Chronic Other nutritional; endocrine; and metabolic disorders (20 sources) Body mass index 40+ - severely obese; Translations: [Body mass index (BMI) 40.0-44.9, adult] Chronic Other nutritional; endocrine; and metabolic disorders (20 sources) Obese class II; Translations: [Body mass index (BMI) 39.0-39.9, adult] Chronic Other nutritional; endocrine; and metabolic disorders (5 sources) Morbid (severe) obesity due to excess calories; Translations: [Morbid obesity] 08-12-2023 Chronic Other skin disorders (5 sources) Hyperpigmentation of skin; Translations: [Disorder of pigmentation, unspecified] 08-12-2023 Episodic Other skin disorders (5 sources) Keratosis; Translations: [Epidermal thickening, unspecified] 08-12-2023 Episodic Other skin disorders (5 sources) Epidermal thickening, unspecified; Translations: [Keratoderma, acquired] 08-12-2023 Episodic Other skin disorders (5 sources) Disorder of pigmentation, unspecified; Translations: [Dyschromia, unspecified] 08-12-2023 Episodic Poisoning by other medications and drugs (20 sources) Poisoning by unspecified drugs, medicaments and biological substances, accidental (unintentional), initial encounter; Translations: [Drug overdose] 07-02-2019 Episodic Residual codes; unclassified (20 sources) History of drug abuse; Translations: [Personal history of other specified conditions] Episodic Residual codes; unclassified (20 sources) Patient encounter status; Translations: [Encounter for prophylactic measures, unspecified] 09-29-2019 Episodic Residual codes; unclassified (2 sources) Amnesia 11-29-2014 Episodic Screening and history of mental health and substance abuse codes (2 sources) H/O: Disorder; Translations: [Personal history of nicotine dependence] Onset: 2 Episodic Skin and subcutaneous tissue infections (20 sources) Cellulitis of lower limb; Translations: [Cellulitis of right lower limb] 12-05-2018 Episodic Spondylosis; intervertebral disc disorders; other back problems (20 sources) Arthritis of lumbosacral spine; Translations: [Spondylosis without myelopathy or radiculopathy, lumbosacral region] Onset: 2 Resolved: 2 Chronic Spondylosis; intervertebral disc disorders; other back problems (20 sources) Cervico-occipital neuralgia; Translations: [Occipital neuralgia] Onset: 2 Resolved: 2 05-24-2021 Episodic Sprains and strains (20 sources) Sprain of ankle; Translations: [Sprain of unspecified ligament of right ankle, initial encounter] 10-15-2019 Episodic Substance-related disorders (20 sources) Cocaine abuse; Translations: [Cocaine abuse, uncomplicated] 07-10-2017 Chronic Thyroid disorders (20 sources) Hypothyroidism; Translations: [Hypothyroidism, unspecified] Onset: 4 05-17-2020 Chronic Unclassified (2 sources) Encounter for preprocedural cardiovascular examination / Z01.810(ICD-9) Onset: 8 Unclassified (1 source) Abnormal electrocardiogram [ECG] [EKG] / R94.31(ICD-9) Onset: 8 Unclassified (1 source) Unspecified open wound, left foot, initial encounter; Translations: [Unspecified open wound, left foot, initial encounter] Onset: 4 Urinary tract infections (20 sources) Urinary tract infectious disease; Translations: [Urinary tract infection, site not specified] 03-18-2021 Episodic Viral infection (20 sources) Disease caused by 2019-nCoV; Translations: [COVID-19] 05-24-2021 Episodic Past or Other Problems Problem Classification Problem Date Documented Date Episodic/Chronic Other connective tissue disease (3 sources) Other shoulder lesions, left shoulder Onset: 07-26-2021 Resolved: 01-09-2022 Episodic Other connective tissue disease (3 sources) Impingement syndrome of left shoulder Onset: 07-26-2021 Resolved: 01-09-2022 Episodic Other injuries and conditions due to external causes (4 sources) Personal history of (healed) traumatic fracture Onset: 08-29-2021 Resolved: 01-09-2022 Episodic Other injuries and conditions due to external causes (1 source) Other injury of unspecified body region, initial encounter; Translations: [Other injury of unspecified body region, initial encounter] Onset: 07-16-2023 Episodic Other nervous system disorders (2 sources) Anesthesia of skin; Translations: [Anesthesia of skin] Onset: 07-16-2023 Episodic Other nervous system disorders (1 source) Unspecified abnormal involuntary movements; Translations: [Unspecified abnormal involuntary movements] Onset: 07-22-2023 Episodic Other non-traumatic joint disorders (3 sources) Pain in left shoulder Onset: 07-26-2021 Resolved: 01-09-2022 Episodic Residual codes; unclassified (1 source) Other amnesia; Translations: [Other amnesia] Onset: 07-22-2023 Episodic Unclassified (1 source) Encounter for preprocedural cardiovascular examination; Translations: [Encounter for preprocedural cardiovascular examination] Onset: 12-08-2017 Results Test Name Value Interpretation Reference Range Facility Alanine aminotransferase [En zymatic activity/volume] in Serum or PlasmaOrdered By: Laila Pittman on 10-30-2023 ALT [Catalytic activity/Vol] 20 U/L Normal 7-52 [facility] Comment on above: Order Comment: Reaso n for Exam Neuropathy;Uncontrolled type 2 diabetes mellitus with hyperg Reason for Exam Neuropathy Reason for Exam Restless leg Reason for Exam Hypothyroidism, unspecified type Reason for Exam Vitamin D deficiency Performed By: #### B MP, PT, PTT, CK, MG, CBC, T4F, HS TROP, TSH3, BNP, HEPATIC #### [facility] [address] Albumin [Mass/volume] in Ser um or Plasma by Bromocresol green (BCG) dye binding methoOrdered By: Laila Pittman on 10-30-2023 Albumin BCG dye [Mass/Vol] 4.2 g/dL 3.5-5.7 [facility] Alkaline phosphatase [Enzyma tic activity/volume] in Serum or PlasmaOrdered By: Laila Pittman on 10-30-2023 ALP [Catalytic activity/Vol] 108 U/L High 34-104 [facility] Comment on above: Order Comment: Reaso n for Exam Neuropathy;Uncontrolled type 2 diabetes mellitus with hyperg Reason for Exam Neuropathy Reason for Exam Restless leg Reason for Exam Hypothyroidism, unspecified type Reason for Exam Vitamin D deficiency Performed By: #### B MP, PT, PTT, CK, MG, CBC, T4F, HS TROP, TSH3, BNP, HEPATIC #### [facility] [address] [place] [address] [place] Aspartate aminotransferase [ Enzymatic activity/volume] in Serum or PlasmaOrdered By: Laila Pittman on 10-30-2023 AST [Catalytic activity/Vol] 16 U/L Normal 13-39 [facility] Comment on above: Order Comment: Reaso n for Exam Neuropathy;Uncontrolled type 2 diabetes mellitus with hyperg Reason for Exam Neuropathy Reason for Exam Restless leg Reason for Exam Hypothyroidism, unspecified type Reason for Exam Vitamin D deficiency Performed By: #### B MP, PT, PTT, CK, MG, CBC, T4F, HS TROP, TSH3, BNP, HEPATIC #### [facility] [address] [place] [id number] [place] Automated basophil %Ordered By: Laila Pittman on 10-30-2023 Basophils/100 WBC (Bld) 0.7 % Normal . [facility] Comment on above: Order Comment: Reaso n for Exam Neuropathy;Uncontrolled type 2 diabetes mellitus with hyperg Performed By: #### B MP, PT, PTT, CK, MG, CBC, T4F, HS TROP, TSH3, BNP, HEPATIC #### [address] Automated basophil countOrde red By: Laila Pittman on 10-30-2023 Basophils (Bld) [#/Vol] 0.1 10*3/uL Normal 0.0-0.2 [facility] Comment on above: Order Comment: Reaso n for Exam Neuropathy;Uncontrolled type 2 diabetes mellitus with hyperg Result Comment: PERF ORMED BY: [place] [address] PATHOLOGIST SURGICAL TECHNOLOGIST DIANA COTTON M.D. Performed By: #### B MP, PT, PTT, CK, MG, CBC, T4F, HS TROP, TSH3, BNP, HEPATIC #### [address] Automated blood monocyte cou ntOrdered By: Laila Pittman on 10-30-2023 Monocytes (Bld) [#/Vol] 0.7 10*3/uL Normal 0.0-0.8 [facility] Comment on above: Order Comment: Reaso n for Exam Neuropathy;Uncontrolled type 2 diabetes mellitus with hyperg Performed By: #### B MP, PT, PTT, CK, MG, CBC, T4F, HS TROP, TSH3, BNP, HEPATIC #### [address] Automated eosinophil %Ordere d By: Laila Pittman on 10-30-2023 Eosinophils/100 WBC (Bld) 2.8 % Normal . [facility] Comment on above: Order Comment: Reaso n for Exam Neuropathy;Uncontrolled type 2 diabetes mellitus with hyperg Performed By: #### B MP, PT, PTT, CK, MG, CBC, T4F, HS TROP, TSH3, BNP, HEPATIC #### [address] Automated eosinophil countOr dered By: Laila Pittman on 10-30-2023 Eosinophils (Bld) [#/Vol] 0.2 10*3/uL Normal 0.0-0.45 [facility] Comment on above: Order Comment: Reaso n for Exam Neuropathy;Uncontrolled type 2 diabetes mellitus with hyperg Performed By: #### B MP, PT, PTT, CK, MG, CBC, T4F, HS TROP, TSH3, BNP, HEPATIC #### [facility] [address] [place] [address] [facility] Automated monocyte %Ordered By: Laila Pittman on 10-30-2023 Monocytes/100 WBC (Bld) 9.2 % Normal . [facility] Comment on above: Order Comment: Reaso n for Exam Neuropathy;Uncontrolled type 2 diabetes mellitus with hyperg Performed By: #### B MP, PT, PTT, CK, MG, CBC, T4F, HS TROP, TSH3, BNP, HEPATIC #### [facility] [address] Automated neutrophil %Ordere d By: Laila Pittman on 10-30-2023 Neutrophils/100 WBC (Bld) 31.7 % Normal . [facility] Comment on above: Order Comment: Reaso n for Exam Neuropathy;Uncontrolled type 2 diabetes mellitus with hyperg Performed By: #### B MP, PT, PTT, CK, MG, CBC, T4F, HS TROP, TSH3, BNP, HEPATIC #### [facility] [address] [place] [id number] [facility] Bilirubin.total [Mass/volume ] in Serum or PlasmaOrdered By: Laila Pittman on 10-30-2023 Bilirubin [Mass/Vol] 0.5 mg/dL Normal 0.3-1.0 [facility] Comment on above: Order Comment: Reaso n for Exam Neuropathy;Uncontrolled type 2 diabetes mellitus with hyperg Reason for Exam Neuropathy Reason for Exam Restless leg Reason for Exam Hypothyroidism, unspecified type Reason for Exam Vitamin D deficiency Performed By: #### B MP, PT, PTT, CK, MG, CBC, T4F, HS TROP, TSH3, BNP, HEPATIC #### [facility] [address] [place] [id number] [place] Calcium [Mass/volume] in Ser um or PlasmaOrdered By: Laila Pittman on 10-30-2023 Calcium [Mass/Vol] 9.9 mg/dL Normal 8.6-10.3 [facility] Comment on above: Order Comment: Reaso n for Exam Neuropathy;Uncontrolled type 2 diabetes mellitus with hyperg Reason for Exam Neuropathy Reason for Exam Restless leg Reason for Exam Hypothyroidism, unspecified type Reason for Exam Vitamin D deficiency Performed By: #### B MP, PT, PTT, CK, MG, CBC, T4F, HS TROP, TSH3, BNP, HEPATIC #### [facility] [address] Carbon dioxide, total [Moles /volume] in Serum or PlasmaOrdered By: Laila Pittman on 10-30-2023 CO2 [Moles/Vol] 27.9 mmol/L Normal 21.0-31.0 [facility] Comment on above: Order Comment: Reaso n for Exam Neuropathy;Uncontrolled type 2 diabetes mellitus with hyperg Reason for Exam Neuropathy Reason for Exam Restless leg Reason for Exam Hypothyroidism, unspecified type Reason for Exam Vitamin D deficiency Performed By: #### B MP, PT, PTT, CK, MG, CBC, T4F, HS TROP, TSH3, BNP, HEPATIC #### [facility] [address] Chloride [Moles/volume] in S jakob or PlasmaOrdered By: Laila Pittman on 10-30-2023 Chloride [Moles/Vol] 97 mmol/L Low 98-107 [facility] Comment on above: Order Comment: Reaso n for Exam Neuropathy;Uncontrolled type 2 diabetes mellitus with hyperg Reason for Exam Neuropathy Reason for Exam Restless leg Reason for Exam Hypothyroidism, unspecified type Reason for Exam Vitamin D deficiency Performed By: #### B MP, PT, PTT, CK, MG, CBC, T4F, HS TROP, TSH3, BNP, HEPATIC #### [facility] [address] Complete Blood Count Auto Di ffon 10-30-2023 Mean Corpuscular HGB Conc 33.0 g/dL Normal 32.0-35.0 [facility] Comment on above: Order Comment: Reaso n for Exam Neuropathy;Uncontrolled type 2 diabetes mellitus with hyperg Performed By: #### B MP, PT, PTT, CK, MG, CBC, T4F, HS TROP, TSH3, BNP, HEPATIC #### [facility] [address] NRBC% 0.1 /100{WBC} Normal 0-0.5 [facility] Comment on above: Order Comment: Reaso n for Exam Neuropathy;Uncontrolled type 2 diabetes mellitus with hyperg Performed By: #### B MP, PT, PTT, CK, MG, CBC, T4F, HS TROP, TSH3, BNP, HEPATIC #### [facility] [address] [place] [id number] [facility] Comprehensive Metabolic Pane nigel 10-30-2023 Albumin [Mass/Vol] 4.2 g/dL Normal 3.5-5.7 [facility] Comment on above: Order Comment: Reaso n for Exam Neuropathy;Uncontrolled type 2 diabetes mellitus with hyperg Reason for Exam Neuropathy Reason for Exam Restless leg Reason for Exam Hypothyroidism, unspecified type Reason for Exam Vitamin D deficiency Performed By: #### B MP, PT, PTT, CK, MG, CBC, T4F, HS TROP, TSH3, BNP, HEPATIC #### [facility] [address] GFR/1.73 sq M.predicted MDRD (S/P/Bld) [Vol rate/Area] mL/min/{1.73_m2} Normal [facility] Comment on above: Order Comment: Reaso n for Exam Neuropathy;Uncontrolled type 2 diabetes mellitus with hyperg Reason for Exam Neuropathy Reason for Exam Restless leg Reason for Exam Hypothyroidism, unspecified type Reason for Exam Vitamin D deficiency Performed By: #### B MP, PT, PTT, CK, MG, CBC, T4F, HS TROP, TSH3, BNP, HEPATIC #### [facility] [address] [place] [id number] [facility] Creatinine [Mass/volume] in Serum or PlasmaOrdered By: Laila Pittman on 10-30-2023 Creatinine [Mass/Vol] 1.04 mg/dL Normal 0.60-1.20 [facility] Comment on above: Order Comment: Reaso n for Exam Neuropathy;Uncontrolled type 2 diabetes mellitus with hyperg Reason for Exam Neuropathy Reason for Exam Restless leg Reason for Exam Hypothyroidism, unspecified type Reason for Exam Vitamin D deficiency Performed By: #### B MP, PT, PTT, CK, MG, CBC, T4F, HS TROP, TSH3, BNP, HEPATIC #### [facility] [address] Erythrocyte distribution wid th [Ratio] by Automated countOrdered By: Laila Pittman on 10-30-2023 Erythrocyte distribution width (RBC) [Ratio] 14.4 % Normal 11.9-15.3 [facility] Comment on above: Order Comment: Reaso n for Exam Neuropathy;Uncontrolled type 2 diabetes mellitus with hyperg Performed By: #### B MP, PT, PTT, CK, MG, CBC, T4F, HS TROP, TSH3, BNP, HEPATIC #### [facility] [address] Erythrocytes [#/volume] in B lood by Automated countOrdered By: Laila Pittman on 10-30-2023 RBC (Bld) [#/Vol] 4.35 10*6/uL Normal 3.60-5.00 [facility] Comment on above: Order Comment: Reaso n for Exam Neuropathy;Uncontrolled type 2 diabetes mellitus with hyperg Performed By: #### B MP, PT, PTT, CK, MG, CBC, T4F, HS TROP, TSH3, BNP, HEPATIC #### [facility] [address] [place] [address] [place] Ferritin [Mass/volume] in Se rum or PlasmaOrdered By: Laila Pittman on 10-30-2023 Ferritin [Mass/Vol] 37.0 ng/mL Normal 11.0-306.8 [facility] Comment on above: Order Comment: Reaso n for Exam Neuropathy;Uncontrolled type 2 diabetes mellitus with hyperg Reason for Exam Neuropathy Reason for Exam Restless leg Reason for Exam Hypothyroidism, unspecified type Reason for Exam Vitamin D deficiency Performed By: #### B MP, PT, PTT, CK, MG, CBC, T4F, HS TROP, TSH3, BNP, HEPATIC #### [facility] [address] [place] [id number] [place] Folate [Mass/volume] in Seru m or PlasmaOrdered By: Laila Pittman on 10-30-2023 Folate [Mass/Vol] 16.7 ng/mL >5.9 [facility] Comment on above: Folate reference ran ge: >5.9 ng/mlThe WHO technical consultation on folate and vitamin [id number] has determined that folate concentrations lessthan 4 ng/ml are considered deficient. Glucose [Mass/volume] in Ser um or PlasmaOrdered By: Laila Pittman on 10-30-2023 Glucose [Mass/Vol] 315 mg/dL High 70-100 [facility] Comment on above: ADA recommended refe rence rangeRandom Glucose Reference Range is dependent on time and content of last meal. Glucose of more than 200 mg/dL in a nonstressed, ambulatory subject supports the diagnosis of Diabetes Mellitus. Order Comment: Reaso n for Exam Neuropathy;Uncontrolled type 2 diabetes mellitus with hyperg Reason for Exam Neuropathy Reason for Exam Restless leg Reason for Exam Hypothyroidism, unspecified type Reason for Exam Vitamin D deficiency Result Comment: Simpson om Glucose Reference Range is dependent on time and content of last meal. Glucose of more than 200 mg/dL in a nonstressed, ambulatory subject supports the diagnosis of Diabetes Mellitus. ADA recommended reference range Performed By: #### B MP, PT, PTT, CK, MG, CBC, T4F, HS TROP, TSH3, BNP, HEPATIC #### [facility] [address] Hematocrit [Volume Fraction] of Blood by Automated countOrdered By: Laila Pittman on 10-30-2023 Hematocrit (Bld) [Volume fraction] 38.8 % Normal 34.0-46.4 [facility] Comment on above: Order Comment: Reaso n for Exam Neuropathy;Uncontrolled type 2 diabetes mellitus with hyperg Performed By: #### B MP, PT, PTT, CK, MG, CBC, T4F, HS TROP, TSH3, BNP, HEPATIC #### [facility] [address] [place] [address] [place] Hemoglobin [Mass/volume] in BloodOrdered By: Laila Pittman on 10-30-2023 Hemoglobin (Bld) [Mass/Vol] 12.8 g/dL Normal 11.8-15.4 [facility] Comment on above: Order Comment: Reaso n for Exam Neuropathy;Uncontrolled type 2 diabetes mellitus with hyperg Performed By: #### B MP, PT, PTT, CK, MG, CBC, T4F, HS TROP, TSH3, BNP, HEPATIC #### [facility] [address] [place] [id number] [facility] Iron [Mass/volume] in Serum or PlasmaOrdered By: Laila Pittman on 10-30-2023 Iron [Mass/Vol] 97 ug/dL Normal 50-212 [facility] Comment on above: Order Comment: Reaso n for Exam Neuropathy;Uncontrolled type 2 diabetes mellitus with hyperg Reason for Exam Neuropathy Reason for Exam Restless leg Reason for Exam Hypothyroidism, unspecified type Reason for Exam Vitamin D deficiency Performed By: #### B MP, PT, PTT, CK, MG, CBC, T4F, HS TROP, TSH3, BNP, HEPATIC #### [facility] [address] Iron and TIBC Profileon 10-11 0-2023 % Iron Saturation 34.2 % Normal 20-50 [facility] Comment on above: Order Comment: Reaso n for Exam Neuropathy;Uncontrolled type 2 diabetes mellitus with hyperg Reason for Exam Neuropathy Reason for Exam Restless leg Reason for Exam Hypothyroidism, unspecified type Reason for Exam Vitamin D deficiency Performed By: #### B MP, PT, PTT, CK, MG, CBC, T4F, HS TROP, TSH3, BNP, HEPATIC #### [facility] [address] [place] [id number] [facility] Total Iron Binding Capacity 284 ug/dL Normal 255-450 [facility] Comment on above: Order Comment: Reaso n for Exam Neuropathy;Uncontrolled type 2 diabetes mellitus with hyperg Reason for Exam Neuropathy Reason for Exam Restless leg Reason for Exam Hypothyroidism, unspecified type Reason for Exam Vitamin D deficiency Performed By: #### B MP, PT, PTT, CK, MG, CBC, T4F, HS TROP, TSH3, BNP, HEPATIC #### [facility] [address] [place] [id number] [facility] Iron binding capacity [Mass/ volume] in Serum or PlasmaOrdered By: Laila Pittman on 10-30-2023 Iron binding capacity [Mass/Vol] 284 ug/dL 255-450 [facility] Iron saturation [Mass Fracti on] in Serum or PlasmaOrdered By: Laila Pittman on 10-30-2023 Iron saturation [Mass fraction] 34.2 % 20-50 [facility] Leukocytes [#/volume] correc jovanni for nucleated erythrocytes in Blood by Automated counOrdered By: Laila Pittman on 10-30-2023 WBC corrected for nucl RBC Auto (Bld) [#/Vol] 8.1 10*3/uL 3.8-11.6 [facility] Leukocytes [#/volume] in Blo od by Automated countOrdered By: Laila Pittman on 10-30-2023 WBC (Bld) [#/Vol] 8.1 10*3/uL Normal 3.8-11.6 [facility] Comment on above: Order Comment: Reaso n for Exam Neuropathy;Uncontrolled type 2 diabetes mellitus with hyperg Performed By: #### B MP, PT, PTT, CK, MG, CBC, T4F, HS TROP, TSH3, BNP, HEPATIC #### [facility] [address] Lymphocytes [#/volume] in Bl ood by Automated countOrdered By: Laila Pittman on 10-30-2023 Lymphocytes (Bld) [#/Vol] 4.5 10*3/uL Normal 1.00-4.8 [facility] Comment on above: Order Comment: Reaso n for Exam Neuropathy;Uncontrolled type 2 diabetes mellitus with hyperg Performed By: #### B MP, PT, PTT, CK, MG, CBC, T4F, HS TROP, TSH3, BNP, HEPATIC #### [facility] [address] [place] [id number] [place] Lymphocytes/100 leukocytes i n Blood by Automated countOrdered By: Laila Pittman on 10-30-2023 Lymphocytes/100 WBC (Bld) 55.6 % Normal . [facility] Comment on above: Order Comment: Reaso n for Exam Neuropathy;Uncontrolled type 2 diabetes mellitus with hyperg Performed By: #### B MP, PT, PTT, CK, MG, CBC, T4F, HS TROP, TSH3, BNP, HEPATIC #### [facility] [address] [place] [id number] [place] MCH [Entitic mass] by Automa jovanni countOrdered By: Laila Pittman on 10-30-2023 MCH (RBC) [Entitic mass] 29.4 pg Normal 24.7-34.3 [facility] Comment on above: Order Comment: Reaso n for Exam Neuropathy;Uncontrolled type 2 diabetes mellitus with hyperg Performed By: #### B MP, PT, PTT, CK, MG, CBC, T4F, HS TROP, TSH3, BNP, HEPATIC #### [facility] [address] MCHC Auto (RBC) [Mass/Vol]Or dered By: Laila Pittman on 10-30-2023 MCHC (RBC) [Mass/Vol] 33.0 g/dL 32.0-35.0 [facility] MCV [Entitic volume] by Auto mated countOrdered By: Laila Pittman on 10-30-2023 MCV (RBC) [Entitic vol] 89.1 fL Normal 80-100 [facility] Comment on above: Order Comment: Reaso n for Exam Neuropathy;Uncontrolled type 2 diabetes mellitus with hyperg Performed By: #### B MP, PT, PTT, CK, MG, CBC, T4F, HS TROP, TSH3, BNP, HEPATIC #### [facility] [address] Neutrophils [#/volume] in Bl ood by Automated countOrdered By: Laila Pittman on 10-30-2023 Neutrophils (Bld) [#/Vol] 2.6 10*3/uL Normal 1.8-7.7 [facility] Comment on above: Order Comment: Reaso n for Exam Neuropathy;Uncontrolled type 2 diabetes mellitus with hyperg Performed By: #### B MP, PT, PTT, CK, MG, CBC, T4F, HS TROP, TSH3, BNP, HEPATIC #### [facility] [address] No Panel InformationOrdered By: Laila Pittman on 10-30-2023 Estimated GFR (CKD-EPI) > 60.0 mL/Min [facility] Creatinine Clearance (Chem N/A [facility] Nucleated erythrocytes [Pres ence] in Blood by Automated countOrdered By: Laila Pittman on 10-30-2023 Nucleated RBC Auto Ql (Bld) 0.1 /100{WBC} 0-0.5 [facility] Platelet mean volume [Entiti c volume] in Blood by Automated countOrdered By: Laila Pittman on 10-30-2023 Platelet mean volume (Bld) [Entitic vol] 8.3 fL Normal 6.3-10.7 [facility] Comment on above: Order Comment: Reaso n for Exam Neuropathy;Uncontrolled type 2 diabetes mellitus with hyperg Performed By: #### B MP, PT, PTT, CK, MG, CBC, T4F, HS TROP, TSH3, BNP, HEPATIC #### [facility] [address] [place] [address] [place] Platelets [#/volume] in Bloo d by Automated countOrdered By: Laila Pittman on 10-30-2023 Platelets (Bld) [#/Vol] 212 10*3/uL Normal 150-450 [facility] Comment on above: Order Comment: Reaso n for Exam Neuropathy;Uncontrolled type 2 diabetes mellitus with hyperg Performed By: #### B MP, PT, PTT, CK, MG, CBC, T4F, HS TROP, TSH3, BNP, HEPATIC #### [facility] [address] [place] [address] [place] Potassium [Moles/volume] in Serum or PlasmaOrdered By: Laila Pittman on 10-30-2023 Potassium [Moles/Vol] 4.1 mmol/L Normal 3.5-5.1 [facility] Comment on above: Order Comment: Reaso n for Exam Neuropathy;Uncontrolled type 2 diabetes mellitus with hyperg Reason for Exam Neuropathy Reason for Exam Restless leg Reason for Exam Hypothyroidism, unspecified type Reason for Exam Vitamin D deficiency Performed By: #### B MP, PT, PTT, CK, MG, CBC, T4F, HS TROP, TSH3, BNP, HEPATIC #### [facility] [address] [place] [id number] [place] Protein [Mass/volume] in Ser um or PlasmaOrdered By: Laila Pittman on 10-30-2023 Protein [Mass/Vol] 8.1 g/dL Normal 6.4-8.9 [facility] Comment on above: Order Comment: Reaso n for Exam Neuropathy;Uncontrolled type 2 diabetes mellitus with hyperg Reason for Exam Neuropathy Reason for Exam Restless leg Reason for Exam Hypothyroidism, unspecified type Reason for Exam Vitamin D deficiency Performed By: #### B MP, PT, PTT, CK, MG, CBC, T4F, HS TROP, TSH3, BNP, HEPATIC #### [facility] [address] Serum globulin measurement b y calculation (mass/volume)Ordered By: Laila Pittman on 10-30-2023 Globulin (S) [Mass/Vol] 3.9 g/dL [facility] Comment on above: Order Comment: Reaso n for Exam Neuropathy;Uncontrolled type 2 diabetes mellitus with hyperg Reason for Exam Neuropathy Reason for Exam Restless leg Reason for Exam Hypothyroidism, unspecified type Reason for Exam Vitamin D deficiency Performed By: #### B MP, PT, PTT, CK, MG, CBC, T4F, HS TROP, TSH3, BNP, HEPATIC #### [facility] [address] Serum or plasma albumin/glob ulin mass ratioOrdered By: Laila Pittman on 10-30-2023 Albumin/Globulin [Mass ratio] 1.1 {ratio} [facility] Comment on above: Order Comment: Reaso n for Exam Neuropathy;Uncontrolled type 2 diabetes mellitus with hyperg Reason for Exam Neuropathy Reason for Exam Restless leg Reason for Exam Hypothyroidism, unspecified type Reason for Exam Vitamin D deficiency Performed By: #### B MP, PT, PTT, CK, MG, CBC, T4F, HS TROP, TSH3, BNP, HEPATIC #### [facility] [address] Serum or plasma anion gap de terminationOrdered By: Laila Pittman on 10-30-2023 Anion gap [Moles/Vol] 12.2 mmol/L Normal 6.0-15.0 [facility] Comment on above: Order Comment: Reaso n for Exam Neuropathy;Uncontrolled type 2 diabetes mellitus with hyperg Reason for Exam Neuropathy Reason for Exam Restless leg Reason for Exam Hypothyroidism, unspecified type Reason for Exam Vitamin D deficiency Performed By: #### B MP, PT, PTT, CK, MG, CBC, T4F, HS TROP, TSH3, BNP, HEPATIC #### [facility] [address] Sodium [Moles/volume] in Ser um or PlasmaOrdered By: Laila Pittman on 10-30-2023 Sodium [Moles/Vol] 133 mmol/L Low 136-145 [facility] Comment on above: Order Comment: Reaso n for Exam Neuropathy;Uncontrolled type 2 diabetes mellitus with hyperg Reason for Exam Neuropathy Reason for Exam Restless leg Reason for Exam Hypothyroidism, unspecified type Reason for Exam Vitamin D deficiency Performed By: #### B MP, PT, PTT, CK, MG, CBC, T4F, HS TROP, TSH3, BNP, HEPATIC #### [facility] [address] Thyrotropin [Units/volume] i n Serum or PlasmaOrdered By: Laila Ptitman on 10-30-2023 TSH Qn 12.57 m[IU]/L High 0.45-5.33 [facility] Comment on above: Order Comment: Reaso n for Exam Neuropathy;Uncontrolled type 2 diabetes mellitus with hyperg Reason for Exam Neuropathy Reason for Exam Restless leg Reason for Exam Hypothyroidism, unspecified type Reason for Exam Vitamin D deficiency Performed By: #### B MP, PT, PTT, CK, MG, CBC, T4F, HS TROP, TSH3, BNP, HEPATIC #### [facility] [address] Thyroxine (T4) free [Mass/vo lume] in Serum or PlasmaOrdered By: Laila Pittman on 10-30-2023 Free T4 [Mass/Vol] 0.79 ng/dL Normal 0.61-1.12 [facility] Comment on above: Order Comment: Reaso n for Exam Neuropathy;Uncontrolled type 2 diabetes mellitus with hyperg Reason for Exam Neuropathy Reason for Exam Restless leg Reason for Exam Hypothyroidism, unspecified type Reason for Exam Vitamin D deficiency Performed By: #### B MP, PT, PTT, CK, MG, CBC, T4F, HS TROP, TSH3, BNP, HEPATIC #### [facility] [address] [place] [address] [place] Transferrin [Mass/volume] in Serum or PlasmaOrdered By: Laila Pittman on 10-30-2023 Transferrin [Mass/Vol] 203 mg/dL Normal 203-362 [facility] Comment on above: Order Comment: Reaso n for Exam Neuropathy;Uncontrolled type 2 diabetes mellitus with hyperg Reason for Exam Neuropathy Reason for Exam Restless leg Reason for Exam Hypothyroidism, unspecified type Reason for Exam Vitamin D deficiency Performed By: #### B MP, PT, PTT, CK, MG, CBC, T4F, HS TROP, TSH3, BNP, HEPATIC #### [facility] [address] [place] [address] [place] Urate [Mass/volume] in Serum or PlasmaOrdered By: Laila Pittman on 10-30-2023 Urate [Mass/Vol] 5.8 mg/dL Normal 2.3-6.6 [facility] Comment on above: Order Comment: Reaso n for Exam Neuropathy;Uncontrolled type 2 diabetes mellitus with hyperg Reason for Exam Neuropathy Reason for Exam Restless leg Reason for Exam Hypothyroidism, unspecified type Reason for Exam Vitamin D deficiency Performed By: #### B MP, PT, PTT, CK, MG, CBC, T4F, HS TROP, TSH3, BNP, HEPATIC #### [facility] [address] [place] [address] [place] Urea nitrogen [Mass/volume] in Serum or PlasmaOrdered By: Laila Pittman on 10-30-2023 Urea nitrogen [Mass/Vol] 23 mg/dL Normal 7-25 [facility] Comment on above: Order Comment: Reaso n for Exam Neuropathy;Uncontrolled type 2 diabetes mellitus with hyperg Reason for Exam Neuropathy Reason for Exam Restless leg Reason for Exam Hypothyroidism, unspecified type Reason for Exam Vitamin D deficiency Performed By: #### B MP, PT, PTT, CK, MG, CBC, T4F, HS TROP, TSH3, BNP, HEPATIC #### [facility] [address] [place] [address] [place] Vit. B12/Folate Profileon Folate 16.7 ng/mL Normal >5.9 [facility] Comment on above: Order Comment: Reaso n for Exam Neuropathy;Uncontrolled type 2 diabetes mellitus with hyperg Reason for Exam Neuropathy Reason for Exam Restless leg Reason for Exam Hypothyroidism, unspecified type Reason for Exam Vitamin D deficiency Result Comment: Kate te reference range: >5.9 ng/ml The WHO technical consultation on folate and vitamin b12 deficiencies has determined that folate concentrations less than 4 ng/ml are considered deficient. Performed By: #### B MP, PT, PTT, CK, MG, CBC, T4F, HS TROP, TSH3, BNP, HEPATIC #### [facility] [address] [place] [id number] [facility] Vitamin B12 ser/plasOrdered By: Laila Pittman on 10-30-2023 Cobalamin (Vitamin B12) [Mass/Vol] 243 pg/mL Normal 180-914 [facility] Comment on above: Order Comment: Reaso n for Exam Neuropathy;Uncontrolled type 2 diabetes mellitus with hyperg Reason for Exam Neuropathy Reason for Exam Restless leg Reason for Exam Hypothyroidism, unspecified type Reason for Exam Vitamin D deficiency Performed By: #### B MP, PT, PTT, CK, MG, CBC, T4F, HS TROP, TSH3, BNP, HEPATIC #### [place] [id number] [facility] Vitamin D 25 Hydroxy Totalon 10-30-2023 Vitamin D 25 Hydroxy Total 26.1 ng/mL Low 30-100 [facility] Comment on above: Order Comment: Reaso n for Exam Neuropathy;Uncontrolled type 2 diabetes mellitus with hyperg Reason for Exam Neuropathy Reason for Exam Restless leg Reason for Exam Hypothyroidism, unspecified type Reason for Exam Vitamin D deficiency Result Comment: YANNA MIN D STATUS 25(OH)VITAMIN D RANGE (ng/mL) Deficient <20 Insufficient 20 to <30 Sufficient 30 to 100 Reference: Grecia MF,Bob NC, Eleni CHRISTENSEN, et al. Evaluation,treatment, and prevention of vitamin D deficiency; an Endocrine Society clinical practice guideline. JCEM. 2010; 96(7):1911-30. PERFORMED BY: [place] [id number] PATHOLOGIST SURGICAL TECHNOLOGIST DIANA COTTON M.D. Performed By: #### B MP, PT, PTT, CK, MG, CBC, T4F, HS TROP, TSH3, BNP, HEPATIC #### [address] [place] [address] [facility] Vitamin D+Metabolites [Mass/ volume] in Serum or PlasmaOrdered By: Laila Pittman on 10-30-2023 Vitamin D+Metabolites [Mass/Vol] 26.1 ng/mL 30-100 [facility] Comment on above: VITAMIN D STATUS 25( [place])VITAMIN D RANGE (ng/mL) Deficient <20 Insufficient 20 to <30Sufficient 30 to 100Reference: Grecia MF,Bob BALDWIN, Eleni CHRISTENSEN, et al. Evaluation,treatment, and prevention of vitamin D deficiency; an Endocrine Society clinical practice guideline. JCEM. 2010; 96(7):1911-30. Nigel 09-19-2023 L Specimen: [id number] Received: 09/23/23 Status: BILL Cage Num: [id number] Spec Type: Surgical Subm Dr: Luis Miguel Aguiar DPM, MS Tissues: A Soft Tissue/Surgical Margin-Other than Tumor,Mass,Lip or Karolina (LT HEEL ULCER) B Bone Fragments - Other than Path Fracture (LT CALCANEOUS) Procedures: HE/2, Gross/Micro L4, Gross/Micro L3, Decalcification Age/ Patient Sex Location Account Attending Physician Dalia Melendez 57/F [facility] [id number] Luis Miguel Aguiar DPM, MS SPEC NUM: [id number] RECD: 09/23/23 STATUS: BILL CAGE NUM: [id number] SULEMAN: 09/19/[address]: Luis Miguel Aguiar DPM, MS ENTERED: 09/23/23 [facility] DR: Dennis Sharif SPEC TYPE: Surgical DEPT: LEXUS FERREIRA ORDERED: HE/2, Gross/Micro L4, Gross/Micro L3, Decalcification ORDERED: HE/2, Gross/Micro L4, Gross/Micro L3, Decalcification Pathological Diagnosis A. Left heel ulcer, debridement: Skin ulceration with underlying soft tissue inflammation. B. Left calcaneus, biopsy: Bone and soft tissue, unremarkable. Gross Description A. Received in formalin, labeled with the patient's name, date of and left heel ulcer is a 4.0 x 1.3 x 0.7 cm echavarria-brown ulcerated portion of skin. The specimen is serially sectioned revealing a hemorrhagic, dark brown cut surface. [employer] sections are submitted in A1. B. Received in formalin, labeled with the patient's name, date of and left calcaneus are multiple echavarria-yellow irregularly-shaped fragments of bone measuring in aggregate 1.4 x 0.5 x 0.3 cm, entirely submitted following decalcification in B1. Clinical history: Lower extremity pain-sore on heel, diabetic foot UL. CPT Codes [id number] Specimen: [id number] Received: 09/23/23 Status: BILL Cage Num: [id number] Spec Type: Surgical Subm Dr: Luis Miguel Aguiar,DPM, MS Tissues: A Soft Tissue/Surgical Margin-Other than Tumor,Mass,Lip or Karolina (LT HEEL ULCER) B Bone Fragments - Other than Path Fracture (LT CALCANEOUS) Procedures: HE/2, Gross/Micro L4, Gross/Micro L3, Decalcification Patient: RosemaryDalia [id number] (Continued) Signed (signature on file) Kian Johsnon MD 09/24/23 1745 Normal [facility] Folate [Mass/volume] in Seru m or PlasmaOrdered By: Laila Pittman on 09-03-2023 Folate [Mass/Vol] 29.0 ng/mL >5.9 [facility] Comment on above: Folate reference ran ge: >5.9 ng/mlThe WHO technical consultation on folate and vitamin [id number] has determined that folate concentrations lessthan 4 ng/ml are considered deficient. Serum or plasma thyroperoxid ase antibody assay (units/volume)Ordered By: Laila Pittman on 09-03-2023 TPO Ab Qn 250 [IU]/mL 0-34 [facility] Comment on above: Performed at: [facility] [address] [id number] Director: Maynor Campbell PhD, Phone: [phone] Thyroid Peroxidase Antibodie son 09-03-2023 Thyroid Peroxidase Antibodies 250 High 0-34 [facility] Comment on above: Order Comment: Reaso n for Exam Choking, initial encounter;Hypothyroidism, unspecified type Result Comment: Perf ormed at: [facility] [address] [id number] Marine Equipment Engineer: Maynor Campbell PhD, Phone: [phone] PERFORMED BY: [facility] [address] [place] [address] PATHOLOGIST SURGICAL TECHNOLOGIST DIANA COTTON M.D. Performed By: #### B MP, PT, PTT, CK, MG, CBC, T4F, HS TROP, TSH3, BNP, HEPATIC #### [facility] [address] [place] [id number] [facility] Thyrotropin [Units/volume] i n Serum or PlasmaOrdered By: Laila Pittman on 09-03-2023 TSH Qn 8.15 m[IU]/L High 0.45-5.33 [facility] Comment on above: Order Comment: Reaso n for Exam Neuropathy Reason for Exam Choking, initial encounter;Hypothyroidism, unspecified type Reason for Exam Vitamin D deficiency Performed By: #### B MP, PT, PTT, CK, MG, CBC, T4F, HS TROP, TSH3, BNP, HEPATIC #### [facility] [address] Thyroxine (T4) free [Mass/vo lume] in Serum or PlasmaOrdered By: Laila Pittman on 09-03-2023 Free T4 [Mass/Vol] 0.94 ng/dL Normal 0.61-1.12 [facility] Comment on above: Order Comment: Reaso n for Exam Neuropathy Reason for Exam Choking, initial encounter;Hypothyroidism, unspecified type Reason for Exam Vitamin D deficiency Performed By: #### B MP, PT, PTT, CK, MG, CBC, T4F, HS TROP, TSH3, BNP, HEPATIC #### [facility] [address] [place] [address] [place] Triiodothyronine (T3) Freeon 09-03-2023 Triiodothyronine (T3) Free 2.96 pg/mL Normal 2.50-3.90 [facility] Comment on above: Order Comment: Reaso n for Exam Choking, initial encounter;Hypothyroidism, unspecified type Result Comment: PERF ORMED BY: [place] [address] PATHOLOGIST SURGICAL TECHNOLOGIST DIANA COTTON M.D. Performed By: #### B MP, PT, PTT, CK, MG, CBC, T4F, HS TROP, TSH3, BNP, HEPATIC #### [place] [address] [place] Triiodothyronine (T3) Free [ Mass/volume] in Serum or PlasmaOrdered By: Laila Pittman on 09-03-2023 Free T3 [Mass/Vol] 2.96 pg/mL 2.50-3.90 [facility] Vit. B12/Folate Profileon Folate 29.0 ng/mL Normal >5.9 [facility] Comment on above: Order Comment: Reaso n for Exam Neuropathy Reason for Exam Choking, initial encounter;Hypothyroidism, unspecified type Reason for Exam Vitamin D deficiency Result Comment: Kate te reference range: >5.9 ng/ml The WHO technical consultation on folate and vitamin b12 deficiencies has determined that folate concentrations less than 4 ng/ml are considered deficient. Performed By: #### B MP, PT, PTT, CK, MG, CBC, T4F, HS TROP, TSH3, BNP, HEPATIC #### [facility] [address] [place] [address] Vitamin B12 ser/plasOrdered By: Laila Pittman on 09-03-2023 Cobalamin (Vitamin B12) [Mass/Vol] 319 pg/mL Normal 180-914 [facility] Comment on above: Order Comment: Reaso n for Exam Neuropathy Reason for Exam Choking, initial encounter;Hypothyroidism, unspecified type Reason for Exam Vitamin D deficiency Performed By: #### B MP, PT, PTT, CK, MG, CBC, T4F, HS TROP, TSH3, BNP, HEPATIC #### [facility] [address] [place] [address] Vitamin D 25 Hydroxy Totalon 09-03-2023 Vitamin D 25 Hydroxy Total 23.9 ng/mL Low 30-100 [facility] Comment on above: Order Comment: Reaso n for Exam Neuropathy Reason for Exam Choking, initial encounter;Hypothyroidism, unspecified type Reason for Exam Vitamin D deficiency Result Comment: YANNA MIN D STATUS 25([place])VITAMIN D RANGE (ng/mL) Deficient <20 Insufficient 20 to <30 Sufficient 30 to 100 Reference: Grecia MF,Bob NC, Eleni CHRISTENSEN, et al. Evaluation,treatment, and prevention of vitamin D deficiency; an Endocrine Society clinical practice guideline. JCEM. 2010; 96(7):1911-30. PERFORMED BY: [place] [address] PATHOLOGIST SURGICAL TECHNOLOGIST DIANA COTTON M.D. Performed By: #### B MP, PT, PTT, CK, MG, CBC, T4F, HS TROP, TSH3, BNP, HEPATIC #### [facility] [address] [place] [id number] [facility] Vitamin D+Metabolites [Mass/ volume] in Serum or PlasmaOrdered By: Laila Pittman on 09-03-2023 Vitamin D+Metabolites [Mass/Vol] 23.9 ng/mL 30-100 [facility] Comment on above: VITAMIN D STATUS 25( [place])VITAMIN D RANGE (ng/mL) Deficient <20 Insufficient 20 to <30Sufficient 30 to 100Reference: Grecia MF,Bob NC, Eleni CHRISTENSEN, et al. Evaluation,treatment, and prevention of vitamin D deficiency; an Endocrine Society clinical practice guideline. JCEM. 2010; 96(7):1911-30. XR foot LT min 3V*on 024 XR foot LT min 3V* [facility] [place] [address] [place] [id number] XRay Report Signed Patient: Dalia Melendez MR#: [id number] 8 : 1965 Acct:[id number] Age/Sex: 57 / F ADM Date: 08/12/23 Loc: Room: Type: [facility] Attending Dr: Dalia Carpio APRN Copies to: Dalia Carpio APRN Ordering Provider: Dalia Carpio APRN Date of Service: 08/12/23 XR/XR foot LT min 3V*: ULCER PAIN, DM, LEFT HEEL ULCER LEFT FOOT - 3 views CLINICAL HISTORY: Left heel ulcer, edema. COMPARISON: None FINDINGS: Lower leg soft tissue swelling is seen descending into the foot. Plantar spurring. No acute bony process or plain film evidence of osteomyelitis. XR/XR foot LT min 3V* IMPRESSION: SOFT TISSUE SWELLING WITHOUT ACUTE BONY PROCESS OR PLAIN FILM EVIDENCE OF OSTEOMYELITIS. Impression dictated by: Jason Conroy Jr., D.O.08/12/2023 5:57 PM Dictation Location: [place] [address] Transcribed By: [facility] 08/12/23 4091 Dictated By: Jason Conroy Jr, DO 08/12/231755 Signed By: 08/12/231756 Normal [facility] Bacteria identified Aer cx N om (Unsp spec)Ordered By: Laila Pittman on 07-29-2023 Superficial Wound Culture Staphylococcus aureus [facility] Superficial Wound Cultureon 07-29-2023 Superficial Wound Culture Reason for Exam Non healing left heel wound Heel, Left ORGANISM: Staphylococcus aureus (O:STAAUR) Quantity of Growth Heavy Growth Aerobic ELIANA Charge (PCMIC38) SUSCEPTIBILITY ORGANISM: O:STAAUR ANTIBIOTIC INTERPRETATION ELIANA Azithromycin R >4 Ceftaroline S <0.5 Ciprofloxacin S <1 Clindamycin R <0.25 Daptomycin S 1 Levofloxacin S <1 Linezolid S 4 Oxacillin S <0.25 Penicillin GUILLERMO >2 Tetracycline S <4 Trimethoprim/Sulfamethoxa zole S <0.5 Vancomycin S 1 S = SUSCEPTIBLE I = INTERMEDIATE R = RESISTANT BLANK = DATA NOT AVAILABLE, OR DRUG NOT ADVISABLE OR TESTED R* = RESISTANCE DUE TO EXTENDED SPECTRUM BETA-LACTAMASES ESBL = EXTENDED SPECTRUM BETA-LACTAMASE TFG = THYMIDINE-DEPENDENT STRAIN GUILLERMO = BETA-LACTAMASE POSITIVE IB = INDUCIBLE BETA-LACTAMASE. APPEARS IN PLACE OF 'S' WITH SPECIES KNOWN TO POSSESS INDUCIBLE BETA-LACTAMASES. POTENTIALLY THEY MAY BECOME RESISTANT TO ALL B-LACTAM DRUGS. PERFORMED BY: [place] [address] PATHOLOGIST SURGICAL TECHNOLOGIST DIANA COTTON M.D. Normal [facility] Comment on above: Performed By: #### B MP, PT, PTT, CK, MG, CBC, T4F, HS TROP, TSH3, BNP, HEPATIC #### [address] head/brain wo lee ann 07-21 CT head/brain wo con [facility] [place] [address] CT Scan Report Signed Patient: Dalia Melendez MR#: [id number] 8 : 1965 Acct:[id number] Age/Sex: 57 / F ADM Date: 07/22/23 [facility] Type[facility] Attending Dr: Laila Pittman TOLL TICKET CLERK-C Copies to: Laila Pittman Ordering Provider: Laila Pittman Date of Service: 07/22/23 CT/CT head/brain wo con: HTN (hypertension);Abnormal involuntary movement;Facial numb CT BRAIN WITHOUT CONTRAST: CLINICAL HISTORY: Tremors for 5 months. COMPARISON: CT brain 07/24/2020 TECHNIQUE: Contiguous axial unenhanced images were obtained through the brain. This CT exam was performed using one or more following dose reduction techniques: Automated exposure control, adjustment of the mA and/or kV according to patient size, or use of iterative reconstruction technique. This examination is suboptimal due to streak artifact from the patient's earrings. FINDINGS: There is no evidence of midline shift, intra or extra-axial fluid collection, hemorrhage or CT evidence of stroke. Cortical atrophy with chronic microvascular ischemic changes similar to the prior study. Posterior fossa appears unremarkable. Visualized intraorbital contents demonstrate no acute findings. Visualized paranasal sinuses are clear. The surrounding soft tissues are normal. CT/CT head/brain wo con IMPRESSION: NO ACUTE INTRACRANIAL ABNORMALITY. Impression dictated by: Jason Conroy Jr., DAramOAram07/22/2023 4:05 PM Dictation Location: [place] [address] Transcribed By: [facility] 07/22/23 1605 Dictated By: Jason Conroy Jr, DO 07/22/23 1603 Signed By: 07/22/23 1605 Normal [facility] Alanine aminotransferase [En zymatic activity/volume] in Serum or PlasmaOrdered By: Laila Pittman on 07-16-2023 ALT [Catalytic activity/Vol] 20 U/L Normal [facility] Comment on above: Order Comment: Reaso n for Exam HTN (hypertension);Type 2 diabetes mellitus with other speci Reason for Exam Neuropathy;Abnormal involuntary movement;Facial numbness;Mem Reason for Exam Abnormal involuntary movement;Facial numbness;Memory changes Reason for Exam Neuropathy;Facial numbness;Memory changes;Chronic fatigue Performed By: #### B MP, PT, PTT, CK, MG, CBC, T4F, HS TROP, TSH3, BNP, HEPATIC #### [facility] [address] [place] [address] [place] Albumin [Mass/volume] in Ser um or Plasma by Bromocresol green (BCG) dye binding methoOrdered By: Laila Pittman on 07-16-2023 Albumin BCG dye [Mass/Vol] 3.6 g/dL 3.5-5.7 [facility] Alkaline phosphatase [Enzyma tic activity/volume] in Serum or PlasmaOrdered By: Laila Pittman on 07-16-2023 ALP [Catalytic activity/Vol] 91 U/L Normal 34-104 [facility] Comment on above: Order Comment: Reaso n for Exam HTN (hypertension);Type 2 diabetes mellitus with other speci Reason for Exam Neuropathy;Abnormal involuntary movement;Facial numbness;Mem Reason for Exam Abnormal involuntary movement;Facial numbness;Memory changes Reason for Exam Neuropathy;Facial numbness;Memory changes;Chronic fatigue Performed By: #### B MP, PT, PTT, CK, MG, CBC, T4F, HS TROP, TSH3, BNP, HEPATIC #### [facility] [address] [place] [id number] [place] Aspartate aminotransferase [ Enzymatic activity/volume] in Serum or PlasmaOrdered By: Laila Pittman on 07-16-2023 AST [Catalytic activity/Vol] 17 U/L Normal 13-39 [facility] Comment on above: Order Comment: Reaso n for Exam HTN (hypertension);Type 2 diabetes mellitus with other speci Reason for Exam Neuropathy;Abnormal involuntary movement;Facial numbness;Mem Reason for Exam Abnormal involuntary movement;Facial numbness;Memory changes Reason for Exam Neuropathy;Facial numbness;Memory changes;Chronic fatigue Performed By: #### B MP, PT, PTT, CK, MG, CBC, T4F, HS TROP, TSH3, BNP, HEPATIC #### [facility] [address] [place] [address] [place] Automated basophil %Ordered By: Laila Pittman on 07-16-2023 Basophils/100 WBC (Bld) 0.5 % Normal . [facility] Comment on above: Order Comment: Reaso n for Exam HTN (hypertension);Type 2 diabetes mellitus with other speci Performed By: #### B MP, PT, PTT, CK, MG, CBC, T4F, HS TROP, TSH3, BNP, HEPATIC #### [address] Automated basophil countOrde red By: Laila Pittman on 07-16-2023 Basophils (Bld) [#/Vol] 0.0 10*3/uL Normal 0.0-0.2 [facility] Comment on above: Order Comment: Reaso n for Exam HTN (hypertension);Type 2 diabetes mellitus with other speci Result Comment: PERF ORMED BY: [place] [address] PATHOLOGIST SURGICAL TECHNOLOGIST DIANA COTTON M.D. Performed By: #### B MP, PT, PTT, CK, MG, CBC, T4F, HS TROP, TSH3, BNP, HEPATIC #### [address] Automated blood monocyte cou ntOrdered By: Laila Pittman on 07-16-2023 Monocytes (Bld) [#/Vol] 0.7 10*3/uL Normal 0.0-0.8 [facility] Comment on above: Order Comment: Reaso n for Exam HTN (hypertension);Type 2 diabetes mellitus with other speci Performed By: #### B MP, PT, PTT, CK, MG, CBC, T4F, HS TROP, TSH3, BNP, HEPATIC #### [address] Automated eosinophil %Ordere d By: Laila Pittman on 07-16-2023 Eosinophils/100 WBC (Bld) 3.3 % Normal . [facility] Comment on above: Order Comment: Reaso n for Exam HTN (hypertension);Type 2 diabetes mellitus with other speci Performed By: #### B MP, PT, PTT, CK, MG, CBC, T4F, HS TROP, TSH3, BNP, HEPATIC #### [address] Automated eosinophil countOr dered By: Laila Pittman on 07-16-2023 Eosinophils (Bld) [#/Vol] 0.3 10*3/uL Normal 0.0-0.45 [facility] Comment on above: Order Comment: Reaso n for Exam HTN (hypertension);Type 2 diabetes mellitus with other speci Performed By: #### B MP, PT, PTT, CK, MG, CBC, T4F, HS TROP, TSH3, BNP, HEPATIC #### [facility] [address] Automated monocyte %Ordered By: Laila Pittman on 07-16-2023 Monocytes/100 WBC (Bld) 8.8 % Normal . [facility] Comment on above: Order Comment: Reaso n for Exam HTN (hypertension);Type 2 diabetes mellitus with other speci Performed By: #### B MP, PT, PTT, CK, MG, CBC, T4F, HS TROP, TSH3, BNP, HEPATIC #### [facility] [address] Automated neutrophil %Ordere d By: Laila Pittman on 07-16-2023 Neutrophils/100 WBC (Bld) 39.1 % Normal . [facility] Comment on above: Order Comment: Reaso n for Exam HTN (hypertension);Type 2 diabetes mellitus with other speci Performed By: #### B MP, PT, PTT, CK, MG, CBC, T4F, HS TROP, TSH3, BNP, HEPATIC #### [facility] [address] Bilirubin.total [Mass/volume ] in Serum or PlasmaOrdered By: Laila Pittman on 07-16-2023 Bilirubin [Mass/Vol] 0.3 mg/dL Normal 0.3-1.0 [facility] Comment on above: Order Comment: Reaso n for Exam HTN (hypertension);Type 2 diabetes mellitus with other speci Reason for Exam Neuropathy;Abnormal involuntary movement;Facial numbness;Mem Reason for Exam Abnormal involuntary movement;Facial numbness;Memory changes Reason for Exam Neuropathy;Facial numbness;Memory changes;Chronic fatigue Performed By: #### B MP, PT, PTT, CK, MG, CBC, T4F, HS TROP, TSH3, BNP, HEPATIC #### [facility] [address] [place] [id number] [facility] Calcium [Mass/volume] in Ser um or PlasmaOrdered By: Laila Pittman on 07-16-2023 Calcium [Mass/Vol] 8.9 mg/dL Normal 8.6-10.3 [facility] Comment on above: Order Comment: Reaso n for Exam HTN (hypertension);Type 2 diabetes mellitus with other speci Reason for Exam Neuropathy;Abnormal involuntary movement;Facial numbness;Mem Reason for Exam Abnormal involuntary movement;Facial numbness;Memory changes Reason for Exam Neuropathy;Facial numbness;Memory changes;Chronic fatigue Performed By: #### B MP, PT, PTT, CK, MG, CBC, T4F, HS TROP, TSH3, BNP, HEPATIC #### [facility] [address] [place] [id number] [facility] Carbon dioxide, total [Moles /volume] in Serum or PlasmaOrdered By: Laila Pittman on 07-16-2023 CO2 [Moles/Vol] 27.8 mmol/L Normal 21.0-31.0 [facility] Comment on above: Order Comment: Reaso n for Exam HTN (hypertension);Type 2 diabetes mellitus with other speci Reason for Exam Neuropathy;Abnormal involuntary movement;Facial numbness;Mem Reason for Exam Abnormal involuntary movement;Facial numbness;Memory changes Reason for Exam Neuropathy;Facial numbness;Memory changes;Chronic fatigue Performed By: #### B MP, PT, PTT, CK, MG, CBC, T4F, HS TROP, TSH3, BNP, HEPATIC #### [facility] [address] [place] [id number] [place] Chloride [Moles/volume] in S jakob or PlasmaOrdered By: Laila Pittman on 07-16-2023 Chloride [Moles/Vol] 101 mmol/L Normal 98-107 [facility] Comment on above: Order Comment: Reaso n for Exam HTN (hypertension);Type 2 diabetes mellitus with other speci Reason for Exam Neuropathy;Abnormal involuntary movement;Facial numbness;Mem Reason for Exam Abnormal involuntary movement;Facial numbness;Memory changes Reason for Exam Neuropathy;Facial numbness;Memory changes;Chronic fatigue Performed By: #### B MP, PT, PTT, CK, MG, CBC, T4F, HS TROP, TSH3, BNP, HEPATIC #### [facility] [address] [place] [id number] [facility] Cholesterol [Mass/volume] in Serum or PlasmaOrdered By: Laila Pittman on 07-16-2023 Cholesterol [Mass/Vol] 132 mg/dL Low 140-200 [facility] Comment on above: Chol less than 200 m g/dl low riskChol 201-239 mg/dl borderline riskChol 240 mg/dl and greater high risk Order Comment: Reaso n for Exam HTN (hypertension);Type 2 diabetes mellitus with other speci Reason for Exam Neuropathy;Abnormal involuntary movement;Facial numbness;Mem Reason for Exam Abnormal involuntary movement;Facial numbness;Memory changes Reason for Exam Neuropathy;Facial numbness;Memory changes;Chronic fatigue Result Comment: Chol less than 200 mg/dl low risk Chol 201-239 mg/dl borderline risk Chol 240 mg/dl and greater high risk Performed By: #### B MP, PT, PTT, CK, MG, CBC, T4F, HS TROP, TSH3, BNP, HEPATIC #### [facility] [address] [place] [id number] [facility] Cholesterol in LDL Calc [Mas s/Vol]Ordered By: Laila Pittman on 07-16-2023 Cholesterol in LDL [Mass/Vol] 44 mg/dL 0-100 [facility] Comment on above: LDL ATP III CLASSIFI CATIONLDL less than 100 mg/dL OptimalLDL 100-129 mg/dL Near or above optimalLDL 130-159 mg/dL Borderline highLDL 160-189 mg/dL HighLDL greater than 189 mg/dL Very high Cholesterol in VLDL Calc [Ma ss/Vol]Ordered By: Laila Pittman on 07-16-2023 Cholesterol in VLDL [Mass/Vol] 47 mg/dL [facility] Complete Blood Count Auto Di ffon 07-16-2023 Mean Corpuscular HGB Conc 33.2 g/dL Normal 32.0-35.0 [facility] Comment on above: Order Comment: Reaso n for Exam HTN (hypertension);Type 2 diabetes mellitus with other speci Performed By: #### B MP, PT, PTT, CK, MG, CBC, T4F, HS TROP, TSH3, BNP, HEPATIC #### [facility] [address] NRBC% 0.1 /100{WBC} Normal 0-0.5 [facility] Comment on above: Order Comment: Reaso n for Exam HTN (hypertension);Type 2 diabetes mellitus with other speci Performed By: #### B MP, PT, PTT, CK, MG, CBC, T4F, HS TROP, TSH3, BNP, HEPATIC #### [facility] [address] Comprehensive Metabolic Pane nigel 07-16-2023 Albumin [Mass/Vol] 3.6 g/dL Normal 3.5-5.7 [facility] Comment on above: Order Comment: Reaso n for Exam HTN (hypertension);Type 2 diabetes mellitus with other speci Reason for Exam Neuropathy;Abnormal involuntary movement;Facial numbness;Mem Reason for Exam Abnormal involuntary movement;Facial numbness;Memory changes Reason for Exam Neuropathy;Facial numbness;Memory changes;Chronic fatigue Performed By: #### B MP, PT, PTT, CK, MG, CBC, T4F, HS TROP, TSH3, BNP, HEPATIC #### [facility] [address] GFR/1.73 sq M.predicted MDRD (S/P/Bld) [Vol rate/Area] mL/min/{1.73_m2} Normal [facility] Comment on above: Order Comment: Reaso n for Exam HTN (hypertension);Type 2 diabetes mellitus with other speci Reason for Exam Neuropathy;Abnormal involuntary movement;Facial numbness;Mem Reason for Exam Abnormal involuntary movement;Facial numbness;Memory changes Reason for Exam Neuropathy;Facial numbness;Memory changes;Chronic fatigue Performed By: #### B MP, PT, PTT, CK, MG, CBC, T4F, HS TROP, TSH3, BNP, HEPATIC #### [facility] [address] [place] [id number] [facility] Creatinine [Mass/volume] in Serum or PlasmaOrdered By: Laila Pittman on 07-16-2023 Creatinine [Mass/Vol] 1.02 mg/dL Normal 0.60-1.20 [facility] Comment on above: Order Comment: Reaso n for Exam HTN (hypertension);Type 2 diabetes mellitus with other speci Reason for Exam Neuropathy;Abnormal involuntary movement;Facial numbness;Mem Reason for Exam Abnormal involuntary movement;Facial numbness;Memory changes Reason for Exam Neuropathy;Facial numbness;Memory changes;Chronic fatigue Performed By: #### B MP, PT, PTT, CK, MG, CBC, T4F, HS TROP, TSH3, BNP, HEPATIC #### [facility] [address] Erythrocyte distribution wid th [Ratio] by Automated countOrdered By: Laila Pittman on 07-16-2023 Erythrocyte distribution width (RBC) [Ratio] 13.5 % Normal 11.9-15.3 [facility] Comment on above: Order Comment: Reaso n for Exam HTN (hypertension);Type 2 diabetes mellitus with other speci Performed By: #### B MP, PT, PTT, CK, MG, CBC, T4F, HS TROP, TSH3, BNP, HEPATIC #### [facility] [address] Erythrocytes [#/volume] in B lood by Automated countOrdered By: Laila Pittman on 07-16-2023 RBC (Bld) [#/Vol] 4.08 10*6/uL Normal 3.60-5.00 [facility] Comment on above: Order Comment: Reaso n for Exam HTN (hypertension);Type 2 diabetes mellitus with other speci Performed By: #### B MP, PT, PTT, CK, MG, CBC, T4F, HS TROP, TSH3, BNP, HEPATIC #### [facility] [address] Ferritin [Mass/volume] in Se rum or PlasmaOrdered By: Laila Pittman on 07-16-2023 Ferritin [Mass/Vol] 34.4 ng/mL Normal 11.0-306.8 [facility] Comment on above: Order Comment: Reaso n for Exam HTN (hypertension);Type 2 diabetes mellitus with other speci Reason for Exam Neuropathy;Abnormal involuntary movement;Facial numbness;Mem Reason for Exam Abnormal involuntary movement;Facial numbness;Memory changes Reason for Exam Neuropathy;Facial numbness;Memory changes;Chronic fatigue Performed By: #### B MP, PT, PTT, CK, MG, CBC, T4F, HS TROP, TSH3, BNP, HEPATIC #### [facility] [address] [place] [id number] [facility] Folate [Mass/volume] in Seru m or PlasmaOrdered By: Laila Pittman on 07-16-2023 Folate [Mass/Vol] 26.0 ng/mL >5.9 [facility] Comment on above: Folate reference ran ge: >5.9 ng/mlThe WHO technical consultation on folate and vitamin [id number] has determined that folate concentrations lessthan 4 ng/ml are considered deficient. Glucose [Mass/volume] in Ser um or PlasmaOrdered By: Laila Pittman on 07-16-2023 Glucose [Mass/Vol] 229 mg/dL High 70-100 [facility] Comment on above: ADA recommended refe rence rangeRandom Glucose Reference Range is dependent on time and content of last meal. Glucose of more than 200 mg/dL in a nonstressed, ambulatory subject supports the diagnosis of Diabetes Mellitus. Order Comment: Reaso n for Exam HTN (hypertension);Type 2 diabetes mellitus with other speci Reason for Exam Neuropathy;Abnormal involuntary movement;Facial numbness;Mem Reason for Exam Abnormal involuntary movement;Facial numbness;Memory changes Reason for Exam Neuropathy;Facial numbness;Memory changes;Chronic fatigue Result Comment: Simpson om Glucose Reference Range is dependent on time and content of last meal. Glucose of more than 200 mg/dL in a nonstressed, ambulatory subject supports the diagnosis of Diabetes Mellitus. ADA recommended reference range Performed By: #### B MP, PT, PTT, CK, MG, CBC, T4F, HS TROP, TSH3, BNP, HEPATIC #### [facility] [address] [place] [address] [place] Hematocrit [Volume Fraction] of Blood by Automated countOrdered By: Laila Pittman on 07-16-2023 Hematocrit (Bld) [Volume fraction] 35.4 % Normal 34.0-46.4 [facility] Comment on above: Order Comment: Reaso n for Exam HTN (hypertension);Type 2 diabetes mellitus with other speci Performed By: #### B MP, PT, PTT, CK, MG, CBC, T4F, HS TROP, TSH3, BNP, HEPATIC #### [facility] [address] [place] [id number] [facility] Hemoglobin [Mass/volume] in BloodOrdered By: Laila Pittman on 07-16-2023 Hemoglobin (Bld) [Mass/Vol] 11.7 g/dL Low 11.8-15.4 [facility] Comment on above: Order Comment: Reaso n for Exam HTN (hypertension);Type 2 diabetes mellitus with other speci Performed By: #### B MP, PT, PTT, CK, MG, CBC, T4F, HS TROP, TSH3, BNP, HEPATIC #### [facility] [address] [place] [id number] [facility] Iron [Mass/volume] in Serum or PlasmaOrdered By: Laila Pittman on 07-16-2023 Iron [Mass/Vol] 71 ug/dL Normal 50-212 [facility] Comment on above: Order Comment: Reaso n for Exam HTN (hypertension);Type 2 diabetes mellitus with other speci Reason for Exam Neuropathy;Abnormal involuntary movement;Facial numbness;Mem Reason for Exam Abnormal involuntary movement;Facial numbness;Memory changes Reason for Exam Neuropathy;Facial numbness;Memory changes;Chronic fatigue Performed By: #### B MP, PT, PTT, CK, MG, CBC, T4F, HS TROP, TSH3, BNP, HEPATIC #### [facility] [address] [place] [id number] [facility] Iron and TIBC Profileon % Iron Saturation 26.3 % Normal 20-50 [facility] Comment on above: Order Comment: Reaso n for Exam HTN (hypertension);Type 2 diabetes mellitus with other speci Reason for Exam Neuropathy;Abnormal involuntary movement;Facial numbness;Mem Reason for Exam Abnormal involuntary movement;Facial numbness;Memory changes Reason for Exam Neuropathy;Facial numbness;Memory changes;Chronic fatigue Performed By: #### B MP, PT, PTT, CK, MG, CBC, T4F, HS TROP, TSH3, BNP, HEPATIC #### [facility] [address] [place] [id number] [facility] Total Iron Binding Capacity 270 ug/dL Normal 255-450 [facility] Comment on above: Order Comment: Reaso n for Exam HTN (hypertension);Type 2 diabetes mellitus with other speci Reason for Exam Neuropathy;Abnormal involuntary movement;Facial numbness;Mem Reason for Exam Abnormal involuntary movement;Facial numbness;Memory changes Reason for Exam Neuropathy;Facial numbness;Memory changes;Chronic fatigue Performed By: #### B MP, PT, PTT, CK, MG, CBC, T4F, HS TROP, TSH3, BNP, HEPATIC #### [facility] [address] Iron binding capacity [Mass/ volume] in Serum or PlasmaOrdered By: Laila Pittman on 07-16-2023 Iron binding capacity [Mass/Vol] 270 ug/dL 255-450 [facility] Iron saturation [Mass Fracti on] in Serum or PlasmaOrdered By: Laila Pittman on 07-16-2023 Iron saturation [Mass fraction] 26.3 % 20-50 [facility] Leukocytes [#/volume] correc jovanni for nucleated erythrocytes in Blood by Automated counOrdered By: Laila Pittman on 07-16-2023 WBC corrected for nucl RBC Auto (Bld) [#/Vol] 8.2 10*3/uL 3.8-11.6 [facility] Leukocytes [#/volume] in Blo od by Automated countOrdered By: Laila Pittman on 07-16-2023 WBC (Bld) [#/Vol] 8.2 10*3/uL Normal 3.8-11.6 [facility] Comment on above: Order Comment: Reaso n for Exam HTN (hypertension);Type 2 diabetes mellitus with other speci Performed By: #### B MP, PT, PTT, CK, MG, CBC, T4F, HS TROP, TSH3, BNP, HEPATIC #### [facility] [address] [place] [id number] [place] Lipid Panelon 07-16-2023 LDL Cholesterol,Calculated 44 mg/dL Normal 0-100 [facility] Comment on above: Order Comment: Reaso n for Exam HTN (hypertension);Type 2 diabetes mellitus with other speci Reason for Exam Neuropathy;Abnormal involuntary movement;Facial numbness;Mem Reason for Exam Abnormal involuntary movement;Facial numbness;Memory changes Reason for Exam Neuropathy;Facial numbness;Memory changes;Chronic fatigue Result Comment: LDL ATP III CLASSIFICATION LDL less than 100 mg/dL Optimal LDL 100-129 mg/dL Near or above optimal LDL 130-159 mg/dL Borderline high LDL 160-189 mg/dL High LDL greater than 189 mg/dL Very high Performed By: #### B MP, PT, PTT, CK, MG, CBC, T4F, HS TROP, TSH3, BNP, HEPATIC #### [facility] [address] Triglyceride w/Reflex 237 mg/dL High 0-149 [facility] Comment on above: Order Comment: Reaso n for Exam HTN (hypertension);Type 2 diabetes mellitus with other speci Reason for Exam Neuropathy;Abnormal involuntary movement;Facial numbness;Mem Reason for Exam Abnormal involuntary movement;Facial numbness;Memory changes Reason for Exam Neuropathy;Facial numbness;Memory changes;Chronic fatigue Result Comment: TRIG ATP III CLASSIFICATION TRIG less than 150 mg/dL Normal TRIG 150-199 mg/dL Borderline high TRIG 200-500 mg/dL High TRIG greater than 500 mg/dL Very high Standard traceable to the Center for Disease Conrtrol and Prevention (CDC) test method. Performed By: #### B MP, PT, PTT, CK, MG, CBC, T4F, HS TROP, TSH3, BNP, HEPATIC #### [facility] [address] VLDL CHOLESTEROL 47 mg/dL Normal [facility] Comment on above: Order Comment: Reaso n for Exam HTN (hypertension);Type 2 diabetes mellitus with other speci Reason for Exam Neuropathy;Abnormal involuntary movement;Facial numbness;Mem Reason for Exam Abnormal involuntary movement;Facial numbness;Memory changes Reason for Exam Neuropathy;Facial numbness;Memory changes;Chronic fatigue Performed By: #### B MP, PT, PTT, CK, MG, CBC, T4F, HS TROP, TSH3, BNP, HEPATIC #### [facility] [address] [place] [id number] [facility] Lymphocytes [#/volume] in Bl ood by Automated countOrdered By: Laila Pittman on 07-16-2023 Lymphocytes (Bld) [#/Vol] 4.0 10*3/uL Normal 1.00-4.8 [facility] Comment on above: Order Comment: Reaso n for Exam HTN (hypertension);Type 2 diabetes mellitus with other speci Performed By: #### B MP, PT, PTT, CK, MG, CBC, T4F, HS TROP, TSH3, BNP, HEPATIC #### [facility] [address] [place] [address] [place] Lymphocytes/100 leukocytes i n Blood by Automated countOrdered By: Laila Pittman on 07-16-2023 Lymphocytes/100 WBC (Bld) 48.3 % Normal . [facility] Comment on above: Order Comment: Reaso n for Exam HTN (hypertension);Type 2 diabetes mellitus with other speci Performed By: #### B MP, PT, PTT, CK, MG, CBC, T4F, HS TROP, TSH3, BNP, HEPATIC #### [facility] [address] [place] [address] [place] MCH [Entitic mass] by Automa jovanni countOrdered By: Laila Pittman on 07-16-2023 MCH (RBC) [Entitic mass] 28.8 pg Normal 24.7-34.3 [facility] Comment on above: Order Comment: Reaso n for Exam HTN (hypertension);Type 2 diabetes mellitus with other speci Performed By: #### B MP, PT, PTT, CK, MG, CBC, T4F, HS TROP, TSH3, BNP, HEPATIC #### [facility] [address] [place] [address] MCHC Auto (RBC) [Mass/Vol]Or dered By: Laila Pittman on 07-16-2023 MCHC (RBC) [Mass/Vol] 33.2 g/dL 32.0-35.0 [facility] MCV [Entitic volume] by Auto mated countOrdered By: Laila Pittman on 07-16-2023 MCV (RBC) [Entitic vol] 86.7 fL Normal 80-100 [facility] Comment on above: Order Comment: Reaso n for Exam HTN (hypertension);Type 2 diabetes mellitus with other speci Performed By: #### B MP, PT, PTT, CK, MG, CBC, T4F, HS TROP, TSH3, BNP, HEPATIC #### [facility] [address] [place] [address] Neutrophils [#/volume] in Bl ood by Automated countOrdered By: Laila Pittman on 07-16-2023 Neutrophils (Bld) [#/Vol] 3.2 10*3/uL Normal 1.8-7.7 [facility] Comment on above: Order Comment: Reaso n for Exam HTN (hypertension);Type 2 diabetes mellitus with other speci Performed By: #### B MP, PT, PTT, CK, MG, CBC, T4F, HS TROP, TSH3, BNP, HEPATIC #### [address] No Panel InformationOrdered By: Laila Pittman on 07-16-2023 Estimated GFR (CKD-EPI) > 60.0 mL/Min [facility] Creatinine Clearance (Chem N/A [facility] Nucleated erythrocytes [Pres ence] in Blood by Automated countOrdered By: Laila Pittman on 07-16-2023 Nucleated RBC Auto Ql (Bld) 0.1 /100{WBC} 0-0.5 [facility] Platelet mean volume [Entiti c volume] in Blood by Automated countOrdered By: Laila Pittman on 07-16-2023 Platelet mean volume (Bld) [Entitic vol] 7.8 fL Normal 6.3-10.7 [facility] Comment on above: Order Comment: Reaso n for Exam HTN (hypertension);Type 2 diabetes mellitus with other speci Performed By: #### B MP, PT, PTT, CK, MG, CBC, T4F, HS TROP, TSH3, BNP, HEPATIC #### [address] Platelets [#/volume] in Bloo d by Automated countOrdered By: Laila Pittman on 07-16-2023 Platelets (Bld) [#/Vol] 230 10*3/uL Normal 150-450 [facility] Comment on above: Order Comment: Reaso n for Exam HTN (hypertension);Type 2 diabetes mellitus with other speci Performed By: #### B MP, PT, PTT, CK, MG, CBC, T4F, HS TROP, TSH3, BNP, HEPATIC #### [facility] [address] [place] [id number] [facility] Potassium [Moles/volume] in Serum or PlasmaOrdered By: Laila Pittman on 07-16-2023 Potassium [Moles/Vol] 4.4 mmol/L Normal 3.5-5.1 [facility] Comment on above: Order Comment: Reaso n for Exam HTN (hypertension);Type 2 diabetes mellitus with other speci Reason for Exam Neuropathy;Abnormal involuntary movement;Facial numbness;Mem Reason for Exam Abnormal involuntary movement;Facial numbness;Memory changes Reason for Exam Neuropathy;Facial numbness;Memory changes;Chronic fatigue Performed By: #### B MP, PT, PTT, CK, MG, CBC, T4F, HS TROP, TSH3, BNP, HEPATIC #### [address] Protein [Mass/volume] in Ser um or PlasmaOrdered By: Laila Pittman on 07-16-2023 Protein [Mass/Vol] 7.0 g/dL Normal 6.4-8.9 [facility] Comment on above: Order Comment: Reaso n for Exam HTN (hypertension);Type 2 diabetes mellitus with other speci Reason for Exam Neuropathy;Abnormal involuntary movement;Facial numbness;Mem Reason for Exam Abnormal involuntary movement;Facial numbness;Memory changes Reason for Exam Neuropathy;Facial numbness;Memory changes;Chronic fatigue Performed By: #### B MP, PT, PTT, CK, MG, CBC, T4F, HS TROP, TSH3, BNP, HEPATIC #### [address] Serum globulin measurement b y calculation (mass/volume)Ordered By: Laila Pittman on 07-16-2023 Globulin (S) [Mass/Vol] 3.4 g/dL Normal [facility] Comment on above: Order Comment: Reaso n for Exam HTN (hypertension);Type 2 diabetes mellitus with other speci Reason for Exam Neuropathy;Abnormal involuntary movement;Facial numbness;Mem Reason for Exam Abnormal involuntary movement;Facial numbness;Memory changes Reason for Exam Neuropathy;Facial numbness;Memory changes;Chronic fatigue Performed By: #### B MP, PT, PTT, CK, MG, CBC, T4F, HS TROP, TSH3, BNP, HEPATIC #### [facility] [address] Serum or plasma albumin/glob ulin mass ratioOrdered By: Laila Pittman on 07-16-2023 Albumin/Globulin [Mass ratio] 1.1 {ratio} [facility] Comment on above: Order Comment: Reaso n for Exam HTN (hypertension);Type 2 diabetes mellitus with other speci Reason for Exam Neuropathy;Abnormal involuntary movement;Facial numbness;Mem Reason for Exam Abnormal involuntary movement;Facial numbness;Memory changes Reason for Exam Neuropathy;Facial numbness;Memory changes;Chronic fatigue Performed By: #### B MP, PT, PTT, CK, MG, CBC, T4F, HS TROP, TSH3, BNP, HEPATIC #### [facility] [address] [place] [address] Serum or plasma anion gap de terminationOrdered By: Laila Pittman on 07-16-2023 Anion gap [Moles/Vol] 10.6 mmol/L Normal 6.0-15.0 [facility] Comment on above: Order Comment: Reaso n for Exam HTN (hypertension);Type 2 diabetes mellitus with other speci Reason for Exam Neuropathy;Abnormal involuntary movement;Facial numbness;Mem Reason for Exam Abnormal involuntary movement;Facial numbness;Memory changes Reason for Exam Neuropathy;Facial numbness;Memory changes;Chronic fatigue Performed By: #### B MP, PT, PTT, CK, MG, CBC, T4F, HS TROP, TSH3, BNP, HEPATIC #### [facility] [address] Serum or plasma high density lipoprotein (HDL) cholesterol measurementOrdered By: Laila Pittman on 07-16-2023 Cholesterol in HDL [Mass/Vol] 41 mg/dL Normal 23-92 [facility] Comment on above: HDL CHOL ATP-III CLA SSIFICATION Cardiovascular RiskHDL > or equal to 60 mg/dL LOWHDL < 40 mg/dL HIGH Order Comment: Reaso n for Exam HTN (hypertension);Type 2 diabetes mellitus with other speci Reason for Exam Neuropathy;Abnormal involuntary movement;Facial numbness;Mem Reason for Exam Abnormal involuntary movement;Facial numbness;Memory changes Reason for Exam Neuropathy;Facial numbness;Memory changes;Chronic fatigue Result Comment: HDL CHOL ATP-III CLASSIFICATION Cardiovascular Risk HDL > or equal to 60 mg/dL LOW HDL < 40 mg/dL HIGH Performed By: #### B MP, PT, PTT, CK, MG, CBC, T4F, HS TROP, TSH3, BNP, HEPATIC #### [facility] [address] Serum or plasma total choles terol/high density lipoprotein (HDL) cholesterol mass ratOrdered By: Laila Pittman on 07-16-2023 Cholesterol.total/Chol esterol in HDL [Mass ratio] 3.2 {ratio} Normal <5.0 [facility] Comment on above: Order Comment: Reaso n for Exam HTN (hypertension);Type 2 diabetes mellitus with other speci Reason for Exam Neuropathy;Abnormal involuntary movement;Facial numbness;Mem Reason for Exam Abnormal involuntary movement;Facial numbness;Memory changes Reason for Exam Neuropathy;Facial numbness;Memory changes;Chronic fatigue Performed By: #### B MP, PT, PTT, CK, MG, CBC, T4F, HS TROP, TSH3, BNP, HEPATIC #### [facility] [address] Sodium [Moles/volume] in Ser um or PlasmaOrdered By: Laila Pittman on 07-16-2023 Sodium [Moles/Vol] 135 mmol/L Low 136-145 [facility] Comment on above: Order Comment: Reaso n for Exam HTN (hypertension);Type 2 diabetes mellitus with other speci Reason for Exam Neuropathy;Abnormal involuntary movement;Facial numbness;Mem Reason for Exam Abnormal involuntary movement;Facial numbness;Memory changes Reason for Exam Neuropathy;Facial numbness;Memory changes;Chronic fatigue Performed By: #### B MP, PT, PTT, CK, MG, CBC, T4F, HS TROP, TSH3, BNP, HEPATIC #### [facility] [address] Thyrotropin [Units/volume] i n Serum or PlasmaOrdered By: Laila Pittman on 07-16-2023 TSH Qn 9.85 m[IU]/L High 0.45-5.33 [facility] Comment on above: Order Comment: Reaso n for Exam HTN (hypertension);Type 2 diabetes mellitus with other speci Reason for Exam Neuropathy;Abnormal involuntary movement;Facial numbness;Mem Reason for Exam Abnormal involuntary movement;Facial numbness;Memory changes Reason for Exam Neuropathy;Facial numbness;Memory changes;Chronic fatigue Performed By: #### B MP, PT, PTT, CK, MG, CBC, T4F, HS TROP, TSH3, BNP, HEPATIC #### [facility] [address] [place] [id number] [place] Thyroxine (T4) free [Mass/vo lume] in Serum or PlasmaOrdered By: Laila Pittman on 07-16-2023 Free T4 [Mass/Vol] 0.85 ng/dL Normal 0.61-1.12 [facility] Comment on above: Order Comment: Reaso n for Exam HTN (hypertension);Type 2 diabetes mellitus with other speci Reason for Exam Neuropathy;Abnormal involuntary movement;Facial numbness;Mem Reason for Exam Abnormal involuntary movement;Facial numbness;Memory changes Reason for Exam Neuropathy;Facial numbness;Memory changes;Chronic fatigue Performed By: #### B MP, PT, PTT, CK, MG, CBC, T4F, HS TROP, TSH3, BNP, HEPATIC #### [facility] [address] [place] [id number] [place] Transferrin [Mass/volume] in Serum or PlasmaOrdered By: Laila Pittman on 07-16-2023 Transferrin [Mass/Vol] 193 mg/dL Low 203-362 [facility] Comment on above: Order Comment: Reaso n for Exam HTN (hypertension);Type 2 diabetes mellitus with other speci Reason for Exam Neuropathy;Abnormal involuntary movement;Facial numbness;Mem Reason for Exam Abnormal involuntary movement;Facial numbness;Memory changes Reason for Exam Neuropathy;Facial numbness;Memory changes;Chronic fatigue Performed By: #### B MP, PT, PTT, CK, MG, CBC, T4F, HS TROP, TSH3, BNP, HEPATIC #### [facility] [address] [place] [id number] [place] Triglyceride [Mass/volume] i n Serum or PlasmaOrdered By: Laila Pittman on 07-16-2023 Triglyceride [Mass/Vol] 237 mg/dL 0-149 [facility] Comment on above: TRIG ATP III CLASSIF ICATIONTRIG less than 150 mg/dL NormalTRIG 150-199 mg/dL Borderline highTRIG 200-500 mg/dL High TRIG greater than 500 mg/dL Very highStandard traceable to the Center for Disease Conrtrol and Prevention (CDC) test method. Urea nitrogen [Mass/volume] in Serum or PlasmaOrdered By: Laila Pittman on 07-16-2023 Urea nitrogen [Mass/Vol] 22 mg/dL Normal 7-25 [facility] Comment on above: Order Comment: Reaso n for Exam HTN (hypertension);Type 2 diabetes mellitus with other speci Reason for Exam Neuropathy;Abnormal involuntary movement;Facial numbness;Mem Reason for Exam Abnormal involuntary movement;Facial numbness;Memory changes Reason for Exam Neuropathy;Facial numbness;Memory changes;Chronic fatigue Performed By: #### B MP, PT, PTT, CK, MG, CBC, T4F, HS TROP, TSH3, BNP, HEPATIC #### [facility] [address] [place] [id number] [facility] Vit. B12/Folate Profileon Folate 26.0 ng/mL Normal >5.9 [facility] Comment on above: Order Comment: Reaso n for Exam HTN (hypertension);Type 2 diabetes mellitus with other speci Reason for Exam Neuropathy;Abnormal involuntary movement;Facial numbness;Mem Reason for Exam Abnormal involuntary movement;Facial numbness;Memory changes Reason for Exam Neuropathy;Facial numbness;Memory changes;Chronic fatigue Result Comment: Kate te reference range: >5.9 ng/ml The WHO technical consultation on folate and vitamin b12 deficiencies has determined that folate concentrations less than 4 ng/ml are considered deficient. Performed By: #### B MP, PT, PTT, CK, MG, CBC, T4F, HS TROP, TSH3, BNP, HEPATIC #### [facility] [address] [place] [address] [place] Vitamin B12 ser/plasOrdered By: Laila Pittman on 07-16-2023 Cobalamin (Vitamin B12) [Mass/Vol] 202 pg/mL Normal 180-914 [facility] Comment on above: Order Comment: Reaso n for Exam HTN (hypertension);Type 2 diabetes mellitus with other speci Reason for Exam Neuropathy;Abnormal involuntary movement;Facial numbness;Mem Reason for Exam Abnormal involuntary movement;Facial numbness;Memory changes Reason for Exam Neuropathy;Facial numbness;Memory changes;Chronic fatigue Performed By: #### B MP, PT, PTT, CK, MG, CBC, T4F, HS TROP, TSH3, BNP, HEPATIC #### [facility] [address] [place] [id number] [facility] Vitamin D 25 Hydroxy Totalon 07-16-2023 Vitamin D 25 Hydroxy Total 19.9 ng/mL Low 30-100 [facility] Comment on above: Order Comment: Reaso n for Exam HTN (hypertension);Type 2 diabetes mellitus with other speci Reason for Exam Neuropathy;Abnormal involuntary movement;Facial numbness;Mem Reason for Exam Abnormal involuntary movement;Facial numbness;Memory changes Reason for Exam Neuropathy;Facial numbness;Memory changes;Chronic fatigue Result Comment: YANNA MIN D STATUS 25(OH)VITAMIN D RANGE (ng/mL) Deficient <20 Insufficient 20 to <30 Sufficient 30 to 100 Reference: Bob Cast, Eleni CHRISTENSEN, et al. Evaluation,treatment, and prevention of vitamin D deficiency; an Endocrine Society clinical practice guideline. JCEM. 2010; 96(7):1911-30. PERFORMED BY: [place] [address] PATHOLOGIST SURGICAL TECHNOLOGIST DIANA COTTON M.D. Performed By: #### B MP, PT, PTT, CK, MG, CBC, T4F, HS TROP, TSH3, BNP, HEPATIC #### [address] Vitamin D+Metabolites [Mass/ volume] in Serum or PlasmaOrdered By: Laila Pittman on 07-16-2023 Vitamin D+Metabolites [Mass/Vol] 19.9 ng/mL 30-100 [facility] Comment on above: VITAMIN D STATUS 25( [place])VITAMIN D RANGE (ng/mL) Deficient <20 Insufficient 20 to <30Sufficient 30 to 100Reference: Bob Cast, Eleni CHRISTENSEN, et al. Evaluation,treatment, and prevention of vitamin D deficiency; an Endocrine Society clinical practice guideline. JCEM. 2010; 96(7):1911-30. Activated partial thrombopla stin time (aPTT) in platelet poor plasma by coagulation aOrdered By: Josiah Castellano on 02-04-2023 aPTT Coag (PPP) [Time] 27.9 s 25.1-36.5 [facility] Comment on above: A hematocrit value g reater than 55% may lead to inaccurate results in coagulation testing. Patients having hematocrit values >55% require a special collection tube for coagulation studies. Please contact the laboratory at [phone] for redraw instructions. Alanine aminotransferase [En zymatic activity/volume] in Serum or PlasmaOrdered By: Josiah Castellano on 02-04-2023 ALT [Catalytic activity/Vol] 28 U/L Normal 7-52 [facility] Comment on above: Performed By: #### B MP, PT, PTT, CK, MG, CBC, T4F, HS TROP, TSH3, BNP, HEPATIC #### [facility] [address] [place] [address] [place] Albumin [Mass/volume] in Ser um or Plasma by Bromocresol green (BCG) dye binding methoOrdered By: Josiah Castellano on 02-04-2023 Albumin BCG dye [Mass/Vol] 4.0 g/dL 3.5-5.7 [facility] Alkaline phosphatase [Enzyma tic activity/volume] in Serum or PlasmaOrdered By: Josiah Castellano on 02-04-2023 ALP [Catalytic activity/Vol] 117 U/L High 34-104 [facility] Comment on above: Performed By: #### B MP, PT, PTT, CK, MG, CBC, T4F, HS TROP, TSH3, BNP, HEPATIC #### [facility] [address] [place] [id number] [place] Aspartate aminotransferase [ Enzymatic activity/volume] in Serum or PlasmaOrdered By: Josiah Castellano on 02-04-2023 AST [Catalytic activity/Vol] 32 U/L Normal 13-39 [facility] Comment on above: Performed By: #### B MP, PT, PTT, CK, MG, CBC, T4F, HS TROP, TSH3, BNP, HEPATIC #### [address] Automated basophil %Ordered By: Josiah Castellano on 02-04-2023 Basophils/100 WBC (Bld) 1.3 % Normal . [facility] Comment on above: Performed By: #### B MP, PT, PTT, CK, MG, CBC, T4F, HS TROP, TSH3, BNP, HEPATIC #### [address] Automated basophil countOrde red By: Josiah Castellano on 02-04-2023 Basophils (Bld) [#/Vol] 0.1 10*3/uL Normal 0.0-0.2 [facility] Comment on above: Result Comment: PERF ORMED BY: [place] [address] PATHOLOGIST SURGICAL TECHNOLOGIST DIANA COTTON M.D. Performed By: #### B MP, PT, PTT, CK, MG, CBC, T4F, HS TROP, TSH3, BNP, HEPATIC #### [address] Automated blood monocyte cou ntOrdered By: Josiah Castellano on 02-04-2023 Monocytes (Bld) [#/Vol] 0.6 10*3/uL Normal 0.0-0.8 [facility] Comment on above: Performed By: #### B MP, PT, PTT, CK, MG, CBC, T4F, HS TROP, TSH3, BNP, HEPATIC #### [address] Automated eosinophil %Ordere d By: Josiah Castellano on 02-04-2023 Eosinophils/100 WBC (Bld) 2.3 % Normal . [facility] Comment on above: Performed By: #### B MP, PT, PTT, CK, MG, CBC, T4F, HS TROP, TSH3, BNP, HEPATIC #### [address] Automated eosinophil countOr dered By: Josiah Castellano on 02-04-2023 Eosinophils (Bld) [#/Vol] 0.2 10*3/uL Normal 0.0-0.45 [facility] Comment on above: Performed By: #### B MP, PT, PTT, CK, MG, CBC, T4F, HS TROP, TSH3, BNP, HEPATIC #### [facility] [address] Automated erythrocytes count in urine sediment (number/area)Ordered By: Josiah Castellano on 02-04-2023 RBC Auto (Urine sed) [#/Area] 3-4 [HPF] 0-4 [facility] Automated leukocytes count i n urine sediment (number/area)Ordered By: Josiah Castellano on 02-04-2023 WBC Auto (Urine sed) [#/Area] 20-49 [HPF] 0-4 [facility] Automated monocyte %Ordered By: Josiah Castellano on 02-04-2023 Monocytes/100 WBC (Bld) 7.7 % Normal . [facility] Comment on above: Performed By: #### B MP, PT, PTT, CK, MG, CBC, T4F, HS TROP, TSH3, BNP, HEPATIC #### [facility] [address] Automated neutrophil %Ordere d By: Josiah Castellano on 02-04-2023 Neutrophils/100 WBC (Bld) 48.4 % Normal . [facility] Comment on above: Performed By: #### B MP, PT, PTT, CK, MG, CBC, T4F, HS TROP, TSH3, BNP, HEPATIC #### [facility] [address] Automated urine color determ inationOrdered By: Josiah Castellano on 02-04-2023 Color (U) Yellow Normal Yellow [facility] Comment on above: Order Comment: Name Collection Type:: Clean-Voided Midstream Performed By: #### A URMILA ORONAU #### [address] BNP ser/plasOrdered By: Ninfa Castellano on 02-04-2023 Natriuretic peptide B (Bld) [Mass/Vol] 8.0 pg/mL Normal 5-100 [facility] Comment on above: Result Comment: PERF ORMED BY: [place] [address] PATHOLOGIST SURGICAL TECHNOLOGIST DIANA COTTON M.D. Performed By: #### A SUDHAKAR ORONA #### [address] Basic Metabolic Panelon 01-11 Creatinine Clr Calc Pharmacy 84.98 Normal [facility] Comment on above: Performed By: #### B MP, PT, PTT, CK, MG, CBC, T4F, HS TROP, TSH3, BNP, HEPATIC #### [facility] [address] GFR/1.73 sq M.predicted MDRD (S/P/Bld) [Vol rate/Area] mL/min/{1.73_m2} Normal [facility] Comment on above: Performed By: #### B MP, PT, PTT, CK, MG, CBC, T4F, HS TROP, TSH3, BNP, HEPATIC #### [address] Bilirubin Test strip Ql (U)O rdered By: Josiah Castellano on 02-04-2023 Bilirubin Ql (U) Negative Negative [facility] Bilirubin.direct [Mass/volum e] in Serum or PlasmaOrdered By: Josiah Castellano on 02-04-2023 Bilirubin.direct [Mass/Vol] 0.10 mg/dL 0.03-0.18 [facility] Bilirubin.total [Mass/volume ] in Serum or PlasmaOrdered By: Josiah Castellano on 02-04-2023 Bilirubin [Mass/Vol] 0.4 mg/dL Normal 0.3-1.0 [facility] Comment on above: Performed By: #### B MP, PT, PTT, CK, MG, CBC, T4F, HS TROP, TSH3, BNP, HEPATIC #### [facility] [address] Calcium [Mass/volume] in Ser um or PlasmaOrdered By: Josiah Castellano on 02-04-2023 Calcium [Mass/Vol] 9.5 mg/dL Normal 8.6-10.3 [facility] Comment on above: Performed By: #### B MP, PT, PTT, CK, MG, CBC, T4F, HS TROP, TSH3, BNP, HEPATIC #### [facility] [address] Carbon dioxide, total [Moles /volume] in Serum or PlasmaOrdered By: Josiah Castellano on 02-04-2023 CO2 [Moles/Vol] 27.9 mmol/L Normal 21.0-31.0 [facility] Comment on above: Performed By: #### B MP, PT, PTT, CK, MG, CBC, T4F, HS TROP, TSH3, BNP, HEPATIC #### [address] Chloride [Moles/volume] in S jakob or PlasmaOrdered By: Josiah Castellano on 02-04-2023 Chloride [Moles/Vol] 98 mmol/L Normal 98-107 [facility] Comment on above: Performed By: #### B MP, PT, PTT, CK, MG, CBC, T4F, HS TROP, TSH3, BNP, HEPATIC #### [address] Complete Blood Count Auto Di ffon 02-04-2023 Mean Corpuscular HGB Conc 32.8 g/dL Normal 32.0-35.0 [facility] Comment on above: Performed By: #### B MP, PT, PTT, CK, MG, CBC, T4F, HS TROP, TSH3, BNP, HEPATIC #### [address] Monocytes/100 WBC (Bld) 20.30 % High 0.00-20.00 [facility] Comment on above: Result Comment: For adults in ED, MDW > 20.0 may be associated with a higher risk of sepsis during the first 12 hrs of hospital admission Performed By: #### B MP, PT, PTT, CK, MG, CBC, T4F, HS TROP, TSH3, BNP, HEPATIC #### [address] NRBC% 0.1 /100{WBC} Normal 0-0.5 [facility] Comment on above: Performed By: #### B MP, PT, PTT, CK, MG, CBC, T4F, HS TROP, TSH3, BNP, HEPATIC #### [facility] [address] [place] [address] [place] Creatine kinase [Enzymatic a ctivity/volume] in Serum or PlasmaOrdered By: Josiah Castellano on 02-04-2023 CK [Catalytic activity/Vol] 295 U/L High 30-223 [facility] Comment on above: Performed By: #### B MP, PT, PTT, CK, MG, CBC, T4F, HS TROP, TSH3, BNP, HEPATIC #### [facility] [address] Creatinine [Mass/volume] in Serum or PlasmaOrdered By: Josiah Castellano on 02-04-2023 Creatinine [Mass/Vol] 0.96 mg/dL Normal 0.60-1.20 [facility] Comment on above: Performed By: #### B MP, PT, PTT, CK, MG, CBC, T4F, HS TROP, TSH3, BNP, HEPATIC #### [facility] [address] [place] [address] [place] Dipstick and Microscopicon 0 02-04-2023 Appearance (U) Cloudy Critically abnormal Clear [facility] Comment on above: Order Comment: Name Collection Type:: Clean-Voided Midstream Performed By: #### A DDONUAPLUS, CUU #### [facility] [address] [place] [address] [place] Bacteria,Urine 2+ High None Seen [facility] Comment on above: Order Comment: Name Collection Type:: Clean-Voided Midstream Performed By: #### A DDONUAPLUS, CUU #### [facility] [address] [place] [address] [place] Bilirubin,Urine Negative Normal Negative The [facility] Comment on above: Order Comment: Name Collection Type:: Clean-Voided Midstream Performed By: #### A DDONUAPLUS, CUU #### [place] [address] [place] Glucose Ql (U) >=1000 High Normal The [facility] Comment on above: Order Comment: Name Collection Type:: Clean-Voided Midstream Performed By: #### A DDONUAPLUS, CUU #### [place] [address] [place] Hyaline Casts,Urine 0-8 Normal 0-8 The [facility] Comment on above: Order Comment: Name Collection Type:: Clean-Voided Midstream Performed By: #### A DDONUAPLUS, CUU #### [place] [address] [place] Ketones Ql (U) Negative Normal Negative [facility] Comment on above: Order Comment: Name Collection Type:: Clean-Voided Midstream Performed By: #### A DDONUAPLUS, CUU #### [address] Leukocyte esterase Test strip Ql (U) 3+ High Negative [facility] Comment on above: Order Comment: Name Collection Type:: Clean-Voided Midstream Performed By: #### A DDONUAPLUS, CUU #### [place] [address] [place] Nitrite,Urine Negative Normal Negative The [facility] Comment on above: Order Comment: Name Collection Type:: Clean-Voided Midstream Performed By: #### A DDONUAPLUS, CUU #### [place] [address] [place] Occult Blood,Urine Negative Normal Negative The [facility] Comment on above: Order Comment: Name Collection Type:: Clean-Voided Midstream Result Comment: PERF ORMED BY: [place] [address] PATHOLOGIST SURGICAL TECHNOLOGIST DIANA COTTON M.D. Performed By: #### A DDONUAPLUS, CUU #### [place] [address] [place] Protein,Urine Negative Normal Negative [facility] Comment on above: Order Comment: Name Collection Type:: Clean-Voided Midstream Performed By: #### A DDONUAPLUS, CUU #### [address] RBC,Urine 3-4 Normal 0-4 [facility] Comment on above: Order Comment: Name Collection Type:: Clean-Voided Midstream Performed By: #### A DDONUAPLUS, CUU #### [address] Specificy [place],Urine 1.023 Normal 1.001-1.03 0 [facility] Comment on above: Order Comment: Name Collection Type:: Clean-Voided Midstream Performed By: #### A DDONUAPLUS, CUU #### [address] Squamous Epithelial Cell,Urine 3-4 High 0-2 [facility] Comment on above: Order Comment: Name Collection Type:: Clean-Voided Midstream Performed By: #### A DDONUAPLUS, CUU #### [address] Urobilinogen,Urine Normal Normal Normal [facility] Comment on above: Order Comment: Name Collection Type:: Clean-Voided Midstream Performed By: #### A DDONUAPLUS, CUU #### [address] WBC,Urine 20-49 High 0-4 [facility] Comment on above: Order Comment: Name Collection Type:: Clean-Voided Midstream Performed By: #### A DDONUAPLUS, CUU #### [address] Yeast,Urine 1+ Critically abnormal None Seen [facility] Comment on above: Order Comment: Name Collection Type:: Clean-Voided Midstream Result Comment: PERF ORMED BY: [place] [address] PATHOLOGIST SURGICAL TECHNOLOGIST DIANA COTTON M.D. Performed By: #### A DDONUAPLUS, CUU #### [address] ECG 12 lead ECGon 02-04-2023 ECG 12 lead ECG [facility] Main [place] [address] [place] [address] Electrocardiograph Report Signed Patient: Dalia Melendez MR#: [id number] 8 : 1965 Acct:[id number] Age/Sex: 57 / F ADM Date: 02/04/23 Loc: ER Room: Type: [facility] ER Attending Dr: Ordering Provider: Josiah Castellano DO Date of Service: 02/04/23 ECG/ECG 12 lead ECG: Weakness Copies to: Test Reason : Blood Pressure : 149/085 mmHG Vent. 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) Cannot rule out Anterior infarct (cited on or before 18-MAR-2021) Prolonged QT Abnormal ECG When compared with ECG of 06-JAN-2023 15:57, Questionable change in initial forces of Anterior leads Inverted T waves have replaced nonspecific T wave abnormality in Anterior leads QT has lengthened Confirmed by Josiah Castellano DO ([id number]) on 02/04/2023 7:20:16 PM Referred By: Electronically Signed By:Josiah Castellano DO Transcribed By: MUS Signed By Josiah Castellano DO 3 1919 Normal [facility] Erythrocyte distribution wid th [Ratio] by Automated countOrdered By: Josiah Castellano on 02-04-2023 Erythrocyte distribution width (RBC) [Ratio] 15.0 % Normal 11.9-15.3 [facility] Comment on above: Performed By: #### B MP, PT, PTT, CK, MG, CBC, T4F, HS TROP, TSH3, BNP, HEPATIC #### [facility] [address] [place], [place] [id number] [place] Erythrocytes [#/volume] in B lood by Automated countOrdered By: Josiah Castellano on 02-04-2023 RBC (Bld) [#/Vol] 4.62 10*6/uL Normal 3.60-5.00 [facility] Comment on above: Performed By: #### B MP, PT, PTT, CK, MG, CBC, T4F, HS TROP, TSH3, BNP, HEPATIC #### [facility] [address] Glucose Poct Glucometerson 0 02-04-2023 Glucose [Mass/Vol] 146 mg/dL Normal [facility] Comment on above: Result Comment: Simpson om Glucose Reference Range is dependent on time and content of last meal. Glucose of more than 200 mg/dL in a nonstressed, ambulatory subject supports the diagnosis of Diabetes Mellitus. PERFORMED BY: [place] [address] PATHOLOGIST SURGICAL TECHNOLOGIST DIANA COTTON M.D. Performed By: #### B MP, PT, PTT, CK, MG, CBC, T4F, HS TROP, TSH3, BNP, HEPATIC #### [facility] [address] Glucose [Mass/volume] in Ser um or PlasmaOrdered By: Josiah Castellano on 02-04-2023 Glucose [Mass/Vol] 188 mg/dL High 70-100 [facility] Comment on above: ADA recommended refe rence rangeRandom Glucose Reference Range is dependent on time and content of last meal. Glucose of more than 200 mg/dL in a nonstressed, ambulatory subject supports the diagnosis of Diabetes Mellitus. Result Comment: Simpson om Glucose Reference Range is dependent on time and content of last meal. Glucose of more than 200 mg/dL in a nonstressed, ambulatory subject supports the diagnosis of Diabetes Mellitus. ADA recommended reference range Performed By: #### B MP, PT, PTT, CK, MG, CBC, T4F, HS TROP, TSH3, BNP, HEPATIC #### [facility] [address] Hematocrit [Volume Fraction] of Blood by Automated countOrdered By: Josiah Castellano on 02-04-2023 Hematocrit (Bld) [Volume fraction] 38.4 % Normal 34.0-46.4 [facility] Comment on above: Performed By: #### B MP, PT, PTT, CK, MG, CBC, T4F, HS TROP, TSH3, BNP, HEPATIC #### [facility] [address] Hemoglobin [Mass/volume] in BloodOrdered By: Josiah Castellano on 02-04-2023 Hemoglobin (Bld) [Mass/Vol] 12.6 g/dL Normal 11.8-15.4 [facility] Comment on above: Performed By: #### B MP, PT, PTT, CK, MG, CBC, T4F, HS TROP, TSH3, BNP, HEPATIC #### [facility] [address] Hepatic Panelon 02-04-2023 Albumin [Mass/Vol] 4.0 g/dL Normal 3.5-5.7 [facility] Comment on above: Performed By: #### B MP, PT, PTT, CK, MG, CBC, T4F, HS TROP, TSH3, BNP, HEPATIC #### [address] Bilirubin,Indirect 0.3 mg/dL Normal [facility] Comment on above: Performed By: #### B MP, PT, PTT, CK, MG, CBC, T4F, HS TROP, TSH3, BNP, HEPATIC #### [address] Bilirubin.indirect [Mass/Vol] 0.10 mg/dL Normal 0.03-0.18 [facility] Comment on above: Performed By: #### B MP, PT, PTT, CK, MG, CBC, T4F, HS TROP, TSH3, BNP, HEPATIC #### [address] INR in Platelet poor plasma by Coagulation assayOrdered By: Josiah Castellano on 02-04-2023 INR Coag (PPP) [Relative time] 0.9 {INR} Normal [facility] Comment on above: INR Therapeutic Rang e A) Pre- and Peroperative OAT started two weeks before surgery. NOT HIP SURGERY: 1.5 - 2.5 HIP SURGERY: 2 - 3B) Primary and secondary prevention of venous THROMBOSIS: 2 - 3C) Active venous thrombosis, pulmonary embolismand prevention of recurrent venous thrombosis: 2 - 3D) Prevention of arterial thromboembolismincluding patients with mechanical heart valves: 3 - 4.5 Result Comment: INR Therapeutic Range A) Pre- and Peroperative OAT started two weeks before surgery. NOT HIP SURGERY: 1.5 - 2.5 HIP SURGERY: 2 - 3 B) Primary and secondary prevention of venous THROMBOSIS: 2 - 3 C) Active venous thrombosis, pulmonary embolism and prevention of recurrent venous thrombosis: 2 - 3 D) Prevention of arterial thromboembolism including patients with mechanical heart valves: 3 - 4.5 Performed By: #### A DDONUAPLUS, CUU #### [facility] [address] Ketones Auto test strip (U) [Mass/Vol]Ordered By: Josiah Castellano on 02-04-2023 Ketones (U) [Mass/Vol] Negative Negative [facility] - UrinalysisOrder ed By: Josiah Castellano on 02-04-2023 Hyaline casts LM Ql (Urine sed) 0-8 [LPF] 0-8 [facility] Leukocytes [#/volume] correc jovanni for nucleated erythrocytes in Blood by Automated counOrdered By: Josiah Castellano on 02-04-2023 WBC corrected for nucl RBC Auto (Bld) [#/Vol] 7.7 10*3/uL 3.8-11.6 [facility] Leukocytes [#/volume] in Blo od by Automated countOrdered By: Josiah Castellano on 02-04-2023 WBC (Bld) [#/Vol] 7.7 10*3/uL Normal 3.8-11.6 [facility] Comment on above: Performed By: #### B MP, PT, PTT, CK, MG, CBC, T4F, HS TROP, TSH3, BNP, HEPATIC #### [facility] [address] [place] [address] [place] Lymphocytes [#/volume] in Bl ood by Automated countOrdered By: Josiah Castellano on 02-04-2023 Lymphocytes (Bld) [#/Vol] 3.1 10*3/uL Normal 1.00-4.8 [facility] Comment on above: Performed By: #### B MP, PT, PTT, CK, MG, CBC, T4F, HS TROP, TSH3, BNP, HEPATIC #### [facility] [address] Lymphocytes/100 leukocytes i n Blood by Automated countOrdered By: Josiah Castellano on 02-04-2023 Lymphocytes/100 WBC (Bld) 40.3 % Normal . [facility] Comment on above: Performed By: #### B MP, PT, PTT, CK, MG, CBC, T4F, HS TROP, TSH3, BNP, HEPATIC #### [facility] [address] MCH [Entitic mass] by Automa jovanni countOrdered By: Josiah Castellano on 02-04-2023 MCH (RBC) [Entitic mass] 27.3 pg Normal 24.7-34.3 [facility] Comment on above: Performed By: #### B MP, PT, PTT, CK, MG, CBC, T4F, HS TROP, TSH3, BNP, HEPATIC #### [facility] [address] MCHC Auto (RBC) [Mass/Vol]Or dered By: Josiah Castellano on 02-04-2023 MCHC (RBC) [Mass/Vol] 32.8 g/dL 32.0-35.0 [facility] MCV [Entitic volume] by Auto mated countOrdered By: Josiah Castellano on 02-04-2023 MCV (RBC) [Entitic vol] 83.1 fL Normal 80-100 [facility] Comment on above: Performed By: #### B MP, PT, PTT, CK, MG, CBC, T4F, HS TROP, TSH3, BNP, HEPATIC #### [facility] [address] Magnesium [Mass/volume] in S jakob or PlasmaOrdered By: Josiah Castellano on 02-04-2023 Magnesium [Mass/Vol] 1.9 mg/dL Normal 1.9-2.7 [facility] Comment on above: Performed By: #### B MP, PT, PTT, CK, MG, CBC, T4F, HS TROP, TSH3, BNP, HEPATIC #### [facility] [address] [place] [id number] [place] Monocyte distribution width [Entitic volume] in Blood by AutomatedOrdered By: Josiah Castellano on 02-04-2023 Monocyte distribution width Auto (Bld) [Entitic vol] 20.30 % 0.00-20.00 [facility] Comment on above: For adults in ED, MD W > 20.0 may be associated with a higher risk of sepsis during the first 12 hrs of hospital admission Neutrophils [#/volume] in Bl ood by Automated countOrdered By: Josiah Castellano on 02-04-2023 Neutrophils (Bld) [#/Vol] 3.7 10*3/uL Normal 1.8-7.7 [facility] Comment on above: Performed By: #### B MP, PT, PTT, CK, MG, CBC, T4F, HS TROP, TSH3, BNP, HEPATIC #### [facility] [address] [place] [id number] [facility] Nitrite Test strip Ql (U)Ord ered By: Josiah Castellano on 02-04-2023 Nitrite Ql (U) Negative Negative [facility] No Panel InformationOrdered By: Josiah Castellano on 02-04-2023 Estimated GFR (CKD-EPI) > 60.0 mL/Min [facility] Creatinine Clearance (Chem 84.98 [facility] Nucleated erythrocytes [Pres ence] in Blood by Automated countOrdered By: Josiah Castellano on 02-04-2023 Nucleated RBC Auto Ql (Bld) 0.1 /100{WBC} 0-0.5 [facility] Partial Thromboplastin Timeo n 02-04-2023 aPTT Coag (Bld) [Time] 27.9 s Normal 25.1-36.5 [facility] Comment on above: Result Comment: A he matocrit value greater than 55% may lead to inaccurate results in coagulation testing. Patients having hematocrit values >55% require a special collection tube for coagulation studies. Please contact the laboratory at [phone] for redraw instructions. PERFORMED BY: [address] [place] [id number] PATHOLOGIST SURGICAL TECHNOLOGIST DIANA COTTON M.D. Performed By: #### A DDONUAPLUS, CUU #### [address] Platelet mean volume [Entiti c volume] in Blood by Automated countOrdered By: Josiah Castellano on 02-04-2023 Platelet mean volume (Bld) [Entitic vol] 8.0 fL Normal 6.3-10.7 [facility] Comment on above: Performed By: #### B MP, PT, PTT, CK, MG, CBC, T4F, HS TROP, TSH3, BNP, HEPATIC #### [address] Platelets [#/volume] in Bloo d by Automated countOrdered By: Josiah Castellano on 02-04-2023 Platelets (Bld) [#/Vol] 198 10*3/uL Normal 150-450 [facility] Comment on above: Performed By: #### B MP, PT, PTT, CK, MG, CBC, T4F, HS TROP, TSH3, BNP, HEPATIC #### [address] Potassium [Moles/volume] in Serum or PlasmaOrdered By: Josiah Castellano on 02-04-2023 Potassium [Moles/Vol] 3.8 mmol/L Normal 3.5-5.1 [facility] Comment on above: Performed By: #### B MP, PT, PTT, CK, MG, CBC, T4F, HS TROP, TSH3, BNP, HEPATIC #### [address] Protein Auto test strip (U) [Mass/Vol]Ordered By: Josiah Castellano on 02-04-2023 Protein (U) [Mass/Vol] Negative Negative [facility] Protein [Mass/volume] in Ser um or PlasmaOrdered By: Josiah Castellano on 02-04-2023 Protein [Mass/Vol] 7.6 g/dL Normal 6.4-8.9 [facility] Comment on above: Performed By: #### B MP, PT, PTT, CK, MG, CBC, T4F, HS TROP, TSH3, BNP, HEPATIC #### [address] Prothrombin time (PT)Ordered By: Josiah Castellano on 02-04-2023 PT Coag (PPP) [Time] 11.2 s Normal 9.0-12.9 [facility] Comment on above: A hematocrit value g reater than 55% may lead to inaccurate results in coagulation testing. Patients having hematocrit values >55% require a special collection tube for coagulation studies. Please contact the laboratory at [phone] for redraw instructions. Result Comment: A he matocrit value greater than 55% may lead to inaccurate results in coagulation testing. Patients having hematocrit values >55% require a special collection tube for coagulation studies. Please contact the laboratory at [phone] for redraw instructions. Performed By: #### A DDONUAMANE, CUU #### [address] Serum globulin measurement b y calculation (mass/volume)Ordered By: Josiah Castellano on 02-04-2023 Globulin (S) [Mass/Vol] 3.6 g/dL [facility] Comment on above: Performed By: #### B MP, PT, PTT, CK, MG, CBC, T4F, HS TROP, TSH3, BNP, HEPATIC #### [address] Serum or plasma albumin/glob ulin mass ratioOrdered By: Josiah Castellano on 02-04-2023 Albumin/Globulin [Mass ratio] 1.1 {ratio} [facility] Comment on above: Performed By: #### B MP, PT, PTT, CK, MG, CBC, T4F, HS TROP, TSH3, BNP, HEPATIC #### [address] Serum or plasma anion gap de terminationOrdered By: Josiah Castellano on 02-04-2023 Anion gap [Moles/Vol] 11.9 mmol/L Normal 6.0-15.0 [facility] Comment on above: Performed By: #### B MP, PT, PTT, CK, MG, CBC, T4F, HS TROP, TSH3, BNP, HEPATIC #### [address] Serum or plasma non-glucuron idated bilirubin measurement (mass/volume)Ordered By: Josiah Castellano on 02-04-2023 Bilirubin.indirect [Mass/Vol] 0.3 mg/dL [facility] Sodium [Moles/volume] in Ser um or PlasmaOrdered By: Josiah Castellano on 02-04-2023 Sodium [Moles/Vol] 134 mmol/L Low 136-145 [facility] Comment on above: Performed By: #### B MP, PT, PTT, CK, MG, CBC, T4F, HS TROP, TSH3, BNP, HEPATIC #### [address] Specific gravity Auto test s trip (U) [Rel density]Ordered By: Josiah Castellano on 02-04-2023 Specific gravity (U) [Rel density] 1.023 1.001-1.03 0 [facility] Squamous epithelial cells de tection in urine sediment by light microscopyOrdered By: Josiah Castellano on 02-04-2023 Epithelial cells.squamous LM Ql (Urine sed) 3-4 [HPF] 0-2 [facility] Thyrotropin [Units/volume] i n Serum or PlasmaOrdered By: Josiah Castellano on 02-04-2023 TSH Qn 3.85 m[IU]/L Normal 0.45-5.33 [facility] Comment on above: --- 02/04/231701 -- -TSH previously reported as: 2.17 uIU/mL Result Comment: --- 02/04/231701 --- TSH previously reported as: 2.17 uIU/mL PERFORMED BY: [place] [address] PATHOLOGIST SURGICAL TECHNOLOGIST DIANA COTTON M.D. Performed By: #### B MP, PT, PTT, CK, MG, CBC, T4F, HS TROP, TSH3, BNP, HEPATIC #### [address] Thyroxine (T4) free [Mass/vo lume] in Serum or PlasmaOrdered By: Josiah Castellano on 02-04-2023 Free T4 [Mass/Vol] 0.77 ng/dL Normal 0.61-1.12 [facility] Comment on above: Performed By: #### B MP, PT, PTT, CK, MG, CBC, T4F, HS TROP, TSH3, BNP, HEPATIC #### [facility] [address] Troponin I High Sensitivityo n 02-04-2023 Troponin I High Sensitivity 3.2 pg/mL Normal 0.0-15.0 [facility] Comment on above: Result Comment: PERF ORMED BY: [place] [address] PATHOLOGIST SURGICAL TECHNOLOGIST DIANA COTTON M.D. Performed By: #### B MP, PT, PTT, CK, MG, CBC, T4F, HS TROP, TSH3, BNP, HEPATIC #### [address] Troponin I.cardiac [Mass/vol ume] in Serum or Plasma by Detection limit <= 0.01 ng/Ordered By: Josiah Castellano on 02-04-2023 Troponin I.cardiac DL <= 0.01 ng/mL [Mass/Vol] 3.2 pg/mL 0.0-15.0 [facility] Urea nitrogen [Mass/volume] in Serum or PlasmaOrdered By: Josiah Castellano on 02-04-2023 Urea nitrogen [Mass/Vol] 16 mg/dL Normal 7-25 [facility] Comment on above: Performed By: #### B MP, PT, PTT, CK, MG, CBC, T4F, HS TROP, TSH3, BNP, HEPATIC #### [facility] [address] [place], [place] [id number] [facility] Urine Cultureon 02-04-2023 Bacteria identified Cx Nom (U) 50,000 colonies/ml mixed bacterial skin contaminants 2 Days PERFORMED BY: [place] [address] PATHOLOGIST SURGICAL TECHNOLOGIST DIANA COTTON M.D. Normal [facility] Comment on above: Performed By: #### A YEYO, CUU #### [facility] [address] Urine bacteria detection by automated methodOrdered By: Josiah Castellano on 02-04-2023 Bacteria Auto Ql (U) 2+ None Seen [facility] Urine clarity by refractomet ry automatedOrdered By: Josiah Castellano on 02-04-2023 Clarity Refractometry automated (U) Cloudy Clear [facility] Urine glucose measurement by automated test strip (mass/volume)Ordered By: Josiah Castellano on 02-04-2023 Glucose Auto test strip (U) [Mass/Vol] >=1000 mg/dL Normal [facility] Urine hemoglobin detection b y automated test stripOrdered By: Josiah Castellano on 02-04-2023 Hemoglobin Auto test strip Ql (U) Negative Negative [facility] Urine leukocyte esterase det ection by automated test stripOrdered By: Josiah Castellano on 02-04-2023 Leukocyte esterase Auto test strip Ql (U) 3+ Negative [facility] Urine pH measurement by auto mated test stripOrdered By: Josiah Castellano on 02-04-2023 pH (U) 7.5 [pH] Normal 5.0-9.0 [facility] Comment on above: Order Comment: Name Collection Type:: Clean-Voided Midstream Performed By: #### A YEYO, CUU #### [facility] [address] [place] [address] [place] Urobilinogen Auto test strip (U) [Mass/Vol]Ordered By: Josiah Castellano on 02-04-2023 Urobilinogen (U) [Mass/Vol] Normal mg/dL Normal [facility] XR chest 1V portableon 02-04 XR chest 1V portable [facility] [place] [address] [place] [address] XRay Report Signed Patient: Dalia Melendez MR#: [id number] 8 : 1965 Acct:[id number] Age/Sex: 57 / F ADM Date: 02/04/23 Loc: ER Room: Type: PRE ER Attending Dr: Copies to: Josiah Castellano DO Ordering Provider: Josiah Castellano DO Date of Service: 02/04/23 XR/XR chest 1V portable: Weakness XR chest 1V portable 02/04/2023 2:52 PM SIGNS AND SYMPTOMS: Tremors, weakness, tongue swelling PROTOCOL: Frontal radiograph of the chest COMPARISON: 12/29/2022 FINDINGS: The trachea is midline. The heart and mediastinal structures are within normal limits. The lung parenchyma is clear. The bony thorax is intact. Degenerative changes are noted in the thoracic spine. XR/XR chest 1V portable IMPRESSION: No acute cardiopulmonary pathology. Impression dictated by: Ricki Gallego M.D.02/04/2023 3:07 PM Dictation Location: [facility]--13 Transcribed By: IRAIS 02/04/23 1507 Dictated By: Ricki Gallego II, MD 02/04/23 1506 Signed By: 02/04/23 1507 Normal [facility] Yeast detection in urine sed iment by light microscopyOrdered By: Josiah Castellano on 02-04-2023 Yeast LM Ql (Urine sed) 1+ [HPF] None Seen [facility] US venous duplex LE BIon US venous duplex LE [facility] [place] [address] Ultrasound Report Signed Patient: Dalia Melendez MR#: [id number] 8 : 1965 Acct:[id number] Age/Sex: 57 / F ADM Date: 01/06/23 Loc: ER Room: Type: [facility] ER Attending Dr: Ordering Provider: Annamarie Jennings APRN Date of Service: 01/06/23 US/US venous duplex LE BI: swelling Copies to: Annamarie Jennings APRN BILATERAL LOWER EXTREMITY VENOUS DUPLEX INDICATION: Bilateral lower extremity edema. PROCEDURE: Color-flow duplex scanning is used to interrogate the deep venous system of the right and left lower extremities. The common femoral vein, femoral vein and popliteal vein show good compressibility with normal proximal and distal augmentation. The calf veins are compressible. US/US venous duplex LE BI IMPRESSION: NO EVIDENCE FOR DEEP VEIN THROMBOSIS OR PROXIMAL SUPERFICIAL THROMBOPHLEBITIS IN THE RIGHT OR LEFT LOWER EXTREMITY. This was a technically challenging study due to patient body habitus and lower extremity edema. Impression dictated by: Murali Singletary MD01/07/2023 10:02 AM Dictation Location: [place] [address] Tech: Christine Wise Transcribed By: IRAIS 01/07/23 1002 Dictated By: Murali Singletary MD 01/07/23 1001 Signed By: 01/07/23 1002 Normal [facility] Activated partial thrombopla stin time (aPTT) in platelet poor plasma by coagulation aOrdered By: Annamarie Jennings on 01-06-2023 aPTT Coag (PPP) [Time] 30.9 s 25.1-36.5 [facility] Automated basophil %Ordered By: Annamarie Jennings on 01-06-2023 Basophils/100 WBC (Bld) 0.7 % Normal . [facility] Comment on above: Performed By: #### A URMILA ORONAU #### [address] Automated basophil countOrde red By: Annamarie Jennings on 01-06-2023 Basophils (Bld) [#/Vol] 0.1 10*3/uL Normal 0.0-0.2 [facility] Comment on above: Result Comment: PERF ORMED BY: [place] [address] PATHOLOGIST SURGICAL TECHNOLOGIST DIANA COTTON M.D. Performed By: #### A YEYO CUU #### [address] Automated blood monocyte cou ntOrdered By: Annamarie Jennings on 01-06-2023 Monocytes (Bld) [#/Vol] 0.8 10*3/uL Normal 0.0-0.8 [facility] Comment on above: Performed By: #### A YEYO, CUU #### [address] Automated eosinophil %Ordere d By: Annamarie Jennings on 01-06-2023 Eosinophils/100 WBC (Bld) 2.9 % Normal . [facility] Comment on above: Performed By: #### A YEYO CUU #### [address] Automated eosinophil countOr dered By: Annamarie Jennings on 01-06-2023 Eosinophils (Bld) [#/Vol] 0.2 10*3/uL Normal 0.0-0.45 [facility] Comment on above: Performed By: #### A YEYO, CUU #### [address] Automated monocyte %Ordered By: Annamarie Jennings on 01-06-2023 Monocytes/100 WBC (Bld) 9.2 % Normal . [facility] Comment on above: Performed By: #### A YEYO, CUU #### [address] Automated neutrophil %Ordere d By: Annamarie Jennings on 01-06-2023 Neutrophils/100 WBC (Bld) 46.7 % Normal . [facility] Comment on above: Performed By: #### A YEYO CUU #### [address] BNP ser/plasOrdered By: Monse Jennings on 01-06-2023 Natriuretic peptide B (Bld) [Mass/Vol] 95.0 pg/mL Normal 5-100 [facility] Comment on above: Result Comment: PERF ORMED BY: [place] [address] PATHOLOGIST SURGICAL TECHNOLOGIST DIANA COTTON M.D. Performed By: #### B MP, PT, PTT, CK, MG, CBC, T4F, HS TROP, TSH3, BNP, HEPATIC #### [address] Bacteria identified Aer cx N om (Unsp spec)Ordered By: Annamarie Jennings on 01-06-2023 Superficial Wound Culture Methicillin Resis Staph Aureus [facility] Bacterial blood cultureOrder ed By: Annamarie Jennings on 01-06-2023 Bacteria identified Cx Nom (Bld) NO GROWTH 5 DAYS [facility] Basic Metabolic Panelon 12-11 Creatinine Clr Calc Pharmacy 104.60 Normal [facility] Comment on above: Result Comment: PERF ORMED BY: [place] [address] PATHOLOGIST SURGICAL TECHNOLOGIST DIANA COTTON M.D. Performed By: #### B MP, PT, PTT, CK, MG, CBC, T4F, HS TROP, TSH3, BNP, HEPATIC #### [facility] [address] [place] [id number] [place] GFR/1.73 sq M.predicted MDRD (S/P/Bld) [Vol rate/Area] mL/min/{1.73_m2} Normal [facility] Comment on above: Performed By: #### B MP, PT, PTT, CK, MG, CBC, T4F, HS TROP, TSH3, BNP, HEPATIC #### [place] [id number] [facility] Blood Cultureon 01-06-2023 Bacteria identified Cx Nom (Bld) NO GROWTH 5 DAYS PERFORMED BY: [place] [address] PATHOLOGIST SURGICAL TECHNOLOGIST DIANA COTTON M.D. Normal [facility] Comment on above: Performed By: #### A YEYO, CUU #### [place] [id number] [facility] Bacteria identified Cx Nom (Bld) NO GROWTH 5 DAYS PERFORMED BY: [place] [address] PATHOLOGIST SURGICAL TECHNOLOGIST DIANA COTTON M.D. Normal [facility] Comment on above: Performed By: #### A YEYO, CUU #### [place] [id number] [place] Calcium [Mass/volume] in Ser um or PlasmaOrdered By: Annamarie Jennings on 01-06-2023 Calcium [Mass/Vol] 9.2 mg/dL Normal 8.6-10.3 [facility] Comment on above: Performed By: #### B MP, PT, PTT, CK, MG, CBC, T4F, HS TROP, TSH3, BNP, HEPATIC #### [facility] [address] Carbon dioxide, total [Moles /volume] in Serum or PlasmaOrdered By: Annamarie Jennings on 01-06-2023 CO2 [Moles/Vol] 30.1 mmol/L Normal 21.0-31.0 [facility] Comment on above: Performed By: #### B MP, PT, PTT, CK, MG, CBC, T4F, HS TROP, TSH3, BNP, HEPATIC #### [address] Chloride [Moles/volume] in S jakob or PlasmaOrdered By: Annamarie Jennings on 01-06-2023 Chloride [Moles/Vol] 102 mmol/L Normal 98-107 [facility] Comment on above: Performed By: #### B MP, PT, PTT, CK, MG, CBC, T4F, HS TROP, TSH3, BNP, HEPATIC #### [address] Complete Blood Count Auto Di ffon 01-06-2023 Mean Corpuscular HGB Conc 32.3 g/dL Normal 32.0-35.0 [facility] Comment on above: Performed By: #### A SUDHAKAR ORONA #### [place] [address] [place] Monocytes/100 WBC (Bld) 16.71 % Normal 0.00-20.00 [facility] Comment on above: Performed By: #### A URMILA ORONAU #### [address] NRBC% 0.1 /100{WBC} Normal 0-0.5 [facility] Comment on above: Performed By: #### A URMILA ORONAU #### [place] [address] [place] Creatinine [Mass/volume] in Serum or PlasmaOrdered By: Annamarie Jennings on 01-06-2023 Creatinine [Mass/Vol] 0.78 mg/dL Normal 0.60-1.20 [facility] Comment on above: Performed By: #### B MP, PT, PTT, CK, MG, CBC, T4F, HS TROP, TSH3, BNP, HEPATIC #### [facility] [address] [place] [address] [facility] ECG 12 lead ECGon 01-06-2023 ECG 12 lead ECG [facility] Main [place] [address] [place] [id number] Electrocardiograph Report Signed Patient: Dalia Melendez MR#: [id number] 8 : 1965 Acct:[id number] Age/Sex: 57 / F ADM Date: 01/06/23 Loc: ER Room: Type: [facility] ER Attending Dr: Ordering Provider: Annamarie Jennings APRN Date of Service: 01/06/23 ECG/ECG 12 lead ECG: Shortness of Breath/Dyspnea Copies to: Test Reason : Blood Pressure : 176/086 mmHG Vent. Rate : 088 BPM Atrial Rate : 088 BPM P-R Int : 176 ms QRS Dur : 112 ms QT Int : 378 ms P-R-T Axes : 049 057 110 degrees QTc Int : 457 ms Normal sinus rhythm Possible Inferior infarct (cited on or before 18-MAR-2021) Cannot rule out Anterior infarct (cited on or before 18-MAR-2021) Abnormal ECG When compared with ECG of 13-DEC-2022 18:52, Questionable change in initial forces of Anterior leads T wave inversion no longer evident in Inferior leads Nonspecific T wave abnormality has replaced inverted T waves in Anterior leads Confirmed by DESIRE WISE DO ([id number]) on 01/07/2023 2:04:16 AM Referred By: Electronically Signed By:DESIRE WISE DO Transcribed By: MUS Signed By Desire Wise DO 01/07 0204 Normal [facility] Erythrocyte distribution wid th [Ratio] by Automated countOrdered By: Annamarie Jennings on 01-06-2023 Erythrocyte distribution width (RBC) [Ratio] 13.4 % Normal 11.9-15.3 [facility] Comment on above: Performed By: #### A YEYO, CUU #### [facility] [address] [place] [address] [place] Erythrocytes [#/volume] in B lood by Automated countOrdered By: Annamarie Jennings on 01-06-2023 RBC (Bld) [#/Vol] 4.31 10*6/uL Normal 3.60-5.00 [facility] Comment on above: Performed By: #### A YEYO, CUU #### [facility] [address] Glucose [Mass/volume] in Ser um or PlasmaOrdered By: Annamarie Jennings on 01-06-2023 Glucose [Mass/Vol] 119 mg/dL High 70-100 [facility] Comment on above: ADA recommended refe rence rangeRandom Glucose Reference Range is dependent on time and content of last meal. Glucose of more than 200 mg/dL in a nonstressed, ambulatory subject supports the diagnosis of Diabetes Mellitus. Result Comment: [place] om Glucose Reference Range is dependent on time and content of last meal. Glucose of more than 200 mg/dL in a nonstressed, ambulatory subject supports the diagnosis of Diabetes Mellitus. ADA recommended reference range Performed By: #### B MP, PT, PTT, CK, MG, CBC, T4F, HS TROP, TSH3, BNP, HEPATIC #### [facility] [address] [place] [address] [place] Hematocrit [Volume Fraction] of Blood by Automated countOrdered By: Annamarie Jennings on 01-06-2023 Hematocrit (Bld) [Volume fraction] 35.4 % Normal 34.0-46.4 [facility] Comment on above: Performed By: #### A YEYO, CUU #### [facility] [address] [place] [id number] [place] Hemoglobin [Mass/volume] in BloodOrdered By: Annamarie Jennings on 01-06-2023 Hemoglobin (Bld) [Mass/Vol] 11.4 g/dL Low 11.8-15.4 [facility] Comment on above: Performed By: #### A CARLOSMANE, CUU #### [facility] [address] INR in Platelet poor plasma by Coagulation assayOrdered By: Annamarie Jennings on 01-06-2023 INR Coag (PPP) [Relative time] 1.0 {INR} Normal [facility] Comment on above: INR Therapeutic Rang e A) Pre- and Peroperative OAT started two weeks before surgery. NOT HIP SURGERY: 1.5 - 2.5 HIP SURGERY: 2 - 3B) Primary and secondary prevention of venous THROMBOSIS: 2 - 3C) Active venous thrombosis, pulmonary embolismand prevention of recurrent venous thrombosis: 2 - 3D) Prevention of arterial thromboembolismincluding patients with mechanical heart valves: 3 - 4.5 Result Comment: INR Therapeutic Range A) Pre- and Peroperative OAT started two weeks before surgery. NOT HIP SURGERY: 1.5 - 2.5 HIP SURGERY: 2 - 3 B) Primary and secondary prevention of venous THROMBOSIS: 2 - 3 C) Active venous thrombosis, pulmonary embolism and prevention of recurrent venous thrombosis: 2 - 3 D) Prevention of arterial thromboembolism including patients with mechanical heart valves: 3 - 4.5 Performed By: #### A CHIUAMANE, CUU #### [facility] [address] [place] [address] Lactate [Moles/volume] in Se rum or PlasmaOrdered By: Annamarie Jennings on 01-06-2023 Lactate [Moles/Vol] 1.1 mmol/L Normal 0.5-2.2 [facility] Comment on above: Result Comment: PERF ORMED BY: [place] [address] PATHOLOGIST SURGICAL TECHNOLOGIST DIANA COTTON M.D. Performed By: #### A DDONUAMANE, CUU #### [address] Leukocytes [#/volume] correc jovanni for nucleated erythrocytes in Blood by Automated counOrdered By: Annamarie Jennings on 01-06-2023 WBC corrected for nucl RBC Auto (Bld) [#/Vol] 8.4 10*3/uL 3.8-11.6 [facility] Leukocytes [#/volume] in Blo od by Automated countOrdered By: Annamarie Jennings on 01-06-2023 WBC (Bld) [#/Vol] 8.4 10*3/uL Normal 3.8-11.6 [facility] Comment on above: Performed By: #### A YEYO, CUU #### [address] Lymphocytes [#/volume] in Bl ood by Automated countOrdered By: Annamarie Jennings on 01-06-2023 Lymphocytes (Bld) [#/Vol] 3.4 10*3/uL Normal 1.00-4.8 [facility] Comment on above: Performed By: #### A YEYO, CUU #### [address] Lymphocytes/100 leukocytes i n Blood by Automated countOrdered By: Annamarie Jennings on 01-06-2023 Lymphocytes/100 WBC (Bld) 40.5 % Normal . [facility] Comment on above: Performed By: #### A YEYO, CUU #### [address] MCH [Entitic mass] by Automa jovanni countOrdered By: Annamarie Jennings on 01-06-2023 MCH (RBC) [Entitic mass] 26.5 pg Normal 24.7-34.3 [facility] Comment on above: Performed By: #### A YEYO, CUU #### [address] MCHC Auto (RBC) [Mass/Vol]Or dered By: Annamarie Jennings on 01-06-2023 MCHC (RBC) [Mass/Vol] 32.3 g/dL 32.0-35.0 [facility] MCV [Entitic volume] by Auto mated countOrdered By: Annamarie Jennings on 01-06-2023 MCV (RBC) [Entitic vol] 82.0 fL Normal 80-100 [facility] Comment on above: Performed By: #### A YEYO, CUU #### [facility] [address] [place] [address] Monocyte distribution width [Entitic volume] in Blood by AutomatedOrdered By: Annamarie Jennings on 01-06-2023 Monocyte distribution width Auto (Bld) [Entitic vol] 16.71 % 0.00-20.00 [facility] Neutrophils [#/volume] in Bl ood by Automated countOrdered By: Annamarie Jennings on 01-06-2023 Neutrophils (Bld) [#/Vol] 3.9 10*3/uL Normal 1.8-7.7 [facility] Comment on above: Performed By: #### A YEYO, CUU #### [address] No Panel InformationOrdered By: Annamarie Jennings on 01-06-2023 Estimated GFR (CKD-EPI) > 60.0 mL/Min [facility] Creatinine Clearance (Chem 104.60 [facility] Nucleated erythrocytes [Pres ence] in Blood by Automated countOrdered By: Annamarie Jennings on 01-06-2023 Nucleated RBC Auto Ql (Bld) 0.1 /100{WBC} 0-0.5 [facility] Partial Thromboplastin Timeo n 01-06-2023 aPTT Coag (Bld) [Time] 30.9 s Normal 25.1-36.5 [facility] Comment on above: Result Comment: PERF ORMED BY: [place] [address] PATHOLOGIST SURGICAL TECHNOLOGIST DIANA COTTON M.D. Performed By: #### A YEYO, CUU #### [address] Platelet mean volume [Entiti c volume] in Blood by Automated countOrdered By: Annamarie Jennings on 01-06-2023 Platelet mean volume (Bld) [Entitic vol] 7.3 fL Normal 6.3-10.7 [facility] Comment on above: Performed By: #### A YEYO, CUU #### [facility] [address] [place] [address] Platelets [#/volume] in Bloo d by Automated countOrdered By: Annamarie Jennings on 01-06-2023 Platelets (Bld) [#/Vol] 250 10*3/uL Normal 150-450 [facility] Comment on above: Performed By: #### A YEYO CUU #### [address] Potassium [Moles/volume] in Serum or PlasmaOrdered By: Annamarie Jennings on 01-06-2023 Potassium [Moles/Vol] 3.8 mmol/L Normal 3.5-5.1 [facility] Comment on above: Performed By: #### B MP, PT, PTT, CK, MG, CBC, T4F, HS TROP, TSH3, BNP, HEPATIC #### [address] Prothrombin Time INROrdered By: Annamarie Jennings on 01-06-2023 PT Coag (PPP) [Time] 12.0 s Normal 9.0-12.9 [facility] Comment on above: Performed By: #### A YEYO CUU #### [address] Serum or plasma anion gap de terminationOrdered By: Annamarie Jennings on 01-06-2023 Anion gap [Moles/Vol] 8.7 mmol/L Normal 6.0-15.0 [facility] Comment on above: Performed By: #### B MP, PT, PTT, CK, MG, CBC, T4F, HS TROP, TSH3, BNP, HEPATIC #### [address] Sodium [Moles/volume] in Ser um or PlasmaOrdered By: Annamarie Jennings on 01-06-2023 Sodium [Moles/Vol] 137 mmol/L Normal 136-145 [facility] Comment on above: Performed By: #### B MP, PT, PTT, CK, MG, CBC, T4F, HS TROP, TSH3, BNP, HEPATIC #### [address] [place] [address] [facility] Superficial Wound Cultureon 01-06-2023 Superficial Wound Culture Comment rle ORGANISM: Methicillin Resis Staph Aureus (O:MRSA) Quantity of Growth Moderate Growth Aerobic ELIANA Charge (PCMIC38) SUSCEPTIBILITY ORGANISM: O:MRSA ANTIBIOTIC INTERPRETATION ELIANA Azithromycin S <2 Ceftaroline S <0.5 Ciprofloxacin R >2 Clindamycin S <0.25 Daptomycin S <0.5 Linezolid S 2 Oxacillin R >2 Penicillin R >2 Tetracycline S <4 Trimethoprim/Sulfamethoxa zole R >2 Vancomycin S 1 S = SUSCEPTIBLE I = INTERMEDIATE R = RESISTANT BLANK = DATA NOT AVAILABLE, OR DRUG NOT ADVISABLE OR TESTED R* = RESISTANCE DUE TO EXTENDED SPECTRUM BETA-LACTAMASES ESBL = EXTENDED SPECTRUM BETA-LACTAMASE TFG = THYMIDINE-DEPENDENT STRAIN GUILLERMO = BETA-LACTAMASE POSITIVE IB = INDUCIBLE BETA-LACTAMASE. APPEARS IN PLACE OF 'S' WITH SPECIES KNOWN TO POSSESS INDUCIBLE BETA-LACTAMASES. POTENTIALLY THEY MAY BECOME RESISTANT TO ALL B-LACTAM DRUGS. PERFORMED BY: [place] [address] PATHOLOGIST SURGICAL TECHNOLOGIST DIANA COTTON M.D. Normal [facility] Comment on above: Performed By: #### A DDONTHEO, URMILAU #### [place] [id number] [facility] Troponin I High Sensitivityo n 01-06-2023 Troponin I High Sensitivity 3.3 pg/mL Normal 0.0-15.0 [facility] Comment on above: Result Comment: PERF ORMED BY: [place] [address] PATHOLOGIST SURGICAL TECHNOLOGIST DIANA COTTON M.D. Performed By: #### B MP, PT, PTT, CK, MG, CBC, T4F, HS TROP, TSH3, BNP, HEPATIC #### [place] [id number] [facility] Troponin I.cardiac [Mass/vol ume] in Serum or Plasma by Detection limit <= 0.01 ng/Ordered By: Annamarie Jennings on 01-06-2023 Troponin I.cardiac DL <= 0.01 ng/mL [Mass/Vol] 3.3 pg/mL 0.0-15.0 [facility] Urea nitrogen [Mass/volume] in Serum or PlasmaOrdered By: Annamarie Jennings on 01-06-2023 Urea nitrogen [Mass/Vol] 13 mg/dL Normal 7-25 [facility] Comment on above: Performed By: #### B MP, PT, PTT, CK, MG, CBC, T4F, HS TROP, TSH3, BNP, HEPATIC #### [facility] [address] XR chest 2V*on 01-06-2023 XR chest 2V* [facility] [place] [address] [place] [address] XRay Report Signed Patient: Dalia Melendez MR#: [id number] 8 : 1965 Acct:[id number] Age/Sex: 57 / F ADM Date: 01/06/23 Loc: ER Room: Type: [facility] ER Attending Dr: Copies to: Annamarie Jennings APRN Ordering Provider: Annamarie Jennings APRN Date of Service: 01/06/23 XR/XR chest 2V*: Shortness of Breath/Dyspnea Plain film chest 2 view HISTORY: Bilateral lower extremity swelling COMPARISON: 12/13/2022 FINDINGS: SUPPORT DEVICES: None POSTSURGICAL CHANGES: None HEART: Within normal limits PULMONARY ROSA: Within normal limits MEDIASTINUM: Unremarkable LUNGS AND PLEURA: No acute lung process, pleural effusion or pneumothorax identified. BONY STRUCTURES: Intact ADDITIONAL FINDINGS None XR/XR chest 2V* IMPRESSION: No acute process. Impression dictated by: Serg Borja M.D.01/06/2023 4:50 PM Dictation Location: [place] [address] Transcribed By: [facility] 01/06/23 1655 Dictated By: Serg Borja DO 01/06/23 1644 Signed By: 01/06/23 165 Normal [facility] Alanine aminotransferase [En zymatic activity/volume] in Serum or PlasmaOrdered By: Josiah Castellano on 12-26-2022 ALT [Catalytic activity/Vol] 22 U/L Normal 7-52 [facility] Comment on above: Performed By: #### B MP, PT, PTT, CK, MG, CBC, T4F, HS TROP, TSH3, BNP, HEPATIC #### [address] Albumin [Mass/volume] in Ser um or Plasma by Bromocresol green (BCG) dye binding methoOrdered By: Josiah Castellano on 12-26-2022 Albumin BCG dye [Mass/Vol] 3.9 g/dL 3.5-5.7 [facility] Alkaline phosphatase [Enzyma tic activity/volume] in Serum or PlasmaOrdered By: Josiah Castellano on 12-26-2022 ALP [Catalytic activity/Vol] 101 U/L Normal 34-104 [facility] Comment on above: Performed By: #### B MP, PT, PTT, CK, MG, CBC, T4F, HS TROP, TSH3, BNP, HEPATIC #### [address] Aspartate aminotransferase [ Enzymatic activity/volume] in Serum or PlasmaOrdered By: Josiah Castellano on 12-26-2022 AST [Catalytic activity/Vol] 29 U/L Normal 13-39 [facility] Comment on above: Performed By: #### B MP, PT, PTT, CK, MG, CBC, T4F, HS TROP, TSH3, BNP, HEPATIC #### [address] Automated basophil %Ordered By: Josiah Castellano on 12-26-2022 Basophils/100 WBC (Bld) 1.1 % Normal . [facility] Comment on above: Performed By: #### B MP, PT, PTT, CK, MG, CBC, T4F, HS TROP, TSH3, BNP, HEPATIC #### [address] Automated basophil countOrde red By: Josiah Castellano on 12-26-2022 Basophils (Bld) [#/Vol] 0.1 10*3/uL Normal 0.0-0.2 [facility] Comment on above: Result Comment: PERF ORMED BY: [place] [address] PATHOLOGIST SURGICAL TECHNOLOGIST DIANA COTTON M.D. Performed By: #### B MP, PT, PTT, CK, MG, CBC, T4F, HS TROP, TSH3, BNP, HEPATIC #### [address] Automated blood monocyte cou ntOrdered By: Josiah Castellano on 12-26-2022 Monocytes (Bld) [#/Vol] 1.2 10*3/uL High 0.0-0.8 [facility] Comment on above: Performed By: #### B MP, PT, PTT, CK, MG, CBC, T4F, HS TROP, TSH3, BNP, HEPATIC #### [address] Automated eosinophil %Ordere d By: Josiah Castellano on 12-26-2022 Eosinophils/100 WBC (Bld) 1.0 % Normal . [facility] Comment on above: Performed By: #### B MP, PT, PTT, CK, MG, CBC, T4F, HS TROP, TSH3, BNP, HEPATIC #### [address] Automated eosinophil countOr dered By: Josiah Castellano on 12-26-2022 Eosinophils (Bld) [#/Vol] 0.1 10*3/uL Normal 0.0-0.45 [facility] Comment on above: Performed By: #### B MP, PT, PTT, CK, MG, CBC, T4F, HS TROP, TSH3, BNP, HEPATIC #### [address] Automated monocyte %Ordered By: Josiah Castellano on 12-26-2022 Monocytes/100 WBC (Bld) 9.4 % Normal . [facility] Comment on above: Performed By: #### B MP, PT, PTT, CK, MG, CBC, T4F, HS TROP, TSH3, BNP, HEPATIC #### [facility] [address] Automated neutrophil %Ordere d By: Josiah Castellano on 12-26-2022 Neutrophils/100 WBC (Bld) 67.7 % Normal . [facility] Comment on above: Performed By: #### B MP, PT, PTT, CK, MG, CBC, T4F, HS TROP, TSH3, BNP, HEPATIC #### [facility] [address] [place] [address] Bilirubin.total [Mass/volume ] in Serum or PlasmaOrdered By: Josiah Castellano on 12-26-2022 Bilirubin [Mass/Vol] 0.6 mg/dL Normal 0.3-1.0 [facility] Comment on above: Performed By: #### B MP, PT, PTT, CK, MG, CBC, T4F, HS TROP, TSH3, BNP, HEPATIC #### [address] abdomen pelvis wo conon 0 12-26-2022 CT abdomen pelvis wo con [facility] [place] [address] CT Scan Report Signed Patient: Dalia Melendez MR#: [id number] 8 : 1965 Acct:[id number] Age/Sex: 57 / F ADM Date: 12/26/22 Loc: ER Room: Type: [facility] ER Attending Dr: Copies to: Josiah Castellano DO Ordering Provider: Josiah Castellano DO Date of Service: 12/26/22 CT/CT abdomen pelvis wo con: constipation CT abdomen pelvis wo con 12/26/2022 7:03 PM SIGNS AND SYMPTOMS: Constipation, abdominal pain TECHNIQUE: Multidetector ct axial images of the abdomen and pelvis were obtained without IV contrast. Multiplanar reformats were performed and reviewed to further define anatomy and possible pathology. CT was performed with one or more of the following dose reduction techniques: Automated exposure control, adjustment of the mA and/or kV according to patient size, or use of iterative reconstruction technique. COMPARISON: 02/13/2022 FINDINGS: Lower Chest: Atherosclerotic changes are noted in the thoracic aorta. ABDOMEN: Liver: Within normal limits. Bile Ducts: Normal caliber. Gallbladder: Previously removed. Pancreas: Within normal limits. Spleen: Within normal limits. Adrenals: Within normal limits. Kidneys: Within normal limits. Pelvis: Reproductive Organs: No pelvic masses. Ureters: Within normal limits. Bladder: Within normal limits. Bowel: There are dilated fluid-filled loops of small bowel with decompressed caliber distally. There is a relatively gentle transition to normal caliber suspicious for a small bowel ileus. There is a moderate to large amount of stool in the colon. Mesenteric Lymph Nodes: No enlarged mesenteric lymph nodes. Peritoneum: Free fluid is noted in the right lower quadrant. Vessels: Atherosclerotic changes are noted in the abdominal aorta and its branches. Retroperitoneum: Within normal limits. Abdominal Wall: Within normal limits. Bones: Degenerative changes are noted in the thoracolumbar spine. Degenerative changes are noted in the hips and sacroiliac joints. CT/CT abdomen pelvis wo con IMPRESSION: There are dilated fluid-filled loops of small bowel with decompressed caliber distally. There is a relatively gentle transition to normal caliber suspicious for a small bowel ileus. There is a moderate to large amount of stool in the colon. There is a small amount of free fluid in the right lower quadrant/right hemipelvis which may be reactive in nature. Impression dictated by: Ricki Gallego M.D.12/26/2022 8:09 PM Dictation Location: [place] [address] Transcribed By: [facility] 12/26/222008 Dictated By: Ricki Gallego II, MD 12/26/222000 Signed By: 12/26/222008 Normal [facility] Calcium [Mass/volume] in Ser um or PlasmaOrdered By: Josiah Castellano on 12-26-2022 Calcium [Mass/Vol] 9.3 mg/dL Normal 8.6-10.3 [facility] Comment on above: Performed By: #### B MP, PT, PTT, CK, MG, CBC, T4F, HS TROP, TSH3, BNP, HEPATIC #### [address] Carbon dioxide, total [Moles /volume] in Serum or PlasmaOrdered By: Josiah Castellano on 12-26-2022 CO2 [Moles/Vol] 26.2 mmol/L Normal 21.0-31.0 [facility] Comment on above: Performed By: #### B MP, PT, PTT, CK, MG, CBC, T4F, HS TROP, TSH3, BNP, HEPATIC #### [address] Chloride [Moles/volume] in S jakob or PlasmaOrdered By: Josiah Castellano on 12-26-2022 Chloride [Moles/Vol] 98 mmol/L Normal 98-107 [facility] Comment on above: Performed By: #### B MP, PT, PTT, CK, MG, CBC, T4F, HS TROP, TSH3, BNP, HEPATIC #### [address] Complete Blood Count Auto Di ffon 12-26-2022 Mean Corpuscular HGB Conc 32.5 g/dL Normal 32.0-35.0 [facility] Comment on above: Performed By: #### B MP, PT, PTT, CK, MG, CBC, T4F, HS TROP, TSH3, BNP, HEPATIC #### [address] Monocytes/100 WBC (Bld) 20.42 % High 0.00-20.00 [facility] Comment on above: Result Comment: For adults in ED, MDW > 20.0 may be associated with a higher risk of sepsis during the first 12 hrs of hospital admission Performed By: #### B MP, PT, PTT, CK, MG, CBC, T4F, HS TROP, TSH3, BNP, HEPATIC #### [address] NRBC% 0.1 /100{WBC} Normal 0-0.5 [facility] Comment on above: Performed By: #### B MP, PT, PTT, CK, MG, CBC, T4F, HS TROP, TSH3, BNP, HEPATIC #### [address] Comprehensive Metabolic Pane nigel 12-26-2022 Albumin [Mass/Vol] 3.9 g/dL Normal 3.5-5.7 [facility] Comment on above: Performed By: #### B MP, PT, PTT, CK, MG, CBC, T4F, HS TROP, TSH3, BNP, HEPATIC #### [address] Anion gap [Moles/Vol] Not performed Normal 6.0-15.0 [facility] Comment on above: Performed By: #### B MP, PT, PTT, CK, MG, CBC, T4F, HS TROP, TSH3, BNP, HEPATIC #### [address] Creatinine Clr Calc Pharmacy 90.65 Normal [facility] Comment on above: Result Comment: PERF ORMED BY: [place] [address] PATHOLOGIST SURGICAL TECHNOLOGIST DIANA COTTON M.D. Performed By: #### B MP, PT, PTT, CK, MG, CBC, T4F, HS TROP, TSH3, BNP, HEPATIC #### [address] GFR/1.73 sq M.predicted MDRD (S/P/Bld) [Vol rate/Area] mL/min/{1.73_m2} Normal [facility] Comment on above: Performed By: #### B MP, PT, PTT, CK, MG, CBC, T4F, HS TROP, TSH3, BNP, HEPATIC #### [address] Potassium Normal 3.5-5.1 [facility] Comment on above: Result Comment: Spec imen hemolyzed, redraw requested Performed By: #### B MP, PT, PTT, CK, MG, CBC, T4F, HS TROP, TSH3, BNP, HEPATIC #### [address] Creatinine [Mass/volume] in Serum or PlasmaOrdered By: Josiah Castellano on 12-26-2022 Creatinine [Mass/Vol] 0.91 mg/dL Normal 0.60-1.20 [facility] Comment on above: Performed By: #### B MP, PT, PTT, CK, MG, CBC, T4F, HS TROP, TSH3, BNP, HEPATIC #### [facility] [address] Erythrocyte distribution wid th [Ratio] by Automated countOrdered By: Josiah Castellano on 12-26-2022 Erythrocyte distribution width (RBC) [Ratio] 13.3 % Normal 11.9-15.3 [facility] Comment on above: Performed By: #### B MP, PT, PTT, CK, MG, CBC, T4F, HS TROP, TSH3, BNP, HEPATIC #### [facility] [address] Erythrocytes [#/volume] in B lood by Automated countOrdered By: Josiah Castellano on 12-26-2022 RBC (Bld) [#/Vol] 4.69 10*6/uL Normal 3.60-5.00 [facility] Comment on above: Performed By: #### B MP, PT, PTT, CK, MG, CBC, T4F, HS TROP, TSH3, BNP, HEPATIC #### [facility] [address] Glucose [Mass/volume] in Ser um or PlasmaOrdered By: Josiah Castellano on 12-26-2022 Glucose [Mass/Vol] 200 mg/dL High 70-100 [facility] Comment on above: ADA recommended refe rence rangeRandom Glucose Reference Range is dependent on time and content of last meal. Glucose of more than 200 mg/dL in a nonstressed, ambulatory subject supports the diagnosis of Diabetes Mellitus. Result Comment: Simpson om Glucose Reference Range is dependent on time and content of last meal. Glucose of more than 200 mg/dL in a nonstressed, ambulatory subject supports the diagnosis of Diabetes Mellitus. ADA recommended reference range Performed By: #### B MP, PT, PTT, CK, MG, CBC, T4F, HS TROP, TSH3, BNP, HEPATIC #### [facility] [address] [place] [id number] [facility] Hematocrit [Volume Fraction] of Blood by Automated countOrdered By: Josiah Castellano on 12-26-2022 Hematocrit (Bld) [Volume fraction] 38.6 % Normal 34.0-46.4 [facility] Comment on above: Performed By: #### B MP, PT, PTT, CK, MG, CBC, T4F, HS TROP, TSH3, BNP, HEPATIC #### [facility] [address] Hemoglobin [Mass/volume] in BloodOrdered By: Josiah Castellano on 12-26-2022 Hemoglobin (Bld) [Mass/Vol] 12.5 g/dL Normal 11.8-15.4 [facility] Comment on above: Performed By: #### B MP, PT, PTT, CK, MG, CBC, T4F, HS TROP, TSH3, BNP, HEPATIC #### [address] Leukocytes [#/volume] correc jovanni for nucleated erythrocytes in Blood by Automated counOrdered By: Josiah Castellano on 12-26-2022 WBC corrected for nucl RBC Auto (Bld) [#/Vol] 12.5 10*3/uL 3.8-11.6 [facility] Leukocytes [#/volume] in Blo od by Automated countOrdered By: Josiah Castellano on 12-26-2022 WBC (Bld) [#/Vol] 12.5 10*3/uL High 3.8-11.6 [facility] Comment on above: Performed By: #### B MP, PT, PTT, CK, MG, CBC, T4F, HS TROP, TSH3, BNP, HEPATIC #### [address] Lymphocytes [#/volume] in Bl ood by Automated countOrdered By: Josiah Castellano on 12-26-2022 Lymphocytes (Bld) [#/Vol] 2.6 10*3/uL Normal 1.00-4.8 [facility] Comment on above: Performed By: #### B MP, PT, PTT, CK, MG, CBC, T4F, HS TROP, TSH3, BNP, HEPATIC #### [address] Lymphocytes/100 leukocytes i n Blood by Automated countOrdered By: Josiah Castellano on 12-26-2022 Lymphocytes/100 WBC (Bld) 20.8 % Normal . [facility] Comment on above: Performed By: #### B MP, PT, PTT, CK, MG, CBC, T4F, HS TROP, TSH3, BNP, HEPATIC #### [facility] [address] [place] [address] MCH [Entitic mass] by Automa jovanni countOrdered By: Josiah Castellano on 12-26-2022 MCH (RBC) [Entitic mass] 26.7 pg Normal 24.7-34.3 [facility] Comment on above: Performed By: #### B MP, PT, PTT, CK, MG, CBC, T4F, HS TROP, TSH3, BNP, HEPATIC #### [facility] [address] [place] [address] MCHC Auto (RBC) [Mass/Vol]Or dered By: Josiah Castellano on 12-26-2022 MCHC (RBC) [Mass/Vol] 32.5 g/dL 32.0-35.0 [facility] MCV [Entitic volume] by Auto mated countOrdered By: Josiah Castellano on 12-26-2022 MCV (RBC) [Entitic vol] 82.3 fL Normal 80-100 [facility] Comment on above: Performed By: #### B MP, PT, PTT, CK, MG, CBC, T4F, HS TROP, TSH3, BNP, HEPATIC #### [facility] [address] [place] [address] Monocyte distribution width [Entitic volume] in Blood by AutomatedOrdered By: Josiah Castellano on 12-26-2022 Monocyte distribution width Auto (Bld) [Entitic vol] 20.42 % 0.00-20.00 [facility] Comment on above: For adults in ED, MD W > 20.0 may be associated with a higher risk of sepsis during the first 12 hrs of hospital admission Neutrophils [#/volume] in Bl ood by Automated countOrdered By: Josiah Castellano on 12-26-2022 Neutrophils (Bld) [#/Vol] 8.5 10*3/uL High 1.8-7.7 [facility] Comment on above: Performed By: #### B MP, PT, PTT, CK, MG, CBC, T4F, HS TROP, TSH3, BNP, HEPATIC #### [facility] [address] No Panel InformationOrdered By: Josiah Castellano on 12-26-2022 Estimated GFR (CKD-EPI) > 60.0 mL/Min [facility] Creatinine Clearance (Chem 90.65 [facility] Nucleated erythrocytes [Pres ence] in Blood by Automated countOrdered By: Josiah Castellano on 12-26-2022 Nucleated RBC Auto Ql (Bld) 0.1 /100{WBC} 0-0.5 [facility] Platelet mean volume [Entiti c volume] in Blood by Automated countOrdered By: Josiah Castellano on 12-26-2022 Platelet mean volume (Bld) [Entitic vol] 7.7 fL Normal 6.3-10.7 [facility] Comment on above: Performed By: #### B MP, PT, PTT, CK, MG, CBC, T4F, HS TROP, TSH3, BNP, HEPATIC #### [facility] [address] Platelets [#/volume] in Bloo d by Automated countOrdered By: Josiah Castellano on 12-26-2022 Platelets (Bld) [#/Vol] 259 10*3/uL Normal 150-450 [facility] Comment on above: Performed By: #### B MP, PT, PTT, CK, MG, CBC, T4F, HS TROP, TSH3, BNP, HEPATIC #### [facility] [address] Potassium [Moles/volume] in Serum or PlasmaOrdered By: Josiah Castellano on 12-26-2022 Potassium [Moles/Vol] 4.3 mmol/L Normal 3.5-5.1 [facility] Comment on above: Order Comment: Previ ous specimen was hemolyzed, notified Dinah (ED); redraw by set builder requested.-JJ Result Comment: PERF ORMED BY: [address] [place] [id number] PATHOLOGIST SURGICAL TECHNOLOGIST DIANA COTTON M.D. Performed By: #### B MP, PT, PTT, CK, MG, CBC, T4F, HS TROP, TSH3, BNP, HEPATIC #### [facility] [address] Protein [Mass/volume] in Ser um or PlasmaOrdered By: Josiah Castellano on 12-26-2022 Protein [Mass/Vol] 7.7 g/dL Normal 6.4-8.9 [facility] Comment on above: Performed By: #### B MP, PT, PTT, CK, MG, CBC, T4F, HS TROP, TSH3, BNP, HEPATIC #### [facility] [address] Serum globulin measurement b y calculation (mass/volume)Ordered By: Josiah Castellano on 12-26-2022 Globulin (S) [Mass/Vol] 3.8 g/dL Normal [facility] Comment on above: Performed By: #### B MP, PT, PTT, CK, MG, CBC, T4F, HS TROP, TSH3, BNP, HEPATIC #### [facility] [address] Serum or plasma albumin/glob ulin mass ratioOrdered By: Josiah Castellano on 12-26-2022 Albumin/Globulin [Mass ratio] 1.0 {ratio} [facility] Comment on above: Performed By: #### B MP, PT, PTT, CK, MG, CBC, T4F, HS TROP, TSH3, BNP, HEPATIC #### [facility] [address] Serum or plasma anion gap de terminationOrdered By: Josiah Castellano on 12-26-2022 Anion gap [Moles/Vol] TNP [facility] Comment on above: Test not performed Sodium [Moles/volume] in Ser um or PlasmaOrdered By: Josiah Castellano on 12-26-2022 Sodium [Moles/Vol] 135 mmol/L Low 136-145 [facility] Comment on above: Performed By: #### B MP, PT, PTT, CK, MG, CBC, T4F, HS TROP, TSH3, BNP, HEPATIC #### [facility] [address] Urea nitrogen [Mass/volume] in Serum or PlasmaOrdered By: Josiah Castellano on 12-26-2022 Urea nitrogen [Mass/Vol] 16 mg/dL Normal 7-25 [facility] Comment on above: Performed By: #### B MP, PT, PTT, CK, MG, CBC, T4F, HS TROP, TSH3, BNP, HEPATIC #### [facility] [address] [place] [id number] [facility] US venous duplex LE BIon US venous duplex LE BI [facility] [place] [address] [place] [address] Ultrasound Report Signed Patient: Dalia Melendez MR#: [id number] 8 : 1965 Acct:[id number] Age/Sex: 57 / F ADM Date: 12/13/22 Loc: ER Room: Type: [facility] ER Attending Dr: Ordering Provider: Annamarie Jennings APRN Date of Service: 12/13/22 US/US venous duplex LE BI: calf pain Copies to: Annamarie Jennings APRN BILATERAL LOWER EXTREMITY VENOUS DUPLEX INDICATION: Swollen legs PROCEDURE: Color-flow duplex scanning is used to interrogate the deep venous system of the right and left lower extremities. The common femoral vein, femoral vein and popliteal vein show good compressibility with normal proximal and distal augmentation. The posterior tibial veins are compressible and the peroneal veins are poorly visualized due to edema. US/US venous duplex LE BI IMPRESSION: NO EVIDENCE FOR DEEP VEIN THROMBOSIS OR PROXIMAL SUPERFICIAL THROMBOPHLEBITIS IN THE RIGHT OR LEFT LOWER EXTREMITY. Impression dictated by: Serg Billingsley M.D.12/16/2022 9:39 AM Dictation Location: [place] [address] Tech: Zoey Jennifer Transcribed By: IRAIS 12/16/22938 Dictated By: Serg Billingsley MD 12/16/22938 Signed By: 08/07/23 0939 Normal [facility] Activated partial thrombopla stin time (aPTT) in platelet poor plasma by coagulation aOrdered By: Annamarie Jennings on 12-13-2022 aPTT Coag (PPP) [Time] 28.4 s 25.1-36.5 [facility] Automated basophil %Ordered By: Annamarie Jennings on 12-13-2022 Basophils/100 WBC (Bld) 0.9 % Normal . [facility] Comment on above: Performed By: #### B MP, PT, PTT, CK, MG, CBC, T4F, HS TROP, TSH3, BNP, HEPATIC #### [facility] [address] Automated basophil countOrde red By: Annamarie Jennings on 12-13-2022 Basophils (Bld) [#/Vol] 0.1 10*3/uL Normal 0.0-0.2 [facility] Comment on above: Result Comment: PERF ORMED BY: [address] [place] [address] PATHOLOGIST SURGICAL TECHNOLOGIST DIANA COTTON M.D. Performed By: #### B MP, PT, PTT, CK, MG, CBC, T4F, HS TROP, TSH3, BNP, HEPATIC #### [facility] [address] Automated blood monocyte cou ntOrdered By: Annamarie Jennings on 12-13-2022 Monocytes (Bld) [#/Vol] 0.8 10*3/uL Normal 0.0-0.8 [facility] Comment on above: Performed By: #### B MP, PT, PTT, CK, MG, CBC, T4F, HS TROP, TSH3, BNP, HEPATIC #### [facility] [address] Automated eosinophil %Ordere d By: Annamarie Jennings on 12-13-2022 Eosinophils/100 WBC (Bld) 2.3 % Normal . [facility] Comment on above: Performed By: #### B MP, PT, PTT, CK, MG, CBC, T4F, HS TROP, TSH3, BNP, HEPATIC #### [facility] [address] Automated eosinophil countOr dered By: Annamarie Jennings on 12-13-2022 Eosinophils (Bld) [#/Vol] 0.2 10*3/uL Normal 0.0-0.45 [facility] Comment on above: Performed By: #### B MP, PT, PTT, CK, MG, CBC, T4F, HS TROP, TSH3, BNP, HEPATIC #### [facility] [address] Automated epithelial cells c ount in urine sediment (number/area)Ordered By: Annamarie Jennings on 12-13-2022 Epithelial cells Auto (Urine sed) [#/Area] 3-4 [HPF] 0-2 [facility] Automated erythrocytes count in urine sediment (number/area)Ordered By: Annamarie Jennings on 12-13-2022 RBC Auto (Urine sed) [#/Area] 5-9 [HPF] 0-4 [facility] Automated leukocytes count i n urine sediment (number/area)Ordered By: Annamarie Jennings on 12-13-2022 WBC Auto (Urine sed) [#/Area] 20-49 [HPF] 0-4 [facility] Automated monocyte %Ordered By: Annamarie Jennings on 12-13-2022 Monocytes/100 WBC (Bld) 9.8 % Normal . [facility] Comment on above: Performed By: #### B MP, PT, PTT, CK, MG, CBC, T4F, HS TROP, TSH3, BNP, HEPATIC #### [facility] [address] Automated neutrophil %Ordere d By: Annamarie Jennings on 12-13-2022 Neutrophils/100 WBC (Bld) 40.0 % Normal . [facility] Comment on above: Performed By: #### B MP, PT, PTT, CK, MG, CBC, T4F, HS TROP, TSH3, BNP, HEPATIC #### [facility] [address] Automated urine color determ inationOrdered By: Annamarie Jennings on 12-13-2022 Color (U) Yellow Normal Yellow [facility] Comment on above: Order Comment: Name Collection Type:: Clean-Voided Midstream Performed By: #### B MP, PT, PTT, CK, MG, CBC, T4F, HS TROP, TSH3, BNP, HEPATIC #### [facility] [address] [place] [id number] [facility] Automated urine hyaline cast s count (number/volume)Ordered By: Annamarie Jennings on 12-13-2022 Hyaline casts Auto (U) [#/Vol] 10-19 [LPF] 0-1 [facility] BNP ser/plasOrdered By: Monse Jennings on 12-13-2022 Natriuretic peptide B (Bld) [Mass/Vol] 4.0 pg/mL Low 5-100 [facility] Comment on above: Result Comment: PERF ORMED BY: [place] [address] PATHOLOGIST SURGICAL TECHNOLOGIST DIANA COTTON M.D. Performed By: #### B MP, PT, PTT, CK, MG, CBC, T4F, HS TROP, TSH3, BNP, HEPATIC #### [address] Basic Metabolic Panelon Creatinine Clr Calc Pharmacy 73.50 Normal [facility] Comment on above: Result Comment: PERF ORMED BY: [place] [address] PATHOLOGIST SURGICAL TECHNOLOGIST DIANA COTTON M.D. Performed By: #### B MP, PT, PTT, CK, MG, CBC, T4F, HS TROP, TSH3, BNP, HEPATIC #### [place] [id number] [facility] GFR/1.73 sq M.predicted MDRD (S/P/Bld) [Vol rate/Area] 58.700 mL/min/{1.73_m2} Normal [facility] Comment on above: Performed By: #### B MP, PT, PTT, CK, MG, CBC, T4F, HS TROP, TSH3, BNP, HEPATIC #### [place] [address] [place] Bilirubin Test strip Ql (U)O rdered By: Annamarie Jennings on 12-13-2022 Bilirubin Ql (U) Negative Negative [facility] Calcium [Mass/volume] in Ser um or PlasmaOrdered By: Annamarie Jennings on 12-13-2022 Calcium [Mass/Vol] 9.9 mg/dL Normal 8.6-10.3 [facility] Comment on above: Performed By: #### B MP, PT, PTT, CK, MG, CBC, T4F, HS TROP, TSH3, BNP, HEPATIC #### [facility] [address] Carbon dioxide, total [Moles /volume] in Serum or PlasmaOrdered By: Annamarie Jennings on 12-13-2022 CO2 [Moles/Vol] 26.4 mmol/L Normal 21.0-31.0 [facility] Comment on above: Performed By: #### B MP, PT, PTT, CK, MG, CBC, T4F, HS TROP, TSH3, BNP, HEPATIC #### [facility] [address] Chloride [Moles/volume] in S jakob or PlasmaOrdered By: Annamarie Jennings on 12-13-2022 Chloride [Moles/Vol] 97 mmol/L Low 98-107 [facility] Comment on above: Performed By: #### B MP, PT, PTT, CK, MG, CBC, T4F, HS TROP, TSH3, BNP, HEPATIC #### [facility] [address] Complete Blood Count Auto Di ffon 12-13-2022 Mean Corpuscular HGB Conc 32.5 g/dL Normal 32.0-35.0 [facility] Comment on above: Performed By: #### B MP, PT, PTT, CK, MG, CBC, T4F, HS TROP, TSH3, BNP, HEPATIC #### [facility] [address] Monocytes/100 WBC (Bld) 19.20 % Normal 0.00-20.00 [facility] Comment on above: Performed By: #### B MP, PT, PTT, CK, MG, CBC, T4F, HS TROP, TSH3, BNP, HEPATIC #### [facility] [address] NRBC% 0.1 /100{WBC} Normal 0-0.5 [facility] Comment on above: Performed By: #### B MP, PT, PTT, CK, MG, CBC, T4F, HS TROP, TSH3, BNP, HEPATIC #### [facility] [address] Creatinine [Mass/volume] in Serum or PlasmaOrdered By: Annamarie Jennings on 12-13-2022 Creatinine [Mass/Vol] 1.11 mg/dL Normal 0.60-1.20 [facility] Comment on above: Performed By: #### B MP, PT, PTT, CK, MG, CBC, T4F, HS TROP, TSH3, BNP, HEPATIC #### [address] Dipstick and Microscopicon 0 12-13-2022 Appearance (U) Cloudy Critically abnormal Clear [facility] Comment on above: Order Comment: Name Collection Type:: Clean-Voided Midstream Performed By: #### B MP, PT, PTT, CK, MG, CBC, T4F, HS TROP, TSH3, BNP, HEPATIC #### [address] Bacteria,Urine 4+ High None Seen [facility] Comment on above: Order Comment: Name Collection Type:: Clean-Voided Midstream Performed By: #### B MP, PT, PTT, CK, MG, CBC, T4F, HS TROP, TSH3, BNP, HEPATIC #### [facility] [address] Bilirubin,Urine Negative Normal Negative [facility] Comment on above: Order Comment: Name Collection Type:: Clean-Voided Midstream Performed By: #### B MP, PT, PTT, CK, MG, CBC, T4F, HS TROP, TSH3, BNP, HEPATIC #### [place] [address] Glucose Ql (U) >=1000 High Normal [facility] Comment on above: Order Comment: Name Collection Type:: Clean-Voided Midstream Performed By: #### B MP, PT, PTT, CK, MG, CBC, T4F, HS TROP, TSH3, BNP, HEPATIC #### [address] Hyaline Casts,Urine 10-19 High 0-1 [facility] Comment on above: Order Comment: Name Collection Type:: Clean-Voided Midstream Result Comment: PERF ORMED BY: [place] [address] PATHOLOGIST SURGICAL TECHNOLOGIST DIANA COTTON M.D. Performed By: #### B MP, PT, PTT, CK, MG, CBC, T4F, HS TROP, TSH3, BNP, HEPATIC #### [address] Ketones Ql (U) Negative Normal Negative [facility] Comment on above: Order Comment: Name Collection Type:: Clean-Voided Midstream Performed By: #### B MP, PT, PTT, CK, MG, CBC, T4F, HS TROP, TSH3, BNP, HEPATIC #### [address] Leukocyte esterase Test strip Ql (U) 2+ High Negative [facility] Comment on above: Order Comment: Name Collection Type:: Clean-Voided Midstream Performed By: #### B MP, PT, PTT, CK, MG, CBC, T4F, HS TROP, TSH3, BNP, HEPATIC #### [place] [address] [place] Nitrite,Urine Negative Normal Negative [facility] Comment on above: Order Comment: Name Collection Type:: Clean-Voided Midstream Performed By: #### B MP, PT, PTT, CK, MG, CBC, T4F, HS TROP, TSH3, BNP, HEPATIC #### [address] Occult Blood,Urine Trace High Negative [facility] Comment on above: Order Comment: Name Collection Type:: Clean-Voided Midstream Result Comment: PERF ORMED BY: [place] [address] PATHOLOGIST SURGICAL TECHNOLOGIST DIANA COTTON M.D. Performed By: #### B MP, PT, PTT, CK, MG, CBC, T4F, HS TROP, TSH3, BNP, HEPATIC #### [address] Protein,Urine Negative Normal Negative [facility] Comment on above: Order Comment: Name Collection Type:: Clean-Voided Midstream Performed By: #### B MP, PT, PTT, CK, MG, CBC, T4F, HS TROP, TSH3, BNP, HEPATIC #### [address] RBC,Urine 5-9 High 0-4 [facility] Comment on above: Order Comment: Name Collection Type:: Clean-Voided Midstream Performed By: #### B MP, PT, PTT, CK, MG, CBC, T4F, HS TROP, TSH3, BNP, HEPATIC #### [address] Specificy [place],Urine 1.029 Normal 1.001-1.03 0 [facility] Comment on above: Order Comment: Name Collection Type:: Clean-Voided Midstream Performed By: #### B MP, PT, PTT, CK, MG, CBC, T4F, HS TROP, TSH3, BNP, HEPATIC #### [address] Squamous Epithelial Cell,Urine 3-4 High 0-2 [facility] Comment on above: Order Comment: Name Collection Type:: Clean-Voided Midstream Performed By: #### B MP, PT, PTT, CK, MG, CBC, T4F, HS TROP, TSH3, BNP, HEPATIC #### [address] Urobilinogen,Urine Normal Normal Normal [facility] Comment on above: Order Comment: Name Collection Type:: Clean-Voided Midstream Performed By: #### B MP, PT, PTT, CK, MG, CBC, T4F, HS TROP, TSH3, BNP, HEPATIC #### [facility] [address] WBC,Urine 20-49 High 0-4 [facility] Comment on above: Order Comment: Name Collection Type:: Clean-Voided Midstream Performed By: #### B MP, PT, PTT, CK, MG, CBC, T4F, HS TROP, TSH3, BNP, HEPATIC #### [facility] [address] ECG 12 lead ECGon 12-13-2022 ECG 12 lead ECG [facility] [place] [address] [place] [address] Electrocardiograph Report Signed Patient: Dalia Melendez MR#: [id number] 8 : 1965 Acct:[id number] Age/Sex: 57 / F ADM Date: 12/13/22 Loc: ER Room: Type: [facility] ER Attending Dr: Ordering Provider: Annamarie Jennings APRN Date of Service: 12/13/2209/02/1835 ECG/ECG 12 lead ECG: Extremity Injury, Lower Copies to: Test Reason : Blood Pressure : 138/077 mmHG Vent. 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) Anterior infarct (cited on or before 18-MAR-2021) Abnormal ECG When compared with ECG of 21-JUL-2022 00:38, T wave inversion now evident in Inferior leads Confirmed by Josiah Castellano DO ([id number]) on 12/14/2022 12:33:13 AM Referred By: Electronically Signed By:Josiah Castellano DO Transcribed By: MUS Signed By Josiah Castellano DO 3 0033 Normal [facility] Erythrocyte distribution wid th [Ratio] by Automated countOrdered By: Annamarie Jennings on 12-13-2022 Erythrocyte distribution width (RBC) [Ratio] 12.8 % Normal 11.9-15.3 [facility] Comment on above: Performed By: #### B MP, PT, PTT, CK, MG, CBC, T4F, HS TROP, TSH3, BNP, HEPATIC #### [facility] [address] Erythrocytes [#/volume] in B lood by Automated countOrdered By: Annamarie Jennings on 12-13-2022 RBC (Bld) [#/Vol] 4.69 10*6/uL Normal 3.60-5.00 [facility] Comment on above: Performed By: #### B MP, PT, PTT, CK, MG, CBC, T4F, HS TROP, TSH3, BNP, HEPATIC #### [facility] [address] Glucose [Mass/volume] in Ser um or PlasmaOrdered By: Annamarie Jennings on 12-13-2022 Glucose [Mass/Vol] 175 mg/dL High 70-100 [facility] Comment on above: ADA recommended refe rence rangeRandom Glucose Reference Range is dependent on time and content of last meal. Glucose of more than 200 mg/dL in a nonstressed, ambulatory subject supports the diagnosis of Diabetes Mellitus. Result Comment: [place] Glucose Reference Range is dependent on time and content of last meal. Glucose of more than 200 mg/dL in a nonstressed, ambulatory subject supports the diagnosis of Diabetes Mellitus. ADA recommended reference range Performed By: #### B MP, PT, PTT, CK, MG, CBC, T4F, HS TROP, TSH3, BNP, HEPATIC #### [facility] [address] [place] [address] [place] Hematocrit [Volume Fraction] of Blood by Automated countOrdered By: Annamarie Jennings on 12-13-2022 Hematocrit (Bld) [Volume fraction] 38.5 % Normal 34.0-46.4 [facility] Comment on above: Performed By: #### B MP, PT, PTT, CK, MG, CBC, T4F, HS TROP, TSH3, BNP, HEPATIC #### [facility] [address] [place] [address] [place] Hemoglobin [Mass/volume] in BloodOrdered By: Annamarie Jennings on 12-13-2022 Hemoglobin (Bld) [Mass/Vol] 12.5 g/dL Normal 11.8-15.4 [facility] Comment on above: Performed By: #### B MP, PT, PTT, CK, MG, CBC, T4F, HS TROP, TSH3, BNP, HEPATIC #### [facility] [address] Ketones Auto test strip (U) [Mass/Vol]Ordered By: Annamarie Jennings on 12-13-2022 Ketones (U) [Mass/Vol] Negative Negative [facility] Leukocytes [#/volume] correc jovanni for nucleated erythrocytes in Blood by Automated counOrdered By: Annamarie Jennings on 12-13-2022 WBC corrected for nucl RBC Auto (Bld) [#/Vol] 8.2 10*3/uL 3.8-11.6 [facility] Leukocytes [#/volume] in Blo od by Automated countOrdered By: Annamarie Jennings on 12-13-2022 WBC (Bld) [#/Vol] 8.2 10*3/uL Normal 3.8-11.6 [facility] Comment on above: Performed By: #### B MP, PT, PTT, CK, MG, CBC, T4F, HS TROP, TSH3, BNP, HEPATIC #### [facility] [address] [place] [address] [place] Lymphocytes [#/volume] in Bl ood by Automated countOrdered By: Annamarie Jennings on 12-13-2022 Lymphocytes (Bld) [#/Vol] 3.9 10*3/uL Normal 1.00-4.8 [facility] Comment on above: Performed By: #### B MP, PT, PTT, CK, MG, CBC, T4F, HS TROP, TSH3, BNP, HEPATIC #### [facility] [address] [place] [address] [place] Lymphocytes/100 leukocytes i n Blood by Automated countOrdered By: Annamarie Jennings on 12-13-2022 Lymphocytes/100 WBC (Bld) 47.0 % Normal . [facility] Comment on above: Performed By: #### B MP, PT, PTT, CK, MG, CBC, T4F, HS TROP, TSH3, BNP, HEPATIC #### [facility] [address] MCH [Entitic mass] by Automa jovanni countOrdered By: Annamarie Jennings on 12-13-2022 MCH (RBC) [Entitic mass] 26.6 pg Normal 24.7-34.3 [facility] Comment on above: Performed By: #### B MP, PT, PTT, CK, MG, CBC, T4F, HS TROP, TSH3, BNP, HEPATIC #### [facility] [address] [place] [address] MCHC Auto (RBC) [Mass/Vol]Or dered By: Annamarie Jennings on 12-13-2022 MCHC (RBC) [Mass/Vol] 32.5 g/dL 32.0-35.0 [facility] MCV [Entitic volume] by Auto mated countOrdered By: Annamarie Jennings on 12-13-2022 MCV (RBC) [Entitic vol] 82.1 fL Normal 80-100 [facility] Comment on above: Performed By: #### B MP, PT, PTT, CK, MG, CBC, T4F, HS TROP, TSH3, BNP, HEPATIC #### [facility] [address] [place] [address] Monocyte distribution width [Entitic volume] in Blood by AutomatedOrdered By: Annamarie Jennings on 12-13-2022 Monocyte distribution width Auto (Bld) [Entitic vol] 19.20 % 0.00-20.00 [facility] Neutrophils [#/volume] in Bl ood by Automated countOrdered By: Annamarie Jennings on 12-13-2022 Neutrophils (Bld) [#/Vol] 3.3 10*3/uL Normal 1.8-7.7 [facility] Comment on above: Performed By: #### B MP, PT, PTT, CK, MG, CBC, T4F, HS TROP, TSH3, BNP, HEPATIC #### [facility] [address] [place] [address] Nitrite Test strip Ql (U)Ord ered By: Annamarie Jennings on 12-13-2022 Nitrite Ql (U) Negative Negative [facility] No Panel InformationOrdered By: Annamarie Jennings on 12-13-2022 Estimated GFR (CKD-EPI) 58.700 mL/Min [facility] Creatinine Clearance (Chem 73.50 [facility] Nucleated erythrocytes [Pres ence] in Blood by Automated countOrdered By: Annamarie Jennings on 12-13-2022 Nucleated RBC Auto Ql (Bld) 0.1 /100{WBC} 0-0.5 [facility] Partial Thromboplastin Timeo n 12-13-2022 aPTT Coag (Bld) [Time] 28.4 s Normal 25.1-36.5 [facility] Comment on above: Result Comment: PERF ORMED BY: [place] [address] PATHOLOGIST SURGICAL TECHNOLOGIST DIANA COTTON M.D. Performed By: #### B MP, PT, PTT, CK, MG, CBC, T4F, HS TROP, TSH3, BNP, HEPATIC #### [facility] [address] [place] [address] Platelet mean volume [Entiti c volume] in Blood by Automated countOrdered By: Annamarie Jennings on 12-13-2022 Platelet mean volume (Bld) [Entitic vol] 8.0 fL Normal 6.3-10.7 [facility] Comment on above: Performed By: #### B MP, PT, PTT, CK, MG, CBC, T4F, HS TROP, TSH3, BNP, HEPATIC #### [address] Platelet poor plasma interna tional normalized ratio (INR) by coagulation assay (relatOrdered By: Annamarie Jennings on 12-13-2022 INR Coag (PPP) [Relative time] 1.0 {INR} Normal [facility] Comment on above: INR Therapeutic Rang e A) Pre- and Peroperative OAT started two weeks before surgery. NOT HIP SURGERY: 1.5 - 2.5 HIP SURGERY: 2 - 3B) Primary and secondary prevention of venous THROMBOSIS: 2 - 3C) Active venous thrombosis, pulmonary embolismand prevention of recurrent venous thrombosis: 2 - 3D) Prevention of arterial thromboembolismincluding patients with mechanical heart valves: 3 - 4.5 Result Comment: INR Therapeutic Range A) Pre- and Peroperative OAT started two weeks before surgery. NOT HIP SURGERY: 1.5 - 2.5 HIP SURGERY: 2 - 3 B) Primary and secondary prevention of venous THROMBOSIS: 2 - 3 C) Active venous thrombosis, pulmonary embolism and prevention of recurrent venous thrombosis: 2 - 3 D) Prevention of arterial thromboembolism including patients with mechanical heart valves: 3 - 4.5 Performed By: #### B MP, PT, PTT, CK, MG, CBC, T4F, HS TROP, TSH3, BNP, HEPATIC #### [facility] [address] Platelets [#/volume] in Bloo d by Automated countOrdered By: Annamarie Jennings on 12-13-2022 Platelets (Bld) [#/Vol] 219 10*3/uL Normal 150-450 [facility] Comment on above: Performed By: #### B MP, PT, PTT, CK, MG, CBC, T4F, HS TROP, TSH3, BNP, HEPATIC #### [facility] [address] Potassium [Moles/volume] in Serum or PlasmaOrdered By: Annamarie Jennings on 12-13-2022 Potassium [Moles/Vol] 3.9 mmol/L Normal 3.5-5.1 [facility] Comment on above: Performed By: #### B MP, PT, PTT, CK, MG, CBC, T4F, HS TROP, TSH3, BNP, HEPATIC #### [facility] [address] Protein Auto test strip (U) [Mass/Vol]Ordered By: Annamarie Jennings on 12-13-2022 Protein (U) [Mass/Vol] Negative Negative [facility] Prothrombin Time INROrdered By: Annamarie Jennings on 12-13-2022 PT Coag (PPP) [Time] 11.2 s Normal 9.0-12.9 [facility] Comment on above: Performed By: #### B MP, PT, PTT, CK, MG, CBC, T4F, HS TROP, TSH3, BNP, HEPATIC #### [facility] [address] Serum or plasma anion gap de terminationOrdered By: Annamarie Jennings on 12-13-2022 Anion gap [Moles/Vol] 12.5 mmol/L Normal 6.0-15.0 [facility] Comment on above: Performed By: #### B MP, PT, PTT, CK, MG, CBC, T4F, HS TROP, TSH3, BNP, HEPATIC #### [facility] [address] Sodium [Moles/volume] in Ser um or PlasmaOrdered By: Annamarie Jennings on 12-13-2022 Sodium [Moles/Vol] 132 mmol/L Low 136-145 [facility] Comment on above: Performed By: #### B MP, PT, PTT, CK, MG, CBC, T4F, HS TROP, TSH3, BNP, HEPATIC #### [facility] [address] Specific gravity Auto test s trip (U) [Rel density]Ordered By: Annamarie Jennings on 12-13-2022 Specific gravity (U) [Rel density] 1.029 1.001-1.03 0 [facility] Troponin I High Sensitivityo n 12-13-2022 Troponin I High Sensitivity 2.4 pg/mL Normal 0.0-15.0 [facility] Comment on above: Result Comment: PERF ORMED BY: [place] [address] PATHOLOGIST SURGICAL TECHNOLOGIST DIANA COTTON M.D. Performed By: #### B MP, PT, PTT, CK, MG, CBC, T4F, HS TROP, TSH3, BNP, HEPATIC #### [address] Troponin I.cardiac [Mass/vol ume] in Serum or Plasma by Detection limit <= 0.01 ng/Ordered By: Annamarie Jennings on 12-13-2022 Troponin I.cardiac DL <= 0.01 ng/mL [Mass/Vol] 2.4 pg/mL 0.0-15.0 [facility] Urea nitrogen [Mass/volume] in Serum or PlasmaOrdered By: Annamarie Jennings on 12-13-2022 Urea nitrogen [Mass/Vol] 22 mg/dL Normal 7-25 [facility] Comment on above: Performed By: #### B MP, PT, PTT, CK, MG, CBC, T4F, HS TROP, TSH3, BNP, HEPATIC #### [facility] [address] Urine Cultureon 12-13-2022 Bacteria identified Cx Nom (U) ORGANISM: Strep agalactiae - (group b) (O:STRAGA) [place] Count 20,000 ORGANISM: Lactobacillus jensenii (O:LACJEN) [place] Count >100,000 Organism Comments Organism not Routinely Tested for Susceptibilities PERFORMED BY: [place] [address] PATHOLOGIST SURGICAL TECHNOLOGIST DIANA COTTON M.D. Normal [facility] Comment on above: Performed By: #### B MP, PT, PTT, CK, MG, CBC, T4F, HS TROP, TSH3, BNP, HEPATIC #### [facility] [address] Urine bacteria detection by automated methodOrdered By: Annamarie Jennings on 12-13-2022 Bacteria Auto Ql (U) 4+ None Seen [facility] Urine clarity by refractomet ry automatedOrdered By: Annamarie Jennings on 12-13-2022 Clarity Refractometry automated (U) Cloudy Clear [facility] Urine culture routineOrdered By: Annamarie Jennings on 12-13-2022 Bacteria identified Cx Nom (U) Strep agalactiae - (group b) [facility] Bacteria identified Cx Nom (U) Lactobacillus jensenii [facility] Urine glucose measurement by automated test strip (mass/volume)Ordered By: Annamarie Jennings on 12-13-2022 Glucose Auto test strip (U) [Mass/Vol] >=1000 mg/dL Normal [facility] Urine hemoglobin detection b y automated test stripOrdered By: Annamarie Jennings on 12-13-2022 Hemoglobin Auto test strip Ql (U) Trace Negative [facility] Urine leukocyte esterase det ection by automated test stripOrdered By: Annamarie Jennings on 12-13-2022 Leukocyte esterase Auto test strip Ql (U) 2+ Negative [facility] Urine pH measurement by auto mated test stripOrdered By: Annamarie Jennings on 12-13-2022 pH (U) 5.0 [pH] Normal 5.0-9.0 [facility] Comment on above: Order Comment: Name Collection Type:: Clean-Voided Midstream Performed By: #### B MP, PT, PTT, CK, MG, CBC, T4F, HS TROP, TSH3, BNP, HEPATIC #### [address] Urobilinogen Auto test strip (U) [Mass/Vol]Ordered By: Annamarie Jennings on 12-13-2022 Urobilinogen (U) [Mass/Vol] Normal mg/dL Normal [facility] XR chest 2V*on 12-13-2022 XR chest 2V* [facility] [place] [address] [place] [address] XRay Report Signed Patient: Dalia Melendez MR#: [id number] 8 : 1965 Acct:[id number] Age/Sex: 57 / F ADM Date: 12/13/22 Loc: ER Room: Type: [facility] ER Attending Dr: Copies to: Annamarie eJnnings APRN Ordering Provider: Annamarie Jennings APRN Date of Service: 12/13/22 XR/XR chest 2V*: Extremity Injury, [place] film chest 2 view HISTORY: Lower extremity swelling COMPARISON: 07/21/2022 FINDINGS: SUPPORT DEVICES: None POSTSURGICAL CHANGES: None HEART: Within normal limits PULMONARY ROSA: Within normal limits MEDIASTINUM: Unremarkable LUNGS AND PLEURA: No acute lung process, pleural effusion or pneumothorax identified. BONY STRUCTURES: Thoracic hyperostosis ADDITIONAL FINDINGS None XR/XR chest 2V* IMPRESSION: No acute process. Impression dictated by: Serg Borja M.D.12/13/2022 7:51 PM Dictation Location: [place] [address] Transcribed By: [facility] 12/13/221950 Dictated By: Serg Borja DO 12/13/221949 Signed By: 12/13/221950 Normal [facility] Glucose Glucometer (BldC) [M ass/Vol]Ordered By: Aliyah Gagnon on 08-20-2022 Glucose [Mass/Vol] 157 mg/dL [facility] Comment on above: Random Glucose Refer ence Range is dependent on time and content of last meal. Glucose of more than 200 mg/dL in a nonstressed, ambulatory subject supports the diagnosis of Diabetes Mellitus. No Panel InformationOrdered By: Aliyah Gagnon on 08-20-2022 Bedside Glucose Comment Glu2: cleaned meter [facility] Amphetamine Screen Ql (U)Ord ered By: Aliyah Gagnon on 07-26-2022 Amphetamines Ql (U) Negative Negative [facility] Barbiturates [Presence] in U rine by Screen methodOrdered By: Aliyah Gagnon on 07-26-2022 Barbiturates Screen Ql (U) Negative Negative [facility] Benzodiazepines Screen Ql (U )Ordered By: Aliyah Gagnon on 07-26-2022 Benzodiazepines Ql (U) Negative Negative [facility] Benzoylecgonine [Presence] i n Urine by Screen methodOrdered By: Aliyah Gagnon on 07-26-2022 Benzoylecgonine Screen Ql (U) Negative Negative [facility] Cannabinoids [Presence] in U rine by Screen methodOrdered By: Aliyah Gagnon on 07-26-2022 Cannabinoids Screen Ql (U) Negative Negative [facility] Comment on above: These are unconfirme d results and should not be used for legal purposes. Drug Cut-Off Concentration: AMPH 1000 ng/mL CYDNEY 200 ng/mL LOLA 200 ng/mL COCM 300 ng/mL OP 300 ng/mL PCP 25 ng/mL THC 20 ng/mL Glucose Glucometer (BldC) [M ass/Vol]Ordered By: Aliyah Gagnon on 07-26-2022 Glucose [Mass/Vol] 333 mg/dL [facility] Comment on above: Random Glucose Refer ence Range is dependent on time and content of last meal. Glucose of more than 200 mg/dL in a nonstressed, ambulatory subject supports the diagnosis of Diabetes Mellitus. No Panel InformationOrdered By: Aliyah Gagnon on 07-26-2022 Bedside Glucose Comment Glu2: cleaned meter [facility] Opiates [Presence] in Urine by Screen methodOrdered By: Aliyah Gagnon on 07-26-2022 Opiates Screen Ql (U) Negative Negative [facility] Phencyclidine Screen Ql (U)O rdered By: Aliyah Gagnon on 07-26-2022 Phencyclidine Ql (U) Negative Negative [facility] Activated partial thrombopla stin time (aPTT) in platelet poor plasma by coagulation aOrdered By: Shalom Reed on 07-21-2022 aPTT Coag (PPP) [Time] 23.3 s 25.1-36.5 [facility] Basophils Auto (Bld) [#/Vol] Ordered By: Shalom Reed on 07-21-2022 Basophils (Bld) [#/Vol] 0.0 10*3/uL 0.0-0.2 [facility] Basophils/100 WBC Auto (Bld) Ordered By: Shalom Reed on 07-21-2022 Basophils/100 WBC (Bld) 0.4 % . [facility] Calcium [Mass/volume] in Ser um or PlasmaOrdered By: Shalom Reed on 07-21-2022 Calcium [Mass/Vol] 8.9 mg/dL 8.6-10.3 [facility] Carbon dioxide, total [Moles /volume] in Serum or PlasmaOrdered By: Shalom Reed on 07-21-2022 CO2 [Moles/Vol] 23.9 mmol/L 21.0-31.0 [facility] Chloride [Moles/volume] in S jakob or PlasmaOrdered By: Shalom Reed on 07-21-2022 Chloride [Moles/Vol] 100 mmol/L 98-107 [facility] Creatine kinase [Enzymatic a ctivity/volume] in Serum or PlasmaOrdered By: Shalom Reed on 07-21-2022 CK [Catalytic activity/Vol] 32 U/L 30-223 [facility] Creatinine [Mass/volume] in Serum or PlasmaOrdered By: Shalom Reed on 07-21-2022 Creatinine [Mass/Vol] 0.83 mg/dL 0.60-1.20 [facility] Eosinophils Auto (Bld) [#/Vo l]Ordered By: Shalom Reed on 07-21-2022 Eosinophils (Bld) [#/Vol] 0.3 10*3/uL 0.0-0.45 [facility] Eosinophils/100 WBC Auto (Bl d)Ordered By: Shalom Reed on 07-21-2022 Eosinophils/100 WBC (Bld) 3.5 % . [facility] Erythrocyte distribution wid th Auto (RBC) [Ratio]Ordered By: Shalom Reed on 07-21-2022 Erythrocyte distribution width (RBC) [Ratio] 13.7 % 11.9-15.3 [facility] Glucose [Mass/volume] in Ser um or PlasmaOrdered By: Shalom Reed on 07-21-2022 Glucose [Mass/Vol] 391 mg/dL 74-109 [facility] Comment on above: ADA recommended refe rence rangeRandom Glucose Reference Range is dependent on time and content of last meal. Glucose of more than 200 mg/dL in a nonstressed, ambulatory subject supports the diagnosis of Diabetes Mellitus. Hematocrit Auto (Bld) [Volum e fraction]Ordered By: Shalom Reed on 07-21-2022 Hematocrit (Bld) [Volume fraction] 40.4 % 34.0-46.4 [facility] Hemoglobin [Mass/volume] in BloodOrdered By: Shalom Reed on 07-21-2022 Hemoglobin (Bld) [Mass/Vol] 13.5 g/dL 11.8-15.4 [facility] Laboratory - Chemistry and C hemistry - challengeOrdered By: Shalom Reed on 07-21-2022 GFR/1.73 sq M.predicted MDRD (S/P/Bld) [Vol rate/Area] mL/min/{1.73_m2} [facility] Laboratory - CoagulationOrde red By: Shalom Reed on 07-21-2022 PT Coag (PPP) [Time] 10.5 s 9.0-12.9 [facility] Leukocytes [#/volume] correc jovanni for nucleated erythrocytes in Blood by Automated counOrdered By: Shalom Reed on 07-21-2022 WBC corrected for nucl RBC Auto (Bld) [#/Vol] 8.1 10*3/uL 3.8-11.6 [facility] Lymphocytes Auto (Bld) [#/Vo l]Ordered By: Shalom Reed on 07-21-2022 Lymphocytes (Bld) [#/Vol] 3.9 10*3/uL 1.00-4.8 [facility] Lymphocytes/100 WBC Auto (Bl d)Ordered By: Shalom Reed on 07-21-2022 Lymphocytes/100 WBC (Bld) 48.5 % . [facility] MCH Auto (RBC) [Entitic mass ]Ordered By: Shalom Reed on 07-21-2022 MCH (RBC) [Entitic mass] 28.1 pg 24.7-34.3 [facility] MCHC Auto (RBC) [Mass/Vol]Or dered By: Shalom Reed on 07-21-2022 MCHC (RBC) [Mass/Vol] 33.3 g/dL 32.0-35.0 [facility] MCV Auto (RBC) [Entitic vol] Ordered By: Shalom Reed on 07-21-2022 MCV (RBC) [Entitic vol] 84.3 fL 80-100 [facility] Monocyte distribution width [Entitic volume] in Blood by AutomatedOrdered By: Shalom Reed on 07-21-2022 Monocyte distribution width Auto (Bld) [Entitic vol] 20.14 % 0.00-20.00 [facility] Comment on above: For adults in ED, MD W > 20.0 may be associated with a higher risk of sepsis during the first 12 hrs of hospital admission Monocytes Auto (Bld) [#/Vol] Ordered By: Shalom Reed on 07-21-2022 Monocytes (Bld) [#/Vol] 0.5 10*3/uL 0.0-0.8 [facility] Monocytes/100 WBC Auto (Bld) Ordered By: Shalom Reed on 07-21-2022 Monocytes/100 WBC (Bld) 6.8 % . [facility] Natriuretic peptide B [Mass/ Vol]Ordered By: Shalom Reed on 07-21-2022 Natriuretic peptide B (Bld) [Mass/Vol] 14.0 pg/mL 5-100 [facility] Neutrophils Auto (Bld) [#/Vo l]Ordered By: Shalom Reed on 07-21-2022 Neutrophils (Bld) [#/Vol] 3.3 10*3/uL 1.8-7.7 [facility] Neutrophils/100 WBC Auto (Bl d)Ordered By: Shalom Reed on 07-21-2022 Neutrophils/100 WBC (Bld) 40.8 % . [facility] No Panel InformationOrdered By: Shalom Reed on 07-21-2022 Pharmacy Creatinine Clearance (Chem 108.43 [facility] Nucleated erythrocytes [Pres ence] in Blood by Automated countOrdered By: Shalom eRed on 07-21-2022 Nucleated RBC Auto Ql (Bld) 0.1 /100{WBC} 0-0.5 [facility] Platelet mean volume Auto (B ld) [Entitic vol]Ordered By: Shalom Reed on 07-21-2022 Platelet mean volume (Bld) [Entitic vol] 7.8 fL 6.3-10.7 [facility] Platelet poor plasma interna tional normalized ratio (INR) by coagulation assay (relatOrdered By: Shalom Reed on 07-21-2022 INR Coag (PPP) [Relative time] 0.9 {INR} [facility] Comment on above: INR Therapeutic Rang e A) Pre- and Peroperative OAT started two weeks before surgery. NOT HIP SURGERY: 1.5 - 2.5 HIP SURGERY: 2 - 3B) Primary and secondary prevention of venous THROMBOSIS: 2 - 3C) Active venous thrombosis, pulmonary embolismand prevention of recurrent venous thrombosis: 2 - 3D) Prevention of arterial thromboembolismincluding patients with mechanical heart valves: 3 - 4.5 Platelets Auto (Bld) [#/Vol] Ordered By: Shalom Reed on 07-21-2022 Platelets (Bld) [#/Vol] 249 10*3/uL 150-450 [facility] Potassium [Moles/volume] in Serum or PlasmaOrdered By: Shalom Reed on 07-21-2022 Potassium [Moles/Vol] 3.9 mmol/L 3.5-5.1 [facility] RBC Auto (Bld) [#/Vol]Ordere d By: Shalom Reed on 07-21-2022 RBC (Bld) [#/Vol] 4.80 10*6/uL 3.60-5.00 [facility] Serum or plasma anion gap de terminationOrdered By: Shalom Reed on 07-21-2022 Anion gap [Moles/Vol] 13.0 mmol/L 6.0-15.0 [facility] Sodium [Moles/volume] in Ser um or PlasmaOrdered By: Shalom Reed on 07-21-2022 Sodium [Moles/Vol] 133 mmol/L 136-145 [facility] Troponin I.cardiac [Mass/vol ume] in Serum or Plasma by Detection limit <= 0.01 ng/Ordered By: Shalom Reed on 07-21-2022 Troponin I.cardiac DL <= 0.01 ng/mL [Mass/Vol] 4.4 pg/mL 0.0-15.0 [facility] Urea nitrogen [Mass/volume] in Serum or PlasmaOrdered By: Shalom Reed on 07-21-2022 Urea nitrogen [Mass/Vol] 13 mg/dL 7-25 [facility] WBC Auto (Bld) [#/Vol]Ordere d By: Shalom Reed on 07-21-2022 WBC (Bld) [#/Vol] 8.1 10*3/uL 3.8-11.6 [facility] COVID CepheidOrdered By: Fior Castellano on 07-02-2022 SARS-CoV-2 (COVID-19) Ab IA Ql Positive Negative [facility] Comment on above: This is a duplicate [email or web address] Xpert Xpress CoV-2/Flu/RSV Plus RNA by RT-PCR result to be used for statistical tracking purpose only. SARS-CoV-2 (COVID-19) RNA CIARAN+probe Ql (Unsp spec) [facility] SARS-CoV-2 (COVID-19) RNA CIARAN+probe Ql (Unsp spec) [facility] COVID CepheidOrdered By: Meeko titus Keyes on 04-22-2022 SARS-CoV-2 (COVID-19) Ab IA Ql Negative Negative [facility] Comment on above: This is a duplicate Cepheid Xpert Xpress CoV-2/Flu/RSV Plus RNA by RT-PCR result to be used for statistical tracking purpose only. SARS-CoV-2 (COVID-19) RNA CIARAN+probe Ql (Unsp spec) [facility] SARS-CoV-2 (COVID-19) RNA CIARAN+probe Ql (Unsp spec) [facility] SARS-CoV-2 (COVID-19) RNA CIARAN+probe Ql (Unsp spec) [facility] Glucose Glucometer (BldC) [M ass/Vol]Ordered By: Jose Keyes on 04-22-2022 Glucose [Mass/Vol] 363 mg/dL [facility] Comment on above: Random Glucose Refer ence Range is dependent on time and content of last meal. Glucose of more than 200 mg/dL in a nonstressed, ambulatory subject supports the diagnosis of Diabetes Mellitus. Urine culture routineOrdered By: Jose Shane on 02-15-2022 Bacteria identified Cx Nom (U) Strep. agalactiae Grp B [facility] Albumin [Mass/volume] in Ser um or PlasmaOrdered By: Jose Shane on 02-13-2022 Albumin [Mass/Vol] 3.2 g/dL 3.2-5.5 [facility] Automated erythrocytes count in urine sediment (number/area)Ordered By: Jose Shane on 02-13-2022 RBC Auto (Urine sed) [#/Area] 1-2 [HPF] 0-4 [facility] Automated leukocytes count i n urine sediment (number/area)Ordered By: Jose Shane on 02-13-2022 WBC Auto (Urine sed) [#/Area] 10-19 [HPF] 0-4 [facility] Basophils Auto (Bld) [#/Vol] Ordered By: Jose Shane on 02-13-2022 Basophils (Bld) [#/Vol] 0.1 10*3/uL 0.0-0.2 [facility] Basophils/100 WBC Auto (Bld) Ordered By: Jose Shane on 02-13-2022 Basophils/100 WBC (Bld) 0.8 % . [facility] Bilirubin Test strip Ql (U)O rdered By: Jose Shane on 02-13-2022 Bilirubin Ql (U) Negative Negative [facility] Blood hemoglobin measurement (mass/volume)Ordered By: Jose Shane on 02-13-2022 Hemoglobin (Bld) [Mass/Vol] 11.7 g/dL 11.8-15.4 [facility] Blood leukocytes automated c ount (number/volume)Ordered By: Jose Shane on 02-13-2022 WBC (Bld) [#/Vol] 8.5 10*3/uL 4.5-11.0 [facility] Color Auto (U)Ordered By: Vincenzo Shane on 02-13-2022 Color (U) Yellow Yellow [facility] Creatinine and Glomerular fi ltration rate.predicted panel (S/P/Bld)Ordered By: Jose Shane on 02-13-2022 Creatinine [Mass/Vol] 0.88 mg/dL 0.44-1.03 [facility] Direct bilirubin measurement Ordered By: Jose Shane on 02-13-2022 Bilirubin.direct [Mass/Vol] mg/dL 0.0-0.4 [facility] Eosinophils Auto (Bld) [#/Vo l]Ordered By: Jose Shane on 02-13-2022 Eosinophils (Bld) [#/Vol] 0.2 10*3/uL 0.0-0.45 [facility] Eosinophils/100 WBC Auto (Bl d)Ordered By: Jose Shane on 02-13-2022 Eosinophils/100 WBC (Bld) 1.9 % . [facility] Erythrocyte distribution wid th Auto (RBC) [Ratio]Ordered By: Joes Shane on 02-13-2022 Erythrocyte distribution width (RBC) [Ratio] 13.5 % 11.9-15.3 [facility] Estimated glomerular filtrat ion rate (GFR) non- AmericanOrdered By: Jose Shane on 02-13-2022 GFR/1.73 sq M.predicted among non-blacks MDRD (S/P/Bld) [Vol rate/Area] > 60 mL/Min [facility] Globulin Calc (S) [Mass/Vol] Ordered By: Jose Shane on 02-13-2022 Globulin (S) [Mass/Vol] 3.6 g/dL [facility] Glucose Glucometer (BldC) [M ass/Vol]Ordered By: Jose Shane on 02-13-2022 Glucose [Mass/Vol] 231 mg/dL [facility] Comment on above: Random Glucose Refer ence Range is dependent on time and content of last meal. Glucose of more than 200 mg/dL in a nonstressed, ambulatory subject supports the diagnosis of Diabetes Mellitus. Hematocrit Auto (Bld) [Volum e fraction]Ordered By: Jose Shane on 02-13-2022 Hematocrit (Bld) [Volume fraction] 33.6 % 34.0-46.4 [facility] Ketones Auto test strip (U) [Mass/Vol]Ordered By: Jose Shane on 02-13-2022 Ketones (U) [Mass/Vol] Negative Negative [facility] - Chemistry and C hemistry - challengeOrdered By: Jose Shane on 02-13-2022 Lipase [Catalytic activity/Vol] 32.0 U/L 22-51 [facility] Laboratory - Hematology and Cell countsOrdered By: Jose Shane on 02-13-2022 Nucleated RBC/100 WBC (Bld) [Ratio] 0.0 % 0-0.5 [facility] - UrinalysisOrder ed By: Jose Shane on 02-13-2022 Hyaline casts LM Ql (Urine sed) 0-8 [LPF] 0-8 [facility] Lymphocytes Auto (Bld) [#/Vo l]Ordered By: Jose Shane on 02-13-2022 Lymphocytes (Bld) [#/Vol] 3.1 10*3/uL 1.00-4.8 [facility] Lymphocytes/100 WBC Auto (Bl d)Ordered By: Jose Shane on 02-13-2022 Lymphocytes/100 WBC (Bld) 35.8 % . [facility] MCH Auto (RBC) [Entitic mass ]Ordered By: Jose Shane on 02-13-2022 MCH (RBC) [Entitic mass] 30.0 pg 24.7-34.3 [facility] MCHC Auto (RBC) [Mass/Vol]Or dered By: Jose Shane on 02-13-2022 MCHC (RBC) [Mass/Vol] 34.8 g/dL 32.0-35.0 [facility] MCV Auto (RBC) [Entitic vol] Ordered By: Jose Shane on 02-13-2022 MCV (RBC) [Entitic vol] 86.2 fL 80-100 [facility] Monocytes Auto (Bld) [#/Vol] Ordered By: Jose Shane on 02-13-2022 Monocytes (Bld) [#/Vol] 0.8 10*3/uL 0.0-0.8 [facility] Monocytes/100 WBC Auto (Bld) Ordered By: Jose Shane on 02-13-2022 Monocytes/100 WBC (Bld) 8.9 % . [facility] Neutrophils Auto (Bld) [#/Vo l]Ordered By: Jose Shane on 02-13-2022 Neutrophils (Bld) [#/Vol] 4.5 10*3/uL 1.8-7.7 [facility] Neutrophils/100 WBC Auto (Bl d)Ordered By: Jose Shane on 02-13-2022 Neutrophils/100 WBC (Bld) 52.6 % . [facility] Nitrite Test strip Ql (U)Ord ered By: Jose Shane on 02-13-2022 Nitrite Ql (U) Negative Negative [facility] No Panel InformationOrdered By: Jose Shane on 02-13-2022 Estimated GFR () > 60 mL/Min [facility] Comment on above: GFR estimated refere nce range: According to KDOQI guidelines, <60 ml/min/1.73m2 is sufficient to diagnose a patient with chronic kidney disease. Pharmacy Creatinine Clearance (Chem 99.79 [facility] Platelet mean volume Auto (B ld) [Entitic vol]Ordered By: Jose Shane on 02-13-2022 Platelet mean volume (Bld) [Entitic vol] 7.3 fL 6.3-10.7 [facility] Platelets Auto (Bld) [#/Vol] Ordered By: Jose Shane on 02-13-2022 Platelets (Bld) [#/Vol] 250 10*3/uL 150-450 [facility] Protein Auto test strip (U) [Mass/Vol]Ordered By: Jose Shane on 02-13-2022 Protein (U) [Mass/Vol] Negative Negative [facility] Protein [Mass/volume] in Ser um or PlasmaOrdered By: Jose Shane on 02-13-2022 Protein [Mass/Vol] 6.8 g/dL 6.1-7.9 [facility] RBC Auto (Bld) [#/Vol]Ordere d By: Jose Shane on 02-13-2022 RBC (Bld) [#/Vol] 3.90 10*6/uL 3.60-5.00 [facility] Serum or plasma alanine shahid otransferase measurement without P-5'-P (enzymatic activiOrdered By: Jose Shane on 02-13-2022 ALT No additional P-5'-P [Catalytic activity/Vol] 20 U/L 60 [facility] Serum or plasma albumin/glob ulin mass ratioOrdered By: Jose Shane on 02-13-2022 Albumin/Globulin [Mass ratio] 0.9 {ratio} [facility] Serum or plasma alkaline rosie sphatase measurement (enzymatic activity/volume)Ordered By: Jose Shane on 02-13-2022 ALP [Catalytic activity/Vol] 98 U/L 32-92 [facility] Serum or plasma anion gap de terminationOrdered By: Jose Shane on 02-13-2022 Anion gap [Moles/Vol] 14.3 mmol/L 6.0-15.0 [facility] Serum or plasma aspartate am inotransferase measurement (enzymatic activity/volume)Ordered By: Jose Shane on 02-13-2022 AST [Catalytic activity/Vol] 19 U/L 1042 [facility] Serum or plasma calcium brenda urement (mass/volume)Ordered By: Jose Shane on 02-13-2022 Calcium [Mass/Vol] 9.3 mg/dL 8.2-10.2 [facility] Serum or plasma chloride cody surement (moles/volume)Ordered By: Jose Shane on 10-05-2022 Chloride [Moles/Vol] 96 mmol/L 95-114 [facility] Serum or plasma glucose brenda urement (mass/volume)Ordered By: Jose Shane on 02-13-2022 Glucose [Mass/Vol] 264 mg/dL 70-100 [facility] Comment on above: ADA recommended refe rence rangeRandom Glucose Reference Range is dependent on time and content of last meal. Glucose of more than 200 mg/dL in a nonstressed, ambulatory subject supports the diagnosis of Diabetes Mellitus. Serum or plasma non-glucuron idated bilirubin measurement (mass/volume)Ordered By: Jose Shane on 02-13-2022 Bilirubin.indirect [Mass/Vol] TNP [facility] Comment on above: Test not performed Serum or plasma potassium me asurement (moles/volume)Ordered By: Jose Shane on 02-13-2022 Potassium [Moles/Vol] 4.3 mmol/L 3.5-5.1 [facility] Serum or plasma sodium measu rement (moles/volume)Ordered By: Jose Shane on 02-13-2022 Sodium [Moles/Vol] 131 mmol/L 136-146 [facility] Serum or plasma total biliru bin measurement (mass/volume)Ordered By: Jose Shane 02-13-2022 Bilirubin [Mass/Vol] 0.4 mg/dL 0.3-1.2 [facility] Serum or plasma total carbon dioxide measurement (moles/volume)Ordered By: Jose Shane on 02-13-2022 CO2 [Moles/Vol] 25.0 mmol/L 22.0-30.0 [facility] Serum or plasma urea nitroge n measurement (mass/volume)Ordered By: Jose Shane on 02-13-2022 Urea nitrogen [Mass/Vol] 19 mg/dL 9-23 [facility] Specific gravity Auto test s trip (U) [Rel density]Ordered By: Jose Shane on 02-13-2022 Specific gravity (U) [Rel density] 1.023 1.001-1.03 0 [facility] Squamous epithelial cells de tection in urine sediment by light microscopyOrdered By: Jose Shane on 02-13-2022 Epithelial cells.squamous LM Ql (Urine sed) 0-1 [HPF] 0-2 [facility] Troponin I.cardiac [Mass/vol ume] in Serum or Plasma by High sensitivity methodOrdered By: Jose Shane on 02-13-2022 Troponin I.cardiac High sensitivity method [Mass/Vol] 3 pg/mL 0-15 [facility] Urine bacteria detection by automated methodOrdered By: Jose Shane on 02-13-2022 Bacteria Auto Ql (U) None seen None Seen [facility] Urine clarity by refractomet ry automatedOrdered By: Jose Shane on 02-13-2022 Clarity Refractometry automated (U) Clear Clear [facility] Urine glucose measurement by automated test strip (mass/volume)Ordered By: Jose Shane on 02-13-2022 Glucose Auto test strip (U) [Mass/Vol] >=1000 mg/dL Normal [facility] Urine hemoglobin detection b y automated test stripOrdered By: Jose Shane on 02-13-2022 Hemoglobin Auto test strip Ql (U) Negative Negative [facility] Urine lactic acid measuremen tOrdered By: Jose Shane on 02-13-2022 Lactate (U) [Moles/Vol] 1.2 mmol/L 0.5-2.2 [facility] Urine leukocyte esterase det ection by automated test stripOrdered By: Jose Shane on 02-13-2022 Leukocyte esterase Auto test strip Ql (U) 2+ Negative [facility] Urobilinogen Auto test strip (U) [Mass/Vol]Ordered By: Jose Shane on 02-13-2022 Urobilinogen (U) [Mass/Vol] Normal mg/dL Normal [facility] pH Auto test strip (U)Ordere d By: Jose Shane on 02-13-2022 pH (U) 6.0 [pH] 5.0-9.0 [facility] Auth for Release of Medical Recordson 01-08-2022 Auth for Release of Medical Records [id number] Normal [facility] C Urineon 01-07-2022 Bacteria identified Cx Nom (U) Microbiology PROCEDURE: Urine Culture [R1] SOURCE: U CleanCatch BODY SITE: COLLECTED DATE/TIME: 01/04/2022 15:37 EDT RECEIVED DATE/TIME: 01/04/2022 20:03 EDT START DATE/TIME: 01/04/2022 20:03 EDT FREE TEXT SOURCE: Johnny Goetz Lannette A FINAL REPORTS Final Report [] Verified Date/Time: 01/07/2022 09:13 EDT 20,000 cfu/ml Streptococcus agalactiae (Group B) Presumptive Penicillin is the drug of choice for Beta Hemolytic Streptococci Isolates. Routine susceptibility testing on Beta Hemolytic Streptococcus isolates is no longer performed. Susceptibilities will continue to be performed on Isolates from sterile body fluids and serious wound infections. 1,000 cfu/ml Mixed skin contaminants Performing Locations R1: This test was performed at: [facility], [address] [address], [id number] , [facility] Comment on above: Performed By: #### [id number] #### [facility] [address] [place] [address] Coding Summary.on 01-07-2022 Coding Summary. [id number] [id number] w+PGhlYWQ+KW3RYVSrN44dsGU vvD9PR2xUZG6BIXBWSRUHDT9X ZB8euJK5XEzmV9ZgefIn OucgpFDgPS09MTc6MEA6vDixM TurdD9ysESiU2q7EyVhDQ85wD 58URhbKLPePyB3QwHehfvyjLH y Y3aeOyEjqLYkDzf+PHRhYmxlI HdpZHRoPScxMDAlJyBzdHlsZT 5aYm8iAAZpJCUgjWifxFZoGsU j x6dkUXTbEOelHU6gxLhdH1Lmm ZR2QMHcp1a0Ir20rLH+PHRkIH P9hYwhWBmnm843LtJbo2mfYOE 3 wPSrHSfsEKO7Q24fh9Z2NEEeJ MQdHVZ2qBH8hC0iaPgtgwhhK9 IczOQtFcM1BXI6bOQzxH0roCt n oedgoZ3fYgc+S86DJN4GCUWRK K1IGtc2Y5KpInhfmIR+PC90YW KsBA03hQAkwZBtq6bxiId5LdY w BYAjOJL9fRynCDhiv7ZnKYCnW 06fiHFzi2F1BIJseLrttBXuFe AstUH6lE9nVWttxsfnq2vkapl n Ubmsu1wqjf95bM62G58aTMnoO VWnHOC8UHAbIVJlsBgkfq2qpY 9wIi8+JHmpe1hog0ahgSo5OeN w NIEtkaYwiPfmCEW1l6SmLc10D 1StyLazm1QfFcv3gt63vRTzz1 S0nJM9NNvkXYGstG1iUUtxQxO 6 VNPjLcEgtR64bDNxACfkKx0qx NcupRiiRB9gDACpshxdRSQhvE 6iLRPrsPCprWqhSG4lWJNuwmg m s888JcVzHNC0ERTfyVYyY0Znn B0jJxIdLRGoRQWgB5NnsDQsHX ydZ126ILheRpB4LYCwwmTfF2O s CWOyuUqfEbJ9t8S0Du3Fg4Yho abjAES7KYxoASW9VcZ7ZfRfEo Z2N9PgQqe2RHLjsSbaRL0gJ1Y h KQFsqlhpztjmqZF5NGSgCOOhr U12fNCpYWsmWp6le5L5a523PZ GqXLLroB08Rq8heTbmNOTovNO U mM7yxszlx6hpmvaxFyMzOYXoI Be6YDe9IVDjnPesLfNeYZK6Bh I6JZM5wEIhdZ7tlOjdbglovT4 w Oyc+A38yxE3gMMC2FRU1rzfhM AApneBdHX33HB78L4VxPmztlS FibGU+OEZsjvQulCreNR0iDcJ j v8cyr4ZsJXuhF0KaVJQtOUkxA cl1UMDtJIM0oGD5hT3pKYAmYZ ogz2U7eAE3Y8FlviSpcb0jf0p s NSXfUXxvV71eoXZxr7S3OGXlz II9ICVdrCvzTvPjdD74Tzd+PG SnrDrlf4PnFilhr9tyb1rupVl 9 ZeYcPCUjuySzyBemENZ1p0RqF i32A78mFXtnIZJtCTJwLIBbPO IajIlqmm3znJ7aGw1+PGNvbCB 3 pDF2uR9lMYClQyQ7NYvfZ509Q zQrrOEnBdccu8bfd8saqSy8Pk JyFNRejgVlwJngORQ9f4BzCk4 8 B01bKXodEIXuZBRcRIPuSEBln Bzsls1gcF8uLj1+SW1za5cypx 57yG02oDO+SKBwTZV1xFlvELh w FPWkiU3yQUzzHeR9WAZpLoZea C10iAFyWEwbMg6sgZqmkKlbQY 3vCLHlgwyzd926DkCot9yiVXE w eDCtGOsfIAQ1I09lk8V2AANhU ADsOQQ1qKR4lQ9pxMceoosnhI HobHuyneEbdJlwIAwsWHszD42 6 IHRvcDsnPlBhdGllbnQgTmFtZ Zl1K2TfLaa2UFHscGugZY1awA OwQGooOi3fbFfhfDkxKY4lTMU p vqoqk542ZjJvu4bcROEutYSuJ OdfKPP3A56wm9B2RWLjDWFjDA D9tQV7jK7qoRwtghfudGCbfKq g fhCjgKysDXilBKikD873QVQqu ImiJyPuqzKbMPMsvSG6FP68CY 93dEDpy4X3xGM0K5FwMDHvwlv t kfetxTS9ATMsFOSrbL56Qe2on ZjrDu6fTJYxOPB7BCQnbSQdP2 ZleF0oPdLdANFbLEZqQ9IzbWW t NMbrL464HSghFmS8TONyroLuB 0HrNKKtzDxjGwI9v8N7Tn0ZN4 Z7XM34ED12lIIkq0G0dNG8Y9G h MXNfdlidqhjtcDA0PHDhZCJrb K15Sb8diLsdXc9cEGQyHPT3TH IafAHiK5ZyrF7bIzNxPCCiGGC w S4OmwCVqCMneM612SWihOzO8U MYiqnSwP1CdULDvcZvvWtS9u9 Y4Vs0WNHu6HN19DR86fSIih1J 5 tDB4V5SmCEWakvlmmqalqLC5E YRaFAYcjE96Sl9zkXdaYt0uUI QrRQR3WUUomKUcK1DnlJ2oBfO j DOWpBIKcH6ZfdZHdOXxtS525O AcvLtJ0OPGdmmWgJ1SzKOLwjP cbCxU0i9O6Pu8ALOCnPX10TPS 5 cXH2HL96KN23Z3PbHzldlADvx +PHRhYmxlIHdpZHRoPScxMD ShPtVjiXpwRW0kDr2wAAIcBET v lFqzdVZjAeUey5neZWEhTAtmQ A6mwJmnC4HntVF0JGMki4b1Wn 96J07wM9YibGM+AXBaeGH1hKE 0 yE9vXkTsUuF8WHozB189CrLvh BHuMxhsg5wpf4ezgAc0XgD1VS FfsfDcmTabXSU9a0RyIb77H64 s IHdpZHRoPSIxNSUiIHZhbGlnb w5cpL6qQd7+KTXcyVP0xTC1mB 6qViArVzH8QJduD392YsZmoZB v Mmiwa3ggr3hwjCh4ZyThGOWfp eAewKgfMWR9r9NrVm33U8RsdI kzw7QyEue8ts98oMPxr9J3eSX 9 J5DoYNPsuomlvCIiwYflWP3pN BUbapygWBUzhX8tBLTkG5v9Zg JiWgT8ARcpJ0UetkA9WWJawMZ g MPubKAA0T28pq2P3ZIDoFZFiE OP7pZR1zQ2nbDsiwyycnGTxgU htxmMdaWmlUFnuIRbnH528BXY v fHpjSBRcuZ1xCFQchIEcbIhuY Y4mDDRblogyHiSUNCSEKLAWZ6 1GKECMKM85TQ73aGCkp5T5tWZ 9 N0PiJXFlhczhwzfppQU0ZFPnC SNpgE16cNCqXVtpTv8op5M2x1 11SEEqVULnvL58Eu4jpEctAIA w gWQCsV1ynzkpk6qcexvqPwJbA WAsJTh7UIz3JQBenLomRpDuDH J5ZqE8JHJ9hXAjgY2dbMnmcxu g qE2tGsb+ABGyKKEuAYt7CDvgt GQ+UZHbVMS4tJokMVhxVPZjeC 2dHFNoO8k2PfRzZkK5HClwD5A h IKLpytstIp44wV4rTrDrAyH4U BjlG4WhevL3GYNmxMMyQUrhLZ S0Z39cj6J2JTLsCFOiJSB4gKA 4 rB5csUfasrqpqXVoaTswadQqd MzvGBshJBodP330MTQaaClsLs D3ZIuvZFEpIJ38HK48pOKtd9F 5 mOX2J3YhYNEslvbnanhuaTS0M RNkHNGfpC31xHFiNVaiNw2ug2 X8v647RPBaXUPugY59Vy7wnWw g NLSmoEYJxJ3lgsxzf9tbwjipT pXvUELgYYn6JGn6AYIjsHjgLz YcDZJ1KmX1AOE9dFUdvS6maTc n ssxokV2vYch+SlAeBHqvIP34J X17qWMhj0S6hDJ1S2WsTUKsfy vhbvpccBQ5WTHnVSAuxL21pZM k XRxnKz9sr8K8i807TECxSOOtk O46Xg2giPjjRCSchPUUtX2bra sua1weplwiLtMbGDHwVKu7KEr 0 HWTtuCcdAzQhFXT1SeJ5STH5m DIhsH8fwCpsitdagH5nHwx+TG VbWVRov3Jaa4XkPI19IZ38S6Q y PjwvdGFibGU+PHRhYmxlIHdpZ ELvZXhqXECpRvOyhFyfFJ5gFv 2fVYOyOEOdaNpvfFSgVbPyl0h s HCXqDEmkHQ1xgWxrX5TmlDF1R NNua3t5Xm58Z85lM0DdfQC+PG UobMG2xNP7kB0cTtHuKrK3GAr p I830DdWacRLjJvhbx0lsr5fip Wz2YjDnFVKqxvWnjWeaPKN2r3 XtEh75D82qHJhtXBQvPIPnFEK i FFOggWlwvl2oiC2xJt8+PGNvb XT8uLH1cW6wUbPqRzB4UKdmQ6 88CrWsmNCuPeozD26xO1XayJU + TNCzPay0APYwmHkmLV4qaXCnM KvdCh4aOKE7JgZlQhGgCWubM0 PcIVXmyqufsoqbcNA9XDPqKIU w uX58Cs5wjHcoEl8qLCBsFKV5E JGrcWTlD4YmaJ8fIgVmSZFwJO KiN4PbaAIlRWyfU562IDurJtR 7 OCVxfrWwJ8LyDQJyeUyaEzZ1e 7X7Jp6ScFrndIKkHD7iDxCoND d6X2TjIgw9DZClyAbdHO2wdUJ k KUmuOn6kpJkohQngLY0rVJLbd nbmc084HhTyr1aiOCIfxKQiWP pgRJL5M30nu8G5RIJnELTzHRC 7 iSQ9zW1fzUmyufnzbOKrrUxoh dRqbKgnEEasWLkiO393ODKzzC coAcWGXpg8F1RaQhs7BEPfkJl s JC1btTEeREqeRk5rzZnbrRtgH Z3bEXRwdnmkr390MhDco1uiAE BtbRHrETbrPVI0I44kr1M0GIZ w AFDkZGU0gZL0qQ3arGklquhzw GVmdDsgdmVydGljYWwtYWxpZ2 10HWGfeXonTw8OHfc2J4HmOww 0 FXRmmBufHO4hqZFaVJfbGi0ro WcdcFamVM6dLTBekjjge435Ij Zkk3isDFJgaGZpNEtzBUP8U65 s q2H6EJOaVKBkCDJ1hLA8iF2ah GlnbjogbGVmdDsgdmVydGljYW fbBIonF535CRTjuXilCxRbdPA y OjwvdGQ+OZ46br74L0MwQdcwF cd3OVJqUTX8cVL0tV0iNTZkOX dwe9P1gID2D1BwluMisk1ka4f s YXBz (more content not included)... Normal [facility] Formson 01-07-2022 Forms [id number] Normal [facility] Urology Office/Clinic Noteon 01-07-2022 Urology Office/Clinic Note Chief Complaint Pt is here for dysuria HPI Staff Dalia is a 56 y.o. female new patient here for dysuria. Pt states seen [facility] years ago. Dysuria: yes peeing razors Incomplete bladder emptying: denies Hematuria: denies Frequency: every 2 hours Urgency: yes Nocturia: 1x a night Stream: steady stream, straining to void Leaking: mild Post void dripping: denies Wearing pads/ Depends: yes wears pads when leaving the house Urge incontinence: yes Stress incontinence: yes Incontinence without Sensory Awareness: denies Abdominal pain: yes abdominal pressure Flank pain: denies Sexual complaints: _ History of Present Illness Perimenopausal/menopause? HYST w/ bilateral oophorectomy in (not for CA). Last [employer] exam? Probably 1989. Pt indicates band of tissue in vagina that was initially noted when she was 16 YO. Genital/vaginal dryness or irritation? Denies Weak stream, split or spraying stream? Strong stream. No split or spraying stream. See staff HPI as well. Review of Systems PHQ Score Initial Depression Screen Score: 0 Denies fever, chills, N/V. See staff HPI. Physical Exam Vitals & Measurements HR: 71(Peripheral) BP: 122/82 HT: 167 cm HT: 167.0 cm General Appearance: alert , no acute distress, well nourished, well developed female, morbidly obese. Head: normocephalic . Eyes: normal orbit and globe. Chest: no conversational dyspnea, respirations non labored . Cardiovascular: no cyanosis Abdomen: soft, obese non distended, no tenderness, no mass or organomegaly. Genitourinary: bladder nonpalpable, left flank and left lower back tenderness External genitalia normally formed. Labia red and irritated appearing but no drainage, edema, mass or lesions of genital area. No appearance of candidiasis. No bladder prolapse. Pt indicates band of tissue in vagina that was initially noted when she was 16 YO and on exam this is noted in posterior vagina. On exam this is a longitudinal elongated mound of tissue and I can't say it's a rectocele. It's not irritated, it's not hard or firm. Lymph Nodes: no inguinal adenopathy Skin: warm, dry, no abd or posterior trunk rash or erythema Psychiatric: cooperative, affect appropriate for age, normal judgement, euthymic mood. Pt wheels herself around in a wheelchair today. Is able to transfer on her own from wheelchair to exam table and vice versa with some assistance. Assessment/Plan I asked staff to have Pt sign records release to get records to where she was Tx'd for a UTI back in November 2021. Pt had indicated seeing Dr. Carrion in the past but didn't indicate for what. Staff checked old EMR system and found no records. 1. Dysuria (R30.0: Dysuria) CC is peeing razors x 1.5 months. Pt had been treated by a Dr. Strange (spelling?) from the [facility]. I advised staff to have Pt sign records release to get records. Pt reports a dipstick being done at her house. Unclear if Cx ever done. Pt had initially been on Bactrim x 1 week for a sore on her butt and 3 days after finishing it for that put on it again for another week due to the dysuria. The 1st time she was on it was around the 2nd week of November. As soon as she finished the antibiotic the dysuria returned. UA today neg for signs of infection but will send for Cx due to reported Sx. Advised in the mean time can take OTC Pyridium as directed on label. Pt's labia are red and irritated and discussed w/ Pt that this may be causing her dysuria. PVR today is 101 mL. Timed voiding and double voiding discussed. Pt indicates leaning forward and holding up her pannus helps her get more urine out. Pt indicates she hasn't had a BM in 15 days other than little turds . When she pushes stool out she urinates. Has appt w/ GI specialist in 3 days because of the constipation. Discussed w/ Pt how bladder and bowel health are related. Pt advised she needs to focus on having regular BMs as this may improve her urinary complaints. UA today - glucose 1000 mg/dL. May be from diabetic med or poor diabetic control. Is a type 2 diabetic. Blood sugars have been averaging around low 100's. Highest has been 209. Considered Invokana may be contributing to her complaints. Pt indicates she will be stopping Invokana in January because insurance won?t cover it. Has been on this med x 3 years. Pt doesn't know what will be prescribed instead. There is irritation of the labia noted today. Pt described putting iodine on her genital area once per month and we discussed stopping this in case it was causing irritation. Vaginal atrophy discussed. Trial of topical estrogen discussed. Plan is for Pt to try this. Rx for nightly x 3 weeks then 3x/week thereafter for maintenance. Discussed stopping it and notifying office if breast pain or tenderness develops. Discussed if local irritation occurs/worsens because of the cream then to stop it until the irritation resolves and can try resuming it but may need to resume at a lower dose (more content not included)... [facility] Comment on above: Result Comment: Elec tronically Signed By: Johnny Goetz\.br\Date and Time Signed: 01/06/22 22:06 EDT\.br\Electronically Co-Signed By: Carolyn Khanna\.br\Date and Time Co-Signed: 01/04/22 15:22 EDT Ambulatory Visit Summaryon 0 01-04-2022 Ambulatory Visit Summary DALIA MELENDEZ :1965 Visit Date:01/04/2022 Ambulatory Visit Instructions Your Diagnosis Dysuria Former smoker History of UTI Diabetes Tests Performed Urnls Dip Stick Auto w/o Microscopy POC [id number] Your Care Team Attending Physician - Johnny Goetz Primary Care Physician - ALIYAH GAGNON MD This Is Your Medications List estradiol topical (Estrace 0.1 mg/g Cream) Contact prescribing physician if questions or concerns amitriptyline (amitriptyline 150 mg Tab) amlodipine (amLODIPine 5 mg Tab) atorvastatin (atorvastatin 20 mg Tab) baclofen (baclofen 10 mg Tab) canagliflozin (Invokana 300 mg oral tablet) dicyclomine (dicyclomine 20 mg Tab) duloxetine (duloxetine 60 mg Cap-DR) levothyroxine (levothyroxine 200 mcg (0.2 mg) Tab) lisinopril (lisinopril 20 mg Tab) omeprazole (omeprazole 20 mg Cap-DR) Procedures Performed Appendectomy, Bilateral tubal ligation, section, Cholecystectomy, Colonoscopy, Hysterectomy, left Knee Surgery, Right Elbow Surgery. Discharge Vitals Heart Rate (Peripheral) 71 Blood Pressure 122/82 Height 167 cm Height 167.0 cm What to do next Scheduled Follow-Up Appointments Friday 1:00 PM EDT With: Johnny Goetz Where: [facility] Patient Educationon 01-05-20 Patient Education Urology 24-Hour Urine Collection A 24-hour urine specimen is a lab test that requires collection of all your urine for an entire day. This is sometimes called a timed urine test. It can provide more information than a single urine sample. There are many reasons to have this test. Your health care provider may order the test to check for or monitor the following conditions: ? High blood pressure. ? Kidney disease. ? Kidney stones. ? Urinary tract infections. ? . ? Diabetes. How do I prepare for this test? ? You may be asked to follow a special diet during or before the collection period. Follow any instructions from your health care provider. If no special instructions are given, you may eat and drink normally. ? Take asdb-wdk-ypdamzo and prescription medicines only as told by your health care provider. ? Let your health care provider know about any medicines that you are taking, including tkmz-dnz-ielxkrz medicines, vitamins, herbs, and supplements. ? Choose a collection day when you can be at home or when you have a place to store the urine. All urine must be collected during the testing period. How do I do a 24-hour urine collection? ? When you get up in the morning, urinate in the toilet and flush. Write down the time. This will be your start time on the day of collection and your end time on the next morning. ? From the start time on, all of your urine should be kept in the collection jug that you received from the lab. ? If the jug that is given to you already has liquid in it, that is okay. Do not throw out the liquid or rinse out the jug. Some tests need the liquid to be added to your urine. ? Urinate into a specimen container, such as a urinal or reagan that sits over the toilet. Pour the urine from the container into the collection jug. Be careful not to spill any of the urine. Use the equipment provided by the lab. ? Do not let any toilet paper or stool (feces) get into the jug. This will contaminate the sample. ? Stop collecting your urine 24 hours after you started. Collect the last specimen as close as possible to the end of the 24-hour period. ? Keep the jug cool in an ice chest or keep it in the refrigerator during collection. ? When the 24-hour collection is complete, bring the jug to the lab. Keep the jug cool in an ice chest while you are bringing it to the lab. What do the results mean? Talk with your health care provider about what your results mean. Questions to ask your health care provider Ask your health care provider, or the department that is doing the test: ? When will my results be ready? ? How will I get my results? ? What are my treatment options? ? What other tests do I need? ? What are my next steps? Summary ? A 24-hour urine specimen is a lab test that requires collection of all your urine for an entire day. ? When you get up in the morning, urinate in the toilet and flush. Write down the time. For the next 24 hours, collect all of your urine in the collection jug that you received from the lab. ? Keep the jug cool while collecting the urine and while bringing it back to the lab. ? Take the jug of urine back to the lab as soon as possible after the collection period has ended. This information is not intended to replace advice given to you by your health care provider. Make sure you discuss any questions you have with your health care provider. Document Released: 07/25/2009 Document Revised: 08/16/2019 Document Reviewed: 05/11/2018 [employer] Patient Education ? 2019 [employer] Normal [facility] Urine culture routineOrdered By: Johnnie Shetty on 10-24-2021 Bacteria identified Cx Nom (U) Providencia stuartii [facility] Automated erythrocytes count in urine sediment (number/area)Ordered By: Johnnie Shetty on 10-22-2021 RBC Auto (Urine sed) [#/Area] 5-9 [HPF] 0-4 [facility] Automated leukocytes count i n urine sediment (number/area)Ordered By: Johnnie Shetty on 10-22-2021 WBC Auto (Urine sed) [#/Area] Innumerable [HPF] 0-4 [facility] Bilirubin Test strip Ql (U)O rdered By: Johnnie Shetty on 10-22-2021 Bilirubin Ql (U) Negative Negative [facility] Color Auto (U)Ordered By: Randall Shetty on 10-22-2021 Color (U) Dark yellow Yellow [facility] Ketones Auto test strip (U) [Mass/Vol]Ordered By: Johnnie Shetty on 10-22-2021 Ketones (U) [Mass/Vol] Negative Negative [facility] - UrinalysisOrder ed By: Johnnie Shetty on 10-22-2021 Hyaline casts LM Ql (Urine sed) 0-8 [LPF] 0-8 [facility] Nitrite Test strip Ql (U)Ord ered By: Johnnie Shetty on 10-22-2021 Nitrite Ql (U) Positive Negative [facility] Protein Auto test strip (U) [Mass/Vol]Ordered By: Johnnie Shetty on 10-22-2021 Protein (U) [Mass/Vol] 30 mg/dL Negative [facility] Specific gravity Auto test s trip (U) [Rel density]Ordered By: Johnnie Shetty on 10-22-2021 Specific gravity (U) [Rel density] 1.029 1.001-1.03 0 [facility] Squamous epithelial cells de tection in urine sediment by light microscopyOrdered By: Johnnie Shetty on 10-22-2021 Epithelial cells.squamous LM Ql (Urine sed) 5-9 [HPF] 0-2 [facility] Urine bacteria detection by automated methodOrdered By: Johnnie Shetty on 10-22-2021 Bacteria Auto Ql (U) 4+ None Seen [facility] Urine clarity by refractomet ry automatedOrdered By: Johnnie Shetty on 10-22-2021 Clarity Refractometry automated (U) Turbid Clear [facility] Urine glucose measurement by automated test strip (mass/volume)Ordered By: Johnnie Shetty on 10-22-2021 Glucose Auto test strip (U) [Mass/Vol] >=1000 mg/dL Normal [facility] Urine hemoglobin detection b y automated test stripOrdered By: Johnnie Shetty on 10-22-2021 Hemoglobin Auto test strip Ql (U) 2+ Negative [facility] Urine leukocyte esterase det ection by automated test stripOrdered By: Johnnie Shetty on 10-22-2021 Leukocyte esterase Auto test strip Ql (U) 3+ Negative [facility] Urobilinogen Auto test strip (U) [Mass/Vol]Ordered By: Johnnie Shetty on 10-22-2021 Urobilinogen (U) [Mass/Vol] Normal mg/dL Normal [facility] Yeast detection in urine sed iment by light microscopyOrdered By: Johnnie Shetty on 10-22-2021 Yeast LM Ql (Urine sed) None seen [HPF] None Seen [facility] pH Auto test strip (U)Ordere d By: Johnnie hSetty on 10-22-2021 pH (U) 5.0 [pH] 5.0-9.0 [facility] Bacteria identified Anaer cx Nom (Unsp spec)Ordered By: Johnnie Shetty on 09-24-2021 Anaerobic microbial culture No Anaerobes Isolated 3 Days [facility] Bacteria identified Aer cx N om (Unsp spec)Ordered By: Johnnie Shetty on 09-23-2021 Aerobic Culture Methicillin Resis St aph Aureus [facility] ABO and Rh group post transf usion reaction Nom (Bld)Ordered By: Johnnie Shetty on 09-21-2021 Microscopic observation Gram stain Nom (Unsp spec) [facility] Amphetamine Screen Ql (U)Ord ered By: Roman Edwards on 09-20-2021 Amphetamines Ql (U) Negative Negative [facility] Barbiturates [Presence] in U rineOrdered By: Roman Edwards on 09-20-2021 Barbiturates Ql (U) Negative Negative [facility] Basophils Auto (Bld) [#/Vol] Ordered By: Roman Edwards on 09-20-2021 Basophils (Bld) [#/Vol] 0.0 10*3/uL 0.0-0.2 [facility] Basophils/100 WBC Auto (Bld) Ordered By: Roman Edwards on 09-20-2021 Basophils/100 WBC (Bld) 0.6 % . [facility] Benzodiazepines [Presence] i n UrineOrdered By: Roman Edwards on 09-20-2021 Benzodiazepines Ql (U) Negative Negative [facility] Blood hemoglobin measurement (mass/volume)Ordered By: Roman Edwards on 09-20-2021 Hemoglobin (Bld) [Mass/Vol] 13.0 g/dL 11.8-15.4 [facility] Blood leukocytes automated c ount (number/volume)Ordered By: Roman Edwards on 09-20-2021 WBC (Bld) [#/Vol] 7.2 10*3/uL 4.5-11.0 [facility] Cannabinoids [Presence] in U rine by Screen methodOrdered By: Roman Edwards on 09-20-2021 Cannabinoids Screen Ql (U) Negative Negative [facility] Comment on above: These are unconfirme d results and should not be used for legal purposes. Drug Cut-Off Concentration: AMPH 1000 ng/mL CYDNEY 200 ng/mL LOLA 200 ng/mL COCM 300 ng/mL OP 300 ng/mL PCP 25 ng/mL THC 20 ng/mL Creatinine and Glomerular fi ltration rate.predicted panel (S/P/Bld)Ordered By: Roman Edwards on 09-20-2021 Creatinine [Mass/Vol] 0.87 mg/dL 0.44-1.03 [facility] Eosinophils Auto (Bld) [#/Vo l]Ordered By: Roman Edwards on 09-20-2021 Eosinophils (Bld) [#/Vol] 0.1 10*3/uL 0.0-0.45 [facility] Eosinophils/100 WBC Auto (Bl d)Ordered By: Roman Edwards on 09-20-2021 Eosinophils/100 WBC (Bld) 2.1 % . [facility] Erythrocyte distribution wid th Auto (RBC) [Ratio]Ordered By: Roman Edwards on 09-20-2021 Erythrocyte distribution width (RBC) [Ratio] 12.5 % 11.9-15.3 [facility] Estimated glomerular filtrat ion rate (GFR) non- AmericanOrdered By: Roman Edwards on 09-20-2021 GFR/1.73 sq M.predicted among non-blacks MDRD (S/P/Bld) [Vol rate/Area] > 60 mL/Min [facility] Glucose Glucometer (BldC) [M ass/Vol]Ordered By: Johnnie Shetty on 09-20-2021 Glucose [Mass/Vol] 251 mg/dL [facility] Comment on above: Random Glucose Refer ence Range is dependent on time and content of last meal. Glucose of more than 200 mg/dL in a nonstressed, ambulatory subject supports the diagnosis of Diabetes Mellitus. Hematocrit Auto (Bld) [Volum e fraction]Ordered By: Roman Edwards on 09-20-2021 Hematocrit (Bld) [Volume fraction] 39.1 % 34.0-46.4 [facility] Laboratory - Drug toxicology Ordered By: Roman Edwards on 09-20-2021 Opiates Ql (U) Negative Negative [facility] Laboratory - Hematology and Cell countsOrdered By: Roman Edwards on 09-20-2021 Nucleated RBC/100 WBC (Bld) [Ratio] 0.1 % 0-0.5 [facility] Lymphocytes Auto (Bld) [#/Vo l]Ordered By: Roman Edwards on 09-20-2021 Lymphocytes (Bld) [#/Vol] 2.5 10*3/uL 1.00-4.8 [facility] Lymphocytes/100 WBC Auto (Bl d)Ordered By: Roman Edwards on 09-20-2021 Lymphocytes/100 WBC (Bld) 34.6 % . [facility] MCH Auto (RBC) [Entitic mass ]Ordered By: Roman Edwards on 09-20-2021 MCH (RBC) [Entitic mass] 29.2 pg 24.7-34.3 [facility] MCHC Auto (RBC) [Mass/Vol]Or dered By: Roman Edwards on 09-20-2021 MCHC (RBC) [Mass/Vol] 33.3 g/dL 32.0-35.0 [facility] MCV Auto (RBC) [Entitic vol] Ordered By: Roman Edwards on 09-20-2021 MCV (RBC) [Entitic vol] 87.8 fL 80-100 [facility] Monocytes Auto (Bld) [#/Vol] Ordered By: Roman Edwards on 09-20-2021 Monocytes (Bld) [#/Vol] 0.7 10*3/uL 0.0-0.8 [facility] Monocytes/100 WBC Auto (Bld) Ordered By: Roman Edwards on 09-20-2021 Monocytes/100 WBC (Bld) 9.9 % . [facility] Neutrophils Auto (Bld) [#/Vo l]Ordered By: Roman Edwards on 09-20-2021 Neutrophils (Bld) [#/Vol] 3.8 10*3/uL 1.8-7.7 [facility] Neutrophils/100 WBC Auto (Bl d)Ordered By: Roman Edwards on 09-20-2021 Neutrophils/100 WBC (Bld) 52.8 % . [facility] No Panel InformationOrdered By: Roman Edwards on 09-20-2021 Estimated GFR () > 60 mL/Min [facility] Comment on above: GFR estimated refere nce range: According to KDOQI guidelines, <60 ml/min/1.73m2 is sufficient to diagnose a patient with chronic kidney disease. Pharmacy Creatinine Clearance (Chem 101.98 [facility] No Panel InformationOrdered By: Johnnie Shetty on 09-20-2021 Bedside Glucose Comment Glu2: cleaned meter [facility] Phencyclidine Screen Ql (U)O rdered By: Roman Edwards on 09-20-2021 Phencyclidine Ql (U) Negative Negative [facility] Platelet mean volume Auto (B ld) [Entitic vol]Ordered By: Roman Edwards on 09-20-2021 Platelet mean volume (Bld) [Entitic vol] 7.6 fL 6.3-10.7 [facility] Platelets Auto (Bld) [#/Vol] Ordered By: Roman Edwards on 09-20-2021 Platelets (Bld) [#/Vol] 254 10*3/uL 150-450 [facility] RBC Auto (Bld) [#/Vol]Ordere d By: Roman Edwards on 09-20-2021 RBC (Bld) [#/Vol] 4.45 10*6/uL 3.60-5.00 [facility] Serum or plasma calcium brenda urement (mass/volume)Ordered By: Roman Edwards on 09-20-2021 Calcium [Mass/Vol] 9.6 mg/dL 8.2-10.2 [facility] Serum or plasma chloride cody surement (moles/volume)Ordered By: Roman Edwards on 09-20-2021 Chloride [Moles/Vol] 97 mmol/L 95-114 [facility] Serum or plasma glucose brenda urement (mass/volume)Ordered By: Roman Edwards on 09-20-2021 Glucose [Mass/Vol] 265 mg/dL 70-100 [facility] Comment on above: ADA recommended refe rence range Random Glucose Reference Range is dependent on time and content of last meal. Glucose of more than 200 mg/dL in a nonstressed, ambulatory subject supports the diagnosis of Diabetes Mellitus. Serum or plasma potassium me asurement (moles/volume)Ordered By: Roman Edwards on 09-20-2021 Potassium [Moles/Vol] 4.9 mmol/L 3.5-5.1 [facility] Serum or plasma sodium measu rement (moles/volume)Ordered By: Roman Edwards on 09-20-2021 Sodium [Moles/Vol] 134 mmol/L 136-146 [facility] Serum or plasma total carbon dioxide measurement (moles/volume)Ordered By: Roman Edwards on 09-20-2021 CO2 [Moles/Vol] 24.9 mmol/L 22.0-30.0 [facility] Serum or plasma urea nitroge n measurement (mass/volume)Ordered By: Roman Edwards on 09-20-2021 Urea nitrogen [Mass/Vol] 16 mg/dL 9-23 [facility] Urine cocaine detectionOrder ed By: Roman Edwards on 09-20-2021 Cocaine Ql (U) Negative Negative [facility] COVID-19 Positive/NegativeOr dered By: Johnnie Shetty on 09-19-2021 SARS-CoV-2 (COVID-19) N gene CIARAN+probe Ql (Resp) Negative Negative [facility] Comment on above: Testing for SARS-CoV -2 by RT-PCR This test was developed and its performance characteristics determined by [employer] and validated at the [facility]. This test has not been FDA cleared or approved. This test has been authorized by FDA under an Emergency Use Authorization (EUA). This test has been validated in accordance with the FDA's Guidance Document (Policy for Diagnostics Testing in Laboratories Certified to Perform High Complexity Testing under CLIA prior to Emergency Use Authorization for Coronavirus Disease-2019 during the Public Health Emergency) issued on August 12, 2019. This test is only authorized for the duration of time the declaration that circumstances exist justifying the authorization of the emergency use of in vitro diagnostic tests for detection of SARS-CoV-2 virus and/or diagnosis of COVID-19 infection under section 564(b)(1) of the Act, 21 U.S.C. 360bbb-3(b)(1), unless the authorization is terminated or revoked sooner. XR shoulder LT min 2V*on XR shoulder LT min 2V* [facility] [employer] Other XR shoulder LT min 2V* [facility] [employer] Other XR shoulder LT min 2V* [address] [facility] [employer] Other XR shoulder LT min 2V* [place] [address] [employer] Other XR shoulder LT min 2V* XRay Report N [facility] [employer] Other XR shoulder LT min 2V* Signed No rt [employer] Other XR shoulder LT min 2V* Patient: Colby Melendez MR#: [id number] [place] [employer] Other XR shoulder LT min 2V* 8 No rt [employer] Other XR shoulder LT min 2V* : 1965 Acct:[id number] [employer] Other XR shoulder LT min 2V* Age/Sex: 55 / F A DM Date: 07/26/21 [employer] Other XR shoulder LT min 2V* Loc: [facility] Room: T ype: [facility] [employer] Other XR shoulder LT min 2V* Attending Dr: Mitul Dumont DO [employer] Other XR shoulder LT min 2V* Ordering Provider : Freddie Dumont DO [employer] Other XR shoulder LT min 2V* Date of Service: 07/26/21 [employer] Other XR shoulder LT min 2V* XR/XR shoulder LT min 2V*: Acute pain of left shoulder [employer] Other XR shoulder LT min 2V* Copies to: Freddie Dumont, DO [employer] Other XR shoulder LT min 2V* LEFT SHOULDER -4 views [employer] Other XR shoulder LT min 2V* CLINICAL HISTORY: Left shoulder pain for weeks. Pain radiates down arm with numbness and tingling. [employer] Other XR shoulder LT min 2V* COMPARISON: None [employer] Other XR shoulder LT min 2V* FINDINGS: Mild degenerative changes left AC joint. Glenohumeral joint appears unremarkable. [employer] Other XR shoulder LT min 2V* Subacromial space appears well-maintained. No acute bony process. [employer] Other XR shoulder LT min 2V* 8 XR/XR shoulder LT min 2V* [employer] Other XR shoulder LT min 2V* IMPRESSION: N [employer] Other XR shoulder LT min 2V* MILD DEGENERATIVE CHANGES LEFT AC JOINT. NO ACUTE BONY PROCESS. [employer] Other XR shoulder LT min 2V* Impression dictat ed by: Jason Conroy Jr., D.O.07/26/2021 3:20 PM [employer] Other XR shoulder LT min 2V* Dictation Locatio n: [id number] [employer] Other XR shoulder LT min 2V* Transcribed By: Elli AGUIRRE 07/26/21 1520 [employer] Other XR shoulder LT min 2V* Dictated By: Suhas Conroy Jr, DO 07/26/21 1519 [employer] Other XR shoulder LT min 2V* Signed By: [employer] Other XR shoulder LT min 2V* 07/26/21 1520 [employer] Other KNEE RIGHT 1 OR 2 [facility] KNEE RIGHT 1 OR 2 [facility] Department of Radiology [address] [place] [id number] Patient Name: DALIA MELENDEZ : 1965 Sex: F Age: Race: White Pt. Location: Patient Status: O Ordered Date: 02/11/2020 9:50:00 AM Completed Date: 02/11/2020 09:56 AM Requesting Provider: JOSIAH SALINAS Attending Provider: JOSIAH SALINAS Report Copy To: MARLYS MONGE Signs & Symptoms: S82.161D Torus fx upper end of right tibia, subs for fx w routn heal I10 History: Comments: evaluate Exam: KNEE RIGHT 1 OR 2 S KNEE RIGHT 1 OR 2 VWS 02/11/2020 9:56 AM CLINICAL INDICATIONS: S82.161D Torus fx upper end of right tibia, subs for fx w routn heal I10 TECHNOLOGIST COMMENTS: Patient has right knee pain. Multiple surgeries to right knee QUESTION FOR THE RADIOLOGIST: evaluate PROTOCOL: AP(PA) and Lateral views were obtained. COMPARISON: January 12, 2020 FINDINGS: Osteopenic bones. Extensive fixation hardware distal femur and proximal tibia with healed distal femoral shaft fracture and healing proximal tibia and fibular fractures. Osseous bridging is not yet complete at the proximal tibial component callus formation is noted. IMPRESSION: Healing fractures of the proximal tibia and fibula identified without any change in alignment. Electronically signed: Patrick Clark. Transcribed by: [email or web address], User Resident: Electronically Signed by: PATRICK CLARK @ 02/11/2020 10:17 AM Normal [facility] Comment on above: Order Comment: No co llection time noted on specimen or requisition. The collection time recorded is the time of receipt in the lab. No collection time noted on specimen or requisition. The collection time recorded is the time of receipt in the lab. The Aptima SARS-CoV-2 assay is a nucleic acid amplification test intended for the qualitative detection of RNA from SARS-CoV-2 isolated and purified from nasopharyngeal (TOLL TICKET CLERK), nasal and oropharyngeal (OP) swab specimens from patients with signs and symptoms of infection who are suspected of COVID-19. Results are for the identification of SARS-CoV-2 RNA. The SARS-CoV-2 RNA is generally detectable in nasopharyngeal and oropharyngeal swabs during the acute phase of infection. The Aptima SARS-CoV-2 Assay on the [place] and [employer] system is intended for use by laboratory personnel specifically instructed and trained in the operation of the [place] and [place] Fusion system. The Aptima SARS-CoV-2 assay is only for use under the Food and Drug Administration Emergency Use Authorization. Testing is limited to laboratories certified under the Clinical Laboratory Improvement Amendments of 1988 (CLIA), 42 U.S.C. ???263a, to perform high complexity tests. Not Detected: Not detected does not preclude SARS-CoV-2 infection and should not be used as the sole basis for patient management decisions. Not detected results must be combined with clinical observations, patient history, and epidemiological information. KNEE RIGHT 1 OR 2 [facility] KNEE RIGHT 1 OR 2 [facility] Department of Radiology [address] [place] [phone] Patient Name: DALIA MELENDEZ : 1965 Sex: F Age: Race: White Pt. Location: 84 Patient Status: O Ordered Date: 01/12/2020 2:25:00 PM Completed Date: 01/12/2020 02:29 PM Requesting Provider: JOSIAH SALINAS Attending Provider: JOSIAH SALINAS Report Copy To: MARLYS MONGE Signs & Symptoms: S82.161D Torus fx upper end of right tibia, subs for fx w routn heal I10 History: Doris Comments: evaluate Exam: KNEE RIGHT 1 OR 2 VWS KNEE RIGHT 1 OR 2 VWS HISTORY: Fracture follow-up. COMPARISON: 12/21/2019. IMPRESSION: 1. Unchanged alignment of the proximal tibial and fibular fractures, bridging callus of the tibial fracture site without large regions of osseous bridging. Unchanged appearance of the proximal fibular fracture. 2. Distal femoral proximal tibial hardware, unchanged in appearance without complication. Electronically signed: Yvan Husain. Transcribed by: [email or web address], User Resident: Electronically Signed by: YVAN HUSAIN @ 01/12/2020 02:58 PM Normal [facility] Comment on above: Order Comment: No: D o not add to previous draw Criteria for reflexing a culture was not met. Please call the lab at [phone] within 24 hours of collection time if culture is needed KNEE RIGHT 1 OR 2 [facility] 12-10 KNEE RIGHT 1 OR 2 [facility] Department of Radiology [address] [place] [phone] Patient Name: DALIA MELENDEZ : 1965 Sex: F Age: Race: White Pt. Location: Patient Status: Ordered Date: 12/21/2019 10:50:00 AM Completed Date: 12/21/2019 11:03 AM Requesting Provider: ERIC FLORIAN Attending Provider: Report Copy To: Signs & Symptoms: S82.161D Torus fx upper end of right tibia, subs for fx w routn heal I10 History: Comments: Evaluate Exam: KNEE RIGHT 1 OR 2 S KNEE RIGHT 1 OR 2 VWS 12/21/2019 11:03 AM CLINICAL INDICATIONS: S82.161D Torus fx upper end of right tibia, subs for fx w routn heal I10 TECHNOLOGIST COMMENTS: ortho follow up rt knee fracture with hardware QUESTION FOR THE RADIOLOGIST: Evaluate PROTOCOL: AP(PA) and Lateral views were obtained. COMPARISON: Right knee x-ray 11/09/2019 FINDINGS: Hardware fixation of distal femur and proximal tibial fractures with unchanged alignment. Persistent nonunion of the tibial fracture with some subjective increase of bone bridging formation since previous. No evidence of hardware complication. Impression: * Healing distal femur and proximal tibial fractures with hardware fixations in unchanged alignment. No hardware complication. Approved by:Stefanie Kay12/21/2019 11:35 AM. I, Robert Leigh,have reviewed the images and reports Electronically signed: Robert Leigh. Transcribed by: [email or web address], User Resident: ROBERT ISRAEL Electronically Signed by: ROBERT LEIGH @ 12/21/2019 12:44 PM I personally read this/these film(s) with this resident Normal [facility] Comment on above: Order Comment: No co llection time noted on specimen or requisition. The collection time recorded is the time of receipt in the lab. No collection time noted on specimen or requisition. The collection time recorded is the time of receipt in the lab. The Aptima SARS-CoV-2 assay is a nucleic acid amplification test intended for the qualitative detection of RNA from SARS-CoV-2 isolated and purified from nasopharyngeal (TOLL TICKET CLERK), nasal and oropharyngeal (OP) swab specimens from patients with signs and symptoms of infection who are suspected of COVID-19. Results are for the identification of SARS-CoV-2 RNA. The SARS-CoV-2 RNA is generally detectable in nasopharyngeal and oropharyngeal swabs during the acute phase of infection. The Aptima SARS-CoV-2 Assay on the [employer] and [employer] system is intended for use by laboratory personnel specifically instructed and trained in the operation of the [place] and [place] [employer] system. The Aptima SARS-CoV-2 assay is only for use under the Food and Drug Administration Emergency Use Authorization. Testing is limited to laboratories certified under the Clinical Laboratory Improvement Amendments of 1988 (CLIA), 42 U.S.C. ???263a, to perform high complexity tests. Not Detected: Not detected does not preclude SARS-CoV-2 infection and should not be used as the sole basis for patient management decisions. Not detected results must be combined with clinical observations, patient history, and epidemiological information. ANKLE RIGHT 3 [facility] 11-09-19 ANKLE RIGHT 3 [facility] Department of Radiology [address] [place] [phone] Patient Name: DALIA MELENDEZ : 1965 Sex: F Age: Race: White Pt. Location: Patient Status: Ordered Date: 11/09/2019 8:15:00 AM Completed Date: 11/09/2019 08:16 AM Requesting Provider: ERIC FLORIAN Attending Provider: Report Copy To: Signs & Symptoms: S82.221D Displ transverse fx shaft of r tibia, 7thD I10 History: Comments: S82.221D Displ transverse fx shaft of r tibia, 7thD I10 Exam: ANKLE RIGHT 3 VWS ANKLE RIGHT 3 VWS 11/09/2019 8:19 AM SIGNS AND SYMPTOMS: S82.221D Displ transverse fx shaft of r tibia, 7thD I10 TECHNOLOGIST COMMENTS: follow/up surgery right knee 10/2019 has ankle pain QUESTION FOR THE RADIOLOGIST: S82.221D Displ transverse fx shaft of r tibia, D I10 PROTOCOL: AP,Lateral and Oblique views were obtained. COMPARISON: 10/23/2019 FINDINGS: Bony structures are osteopenic. No fracture or destructive lesion seen. There is mild degenerative changes at the ankle mortise with small spurs. IMPRESSION: 1. Stable exam with osteopenia no acute abnormality. Electronically signed: Graeme Herrera. Transcribed by: [email or web address], User Resident: Electronically Signed by: GRAEME HERRERA @ 11/09/2019 11:19 AM Normal [facility] Comment on above: Order Comment: No co llection time noted on specimen or requisition. The collection time recorded is the time of receipt in the lab. No collection time noted on specimen or requisition. The collection time recorded is the time of receipt in the lab. The Aptima SARS-CoV-2 assay is a nucleic acid amplification test intended for the qualitative detection of RNA from SARS-CoV-2 isolated and purified from nasopharyngeal (TOLL TICKET CLERK), nasal and oropharyngeal (OP) swab specimens from patients with signs and symptoms of infection who are suspected of COVID-19. Results are for the identification of SARS-CoV-2 RNA. The SARS-CoV-2 RNA is generally detectable in nasopharyngeal and oropharyngeal swabs during the acute phase of infection. The Aptima SARS-CoV-2 Assay on the [place] and [place] [employer] system is intended for use by laboratory personnel specifically instructed and trained in the operation of the [place] and [place] [employer] system. The Aptima SARS-CoV-2 assay is only for use under the Food and Drug Administration Emergency Use Authorization. Testing is limited to laboratories certified under the Clinical Laboratory Improvement Amendments of 1988 (CLIA), 42 U.S.C. ???263a, to perform high complexity tests. Not Detected: Not detected does not preclude SARS-CoV-2 infection and should not be used as the sole basis for patient management decisions. Not detected results must be combined with clinical observations, patient history, and epidemiological information. KNEE RIGHT 1 OR 2 [facility] 10-12 KNEE RIGHT 1 OR 2 [facility] Department of Radiology [address] [place] [phone] Patient Name: DALIA MELENDEZ : 1965 Sex: F Age: Race: White Pt. Location: Patient Status: O Ordered Date: 11/09/2019 8:55:00 AM Completed Date: 11/09/2019 09:12 AM Requesting Provider: JOSIAH SALINAS Attending Provider: ADAM THURSTON Report Copy To: Signs & Symptoms: S82.161D Torus fx upper end of right tibia, subs for fx w routn heal I10 History: Comments: evaluate Exam: KNEE RIGHT 1 OR 2 [facility] KNEE RIGHT 1 OR 2 [facility] 11/09/2019 9:12 AM CLINICAL INDICATIONS: S82.161D Torus fx upper end of right tibia, subs for fx w routn heal I10 TECHNOLOGIST COMMENTS: ortho follow up. surgery to the right knee 2 weeks ago QUESTION FOR THE RADIOLOGIST: evaluate PROTOCOL: AP(PA) and Lateral views were obtained. COMPARISON: Right tibia and fibula from October 06, 2019 FINDINGS: 2 views of the right knee revealed the presence of I'm adali in the distal femur with evidence of healed oblique right distal femur fracture. Sideplate and screws are also seen in the distal femur. Interval placement of sideplate and screws transfixing the proximal nonunited tibial fracture in addition to previously seen 3 screws at the tibial plateau. Healing proximal right fibular fracture. The alignment appears satisfactory and no hardware complications are appreciated. IMPRESSION: Hardware fixation for distal femur and proximal tibia as described above in satisfactory alignment and without hardware complications. Electronically signed: Sydnee Leavitt. Transcribed by: [email or web address], User Resident: Electronically Signed by: SYDNEE LEAVITT @ 11/09/2019 08:25 PM Normal [facility] Comment on above: Order Comment: evalu ate POC GLUCOSE LABon 10-23-2019 Glucose [Mass/Vol] 209 mg/dL High 70-100 [facility] Comment on above: Performed By: #### 5 [id number] #### [address] [address], [facility] Glucose [Mass/Vol] 200 mg/dL High 70-100 [facility] Comment on above: Performed By: #### 5 [id number] #### [facility] [address] [place] [address], [facility] Glucose [Mass/Vol] 211 mg/dL High 70-100 [facility] Comment on above: Performed By: #### 5 [id number] #### [facility] [address] [place] [address], [facility] PORTABLE ANKLE RIGHT 2 [facility] 10-23-2019 PORTABLE ANKLE RIGHT 2 [facility] Department of Radiology [address] [place] [phone] Patient Name: DALIA EMLENDEZ : 1965 Sex: F Age: Race: White Pt. Location: [id number] Patient Status: I Ordered Date: 10/23/2019 8:15:00 AM Completed Date: 10/23/2019 10:01 AM Requesting Provider: ROLAN THIBODEAUX Attending Provider: ADAM THURSTON Report Copy To: Signs & Symptoms: Pain ( specify Location) History: Comments: EVALUATE FOR FX Exam: PORTABLE ANKLE RIGHT 2 VWS Addendum Begins Periosteal reaction/ cortical irregularity in the lateral distal tibia seen on oblique view, not seen on prior CT, possibly projectional. Osteopenia. Approved by:Barb Nicole10/23/2019 11:18 AM. Betsey Pope,have reviewed the images and reports Electronically signed: Betsey Ruiz. Addendum Ends PORTABLE ANKLE RIGHT 2 VWS 10/23/2019 10:01 AM CLINICAL INDICATIONS: Pain ( specify Location) TECHNOLOGIST COMMENTS: Patient has right ankle pain. Surgery 10/20/2019 to right knee. QUESTION FOR THE RADIOLOGIST: EVALUATE FOR FX PROTOCOL: AP,Lateral and Oblique views were obtained. COMPARISON: CT lower extremity 09/27/2019 FINDINGS: There is osteopenia with degenerative changes. No acute fracture or dislocation. Ankle mortise is well-maintained. There is periosteal reaction in the medial distal tibia seen on oblique view. Soft tissue swelling around the ankle and leg noted. IMPRESSION: Periosteal reaction in the medial distal tibia seen on oblique view, not seen on prior CT, possible projectional. Osteopenia. Approved by:Barb Nicole10/23/2019 10:14 AM. Betsey Pope,have reviewed the images and reports Electronically signed: Betsey Ruiz. Transcribed by: [email or web address], User Resident: BARB LUCAS Electronically Signed by: BETSEY RUIZ @ 10/23/2019 02:52 PM I personally read this/these film(s) with this resident Normal [facility] Comment on above: Order Comment: No co llection time noted on specimen or requisition. The collection time recorded is the time of receipt in the lab. No collection time noted on specimen or requisition. The collection time recorded is the time of receipt in the lab. The Aptima SARS-CoV-2 assay is a nucleic acid amplification test intended for the qualitative detection of RNA from SARS-CoV-2 isolated and purified from nasopharyngeal (TOLL TICKET CLERK), nasal and oropharyngeal (OP) swab specimens from patients with signs and symptoms of infection who are suspected of COVID-19. Results are for the identification of SARS-CoV-2 RNA. The SARS-CoV-2 RNA is generally detectable in nasopharyngeal and oropharyngeal swabs during the acute phase of infection. The Aptima SARS-CoV-2 Assay on the [place] [employer] and [employer] Fusion system is intended for use by laboratory personnel specifically instructed and trained in the operation of the [place] and [place] [employer] system. The Aptima SARS-CoV-2 assay is only for use under the Food and Drug Administration Emergency Use Authorization. Testing is limited to laboratories certified under the Clinical Laboratory Improvement Amendments of 1988 (CLIA), 42 U.S.C. ???263a, to perform high complexity tests. Not Detected: Not detected does not preclude SARS-CoV-2 infection and should not be used as the sole basis for patient management decisions. Not detected results must be combined with clinical observations, patient history, and epidemiological information. *SARS-CoV-2 COVID-19on 10-21 [id number] Not Detected Normal Not Detected [facility] Comment on above: Order Comment: No co llection time noted on specimen or requisition. The collection time recorded is the time of receipt in the lab. No collection time noted on specimen or requisition. The collection time recorded is the time of receipt in the lab. The Aptima SARS-CoV-2 assay is a nucleic acid amplification test intended for the qualitative detection of RNA from SARS-CoV-2 isolated and purified from nasopharyngeal (TOLL TICKET CLERK), nasal and oropharyngeal (OP) swab specimens from patients with signs and symptoms of infection who are suspected of COVID-19. Results are for the identification of SARS-CoV-2 RNA. The SARS-CoV-2 RNA is generally detectable in nasopharyngeal and oropharyngeal swabs during the acute phase of infection. The Aptima SARS-CoV-2 Assay on the [place] and [place] Fusion system is intended for use by laboratory personnel specifically instructed and trained in the operation of the [place] and [place] Fusion system. The Aptima SARS-CoV-2 assay is only for use under the Food and Drug Administration Emergency Use Authorization. Testing is limited to laboratories certified under the Clinical Laboratory Improvement Amendments of 1988 (CLIA), 42 U.S.C. ???263a, to perform high complexity tests. Not Detected: Not detected does not preclude SARS-CoV-2 infection and should not be used as the sole basis for patient management decisions. Not detected results must be combined with clinical observations, patient history, and epidemiological information. Performed By: #### 3 [id number] #### [facility] [address] [place] [address], [facility] POC GLUCOSE LABon 10-22-2019 Glucose [Mass/Vol] 230 mg/dL High 70-100 [facility] Comment on above: Performed By: #### 5 [id number] #### [facility] [address] [facility] [place] [address], [place] Glucose [Mass/Vol] 340 mg/dL High 70-100 [facility] Comment on above: Performed By: #### 5 6101 #### [facility] [address] [place] [address], [place] Glucose [Mass/Vol] 261 mg/dL High 70-100 [facility] Comment on above: Performed By: #### 3 0312 #### [facility] [address] [place] [address], [place] Glucose [Mass/Vol] 170 mg/dL High 70-100 [facility] Comment on above: Performed By: #### 5 6101 #### [facility] [address] [place] [address], [place] BASIC METABOLIC PANELon 10-10 Calcium [Mass/Vol] 8.8 mg/dL Normal 8.6-10.3 [facility] Comment on above: Order Comment: evalu ate Performed By: #### 0 0071 ####[facility] [id number], [facility] Chloride [Moles/Vol] 101 mmol/L Normal 98-107 [facility] Comment on above: Order Comment: evalu ate Performed By: #### 0 0071 ####[facility] [place] [address], [place] CO2 [Moles/Vol] 27 mmol/L Normal 21-31 [facility] Comment on above: Order Comment: evalu ate Performed By: #### 0 0071 ####[facility] [place] [address], [place] Creatinine [Mass/Vol] 0.67 mg/dL Normal 0.60-1.20 [facility] Comment on above: Order Comment: evalu ate Performed By: #### 0 0071 ####[facility] [place] [address], [place] GFR/1.73 sq M predicted among blacks MDRD (S/P/Bld) [Vol rate/Area] mL/min/{1.73_m2} Normal >60 [facility] Comment on above: Order Comment: evalu ate Performed By: #### 0 0071 ####[facility] [place] [address], [place] GFR/1.73 sq M predicted among non-blacks MDRD (S/P/Bld) [Vol rate/Area] mL/min/{1.73_m2} Normal >60 [facility] Comment on above: Order Comment: evalu ate Performed By: #### 0 0071 ####[facility] [place] [address], [place] Glucose [Mass/Vol] 169 mg/dL High 70-100 [facility] Comment on above: Order Comment: evalu ate Performed By: #### 0 0071 ####[facility] [facility].[address] Potassium [Moles/Vol] 4.1 mmol/L Normal 3.5-5.1 [facility] Comment on above: Order Comment: evalu ate Performed By: #### 0 0071 ####[facility] [facility].[address] Sodium [Moles/Vol] 133 mmol/L Low 136-145 [facility] Comment on above: Order Comment: evalu ate Performed By: #### 0 0071 ####[facility] Urea nitrogen [Mass/Vol] 11 mg/dL Normal 7-25 [facility] Comment on above: Order Comment: evalu ate Performed By: #### 0 0071 ####[facility] CBC W/DIFFon 10-21-2019 ABS BASOPHILS 0.1 10*3/uL Normal 0.0-0.2 [facility] Comment on above: Order Comment: No: D o not add to previous draw Performed By: #### 8 [id number] #### [facility] [address] [facility] [address], [facility] ABS IMM GRANS 0.0 10*3/uL Normal 0.0-0.2 [facility] Comment on above: Order Comment: No: D o not add to previous draw Performed By: #### 8 [id number] #### [facility] [address] [facility]. [address] ABS NEUTROPHILS 4.4 10*3/uL Normal 1.6-7.6 [facility] Comment on above: Order Comment: No: D o not add to previous draw Performed By: #### 8 [id number] #### [facility] [address] [place] [address], [facility] Basophils/100 WBC (Bld) 0.6 % Normal 0.0-1.0 [facility] Comment on above: Order Comment: No: D o not add to previous draw Performed By: #### 8 [id number] #### [facility] [address] [place] [id number], [facility] Eosinophils (Bld) [#/Vol] 0.3 10*3/uL Normal 0.0-0.5 [facility] Comment on above: Order Comment: No: D o not add to previous draw Performed By: #### 8 [id number] #### [facility] [address] [place] [address], [facility] Eosinophils/100 WBC (Bld) 3.5 % Normal 0.0-6.0 [facility] Comment on above: Order Comment: No: D o not add to previous draw Performed By: #### 8 [id number] #### [facility] [address] [place] [address], [facility] Erythrocyte distribution width (RBC) [Ratio] 13.3 % Normal 11.5-15.0 [facility] Comment on above: Order Comment: No: D o not add to previous draw Performed By: #### 8 [id number] #### [facility] [address] [place] [address], [facility] Hematocrit (Bld) [Volume fraction] 35.6 % Low 36.0-45.0 [facility] Comment on above: Order Comment: No: D o not add to previous draw Performed By: #### 8 [id number] #### [facility] [address] [place] [address], [facility] Hemoglobin (Bld) [Mass/Vol] 11.5 g/dL Low 12.0-15.0 [facility] Comment on above: Order Comment: No: D o not add to previous draw Performed By: #### 8 [id number] #### [facility] [address] [place] [id number], [place] IMMATURE GRANS 0.5 % Normal 0.0-1.0 [facility] Comment on above: Order Comment: No: D o not add to previous draw Performed By: #### 8 [id number] #### [facility] [address] [place] [address], [facility] Lymphocytes (Bld) [#/Vol] 2.5 10*3/uL Normal 1.2-4.0 [facility] Comment on above: Order Comment: No: D o not add to previous draw Performed By: #### 8 [id number] #### [facility] [address] [facility] [place] [address], [facility] Lymphocytes/100 WBC (Bld) 28.5 % Normal 20.0-45.0 [facility] Comment on above: Order Comment: No: D o not add to previous draw Performed By: #### 8 [id number] #### [facility] [address] [facility] [place] [address], [facility] MCH (RBC) [Entitic mass] 31.3 pg Normal 27.0-33.0 [facility] Comment on above: Order Comment: No: D o not add to previous draw Performed By: #### 8 [id number] #### [facility] [address] [facility] [address], [facility] MCHC (RBC) [Mass/Vol] 32.3 g/dL Normal 32.0-35.0 [facility] Comment on above: Order Comment: No: D o not add to previous draw Performed By: #### 8 [id number] #### [facility] [address] [place] [id number], [facility] MCV (RBC) [Entitic vol] 96.7 fL Normal 82.0-98.0 [facility] Comment on above: Order Comment: No: D o not add to previous draw Performed By: #### 8 [id number] #### [facility] [address] [place] [address], [facility] Monocytes (Bld) [#/Vol] 1.4 10*3/uL High 0.1-1.0 [facility] Comment on above: Order Comment: No: D o not add to previous draw Performed By: #### 8 [id number] #### [facility] [address] [place] [address], [facility] MONOS 16.4 % High 5.0-12.0 [facility] Comment on above: Order Comment: No: D o not add to previous draw Performed By: #### 8 [id number] #### [facility] [address] [place] [address], [facility] Neutrophils/100 WBC (Bld) 50.5 % Normal 40.0-72.0 [facility] Comment on above: Order Comment: No: D o not add to previous draw Performed By: #### 8 [id number] #### [facility] [address] [place] [id number], [facility] Nucleated RBC/100 WBC (Bld) [Ratio] 0 % Normal 0-0 [facility] Comment on above: Order Comment: No: D o not add to previous draw Performed By: #### 8 [id number] #### [facility] [address] [place] [address], [facility] PLAT CNT 205 10*3/uL Normal 150-400 [facility] Comment on above: Order Comment: No: D o not add to previous draw Performed By: #### 8 [id number] #### [facility] [address] [place] [address], [facility] RBC (Bld) [#/Vol] 3.68 10*6/uL Low 3.80-5.00 [facility] Comment on above: Order Comment: No: D o not add to previous draw Performed By: #### 8 [id number] #### [facility] [address] [place] [address], [place] WBC (Bld) [#/Vol] 8.67 10*3/uL Normal 4.00-10.60 [facility] Comment on above: Order Comment: No: D o not add to previous draw Performed By: #### 8 [id number] #### [facility] [address] [place] [address], [facility] POC GLUCOSE LABon 10-21-2019 Glucose [Mass/Vol] 195 mg/dL High 70-100 [facility] Comment on above: Performed By: #### 8 [id number] #### [facility] [address] [place] [address], [facility] Glucose [Mass/Vol] 166 mg/dL High 70-100 [facility] Comment on above: Performed By: #### 3 0312 #### [facility] [address] [facility] [address], [facility] Glucose [Mass/Vol] 214 mg/dL High 70-100 [facility] Comment on above: Performed By: #### 8 [id number] #### [facility] [address] [place] [address], [facility] Glucose [Mass/Vol] 176 mg/dL High 70-100 [facility] Comment on above: Performed By: #### 8 [id number] #### [facility] [address] *ANAEROBIC CULTUREon 020 *ANAEROBIC CULTURE Clinical Report: (D) Specimen: BONE Collected: 10/20/2019 13:41 Status: Final Last Updated: 10/25/2019 08:23 CULT RES (Final) No Anaerobes Isolated 5 Days Normal [facility] Comment on above: Performed By: #### 3 0312 #### [facility] [address] *TISSUE CULTUREon 10-20-2019 *TISSUE CULTURE Clinical Report: (D) Specimen/Source: TISSUE/INTRAOP SPEC Collected: 10/20/2019 13:41 Status: Final Last Updated: 10/25/2019 11:13 (1) #1 RT PROXIMAL TIBIAL BONE GRAM (Final) No Polys Seen No Bacteria Seen CULT RES (Final) No Growth Day 5 Normal [facility] Comment on above: Order Comment: #1 RT PROXIMAL TIBIAL BONE Performed By: #### 8 [id number] #### [address] KNEE RIGHT 1 OR 2 VWSon 10-10 KNEE RIGHT 1 OR 2 [facility] Department of Radiology [address] [place] [id number] Patient Name: DALIA MELENDEZ : 1965 Sex: F Age: Race: White Pt. Location: Patient Status: O Ordered Date: 10/20/2019 7:10:00 AM Completed Date: 10/20/2019 01:53 PM Requesting Provider: ADAM HTURSTON Attending Provider: ADAM THURSTON Report Copy To: Signs & Symptoms: ORIF right tibial plateau with History: ORIF right tibial plateau with Comments: ORIF right tibial plateau with Exam: KNEE RIGHT 1 OR 2 VWS KNEE RIGHT 1 OR 2 VWS CLINICAL INFORMATION: . ORIF right tibial plateau with . TECHNIQUE/PROCEDURE: Intraprocedural fluoroscopy without radiologist supervision. Fluoroscopy time: 45 seconds Fluoroscopic images: 9 IMPRESSION: Intraprocedural images demonstrate satisfactory alignment of the open reduction and internal fixation of a tibial plateau fracture. Please refer to intraprocedural report for further details. Electronically signed: Cesar Lowery M.D.. Transcribed by: [email or web address], User Resident: Electronically Signed by: CESAR LOWERY @ 10/20/2019 02:49 PM Normal [facility] Comment on above: Order Comment: No co llection time noted on specimen or requisition. The collection time recorded is the time of receipt in the lab. No collection time noted on specimen or requisition. The collection time recorded is the time of receipt in the lab. The Aptima SARS-CoV-2 assay is a nucleic acid amplification test intended for the qualitative detection of RNA from SARS-CoV-2 isolated and purified from nasopharyngeal (TOLL TICKET CLERK), nasal and oropharyngeal (OP) swab specimens from patients with signs and symptoms of infection who are suspected of COVID-19. Results are for the identification of SARS-CoV-2 RNA. The SARS-CoV-2 RNA is generally detectable in nasopharyngeal and oropharyngeal swabs during the acute phase of infection. The Aptima SARS-CoV-2 Assay on the [employer] Fusion system is intended for use by laboratory personnel specifically instructed and trained in the operation of the [place] and [employer] Fusion system. The Aptima SARS-CoV-2 assay is only for use under the Food and Drug Administration Emergency Use Authorization. Testing is limited to laboratories certified under the Clinical Laboratory Improvement Amendments of 1988 (CLIA), 42 U.S.C. ???263a, to perform high complexity tests. Not Detected: Not detected does not preclude SARS-CoV-2 infection and should not be used as the sole basis for patient management decisions. Not detected results must be combined with clinical observations, patient history, and epidemiological information. Operative Reporton 0 Operative Report MR#: [id number] # [facility] Pt. Name: Dalia Melendez Room #: REC 200 04 Discharge Date: Birthdate: 1965 OPERATIVE REPORT DATE OF SURGERY: 10/20/2019 SURGEON: Adam Thurston M.D. ASSISTANTS: 1. Kevin Wu MD. 2. Astre Leroy MD. 3. Serg Garrison MD. PREOPERATIVE DIAGNOSIS: Right proximal tibia, nonunion. POSTOPERATIVE DIAGNOSIS: Right proximal tibia, nonunion. PROCEDURE PERFORMED: Treatment of right proximal tibial nonunion with plate and screw fixation as well as allograft and infuse. ANESTHESIA: General. FLUIDS: Per anesthesia record. BLOOD LOSS: Less than 100 mL. COMPLICATIONS: None. SPECIMENS: One bone tissue for culture. IMPLANTS: Kathy 3.5 proximal tibial lateral locking plate with associated locking and cortical screws. 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 The aforementioned procedure was initially offered to the patient, which she elected to proceed. Risks, benefits, and alternatives were discussed and she elected to proceed. Informed consent was obtained. DESCRIPTION OF PROCEDURE: The patient was met in the preoperative holding area. Operative site was marked by attending physician. Anesthesia met the patient and brought her back to the operating room, positioned supine on the operating table. Anesthesia was induced. She was intubated. The extremity was prepped and draped in normal sterile fashion. Nonsterile tourniquet was applied prior to this. A surgical time-out was performed to verify correct patient, procedure, site of surgery, and antibiotics have been given. We began by making a lazy-S lateral incision over the proximal tibia. We dissected through skin, controlled the bleeding with electrocautery get down to the level of the fascia. We incised the fascia in line longitudinally with the incision and developed a plane anterior and posterior. We then got down to the level of the tibia and subperiosteally dissected the anterior compartment musculature and got down to the fracture site and made room for our lateral tibial plate. We then chose an 8-hole proximal tibial plateau plate and bent it to accommodate the large callus area. We did not want to completely destabilize the fracture, but we were able to open up the fracture and used a curette as well as a rongeur to debride the fracture and freshened up the edges. We then applied our plate to hold the fracture together. We checked the plate placed on fluoroscopy and then placed 3 proximal locking screws parallel to the joint line followed by 2 screws in the distal shaft to suck the shaft over and stabilize the fracture. Once this was done, we checked our fluoroscopy views were found. The plate was then regional placement on AP and lateral perspectives. We then continued by placing 3 more screws distally followed by 1 more screw proximally. Once this was complete, we got final radiographs, which demonstrated an adequate fracture fixation with reasonable alignment, length and rotation of the fracture. We used 5 mL of crushed cancellous allograft to pack into the fracture site and then placed a small infuse into the fracture site. We then began our closure after irrigating the closed with a Hemovac deep in the wound and then closed the fascia with 0 Vicryl for the fascia followed by 3-0 Vicryl for the deep dermal layer, and 4-0 Novafil for the skin. We then dressed the wound with Xeroform gauze and an Marquis wrap, placed her into a hinged knee brace locked in extension. She was awakened from anesthesia, extubated, moved her into PACU in stable condition. PLAN: The patient will be nonweightbearing to the operative extremity and her hinged knee brace locked in extension in the postoperative period. We will initiate DVT prophylaxis with antibiotic prophylaxis and vitamin D will be supplemented and will have the patient follow up in 2 weeks' time. We will admit her for observation overnight. She has a drain in as infused tends to cause increase in swelling and pain. Dr. Thurston was present for all critical portions of procedure. All sponge and needle counts correct at the end of the case. Electronically Signed by: Adam Thurston M.D. 10/22/2019 05:24 P Adam Thurston M.D. I was present for the lazo and critical portions and I was otherwise immediately available to assist. Date Dict: 10/20/2019/01:58 P/Kevin Wu MD Date Trans: 10/20/2019 06:59 P/irineo [id number] Normal [facility] POC GLUCOSE LABon 10-20-2019 Glucose [Mass/Vol] 154 mg/dL High 70-100 [facility] Comment on above: Performed By: #### 8 [id number] #### [facility] [address] [facility] [place] [address], [facility] Glucose [Mass/Vol] 182 mg/dL High 70-100 [facility] Comment on above: Performed By: #### 8 [id number] #### [facility] [address] [place] [address], [place] Glucose [Mass/Vol] 211 mg/dL High 70-100 [facility] Comment on above: Performed By: #### 8 [id number] #### [facility] [address] [place] [address], [place] POC GLUCOSE LABon 09-28-2019 Glucose [Mass/Vol] 230 mg/dL High 70-100 [facility] Comment on above: Performed By: #### 3 0312 #### [facility] [address] [facility] [place] [address], [place] Glucose [Mass/Vol] 250 mg/dL High 70-100 [facility] Comment on above: Performed By: #### 8 [id number] #### [facility] [address] [facility] [place] [address], [facility] Glucose [Mass/Vol] 349 mg/dL High 70-100 [facility] Comment on above: Performed By: #### 5 0608 #### [facility] [address] [facility] [place] [address], [facility] Glucose [Mass/Vol] 257 mg/dL High 70-100 [facility] Comment on above: Performed By: #### 8 [id number] #### [facility] [address] [facility] [place] [address], [facility] CT LOWER EXTREMITY WO CONTRA ST RIGHTon 09-27-2019 CT LOWER EXTREMITY WO CONTRAST RIGHT [facility] Department of Radiology [address] [place] [id number] Patient Name: DALIA MELENDEZ DOB: 1965 Sex: F Age: Race: White Pt. Location: [id number] Patient Status: O Ordered Date: 09/27/2019 7:45:00 AM Completed Date: 09/27/2019 12:37 PM Requesting Provider: SERG GARRISON Attending Provider: ROMAN RYAN Report Copy To: Signs & Symptoms: Fracture History: See Comments Comments: Fractures, Knee to ankle Exam: CT LOWER EXTREMITY WO CONTRAST RIGHT CT LOWER EXTREMITY WO CONTRAST RIGHT 09/27/2019 12:37 PM CLINICAL INDICATIONS: Fracture TECHNOLOGIST COMMENTS: right leg pain checking fracture QUESTION FOR THE RADIOLOGIST: Fractures, Knee to ankle PROTOCOL: Axial CT images of the extremity were obtained without IV contrast. TECHNIQUE: Multidetector CT axial slices of the lower extremities without IV contrast. Multiplanar reformats were performed and viewed on a separate workstation and reviewed to further define anatomy and possible pathology. COMPARISON: June 23, 2019, radiographs August 10, 2019. FINDINGS: Right leg: Intramedullary fixation adali of the distal femur, with distal lateral fixation plate. Hardware appears intact, unchanged. Intact medial tibial plateau fixation screws. Remonstration of transverse proximal tibial metadiaphyseal fracture which demonstrates interval callus formation with bony bridging of the medial aspect, however the fracture line is still widely open on the lateral aspect. Also unchanged appearance of proximal fibular fracture, mildly angulated and displaced approximately 8 mm. Interval callus formation without complete healing at this site. Right lower extremity soft tissue edema. Left lower extremity. No visualized fractures. Early degenerative changes of the knee including medial joint space narrowing and small osteophyte formation. No soft tissue abnormalities. IMPRESSION: Healing proximal tib-fib fractures in unchanged alignment. Interval callus formation without complete bony bridging. Intact remote femoral and proximal tibial hardware. All CT scans at this facility use dose modulation, iterative reconstruction, and/or weight based dosing when appropriate to reduce radiation dose to as low as reasonably achievable Approved by:Rachid Barker09/27/2019 7:29 PM. I, Vera Sanchez,have reviewed the images and reports Electronically signed: Vera Sanchez. Transcribed by: [email or web address], User Resident: RACHID ANDERS Electronically Signed by: VERA SANCHEZ @ 09/27/2019 07:35 PM I personally read this/these film(s) with this resident Normal [facility] Comment on above: Order Comment: No co llection time noted on specimen or requisition. The collection time recorded is the time of receipt in the lab. No collection time noted on specimen or requisition. The collection time recorded is the time of receipt in the lab. The Aptima SARS-CoV-2 assay is a nucleic acid amplification test intended for the qualitative detection of RNA from SARS-CoV-2 isolated and purified from nasopharyngeal (TOLL TICKET CLERK), nasal and oropharyngeal (OP) swab specimens from patients with signs and symptoms of infection who are suspected of COVID-19. Results are for the identification of SARS-CoV-2 RNA. The SARS-CoV-2 RNA is generally detectable in nasopharyngeal and oropharyngeal swabs during the acute phase of infection. The Aptima SARS-CoV-2 Assay on the [employer] and [place] Fusion system is intended for use by laboratory personnel specifically instructed and trained in the operation of the [place] [employer] [place] Fusion system. The Aptima SARS-CoV-2 assay is only for use under the Food and Drug Administration Emergency Use Authorization. Testing is limited to laboratories certified under the Clinical Laboratory Improvement Amendments of 1988 (CLIA), 42 U.S.C. ???263a, to perform high complexity tests. Not Detected: Not detected does not preclude SARS-CoV-2 infection and should not be used as the sole basis for patient management decisions. Not detected results must be combined with clinical observations, patient history, and epidemiological information. POC GLUCOSE LABon 09-27-2019 Glucose [Mass/Vol] 271 mg/dL High 70-100 [facility] Comment on above: Performed By: #### 8 [id number] #### [address] [place] [address], [facility] Glucose [Mass/Vol] 269 mg/dL High 70-100 [facility] Comment on above: Performed By: #### 5 0608 #### [facility] [address] [place] [address], [facility] Glucose [Mass/Vol] 235 mg/dL High 70-100 [facility] Comment on above: Performed By: #### 8 [id number] #### [facility] [address] [place] [address], [place] Glucose [Mass/Vol] 186 mg/dL High 70-100 [facility] Comment on above: Performed By: #### 8 [id number] #### [facility] [address] [place] [address], [facility] *SARS-CoV-2 COVID-19on 09-25 [id number] Not Detected Normal Not Detected [facility] Comment on above: Order Comment: The [employer] RealTime SARS-CoV-2 assay is a real-time (rt) reversetranscriptase (RT) polymerase chain reaction (PCR) test intended for the[employer] system. The SARS-CoV-2 primer and probe sets are designedto detect RNA from SARS-CoV-2 in nasopharyngeal (TOLL TICKET CLERK) and oropharyngeal(OP) swabs from patients with signs and symptoms of infection who aresuspected of COVID-19.Results are for the identification of SARS-CoV-2 RNA. The SARS-CoV-2 RNAis generally detectable in a nasopharyngeal and oropharyngeal swabsduring the acute phase of infection.The [employer] RealTime SARS-CoV-2 assay is intended for use by qualifiedand trained clinical laboratory personnel specifically instructed andtrained in the techniques of real-time PCR and in vitro diagnosticprocedures. The [employer] RealTime SARS-CoV-2 assay is only for use underthe Food and Drug Administration Emergency Use Authorization. Testing islimited to laboratories certified under the Clinical LaboratoryImprovement Amendments of 1988 (CLIA), 42 U.S.C. 263a, to perform highcomplexity tests.Not Detected:Not detected does not preclude SARS-CoV-2 infection and should not beused as the sole basis for patient management decisions. Not detectedresults must be combined with clinical observations, patient history,and epidemiological information. Performed By: #### 8 [id number] #### [facility] [address] APTTon 09-26-2019 aPTT Coag (Bld) [Time] 28.6 s Normal 25.0-35.0 Th e [facility] Comment on above: Result Comment: ALL RESULTS MUST BE INTERPRETED WITH RESPECT TO BLOOD DRAWING ARTIFACT OR DILUTION ERROR OF ANTICOAGULANT AT THE TIME OF SAMPLING. THE APTT SHOULD NOT BE USED TO MONITOR UNFRACTIONATED HEPARIN THERAPY, THIS LABORATORY NO LONGER HAS AN ESTABLISHED THERAPEUTIC RANGE BASED ON THE APTT. IT IS RECOMMENDED THAT THE UFH - HEPARIN ASSAY (ANTI-XA ACTIVITY) BE USED FOR THIS PURPOSE. Performed By: #### 5 7307, [address] ####[facility] [facility].[address] BASIC METABOLIC PANELon 09-09 Calcium [Mass/Vol] 9.0 mg/dL Normal 8.6-10.3 [facility] Comment on above: Order Comment: No: D o not add to previous draw Criteria for reflexing a culture was not met. Please call the lab at [phone] within 24 hours of collection time if culture is needed Performed By: #### 3 0965 #### [facility] [address] [facility] [address], [facility] Chloride [Moles/Vol] 98 mmol/L Normal 98-107 [facility] Comment on above: Order Comment: No: D o not add to previous draw Criteria for reflexing a culture was not met. Please call the lab at [phone] within 24 hours of collection time if culture is needed Performed By: #### 3 0965 #### [facility] [address] [facility] [place] [address], [facility] CO2 [Moles/Vol] 28 mmol/L Normal 21-31 [facility] Comment on above: Order Comment: No: D o not add to previous draw Criteria for reflexing a culture was not met. Please call the lab at [phone] within 24 hours of collection time if culture is needed Performed By: #### 3 0965 #### [facility] [address] [facility] [place] [address], [facility] Creatinine [Mass/Vol] 0.76 mg/dL Normal 0.60-1.20 [facility] Comment on above: Order Comment: No: D o not add to previous draw Criteria for reflexing a culture was not met. Please call the lab at [phone] within 24 hours of collection time if culture is needed Performed By: #### 3 0965 #### [facility] [address] [facility] [address], [facility] GFR/1.73 sq M predicted among blacks MDRD (S/P/Bld) [Vol rate/Area] mL/min/{1.73_m2} Normal >60 [facility] Comment on above: Order Comment: No: D o not add to previous draw Criteria for reflexing a culture was not met. Please call the lab at [phone] within 24 hours of collection time if culture is needed Performed By: #### 3 0965 #### [facility] [address] [facility] [place] [address], [facility] GFR/1.73 sq M predicted among non-blacks MDRD (S/P/Bld) [Vol rate/Area] mL/min/{1.73_m2} Normal >60 [facility] Comment on above: Order Comment: No: D o not add to previous draw Criteria for reflexing a culture was not met. Please call the lab at [phone] within 24 hours of collection time if culture is needed Performed By: #### 3 0965 #### [facility] [address] [facility] [address], [facility] Glucose [Mass/Vol] 221 mg/dL High 70-100 [facility] Comment on above: Order Comment: No: D o not add to previous draw Criteria for reflexing a culture was not met. Please call the lab at [phone] within 24 hours of collection time if culture is needed Performed By: #### 3 0965 #### [facility] [address] [place] [address], [facility] Potassium [Moles/Vol] 4.1 mmol/L Normal 3.5-5.1 [facility] Comment on above: Order Comment: No: D o not add to previous draw Criteria for reflexing a culture was not met. Please call the lab at [phone] within 24 hours of collection time if culture is needed Performed By: #### 3 0965 #### [facility] [address] [place] [address], [facility] Sodium [Moles/Vol] 134 mmol/L Low 136-145 [facility] Comment on above: Order Comment: No: D o not add to previous draw Criteria for reflexing a culture was not met. Please call the lab at [phone] within 24 hours of collection time if culture is needed Performed By: #### 3 0965 #### [facility] [address] Urea nitrogen [Mass/Vol] 12 mg/dL Normal 7-25 [facility] Comment on above: Order Comment: No: D o not add to previous draw Criteria for reflexing a culture was not met. Please call the lab at [phone] within 24 hours of collection time if culture is needed Performed By: #### 3 0965 #### [facility] [address] C REACTIVE PROTEINon 020 CRP [Mass/Vol] 96.7 mg/L High 0.0-7.0 [facility] Comment on above: Performed By: #### 8 5499 #### [facility] [address] CBC W/DIFFon 09-26-2019 ABS BASOPHILS 0.1 10*3/uL Normal 0.0-0.2 [facility] Comment on above: Order Comment: No: D o not add to previous draw Performed By: #### 8 5499 #### [facility] [address] ABS IMM GRANS 0.1 10*3/uL Normal 0.0-0.2 [facility] Comment on above: Order Comment: No: D o not add to previous draw Performed By: #### 8 5499 #### [facility] [address] [place] [address], [facility] ABS NEUTROPHILS 4.3 10*3/uL Normal 1.6-7.6 [facility] Comment on above: Order Comment: No: D o not add to previous draw Performed By: #### 8 5499 #### [facility] [address] [place] [address], [facility] Basophils/100 WBC (Bld) 0.5 % Normal 0.0-1.0 [facility] Comment on above: Order Comment: No: D o not add to previous draw Performed By: #### 8 5499 #### [facility] [address] [place] [address], [facility] Eosinophils (Bld) [#/Vol] 0.3 10*3/uL Normal 0.0-0.5 [facility] Comment on above: Order Comment: No: D o not add to previous draw Performed By: #### 8 5499 #### [facility] [address] [facility] [address] [place] [id number], [facility] Eosinophils/100 WBC (Bld) 3.6 % Normal 0.0-6.0 [facility] Comment on above: Order Comment: No: D o not add to previous draw Performed By: #### 8 5499 #### [facility] [address] [facility] [place] [address], [facility] Erythrocyte distribution width (RBC) [Ratio] 13.6 % Normal 11.5-15.0 [facility] Comment on above: Order Comment: No: D o not add to previous draw Performed By: #### 8 5499 #### [facility] [address] [place] [id number], [facility] Hematocrit (Bld) [Volume fraction] 36.1 % Normal 36.0-45.0 [facility] Comment on above: Order Comment: No: D o not add to previous draw Performed By: #### 8 5499 #### [facility] [address] [place] [address], [facility] Hemoglobin (Bld) [Mass/Vol] 11.8 g/dL Low 12.0-15.0 [facility] Comment on above: Order Comment: No: D o not add to previous draw Performed By: #### 8 5499 #### [facility] [address] [place] [address], [facility] IMMATURE GRANS 0.9 % Normal 0.0-1.0 [facility] Comment on above: Order Comment: No: D o not add to previous draw Performed By: #### 8 5499 #### [facility] [address] [facility] [place] [address], [facility] Lymphocytes (Bld) [#/Vol] 3.2 10*3/uL Normal 1.2-4.0 [facility] Comment on above: Order Comment: No: D o not add to previous draw Performed By: #### 8 5499 #### [facility] [address] [facility] [place] [address], [facility] Lymphocytes/100 WBC (Bld) 35.3 % Normal 20.0-45.0 [facility] Comment on above: Order Comment: No: D o not add to previous draw Performed By: #### 8 5499 #### [facility] [address] [facility] [place] [address], [facility] MCH (RBC) [Entitic mass] 31.8 pg Normal 27.0-33.0 [facility] Comment on above: Order Comment: No: D o not add to previous draw Performed By: #### 8 5499 #### [facility] [address] [facility] [place] [address], [facility] MCHC (RBC) [Mass/Vol] 32.7 g/dL Normal 32.0-35.0 [facility] Comment on above: Order Comment: No: D o not add to previous draw Performed By: #### 8 5499 #### [facility] [address] [place] [address], [facility] MCV (RBC) [Entitic vol] 97.3 fL Normal 82.0-98.0 [facility] Comment on above: Order Comment: No: D o not add to previous draw Performed By: #### 8 5499 #### [facility] [address] [place] [address], [facility] Monocytes (Bld) [#/Vol] 1.2 10*3/uL High 0.1-1.0 [facility] Comment on above: Order Comment: No: D o not add to previous draw Performed By: #### 8 5499 #### [facility] [address] [place] [address], [facility] MONOS 12.6 % High 5.0-12.0 [facility] Comment on above: Order Comment: No: D o not add to previous draw Performed By: #### 8 5499 #### [facility] [address] [place] [address], [facility] Neutrophils/100 WBC (Bld) 47.1 % Normal 40.0-72.0 [facility] Comment on above: Order Comment: No: D o not add to previous draw Performed By: #### 8 5499 #### [facility] [address] [facility] [place] [id number], [facility] Nucleated RBC/100 WBC (Bld) [Ratio] 0 % Normal 0-0 [facility] Comment on above: Order Comment: No: D o not add to previous draw Performed By: #### 8 5499 #### [facility] [address] [place] [address], [facility] PLAT CNT 234 10*3/uL Normal 150-400 [facility] Comment on above: Order Comment: No: D o not add to previous draw Performed By: #### 8 5499 #### [facility] [address] [place] [address], [facility] RBC (Bld) [#/Vol] 3.71 10*6/uL Low 3.80-5.00 [facility] Comment on above: Order Comment: No: D o not add to previous draw Performed By: #### 8 5499 #### [facility] [address] [facility]. [place] [id number], [facility] WBC (Bld) [#/Vol] 9.19 10*3/uL Normal 4.00-10.60 [facility] Comment on above: Order Comment: No: D o not add to previous draw Performed By: #### 8 5499 #### [facility] [address] [place] [address], [facility] ABS BASOPHILS 0.1 10*3/uL Normal 0.0-0.2 [facility] Comment on above: Performed By: #### 8 5499 #### [facility] [address] [facility] [place] [address], [facility] ABS IMM GRANS 0.1 10*3/uL Normal 0.0-0.2 [facility] Comment on above: Performed By: #### 8 5499 #### [facility] [address] [place] [address], [facility] ABS NEUTROPHILS 4.8 10*3/uL Normal 1.6-7.6 [facility] Comment on above: Performed By: #### 8 5499 #### [facility] [address] [place] [address], [facility] Basophils/100 WBC (Bld) 0.5 % Normal 0.0-1.0 [facility] Comment on above: Performed By: #### 8 5499 #### [facility] [address] [facility] [place] [address], [facility] Eosinophils (Bld) [#/Vol] 0.3 10*3/uL Normal 0.0-0.5 [facility] Comment on above: Performed By: #### 8 5499 #### [facility] [address] [facility] [place] [place] [address], [facility] Eosinophils/100 WBC (Bld) 3.2 % Normal 0.0-6.0 [facility] Comment on above: Performed By: #### 8 5499 #### [facility] [address] [facility] [place] [address], [facility] Erythrocyte distribution width (RBC) [Ratio] 13.4 % Normal 11.5-15.0 [facility] Comment on above: Performed By: #### 8 5499 #### [facility] [address] [facility] [place] [address], [facility] Hematocrit (Bld) [Volume fraction] 40.1 % Normal 36.0-45.0 [facility] Comment on above: Performed By: #### 8 5499 #### [facility] [address] [facility] [place] [address], [facility] Hemoglobin (Bld) [Mass/Vol] 13.2 g/dL Normal 12.0-15.0 [facility] Comment on above: Performed By: #### 8 5499 #### [facility] [address] [place] [address], [facility] IMMATURE GRANS 0.8 % Normal 0.0-1.0 [facility] Comment on above: Performed By: #### 8 5499 #### [facility] [address] [facility] [place] [address], [facility] Lymphocytes (Bld) [#/Vol] 3.5 10*3/uL Normal 1.2-4.0 [facility] Comment on above: Performed By: #### 8 5499 #### [facility] [address] [facility] [place] [address], [facility] Lymphocytes/100 WBC (Bld) 35.6 % Normal 20.0-45.0 [facility] Comment on above: Performed By: #### 8 5499 #### [facility] [address] [place] [address], [facility] MCH (RBC) [Entitic mass] 31.9 pg Normal 27.0-33.0 [facility] Comment on above: Performed By: #### 8 5499 #### [facility] [address] [facility]. [place] [id number], [facility] MCHC (RBC) [Mass/Vol] 32.9 g/dL Normal 32.0-35.0 [facility] Comment on above: Performed By: #### 8 5499 #### [facility] [address] [facility] [place] [address], [facility] MCV (RBC) [Entitic vol] 96.9 fL Normal 82.0-98.0 [facility] Comment on above: Performed By: #### 8 5499 #### [facility] [address] [facility] [place] [address], [facility] Monocytes (Bld) [#/Vol] 1.1 10*3/uL High 0.1-1.0 [facility] Comment on above: Performed By: #### 8 5499 #### [facility] [address] [facility] [place] [address], [facility] MONOS 11.3 % Normal 5.0-12.0 [facility] Comment on above: Performed By: #### 8 5499 #### [facility] [address] [facility] [place] [address], [facility] Neutrophils/100 WBC (Bld) 48.6 % Normal 40.0-72.0 [facility] Comment on above: Performed By: #### 8 5499 #### [facility] [address] [facility] [place] [address], [facility] Nucleated RBC/100 WBC (Bld) [Ratio] 0 % Normal 0-0 [facility] Comment on above: Performed By: #### 8 5499 #### [facility] [address] [facility] [address], [facility] PLAT CNT 260 10*3/uL Normal 150-400 [facility] Comment on above: Performed By: #### 8 5499 #### [facility] [address] [facility] [place] [address], [facility] RBC (Bld) [#/Vol] 4.14 10*6/uL Normal 3.80-5.00 [facility] Comment on above: Performed By: #### 8 5499 #### [facility] [address] [facility] [place] [address], [facility] WBC (Bld) [#/Vol] 9.85 10*3/uL Normal 4.00-10.60 [facility] Comment on above: Performed By: #### 8 5499 #### [facility] [address] [facility] [place] [address], [facility] COMP METABOLIC PANELon 09-25 Albumin [Mass/Vol] 3.8 g/dL Normal 3.5-5.7 [facility] Comment on above: Performed By: #### 1 0147, 74395, 98963, 51279, 83065, 78999 ####[facility] [facility] [address], [facility] ALKALINE PHOSPH 117 IU/L High 34-104 [facility] Comment on above: Performed By: #### 1 0147, , 84934, 49548, 57374, 58786 ####[facility] [facility] ALT [Catalytic activity/Vol] 15 U/L Normal 7-52 [facility] Comment on above: Performed By: #### 1 0147, , 74850, 06622, 43018, 29328 ####[facility] [facility] [place] [address], [facility] AST [Catalytic activity/Vol] 14 U/L Normal 13-39 [facility] Comment on above: Performed By: #### 1 0147, 95751, 96675, 14058, 98845, 67407 ####[facility] [place] [address], [place] Bilirubin [Mass/Vol] 0.5 mg/dL Normal 0.3-1.0 [facility] Comment on above: Performed By: #### 1 0147, 72965, 53468, 47259, 45213, 67081 ####[facility] [place] [address], [place] Calcium [Mass/Vol] 9.2 mg/dL Normal 8.6-10.3 [facility] Comment on above: Performed By: #### 1 0147, 30843, 64096, 50294, 30722, 73267 ####[facility] [place] [address], [place] Chloride [Moles/Vol] 100 mmol/L Normal 98-107 [facility] Comment on above: Performed By: #### 1 0147, 72132, 47384, 45912, 11092, 43463 ####[facility] [place] [address], [place] CO2 [Moles/Vol] 25 mmol/L Normal 21-31 [facility] Comment on above: Performed By: #### 1 0147, 29526, 63251, 34144, 33319, 33842 ####[facility] [place] [address], [place] Creatinine [Mass/Vol] 0.75 mg/dL Normal 0.60-1.20 [facility] Comment on above: Performed By: #### 1 0147, 33089, 58336, 73515, 78126, 23955 ####[facility] [place] [address], [place] GFR/1.73 sq M predicted among blacks MDRD (S/P/Bld) [Vol rate/Area] mL/min/{1.73_m2} Normal >60 [facility] Comment on above: Performed By: #### 1 0147, 59037, 03679, 97830, 84361, 49022 ####[facility] [place] [address], [facility] GFR/1.73 sq M predicted among non-blacks MDRD (S/P/Bld) [Vol rate/Area] mL/min/{1.73_m2} Normal >60 [facility] Comment on above: Performed By: #### 1 0147, 44511, 41014, 34558, 24777, 98619 ####[facility] [place] [address], [place] Glucose [Mass/Vol] 169 mg/dL High 70-100 [facility] Comment on above: Performed By: #### 1 0147, 23920, 28423, 18517, 14292, 83780 ####[facility] [place] [address], [place] Potassium [Moles/Vol] 4.2 mmol/L Normal 3.5-5.1 [facility] Comment on above: Performed By: #### 1 0147, 94605, 94296, 47845, 29330, 42037 ####[facility] [place] [address], [place] Protein [Mass/Vol] 7.3 g/dL Normal 6.0-8.3 [facility] Comment on above: Performed By: #### 1 0147, 82613, 38552, 10155, 81391, 81467 ####[facility] [place] [address], [place] Sodium [Moles/Vol] 134 mmol/L Low 136-145 [facility] Comment on above: Performed By: #### 1 0147, 77678, 57857, 84315, 63196, 93985 ####[facility] [place] [address], [facility] Urea nitrogen [Mass/Vol] 11 mg/dL Normal 7-25 [facility] Comment on above: Performed By: #### 1 0147, 35204, 24733, 93305, 58227, 93155 ####[facility] [place] [address], [place] FERRITINon 09-26-2019 Ferritin [Mass/Vol] 69 ng/mL Normal 11-307 [facility] Comment on above: Performed By: #### 1 0147, 92677, 77678, 35899, 35640, 20330 ####[facility] [place] [address], [place] POC GLUCOSE LABon 09-26-2019 Glucose [Mass/Vol] 238 mg/dL High 70-100 [facility] Comment on above: Performed By: #### 5 0608 #### [facility] [address] [place] [address], [place] Glucose [Mass/Vol] 192 mg/dL High 70-100 [facility] Comment on above: Performed By: #### 8 5499 #### [facility] [address] [place] [address], [place] Glucose [Mass/Vol] 201 mg/dL High 70-100 [facility] Comment on above: Performed By: #### 3 0312 #### [facility] [address] [place] [address], [place] Glucose [Mass/Vol] 198 mg/dL High 70-100 [facility] Comment on above: Performed By: #### 8 5499 #### [facility] [address] [place] [address], [place] PREALBUMINon 09-26-2019 Prealbumin [Mass/Vol] 11.9 mg/dL Low 17.0-34.0 [facility] Comment on above: Order Comment: evalu ate Performed By: #### 1 0147, 34019, 33028, 89718, 90184, 78822 ####[facility] [facility].[address] PROTHROMBIN TIMEon 0 INR Coag (PPP) [Relative time] 1.00 {INR} Normal 0.91-1.16 [facility] Comment on above: Result Comment: ACCC P RECOMMENDED INR FOR WARFARIN THERAPY --------- ------- CONDITION INR PROPHYLAXIS OF VENOUS THROMBOSIS 2-3 (HIGH-RISK SURGERY) TREATMENT OF VENOUS THROMBOSIS 2-3 TREATMENT OF PULMONARY EMBOLISM 2-3 PREVENTION OF SYSTEMIC EMBOLISM: 2-3 ACUTE MYOCARDIAL INFARCTION TISSUE HEART VALVES VALVULAR HEART DISEASE ATRIAL FIBRILLATION RECURRENT SYSTEMIC EMBOLISM MECHANICAL HEART VALVE 2.5-3.5 FROM: ORAL ANTICOAGULANTS. MECHANISM OF ACTION, CLINICAL EFFECTIVENESS, AND OPTIMAL THERAPEUTIC RANGE. CHEST 1995;108:[id number]. Performed By: #### 8 5499 #### [facility] [address] [facility] [address], [facility] PT Coag (PPP) [Time] 13.2 s Normal 12.3-14.8 [facility] Comment on above: Result Comment: ALL RESULTS MUST BE INTERPRETED WITH RESPECT TO BLOOD DRAWING ARTIFACT OR DILUTION ERROR OF ANTICOAGULANT AT THE TIME OF SAMPLING. Performed By: #### 8 5499 #### [facility] [address] [facility] [place] [address], [facility] SEDIMENTATION RATEon 020 SED RATE 49 mm/hr High 0-20 [facility] Comment on above: Performed By: #### 8 5499 #### [facility] [address] [place] [address], [facility] TRANSFERRINon 09-26-2019 Transferrin [Mass/Vol] 171 mg/dL Low 203-362 [facility] Comment on above: Performed By: #### 1 0147, 66690, 51334, 33210, 64169, 71925 ####[facility] [place] [address], [facility] URINALYSIS REFLEXon 09-26-19 20 Appearance (U) CLOUDY Abnormal CLEAR [facility] Comment on above: Order Comment: No: D o not add to previous drawCriteria for reflexing a culture was not met. Please call the lab [phone] within 24 hours of collection time if culture is needed Performed By: #### 8 5499 #### [facility] [address] [place] [address], [facility] Bilirubin [Mass/Vol] Negative Normal NEGATIVE [facility] Comment on above: Order Comment: No: D o not add to previous drawCriteria for reflexing a culture was not met. Please call the lab [email or web address] within 24 hours of collection time if culture is needed Performed By: #### 8 5499 #### [facility] [address] [place] [address], [facility] BLOOD MODERATE Abnormal NEGATIVE [facility] Comment on above: Order Comment: No: D o not add to previous drawCriteria for reflexing a culture was not met. Please call the lab [phone] within 24 hours of collection time if culture is needed Performed By: #### 8 5499 #### [facility] [address] [place] [address], [facility] BUDDING YEAST MANY Abnormal NONE SEEN [facility] Comment on above: Order Comment: No: D o not add to previous drawCriteria for reflexing a culture was not met. Please call the lab [phone] within 24 hours of collection time if culture is needed Performed By: #### 8 5499 #### [facility] [address] Color (U) YELLOW Normal YELLOW [facility] Comment on above: Order Comment: No: D o not add to previous drawCriteria for reflexing a culture was not met. Please call the lab [phone] within 24 hours of collection time if culture is needed Performed By: #### 8 5499 #### [facility] [address] [place] [address], [facility] EPIS MANY Abnormal FEW,OCC,NO NE SEEN [facility] Comment on above: Order Comment: No: D o not add to previous drawCriteria for reflexing a culture was not met. Please call the lab [phone] within 24 hours of collection time if culture is needed Performed By: #### 8 5499 #### [facility] [address] [facility] [address], [facility] Glucose [Mass/Vol] >=500 Abnormal NEGATIVE [facility] Comment on above: Order Comment: No: D o not add to previous drawCriteria for reflexing a culture was not met. Please call the lab [id number] within 24 hours of collection time if culture is needed Performed By: #### 8 5499 #### [facility] [address] [facility] [address], [facility] KETONE 20 mg/dL Abnormal NEGATIVE [facility] Comment on above: Order Comment: No: D o not add to previous drawCriteria for reflexing a culture was not met. Please call the lab [phone] within 24 hours of collection time if culture is needed Performed By: #### 8 5499 #### [facility] [address] [place] [address], [facility] LEUK JORDAN LARGE Abnormal NEGATIVE [facility] Comment on above: Order Comment: No: D o not add to previous drawCriteria for reflexing a culture was not met. Please call the lab [id number] within 24 hours of collection time if culture is needed Performed By: #### 8 [id number] #### [facility] [address] [place] [address], [place] MUCUS THREADS OCC Abnormal NONE SEEN [facility] Comment on above: Order Comment: No: D o not add to previous drawCriteria for reflexing a culture was not met. Please call the lab [id number] within 24 hours of collection time if culture is needed Performed By: #### 8 [id number] #### [facility] [address] [place] [address], [facility] Nitrite Ql (U) Negative Normal NEGATIVE [facility] Comment on above: Order Comment: No: D o not add to previous drawCriteria for reflexing a culture was not met. Please call the lab [id number] within 24 hours of collection time if culture is needed Performed By: #### 8 [id number] #### [facility] [address] [facility] [address], [facility] pH (Bld) 5.0 Normal 5.0-8.0 [facility] Comment on above: Order Comment: No: D o not add to previous drawCriteria for reflexing a culture was not met. Please call the lab [id number] within 24 hours of collection time if culture is needed Performed By: #### 8 [id number] #### [facility] [address] [facility] [place] [address], [facility] Protein (U) [Mass/Vol] Negative Normal NEGATIVE [facility] Comment on above: Order Comment: No: D o not add to previous drawCriteria for reflexing a culture was not met. Please call the lab [id number] within 24 hours of collection time if culture is needed Performed By: #### 8 [id number] #### [facility] [address] [facility] [place] [address], [place] RBC (U) [#/Vol] 21-50 Abnormal NONE SEEN [facility] Comment on above: Order Comment: No: D o not add to previous drawCriteria for reflexing a culture was not met. Please call the lab [id number] within 24 hours of collection time if culture is needed Performed By: #### 8 [id number] #### [facility] [address] SPEC GRAV 1.032 High 1.015-1.02 0 [facility] Comment on above: Order Comment: No: D o not add to previous drawCriteria for reflexing a culture was not met. Please call the lab [id number] within 24 hours of collection time if culture is needed Performed By: #### 8 [id number] #### [facility] [address] WBC UA >100 Abnormal NONE SEEN [facility] Comment on above: Order Comment: No: D o not add to previous drawCriteria for reflexing a culture was not met. Please call the lab [id number] within 24 hours of collection time if culture is needed Performed By: #### 8 5499 #### [facility] [address] VITAMIN D 25-HYDROXYon 09-25 VITAMIN D 25-OH 23.8 ng/mL Low 30.0-80.0 [facility] Comment on above: Result Comment: >80. 0 Toxicity possible Performed By: #### 1 0147, 31683, 96966, 27476, 10647, 61321 ####[facility] Culture, Urineon 07-20-2019 Culture, Urine OR DERED BY: ALFREDO WAYNE SOURCE: Urine Voided COLLECTED: 07/20/19 12:00 ANTIBIOTICS AT SULEMAN.: RECEIVED : 07/20/19 12:58 Culture, Urine FINAL 07/21/19 08:22 <50,000 CFU/ml of mixed mera Multiple organisms isolated, no predominance. Culture indicates probable contamination. Please review colony count and clinical indications to determine if a repeat culture is necessary. No further workup to be done. Normal [facility] Comment on above: Performed By: #### C XURN #### [facility] [address] [place] [address] Urinalysis, reflex to micros copicon 07-20-2019 Bilirubin Ql (U) Negative Normal Negative [facility] Comment on above: Performed By: #### U A #### [facility] [address] [place] [address] Clarity (U) CLOUDY Abnormal Clear [facility] Comment on above: Performed By: #### U A #### [facility] [address] [place] [address] Color (U) Yellow Normal Straw/Carson [facility] Comment on above: Performed By: #### U A #### [facility] [address] [place] [address] Glucose Ql (U) >=1000 Abnormal Negative [facility] Comment on above: Performed By: #### U A #### [facility] [address] [place] [address] Hemoglobin Ql (U) SMALL Abnormal Negative [facility] Comment on above: Performed By: #### U A #### [facility] [address] [place] [address] Ketones Ql (U) Negative Normal Negative [facility] Comment on above: Performed By: #### U A #### [facility] [address] [place] [address] Leukocyte esterase Test strip Ql (U) MODERATE Abnormal Negative [facility] Comment on above: Performed By: #### U A #### [facility] [address] [place] [address] Nitrite Ql (U) Negative Normal Negative [facility] Comment on above: Performed By: #### U A #### [facility] [address] [place] [address] pH (U) 5.0 [pH] Normal 5.0-9.0 [facility] Comment on above: Performed By: #### U A #### [facility] [address] [place] [address] Protein Ql (U) TRACE Abnormal Negative [facility] Comment on above: Performed By: #### U A #### [facility] [address] [place] [address] Specific gravity (U) [Rel density] 1.039 Normal 1.005-1.03 [facility] Comment on above: Performed By: #### U A #### [facility] [address] [place] [address] Urobilinogen Qn (U) 0.2 {Anibal'U}/dL Normal < 2.0 [facility] Comment on above: Performed By: #### U A #### [facility] [address] [place] [address] Urine Microscopicon 07-20-19 20 RBC (U) [#/Vol] 0-2 Normal 0-2 [facility] Comment on above: Performed By: #### U ELIANA #### [facility] [address] [place] [address] Urine Yeast Present Abnormal None Seen [facility] Comment on above: Performed By: #### U ELIANA #### [facility] [address] [place] [address] WBC (U) [#/Vol] 50-100 Abnormal 0-5 [facility] Comment on above: Performed By: #### U ELIANA #### [facility] [address] [place] [address] Hemoglobin A1con 07-17-2019 HbA1c (Bld) [Mass fraction] 6.9 % Critically high 4.8-5.9 [facility] Comment on above: Performed By: #### A 1C #### [facility] [address] [place] [address] TSH w/out Reflexon 0 TSH Qn 47.540 uIU/mL Critically high 0.440-3.86 [facility] Comment on above: Performed By: #### T SH #### [facility] [address] [place] [address] Vitamin B12 and Folateon Cobalamin (Vitamin B12) [Mass/Vol] 397 pg/mL Normal 232-1245 [facility] Comment on above: Performed By: #### B 12FO #### [facility] [address] [place] [address] Folate 12.8 ng/mL Normal 7.3-26.1 [facility] Comment on above: Result Comment: As o f 15, the methodology has changed. Results from this methodology should not be compared with results from previous methodology. Performed By: #### B 12FO #### [facility] [address] [place] [address] Vitamin Don 07-17-2019 Vitamin D 21.7 ng/mL Low 30.0-100.0 [facility] Comment on above: Result Comment: (20- 30 ng/mL) Insufficiency This assay accurately quantifies the sum of vitamin D3, 25-Hydroxy and vitamin D2, 25-Hyroxy. Performed By: #### V ITD #### [facility] [address] [place] [address] TIBIA FIBULA RIGHTon 020 TIBIA FIBULA RIGHT [facility] Department of Radiology [address] [place] [id number] Patient Name: DALIA MELENDEZ : 1965 Sex: F Age: Race: White Pt. Location: Patient Status: Ordered Date: 07/07/2019 9:25:00 AM Completed Date: 07/07/2019 09:40 AM Requesting Provider: ERIC FLORIAN Attending Provider: Report Copy To: Signs & Symptoms: S82.201A Unsp fracture of shaft of right tibia, init for clos fx I10 History: Doris Comments: , , , Ordering Provider - ERIC FLORIAN PA-C , Exam: TIBIA FIBULA RIGHT TIBIA FIBULA RIGHT 07/07/2019 9:40 AM SIGNS AND SYMPTOMS: S82.201A Unsp fracture of shaft of right tibia, init for clos fx I10 TECHNOLOGIST COMMENTS: s/p recent fall follow up right tib/fib fracture QUESTION FOR THE RADIOLOGIST: , , , Ordering Provider - ERIC FLORIAN PA-C , PROTOCOL: AP(PA) and Lateral views were obtained. COMPARISON: June 22, 2019 FINDINGS: Soft tissues: Mild diffuse swelling, focal anterior swelling just below the fracture Dorsal brace Bones: Screw fixation across the proximal tibial metaphysis and epiphysis with transversely oriented fracture below the screws accompanied by adjacent fibular fracture Hardware in distal femur including adali and lateral plating Joints: Mild knee and ankle arthritis IMPRESSION: 1. Proximal tibial metaphyseal and proximal fibular shaft fractures accompanied by plateau screws from the medial side in good alignment 2. Old hardware in the distal femur Electronically signed: Cesar Queen. Transcribed by: [email or web address], User Resident: Electronically Signed by: CESAR QUEEN @ 07/07/2019 03:08 PM Normal [facility] Comment on above: Order Comment: No co llection time noted on specimen or requisition. The collection time recorded is the time of receipt in the lab. No collection time noted on specimen or requisition. The collection time recorded is the time of receipt in the lab. The Aptima SARS-CoV-2 assay is a nucleic acid amplification test intended for the qualitative detection of RNA from SARS-CoV-2 isolated and purified from nasopharyngeal (TOLL TICKET CLERK), nasal and oropharyngeal (OP) swab specimens from patients with signs and symptoms of infection who are suspected of COVID-19. Results are for the identification of SARS-CoV-2 RNA. The SARS-CoV-2 RNA is generally detectable in nasopharyngeal and oropharyngeal swabs during the acute phase of infection. The Aptima SARS-CoV-2 Assay on the [place] [employer] [place] [employer] system is intended for use by laboratory personnel specifically instructed and trained in the operation of the [place] [employer] [place] [employer] system. The Aptima SARS-CoV-2 assay is only for use under the Food and Drug Administration Emergency Use Authorization. Testing is limited to laboratories certified under the Clinical Laboratory Improvement Amendments of 1988 (CLIA), 42 U.S.C. ???263a, to perform high complexity tests. Not Detected: Not detected does not preclude SARS-CoV-2 infection and should not be used as the sole basis for patient management decisions. Not detected results must be combined with clinical observations, patient history, and epidemiological information. POC GLUCOSE LABon 06-26-2019 Glucose [Mass/Vol] 184 mg/dL High 70-100 [facility] Comment on above: Performed By: #### 3 0312 #### [facility] [address] [facility] [address], [facility] Glucose [Mass/Vol] 217 mg/dL High 70-100 [facility] Comment on above: Performed By: #### 5 0608 #### [facility] [address] [facility] [place] [address], [facility] BASIC METABOLIC PANELon 06-12 Calcium [Mass/Vol] 9.1 mg/dL Normal 8.6-10.3 [facility] Comment on above: Order Comment: No: D o not add to previous draw Criteria for reflexing a culture was not met. Please call the lab at [phone] within 24 hours of collection time if culture is needed Performed By: #### 3 0965 #### [facility] [address] [facility] [place] [address], [facility] Chloride [Moles/Vol] 101 mmol/L Normal 98-107 [facility] Comment on above: Order Comment: No: D o not add to previous draw Criteria for reflexing a culture was not met. Please call the lab at [phone] within 24 hours of collection time if culture is needed Performed By: #### 3 0965 #### [facility] [address] [place] [address], [facility] CO2 [Moles/Vol] 27 mmol/L Normal 21-31 [facility] Comment on above: Order Comment: No: D o not add to previous draw Criteria for reflexing a culture was not met. Please call the lab at [phone] within 24 hours of collection time if culture is needed Performed By: #### 3 0965 #### [facility] [address] [place] [address], [facility] Creatinine [Mass/Vol] 0.92 mg/dL Normal 0.60-1.20 [facility] Comment on above: Order Comment: No: D o not add to previous draw Criteria for reflexing a culture was not met. Please call the lab at [phone] within 24 hours of collection time if culture is needed Performed By: #### 3 0965 #### [facility] [address] [address], [facility] GFR/1.73 sq M predicted among blacks MDRD (S/P/Bld) [Vol rate/Area] mL/min/{1.73_m2} Normal >60 [facility] Comment on above: Order Comment: No: D o not add to previous draw Criteria for reflexing a culture was not met. Please call the lab at [phone] within 24 hours of collection time if culture is needed Performed By: #### 3 0965 #### [facility] [address] [place] [address], [facility] GFR/1.73 sq M predicted among non-blacks MDRD (S/P/Bld) [Vol rate/Area] mL/min/{1.73_m2} Normal >60 [facility] Comment on above: Order Comment: No: D o not add to previous draw Criteria for reflexing a culture was not met. Please call the lab at [phone] within 24 hours of collection time if culture is needed Performed By: #### 3 0965 #### [facility] [address] [place] [address], [place] Glucose [Mass/Vol] 202 mg/dL High 70-100 [facility] Comment on above: Order Comment: No: D o not add to previous draw Criteria for reflexing a culture was not met. Please call the lab at [phone] within 24 hours of collection time if culture is needed Performed By: #### 3 0965 #### [facility] [address] [place] [id number], [facility] Potassium [Moles/Vol] 4.6 mmol/L Normal 3.5-5.1 [facility] Comment on above: Order Comment: No: D o not add to previous draw Criteria for reflexing a culture was not met. Please call the lab at [phone] within 24 hours of collection time if culture is needed Performed By: #### 3 0965 #### [facility] [address] [place] [address], [facility] Sodium [Moles/Vol] 133 mmol/L Low 136-145 [facility] Comment on above: Order Comment: No: D o not add to previous draw Criteria for reflexing a culture was not met. Please call the lab at [phone] within 24 hours of collection time if culture is needed Performed By: #### 3 0965 #### [facility] [address] [place] [address], [facility] Urea nitrogen [Mass/Vol] 28 mg/dL High 7-25 [facility] Comment on above: Order Comment: No: D o not add to previous draw Criteria for reflexing a culture was not met. Please call the lab at [phone] within 24 hours of collection time if culture is needed Performed By: #### 3 0965 #### [facility] [address] [place] [address], [facility] CBC COMPLETE BLOOD COUNTon 0 2- Erythrocyte distribution width (RBC) [Ratio] 12.7 % Normal 11.5-15.0 [facility] Comment on above: Order Comment: No: D o not add to previous draw Performed By: #### 8 [id number] #### [facility] [address] [place] [address], [facility] Hematocrit (Bld) [Volume fraction] 35.5 % Low 36.0-45.0 [facility] Comment on above: Order Comment: No: D o not add to previous draw Performed By: #### 8 5499 #### [facility] [address] [place] [address], [facility] Hemoglobin (Bld) [Mass/Vol] 11.6 g/dL Low 12.0-15.0 [facility] Comment on above: Order Comment: No: D o not add to previous draw Performed By: #### 8 5499 #### [facility] [address] [place] [address], [facility] MCH (RBC) [Entitic mass] 31.4 pg Normal 27.0-33.0 [facility] Comment on above: Order Comment: No: D o not add to previous draw Performed By: #### 8 5499 #### [facility] [address] [facility] [place] [address], [facility] MCHC (RBC) [Mass/Vol] 32.7 g/dL Normal 32.0-35.0 [facility] Comment on above: Order Comment: No: D o not add to previous draw Performed By: #### 8 5499 #### [facility] [address] [facility] [place] [address], [facility] MCV (RBC) [Entitic vol] 96.2 fL Normal 82.0-98.0 [facility] Comment on above: Order Comment: No: D o not add to previous draw Performed By: #### 8 5499 #### [facility] [address] [facility] [place] [address], [facility] Nucleated RBC/100 WBC (Bld) [Ratio] 0 % Normal 0-0 [facility] Comment on above: Order Comment: No: D o not add to previous draw Performed By: #### 8 5499 #### [facility] [address] [place] [address], [facility] PLAT CNT 176 10*3/uL Normal 150-400 [facility] Comment on above: Order Comment: No: D o not add to previous draw Performed By: #### 8 5499 #### [facility] [address] [place] [address], [place] RBC (Bld) [#/Vol] 3.69 10*6/uL Low 3.80-5.00 [facility] Comment on above: Order Comment: No: D o not add to previous draw Performed By: #### 8 5499 #### [facility] [address] [place] [address], [place] WBC (Bld) [#/Vol] 7.62 10*3/uL Normal 4.00-10.60 [facility] Comment on above: Order Comment: No: D o not add to previous draw Performed By: #### 8 5499 #### [facility] [address] [place] [address], [place] POC GLUCOSE LABon 06-25-2019 Glucose [Mass/Vol] 242 mg/dL High 70-100 [facility] Comment on above: Performed By: #### 8 5499 #### [facility] [address] [place] [address], [place] Glucose [Mass/Vol] 205 mg/dL High 70-100 [facility] Comment on above: Performed By: #### 8 5499 #### [facility] [address] [place] [address], [place] Glucose [Mass/Vol] 260 mg/dL High 70-100 [facility] Comment on above: Performed By: #### 3 0312 #### [facility] [address] [place] [address], [place] Glucose [Mass/Vol] 220 mg/dL High 70-100 [facility] Comment on above: Performed By: #### 5 0608 #### [facility] [address] [place] [address], [place] ARTERIAL BLOOD GAS WITH ICAo n 06-24-2019 BASE EXCESS 0 mmol/L Normal -2-3 [facility] Comment on above: Performed By: #### 8 5499 #### [facility] [address] [place] [address], [facility] DELIVERY SYSTEMS RA Normal [facility] Comment on above: Performed By: #### 8 5499 #### [facility] [address] [place] [address], [place] FIO2 21 % Normal [facility] Comment on above: Performed By: #### 8 5499 #### [facility] [address] [place] [address], [facility] HCO3 (Bld) [Moles/Vol] 25 mmol/L Normal 21-28 [facility] Comment on above: Performed By: #### 8 5499 #### [facility] [address] [place] [address], [place] IONIZED CALCIUM 1.26 mmol/L Normal 1.13-1.32 [facility] Comment on above: Performed By: #### 8 5499 #### [facility] [address] [place] [address], [place] Oxygen (Bld) [Partial pressure] 67 mm[Hg] Low 83-108 [facility] Comment on above: Performed By: #### 8 5499 #### [facility] [address] [place] [address], [place] Oxygen saturation in Blood 91.6 % Low 94.0-97.0 [facility] Comment on above: Performed By: #### 8 5499 #### [facility] [address] [place] [address], [place] PCO2 43 mmHg Normal 35-45 [facility] Comment on above: Performed By: #### 8 5499 #### [facility] [address] [place] [address], [place] pH (Bld) 7.38 [pH] Normal 7.35-7.45 [facility] Comment on above: Performed By: #### 8 5499 #### [facility] [address] [place] [address], [place] BASIC METABOLIC PANELon 06-12 Calcium [Mass/Vol] 9.1 mg/dL Normal 8.6-10.3 [facility] Comment on above: Order Comment: No: D o not add to previous draw Performed By: #### 8 5499 #### [facility] [address] [place] [address], [place] Chloride [Moles/Vol] 99 mmol/L Normal 98-107 [facility] Comment on above: Order Comment: No: D o not add to previous draw Performed By: #### 8 5499 #### [facility] [address] [place] [address], [place] CO2 [Moles/Vol] 26 mmol/L Normal 21-31 [facility] Comment on above: Order Comment: No: D o not add to previous draw Performed By: #### 8 5499 #### [facility] [address] [place] [address], [place] Creatinine [Mass/Vol] 1.02 mg/dL Normal 0.60-1.20 [facility] Comment on above: Order Comment: No: D o not add to previous draw Performed By: #### 8 5499 #### [facility] [address] [place] [address], [place] GFR/1.73 sq M predicted among blacks MDRD (S/P/Bld) [Vol rate/Area] mL/min/{1.73_m2} Normal >60 [facility] Comment on above: Order Comment: No: D o not add to previous draw Performed By: #### 8 5499 #### [facility] [address] [place] [address], [place] GFR/1.73 sq M predicted among non-blacks MDRD (S/P/Bld) [Vol rate/Area] 57 ml/min/1.73sq m Abnormal >60 [facility] Comment on above: Order Comment: No: D o not add to previous draw Performed By: #### 8 5499 #### [facility] [address] [place] [address], [place] Glucose [Mass/Vol] 166 mg/dL High 70-100 [facility] Comment on above: Order Comment: No: D o not add to previous draw Performed By: #### 8 5499 #### [facility] [address] [place] [address], [place] Potassium [Moles/Vol] 4.4 mmol/L Normal 3.5-5.1 [facility] Comment on above: Order Comment: No: D o not add to previous draw Performed By: #### 8 5499 #### [facility] [address] [place] [address], [place] Sodium [Moles/Vol] 131 mmol/L Low 136-145 [facility] Comment on above: Order Comment: No: D o not add to previous draw Performed By: #### 8 5499 #### [facility] [address] [place] [address], [place] Urea nitrogen [Mass/Vol] 29 mg/dL High 7-25 [facility] [facility] Comment on above: Order Comment: No: D o not add to previous draw Performed By: #### 8 [id number] #### [facility] [address] [place] [address], [place] CBC COMPLETE BLOOD COUNTon 0 2- Erythrocyte distribution width (RBC) [Ratio] 12.8 % Normal 11.5-15.0 [facility] Comment on above: Order Comment: No: D o not add to previous draw Performed By: #### 8 [id number] #### [facility] [address] [place] [address], [place] Hematocrit (Bld) [Volume fraction] 37.3 % Normal 36.0-45.0 [facility] Comment on above: Order Comment: No: D o not add to previous draw Performed By: #### 8 [id number] #### [facility] [address] [place] [address], [facility] Hemoglobin (Bld) [Mass/Vol] 12.0 g/dL Normal 12.0-15.0 [facility] Comment on above: Order Comment: No: D o not add to previous draw Performed By: #### 8 [id number] #### [facility] [address] [place] [address], [facility] MCH (RBC) [Entitic mass] 31.0 pg Normal 27.0-33.0 [facility] Comment on above: Order Comment: No: D o not add to previous draw Performed By: #### 8 [id number] #### [facility] [address] [place] [address], [facility] MCHC (RBC) [Mass/Vol] 32.2 g/dL Normal 32.0-35.0 [facility] Comment on above: Order Comment: No: D o not add to previous draw Performed By: #### 8 [id number] #### [facility] [address] [facility] [place] [address], [facility] MCV (RBC) [Entitic vol] 96.4 fL Normal 82.0-98.0 [facility] Comment on above: Order Comment: No: D o not add to previous draw Performed By: #### 8 [id number] #### [facility] [address] [facility] [place] [address], [facility] Nucleated RBC/100 WBC (Bld) [Ratio] 0 % Normal 0-0 [facility] Comment on above: Order Comment: No: D o not add to previous draw Performed By: #### 8 [id number] #### [facility] [address] [place] [id number], [facility] PLAT CNT 191 10*3/uL Normal 150-400 [facility] Comment on above: Order Comment: No: D o not add to previous draw Performed By: #### 8 [id number] #### [facility] [address] [place] [address], [facility] RBC (Bld) [#/Vol] 3.87 10*6/uL Normal 3.80-5.00 [facility] Comment on above: Order Comment: No: D o not add to previous draw Performed By: #### 8 [id number] #### [facility] [address] [place] [address], [facility] WBC (Bld) [#/Vol] 8.20 10*3/uL Normal 4.00-10.60 [facility] Comment on above: Order Comment: No: D o not add to previous draw Performed By: #### 8 [id number] #### [facility] [address] [place] [address], [facility] HEMOGLOBIN A1Con 06-24-2019 HbA1c (Bld) [Mass fraction] 7.6 % High 4.0-6.0 [facility] Comment on above: Order Comment: evalu ate Performed By: #### 4 [id number] ####[facility] [facility] [place] [address], [facility] HbA1c (Bld) [Mass fraction] 171 mg/dL High 70-126 [facility] Comment on above: Order Comment: evalu ate Performed By: #### 4 6447 ####[facility] [facility] [place] [address], [facility] POC GLUCOSE LABon 06-24-2019 Glucose [Mass/Vol] 227 mg/dL High 70-100 [facility] Comment on above: Performed By: #### 3 0312 #### [facility] [address] [place] [address], [facility] Glucose [Mass/Vol] 239 mg/dL High 70-100 [facility] Comment on above: Performed By: #### 3 0312 #### [facility] [address] [place] [address], [place] Glucose [Mass/Vol] 239 mg/dL High 70-100 [facility] Comment on above: Performed By: #### 3 0312 #### [facility] [address] [place] [address], [place] Glucose [Mass/Vol] 218 mg/dL High 70-100 [facility] Comment on above: Performed By: #### 3 0312 #### [facility] [address] [place] [address], [facility] URINALYSIS REFLEXon 06-24-19 20 Appearance (U) CLEAR Normal CLEAR [facility] Comment on above: Order Comment: No: D o not add to previous draw Criteria for reflexing a culture was not met. Please call the lab at [phone] within 24 hours of collection time if culture is needed Performed By: #### 3 0965 #### [facility] [address] [facility] [address], [facility] Bilirubin [Mass/Vol] Negative Normal NEGATIVE [facility] Comment on above: Order Comment: No: D o not add to previous draw Criteria for reflexing a culture was not met. Please call the lab at [phone] within 24 hours of collection time if culture is needed Performed By: #### 3 0965 #### [facility] [address] [facility] [address], [facility] BLOOD Negative Normal NEGATIVE [facility] Comment on above: Order Comment: No: D o not add to previous draw Criteria for reflexing a culture was not met. Please call the lab at [phone] within 24 hours of collection time if culture is needed Performed By: #### 3 0965 #### [facility] [address] [facility] [address], [place] Color (U) YELLOW Normal YELLOW [facility] Comment on above: Order Comment: No: D o not add to previous draw Criteria for reflexing a culture was not met. Please call the lab at [phone] within 24 hours of collection time if culture is needed Performed By: #### 3 0965 #### [facility] [address] [place] [address], [facility] Glucose [Mass/Vol] >=500 Abnormal NEGATIVE [facility] Comment on above: Order Comment: No: D o not add to previous draw Criteria for reflexing a culture was not met. Please call the lab at [phone] within 24 hours of collection time if culture is needed Performed By: #### 3 0965 #### [facility] [address] [place] [address], [facility] KETONE Negative Normal NEGATIVE [facility] Comment on above: Order Comment: No: D o not add to previous draw Criteria for reflexing a culture was not met. Please call the lab at [phone] within 24 hours of collection time if culture is needed Performed By: #### 3 0965 #### [facility] [address] [place] [address], [facility] LEUK JORDAN Negative Normal NEGATIVE [facility] Comment on above: Order Comment: No: D o not add to previous draw Criteria for reflexing a culture was not met. Please call the lab at [phone] within 24 hours of collection time if culture is needed Performed By: #### 3 0965 #### [facility] [address] [facility] [place] [address], [facility] MICRO NOT DONE Normal [facility] Comment on above: Order Comment: No: D o not add to previous draw Criteria for reflexing a culture was not met. Please call the lab at [phone] within 24 hours of collection time if culture is needed Result Comment: Micr oscopics not performed on urines with negative chemical reactions unless requested in original order Performed By: #### 3 0965 #### [facility] [address] [place] [address], [facility] Nitrite Ql (U) Negative Normal NEGATIVE [facility] Comment on above: Order Comment: No: D o not add to previous draw Criteria for reflexing a culture was not met. Please call the lab at [phone] within 24 hours of collection time if culture is needed Performed By: #### 3 0965 #### [facility] [address] pH (Bld) 5.0 Normal 5.0-8.0 [facility] Comment on above: Order Comment: No: D o not add to previous draw Criteria for reflexing a culture was not met. Please call the lab at [phone] within 24 hours of collection time if culture is needed Performed By: #### 3 0965 #### [address] Protein (U) [Mass/Vol] Negative Normal NEGATIVE [facility] Comment on above: Order Comment: No: D o not add to previous draw Criteria for reflexing a culture was not met. Please call the lab at [phone] within 24 hours of collection time if culture is needed Performed By: #### 3 0965 #### [address] SPEC GRAV 1.026 High 1.015-1.02 0 [facility] Comment on above: Order Comment: No: D o not add to previous draw Criteria for reflexing a culture was not met. Please call the lab at [phone] within 24 hours of collection time if culture is needed Performed By: #### 3 0965 #### [address] ANKLE RIGHT 3 VWSon 06-23-19 20 ANKLE RIGHT 3 VWS [facility] Department of Radiology [address] [place] [id number] Patient Name: DALIA MELENDEZ : 1965 Sex: F Age: Race: White Pt. Location: [facility] Patient Status: I Ordered Date: 06/22/2019 10:40:00 PM Completed Date: 06/23/2019 12:08 AM Requesting Provider: RAMAN PATEL Attending Provider: GABRIELA ALLEN Report Copy To: Signs & Symptoms: Pain ( specify Location) History: See Comments Comments: R/O FX Exam: ANKLE RIGHT 3 VWS TIBIA FIBULA RIGHT, FEMUR RIGHT 2 VWS, ANKLE RIGHT 3 VWS 06/23/2019 12:08 AM SIGNS AND SYMPTOMS: Pain ( specify Location) TECHNOLOGIST COMMENTS: S/P fall. Patient transfer from [facility]. Right femur fx. Hx of multiple surgeries to right femur. QUESTION FOR THE RADIOLOGIST: R/O FX PROTOCOL: AP(PA) and Lateral views were obtained. (accession [id number]), AP(PA) and Lateral views were obtained. (accession [id number]), AP,Lateral and Oblique views were obtained. (accession [id number]) COMPARISON: December 18, 2018 FINDINGS: Soft tissues: Pronounced anterior soft tissue swelling over the fracture Overlying splint. Bones: Diffuse osteopenia. Internal fixation of right distal femoral and proximal tibial fractures showing no hardware complications or change in alignment. Comminuted impacted proximal tibial and fibular fractures with mild medial apex angulation of 6 degrees. No significant displacement. Joints: Multifocal osteoarthritis, but no new joint injury. IMPRESSION: 1. Comminuted impacted proximal tibial and fibular fractures with mild anteromedial offset and minor impaction 2. Internal fixation of previous healing right distal femoral and proximal tibial fractures showing no hardware complications or change in alignment. Approved by:John Cobos06/23/2019 12:25 AM. I, Cesar Queen,have reviewed the imagers and reports Electronically signed: Cesar Queen. Transcribed by: [email or web address], User Resident: JOHN GIBSON Electronically Signed by: CESAR QUEEN @ 06/23/2019 08:13 AM I personally read this/these film(s) with this resident Normal [facility] Comment on above: Order Comment: No co llection time noted on specimen or requisition. The collection time recorded is the time of receipt in the lab. No collection time noted on specimen or requisition. The collection time recorded is the time of receipt in the lab. The Aptima SARS-CoV-2 assay is a nucleic acid amplification test intended for the qualitative detection of RNA from SARS-CoV-2 isolated and purified from nasopharyngeal (TOLL TICKET CLERK), nasal and oropharyngeal (OP) swab specimens from patients with signs and symptoms of infection who are suspected of COVID-19. Results are for the identification of SARS-CoV-2 RNA. The SARS-CoV-2 RNA is generally detectable in nasopharyngeal and oropharyngeal swabs during the acute phase of infection. The Aptima SARS-CoV-2 Assay on the [employer] system is intended for use by laboratory personnel specifically instructed and trained in the operation of the [place] [employer] [place] [employer] system. The Aptima SARS-CoV-2 assay is only for use under the Food and Drug Administration Emergency Use Authorization. Testing is limited to laboratories certified under the Clinical Laboratory Improvement Amendments of 1988 (CLIA), 42 U.S.C. ???263a, to perform high complexity tests. Not Detected: Not detected does not preclude SARS-CoV-2 infection and should not be used as the sole basis for patient management decisions. Not detected results must be combined with clinical observations, patient history, and epidemiological information. BASIC METABOLIC PANELon 06-12 Calcium [Mass/Vol] 9.1 mg/dL Normal 8.6-10.3 [facility] Comment on above: Order Comment: No: D o not add to previous draw Criteria for reflexing a culture was not met. Please call the lab at [phone] within 24 hours of collection time if culture is needed Performed By: #### 3 5390 #### [place] [address], [facility] Chloride [Moles/Vol] 101 mmol/L Normal 98-107 [facility] Comment on above: Order Comment: No: D o not add to previous draw Criteria for reflexing a culture was not met. Please call the lab at [phone] within 24 hours of collection time if culture is needed Performed By: #### 3 1555 #### [facility] [address] [place] [address], [facility] CO2 [Moles/Vol] 26 mmol/L Normal 21-31 [facility] Comment on above: Order Comment: No: D o not add to previous draw Criteria for reflexing a culture was not met. Please call the lab at [phone] within 24 hours of collection time if culture is needed Performed By: #### 3 0965 #### [facility] [address] [place] [address], [facility] Creatinine [Mass/Vol] 1.09 mg/dL Normal 0.60-1.20 [facility] Comment on above: Order Comment: No: D o not add to previous draw Criteria for reflexing a culture was not met. Please call the lab at [phone] within 24 hours of collection time if culture is needed Performed By: #### 3 0965 #### [facility] [address] [place] [address], [facility] GFR/1.73 sq M predicted among blacks MDRD (S/P/Bld) [Vol rate/Area] mL/min/{1.73_m2} Normal >60 [facility] Comment on above: Order Comment: No: D o not add to previous draw Criteria for reflexing a culture was not met. Please call the lab at [phone] within 24 hours of collection time if culture is needed Performed By: #### 3 0965 #### [facility] [address] [place] [address], [facility] GFR/1.73 sq M predicted among non-blacks MDRD (S/P/Bld) [Vol rate/Area] 53 ml/min/1.73sq m Abnormal >60 [facility] Comment on above: Order Comment: No: D o not add to previous draw Criteria for reflexing a culture was not met. Please call the lab at [phone] within 24 hours of collection time if culture is needed Performed By: #### 3 0965 #### [facility] [address] [place] [address], [place] Glucose [Mass/Vol] 173 mg/dL High 70-100 [facility] Comment on above: Order Comment: No: D o not add to previous draw Criteria for reflexing a culture was not met. Please call the lab at [phone] within 24 hours of collection time if culture is needed Performed By: #### 3 0965 #### [facility] [address] [place] [address], [facility] Potassium [Moles/Vol] 4.1 mmol/L Normal 3.5-5.1 [facility] Comment on above: Order Comment: No: D o not add to previous draw Criteria for reflexing a culture was not met. Please call the lab at [phone] within 24 hours of collection time if culture is needed Performed By: #### 3 0965 #### [facility] [address] [place] [address], [place] Sodium [Moles/Vol] 134 mmol/L Low 136-145 [facility] Comment on above: Order Comment: No: D o not add to previous draw Criteria for reflexing a culture was not met. Please call the lab at [phone] within 24 hours of collection time if culture is needed Performed By: #### 3 0965 #### [facility] [address] [place] [address], [place] Urea nitrogen [Mass/Vol] 26 mg/dL High 7-25 [facility] Comment on above: Order Comment: No: D o not add to previous draw Criteria for reflexing a culture was not met. Please call the lab at [phone] within 24 hours of collection time if culture is needed Performed By: #### 3 0965 #### [facility] [address] [place] [address], [place] CBC COMPLETE BLOOD COUNTon 0 2- Erythrocyte distribution width (RBC) [Ratio] 12.7 % Normal 11.5-15.0 [facility] Comment on above: Order Comment: No: D o not add to previous draw Performed By: #### 8 [id number] #### [facility] [address] Hematocrit (Bld) [Volume fraction] 40.0 % Normal 36.0-45.0 [facility] Comment on above: Order Comment: No: D o not add to previous draw Performed By: #### 8 [id number] #### [facility] [address] [place] [address], [facility] Hemoglobin (Bld) [Mass/Vol] 12.8 g/dL Normal 12.0-15.0 [facility] Comment on above: Order Comment: No: D o not add to previous draw Performed By: #### 8 [id number] #### [facility] [address] [place] [address], [facility] MCH (RBC) [Entitic mass] 30.8 pg Normal 27.0-33.0 [facility] Comment on above: Order Comment: No: D o not add to previous draw Performed By: #### 8 [id number] #### [facility] [address] MCHC (RBC) [Mass/Vol] 32.0 g/dL Normal 32.0-35.0 [facility] Comment on above: Order Comment: No: D o not add to previous draw Performed By: #### 8 [id number] #### [facility] [address] [place] [address], [facility] MCV (RBC) [Entitic vol] 96.4 fL Normal 82.0-98.0 [facility] Comment on above: Order Comment: No: D o not add to previous draw Performed By: #### 8 [id number] #### [facility] [address] [facility] [place] [address], [facility] Nucleated RBC/100 WBC (Bld) [Ratio] 0 % Normal 0-0 [facility] Comment on above: Order Comment: No: D o not add to previous draw Performed By: #### 8 [id number] #### [facility] [address] [place] [address], [facility] PLAT CNT 191 10*3/uL Normal 150-400 [facility] Comment on above: Order Comment: No: D o not add to previous draw Performed By: #### 8 [id number] #### [address] RBC (Bld) [#/Vol] 4.15 10*6/uL Normal 3.80-5.00 [facility] Comment on above: Order Comment: No: D o not add to previous draw Performed By: #### 8 [id number] #### [facility] [address] [place] [address], [facility] WBC (Bld) [#/Vol] 8.13 10*3/uL Normal 4.00-10.60 [facility] Comment on above: Order Comment: No: D o not add to previous draw Performed By: #### 8 [id number] #### [address] LOWER EXTREMITY WO CONTRA ST RIGHTon 06-23-2019 CT LOWER EXTREMITY WO CONTRAST RIGHT [facility] Department of Radiology [address] [place] [id number] Patient Name: DALIA MELENDEZ : 1965 Sex: F Age: Race: White Pt. Location: [facility] Patient Status: I Ordered Date: 06/23/2019 1:15:00 AM Completed Date: 06/23/2019 01:46 AM Requesting Provider: RAMAN PATEL Attending Provider: GABRIELA ALLEN Report Copy To: Signs & Symptoms: Fracture History: See Comments Comments: Fractures, Right knee/proximal tibia. To assess distance from fracture to joint. Exam: CT LOWER EXTREMITY WO CONTRAST RIGHT CT LOWER EXTREMITY WO CONTRAST RIGHT 06/23/2019 1:46 AM SIGNS AND SYMPTOMS: Fracture TECHNOLOGIST COMMENTS: Transfer from [facility] s/p fall with right distal knee fx. H/o multiple falls and fx's. Scan is for pre-op eval. QUESTION FOR THE RADIOLOGIST: Fractures, Right knee/proximal tibia. To assess distance from fracture to joint. PROTOCOL: Axial CT images of the extremity were obtained without IV contrast. TECHNIQUE: Multidetector ct axial images of the abdomen and pelvis were obtained with IV contrast. Multiplanar reformats were performed and viewed on a separate workstation and reviewed to further define anatomy and possible pathology. Appropriate CT dose lowering techniques were utilized. COMPARISON: May 01, 2018 FINDINGS: Redemonstration of internal fixation of distal femur and tibial plateau fracture in unchanged alignment. No hardware complications and the fractures are healing. Acute slightly comminuted and impacted fractures of the proximal tibial and fibular shaft and metaphyseal junctions with slight anterior offset accompanied by local soft tissue swelling. Muscles and tendons appear to be intrinsically intact. Joint cavity shows only a small effusion, limited arthritis and intact ligaments as visualized. IMPRESSION: 1. New proximal tib-fib shaft-metaphyseal fractures with slight displacement as above. 2. Redemonstration of internal fixation of the healing distal femur and tibial plateau fracture in unchanged alignment. No hardware complications.. Approved by:John Cobos06/23/2019 2:35 AM. I, Cesar uQeen,have reviewed the imagers and reports Electronically signed: Cesar Queen. Transcribed by: [email or web address], User Resident: JOHN GIBSON Electronically Signed by: CESAR QUEEN @ 06/23/2019 08:09 AM I personally read this/these film(s) with this resident Normal [facility] Comment on above: Order Comment: No: D o not add to previous draw Criteria for reflexing a culture was not met. Please call the lab at [phone] within 24 hours of collection time if culture is needed FEMUR RIGHT 2 VWSon 06-23-19 20 FEMUR RIGHT 2 VWS [facility] Department of Radiology [address] [place] [address] Patient Name: DALIA MELENDEZ : 1965 Sex: F Age: Race: White Pt. Location: [facility] Patient Status: I Ordered Date: 06/22/2019 10:40:00 PM Completed Date: 06/23/2019 12:08 AM Requesting Provider: RAMAN PATEL Attending Provider: GABRIELA ALLEN Report Copy To: Signs & Symptoms: Pain ( specify Location) History: See Comments Comments: R/O FX Exam: FEMUR RIGHT 2 VWS TIBIA FIBULA RIGHT, FEMUR RIGHT 2 VWS, ANKLE RIGHT 3 VWS 06/23/2019 12:08 AM SIGNS AND SYMPTOMS: Pain ( specify Location) TECHNOLOGIST COMMENTS: S/P fall. Patient transfer from [facility]. Right femur fx. Hx of multiple surgeries to right femur. QUESTION FOR THE RADIOLOGIST: R/O FX PROTOCOL: AP(PA) and Lateral views were obtained. (accession [id number]), AP(PA) and Lateral views were obtained. (accession [id number]), AP,Lateral and Oblique views were obtained. (accession [id number]) COMPARISON: December 18, 2018 FINDINGS: Soft tissues: Pronounced anterior soft tissue swelling over the fracture Overlying splint. Bones: Diffuse osteopenia. Internal fixation of right distal femoral and proximal tibial fractures showing no hardware complications or change in alignment. Comminuted impacted proximal tibial and fibular fractures with mild medial apex angulation of 6 degrees. No significant displacement. Joints: Multifocal osteoarthritis, but no new joint injury. IMPRESSION: 1. Comminuted impacted proximal tibial and fibular fractures with mild anteromedial offset and minor impaction 2. Internal fixation of previous healing right distal femoral and proximal tibial fractures showing no hardware complications or change in alignment. Approved by:John Cobos06/23/2019 12:25 AM. I, Cesar Queen,have reviewed the imagers and reports Electronically signed: Cesar Queen. Transcribed by: [email or web address], User Resident: JOHN GIBSON Electronically Signed by: CESAR QUEEN @ 06/23/2019 08:13 AM I personally read this/these film(s) with this resident Normal [facility] Comment on above: Order Comment: No co llection time noted on specimen or requisition. The collection time recorded is the time of receipt in the lab. No collection time noted on specimen or requisition. The collection time recorded is the time of receipt in the lab. The Aptima SARS-CoV-2 assay is a nucleic acid amplification test intended for the qualitative detection of RNA from SARS-CoV-2 isolated and purified from nasopharyngeal (TOLL TICKET CLERK), nasal and oropharyngeal (OP) swab specimens from patients with signs and symptoms of infection who are suspected of COVID-19. Results are for the identification of SARS-CoV-2 RNA. The SARS-CoV-2 RNA is generally detectable in nasopharyngeal and oropharyngeal swabs during the acute phase of infection. The Aptima SARS-CoV-2 Assay on the [employer] and [employer] Fusion system is intended for use by laboratory personnel specifically instructed and trained in the operation of the [place] and [employer] Fusion system. The Aptima SARS-CoV-2 assay is only for use under the Food and Drug Administration Emergency Use Authorization. Testing is limited to laboratories certified under the Clinical Laboratory Improvement Amendments of 1988 (CLIA), 42 U.S.C. ???263a, to perform high complexity tests. Not Detected: Not detected does not preclude SARS-CoV-2 infection and should not be used as the sole basis for patient management decisions. Not detected results must be combined with clinical observations, patient history, and epidemiological information. POC GLUCOSE LABon 06-23-2019 Glucose [Mass/Vol] 278 mg/dL High 70-100 [facility] Comment on above: Performed By: #### 8 [id number] #### [facility] [address] [place] [address], [place] Glucose [Mass/Vol] 246 mg/dL High 70-100 [facility] Comment on above: Performed By: #### 8 [id number] #### [facility] [address] [place] [address], [place] Glucose [Mass/Vol] 174 mg/dL High 70-100 [facility] Comment on above: Performed By: #### 8 [id number] #### [facility] [address] [place] [address], [place] Glucose [Mass/Vol] 174 mg/dL High 70-100 [facility] Comment on above: Performed By: #### 5 0608 #### [facility] [address] [place] [address], [place] Glucose [Mass/Vol] 155 mg/dL High 70-100 [facility] Comment on above: Performed By: #### 8 [id number] #### [facility] [address] [place] [address], [place] RBC'S 2 UNITSon 06-23-2019 CROSSMATCH INTERP 1 COMP Normal [facility] Comment on above: Performed By: #### 8 [id number] #### [facility] [address] [place] [address], [place] CROSSMATCH INTERP 2 COMP Normal [facility] Comment on above: Performed By: #### 8 [id number] #### [facility] [address] [place] [address], [place] PRODUCT CODE 1 E0336 Normal [facility] Comment on above: Performed By: #### 8 [id number] #### [facility] [address] [place] [address], [place] PRODUCT CODE 2 E0336 Normal [facility] Comment on above: Performed By: #### 8 [id number] #### [facility] [address] [place] [address], [place] PRODUCT STATUS 1 RE Normal [facility] Comment on above: Result Comment: Resu lt changed by IF on 06/26/2019 03:30. The previous value was XM. Performed By: #### 8 [id number] #### [facility] [address] [place] [address], [place] PRODUCT STATUS 2 RE Normal [facility] Comment on above: Result Comment: Resu lt changed by IF on 06/26/2019 03:30. The previous value was XM. Performed By: #### 8 [id number] #### [facility] [address] [place] [address], [place] UNIT ABO 1 A Normal [facility] Comment on above: Performed By: #### 8 [id number] #### [facility] [address] [place] [address], [place] UNIT ABO 2 A Normal [facility] Comment on above: Performed By: #### 8 [id number] #### [facility] [address] [place] [address], [place] UNIT ID 1 [id number] Normal [facility] Comment on above: Performed By: #### 8 [id number] #### [facility] [address] [place] [address], [place] UNIT ID 2 [id number] Normal [facility] Comment on above: Performed By: #### 8 [id number] #### [facility] [address] [place] [address], [place] UNIT RH 1 Positive Normal [facility] Comment on above: Performed By: #### 8 [id number] #### [facility] [address] [place] [address], [place] UNIT RH 2 Positive Normal [facility] Comment on above: Performed By: #### 8 [id number] #### [address] [place] [address] TIBIA FIBULA RIGHTon 020 TIBIA FIBULA RIGHT [facility] Department of Radiology [address] [place] [id number] Patient Name: DALIA MELENDEZ : 1965 Sex: F Age: Race: White Pt. Location: [facility] Patient Status: I Ordered Date: 06/22/2019 10:40:00 PM Completed Date: 06/23/2019 12:08 AM Requesting Provider: RAMAN PATEL Attending Provider: GABRIELA ALLEN Report Copy To: Signs & Symptoms: Pain ( specify Location) History: See Comments Comments: R/O FX Exam: TIBIA FIBULA RIGHT TIBIA FIBULA RIGHT, FEMUR RIGHT 2 VWS, ANKLE RIGHT 3 VWS 06/23/2019 12:08 AM SIGNS AND SYMPTOMS: Pain ( specify Location) TECHNOLOGIST COMMENTS: S/P fall. Patient transfer from [facility]. Right femur fx. Hx of multiple surgeries to right femur. QUESTION FOR THE RADIOLOGIST: R/O FX PROTOCOL: AP(PA) and Lateral views were obtained. (accession [id number]), AP(PA) and Lateral views were obtained. (accession [id number]), AP,Lateral and Oblique views were obtained. (accession [id number]) COMPARISON: December 18, 2018 FINDINGS: Soft tissues: Pronounced anterior soft tissue swelling over the fracture Overlying splint. Bones: Diffuse osteopenia. Internal fixation of right distal femoral and proximal tibial fractures showing no hardware complications or change in alignment. Comminuted impacted proximal tibial and fibular fractures with mild medial apex angulation of 6 degrees. No significant displacement. Joints: Multifocal osteoarthritis, but no new joint injury. IMPRESSION: 1. Comminuted impacted proximal tibial and fibular fractures with mild anteromedial offset and minor impaction 2. Internal fixation of previous healing right distal femoral and proximal tibial fractures showing no hardware complications or change in alignment. Approved by:John Gibsonon06/23/2019 12:25 AM. I, Cesar Queen,have reviewed the imagers and reports Electronically signed: Cesar Queen. Transcribed by: [email or web address], User Resident: JOHN GIBSON Electronically Signed by: CESAR QUEEN @ 06/23/2019 08:13 AM I personally read this/these film(s) with this resident Normal [facility] Comment on above: Order Comment: No co llection time noted on specimen or requisition. The collection time recorded is the time of receipt in the lab. No collection time noted on specimen or requisition. The collection time recorded is the time of receipt in the lab. The Aptima SARS-CoV-2 assay is a nucleic acid amplification test intended for the qualitative detection of RNA from SARS-CoV-2 isolated and purified from nasopharyngeal (TOLL TICKET CLERK), nasal and oropharyngeal (OP) swab specimens from patients with signs and symptoms of infection who are suspected of COVID-19. Results are for the identification of SARS-CoV-2 RNA. The SARS-CoV-2 RNA is generally detectable in nasopharyngeal and oropharyngeal swabs during the acute phase of infection. The Aptima SARS-CoV-2 Assay on the [employer] and [employer] Fusion system is intended for use by laboratory personnel specifically instructed and trained in the operation of the [place] and [place] Fusion system. The Aptima SARS-CoV-2 assay is only for use under the Food and Drug Administration Emergency Use Authorization. Testing is limited to laboratories certified under the Clinical Laboratory Improvement Amendments of 1988 (CLIA), 42 U.S.C. ???263a, to perform high complexity tests. Not Detected: Not detected does not preclude SARS-CoV-2 infection and should not be used as the sole basis for patient management decisions. Not detected results must be combined with clinical observations, patient history, and epidemiological information. BASIC METABOLIC PANELon 06-12 Calcium [Mass/Vol] 9.7 mg/dL Normal 8.6-10.3 [facility] Comment on above: Performed By: #### 0 0071 ####[facility] [place] [address], [facility] Chloride [Moles/Vol] 99 mmol/L Normal 98-107 [facility] Comment on above: Performed By: #### 0 0071 ####[facility] [facility] [place] [address], [place] CO2 [Moles/Vol] 24 mmol/L Normal 21-31 [facility] Comment on above: Performed By: #### 0 0071 ####[facility] [facility] [place] [address], [facility] Creatinine [Mass/Vol] 0.88 mg/dL Normal 0.60-1.20 [facility] Comment on above: Performed By: #### 0 0071 ####[facility] [facility] [place] [address], [place] GFR/1.73 sq M predicted among blacks MDRD (S/P/Bld) [Vol rate/Area] mL/min/{1.73_m2} Normal >60 [facility] Comment on above: Performed By: #### 0 0071 ####[facility] [facility] [place] [address], [place] GFR/1.73 sq M predicted among non-blacks MDRD (S/P/Bld) [Vol rate/Area] mL/min/{1.73_m2} Normal >60 [facility] Comment on above: Performed By: #### 0 0071 ####[facility] [place] [address], [place] Glucose [Mass/Vol] 197 mg/dL High 70-100 [facility] Comment on above: Performed By: #### 0 0071 ####[facility] [place] [address], [facility] Potassium [Moles/Vol] 4.3 mmol/L Normal 3.5-5.1 [facility] Comment on above: Performed By: #### 0 1 ####[facility] [facility] [place] [address], [facility] Sodium [Moles/Vol] 131 mmol/L Low 136-145 [facility] Comment on above: Performed By: #### 0 1 ####[facility] [place] [address], [facility] Urea nitrogen [Mass/Vol] 21 mg/dL Normal 7-25 [facility] Comment on above: Performed By: #### 0 1 ####[facility] CBC COMPLETE BLOOD COUNT06-22-2019 Erythrocyte distribution width (RBC) [Ratio] 12.5 % Normal 11.5-15.0 [facility] Comment on above: Performed By: #### 5 0608 #### [facility] [address] [facility] [place] [address], [facility] Hematocrit (Bld) [Volume fraction] 42.7 % Normal 36.0-45.0 [facility] Comment on above: Performed By: #### 5 0608 #### [facility] [address] [facility] [place] [address], [facility] Hemoglobin (Bld) [Mass/Vol] 13.9 g/dL Normal 12.0-15.0 [facility] Comment on above: Performed By: #### 5 0608 #### [facility] [address] [facility] [address], [facility] MCH (RBC) [Entitic mass] 30.6 pg Normal 27.0-33.0 [facility] Comment on above: Performed By: #### 5 0608 #### [facility] [address] MCHC (RBC) [Mass/Vol] 32.6 g/dL Normal 32.0-35.0 [facility] Comment on above: Performed By: #### 5 0608 #### [facility] [address] [facility] [address], [facility] MCV (RBC) [Entitic vol] 94.1 fL Normal 82.0-98.0 [facility] Comment on above: Performed By: #### 5 0608 #### [facility] [address] Nucleated RBC/100 WBC (Bld) [Ratio] 0 % Normal 0-0 [facility] Comment on above: Performed By: #### 5 0608 #### [facility] [address] PLAT CNT 235 10*3/uL Normal 150-400 [facility] Comment on above: Performed By: #### 5 0608 #### [facility] [address] [place] [address], [facility] RBC (Bld) [#/Vol] 4.54 10*6/uL Normal 3.80-5.00 [facility] Comment on above: Performed By: #### 5 0608 #### [facility] [address] [place] [address], [facility] WBC (Bld) [#/Vol] 12.96 10*3/uL High 4.00-10.60 [facility] Comment on above: Performed By: #### 5 0608 #### [facility] [address] PROTHROMBIN TIMEon 0 INR Coag (PPP) [Relative time] 1.01 {INR} Normal 0.91-1.16 [facility] Comment on above: Result Comment: ACCC P RECOMMENDED INR FOR WARFARIN THERAPY --------- ------- CONDITION INR PROPHYLAXIS OF VENOUS THROMBOSIS 2-3 (HIGH-RISK SURGERY) TREATMENT OF VENOUS THROMBOSIS 2-3 TREATMENT OF PULMONARY EMBOLISM 2-3 PREVENTION OF SYSTEMIC EMBOLISM: 2-3 ACUTE MYOCARDIAL INFARCTION TISSUE HEART VALVES VALVULAR HEART DISEASE ATRIAL FIBRILLATION RECURRENT SYSTEMIC EMBOLISM MECHANICAL HEART VALVE 2.5-3.5 FROM: ORAL ANTICOAGULANTS. MECHANISM OF ACTION, CLINICAL EFFECTIVENESS, AND OPTIMAL THERAPEUTIC RANGE. CHEST 1995;108:231S-246S. Performed By: #### 5 6101 #### [facility] [address] [facility]. [address] PT Coag (PPP) [Time] 13.3 s Normal 12.3-14.8 [facility] Comment on above: Result Comment: ALL RESULTS MUST BE INTERPRETED WITH RESPECT TO BLOOD DRAWING ARTIFACT OR DILUTION ERROR OF ANTICOAGULANT AT THE TIME OF SAMPLING. Performed By: #### 5 6101 #### [facility] [address] [facility] [address], [facility] TYPE AND SCREENon 06-22-2019 ABO INTERPRETATION A Normal [facility] Comment on above: Performed By: #### 3 0965 #### [facility] [address] [facility] [place] [address], [facility] RH INTERPRETATION Positive Normal [facility] Comment on above: Performed By: #### 3 0965 #### [facility] [address] [facility] [address], [facility] Vital Signs Date Time Vital Sign Value Performing Clinician Facility 09-18-2023 16:27-0400 Body height 167.64 cm [facility] Senior Work Phone: [facility] 09-18-2023 16:27-0400 Body temperature 97.7 [degF] [facility] Senior Work Phone: [facility] 09-18-2023 16:27-0400 Body weight 114.3 kg [facility] Work Phone: [facility] 09-18-2023 16:27-0400 Diastolic blood pressure 73 mm[Hg] [facility] Work Phone: [facility] 09-18-2023 16:27-0400 Heart rate 91 /min [facility] Work Phone: [facility] 09-18-2023 16:27-0400 Respiratory rate 18 /min [facility] [employer] Work Phone: [facility] 09-18-2023 16:27-0400 SaO2% (BldA) [Mass fraction] 100 % [facility] Work Phone: [facility] 09-18-2023 16:27-0400 Systolic blood pressure 162 mm[Hg] [facility] Work Phone: [facility] 08-12-2023 14:15-0400 Body height 167.64 cm [facility] [employer] Work Phone: [facility] 08-12-2023 14:15-0400 Body mass index (BMI) [Ratio] 40.8 kg/m2 [facility] Work Phone: [facility] 08-12-2023 14:15-0400 Body weight 114.75 kg [facility] Work Phone: [facility] 08-12-2023 13:40-0400 Body temperature 97.2 [degF] [facility] Work Phone: [facility] 08-12-2023 13:40-0400 Diastolic blood pressure 96 mm[Hg] [facility] Work Phone: [facility] 08-12-2023 13:40-0400 Heart rate 86 /min [facility] Work Phone: [facility] 08-12-2023 13:40-0400 Respiratory rate 18 /min [facility] Work Phone: [facility] 08-12-2023 13:40-0400 Systolic blood pressure 145 mm[Hg] [facility] [employer] Work Phone: [facility] 02-04-2023 19:58-0400 Diastolic blood pressure 83 mm[Hg] [facility] 02-04-2023 19:58-0400 Heart rate 85 /min [facility] 02-04-2023 19:58-0400 Respiratory rate 18 /min [facility] 02-04-2023 19:58-0400 SaO2% (BldA) [Mass fraction] 95 % [facility] 02-04-2023 19:58-0400 Systolic blood pressure 154 mm[Hg] [facility] 02-04-2023 14:42-0400 Body height 167.64 cm [facility] 02-04-2023 14:42-0400 Body weight 114.3 kg [facility] 02-04-2023 14:41-0400 Body temperature 98.1 [degF] [facility] 01-06-2023 20:31-0400 Diastolic blood pressure 79 mm[Hg] [facility] 01-06-2023 20:31-0400 Heart rate 81 /min [facility] 01-06-2023 20:31-0400 Respiratory rate 18 /min [facility] 01-06-2023 20:31-0400 SaO2% (BldA) [Mass fraction] 99 % [facility] 01-06-2023 20:31-0400 Systolic blood pressure 162 mm[Hg] [facility] 01-06-2023 18:36-0400 Body temperature 97.8 [degF] [facility] 01-06-2023 15:37-0400 Body height 167.64 cm [facility] 01-06-2023 15:37-0400 Body weight 114.3 kg [facility] 12-27-2022 00:23-0400 Body temperature 97.8 [degF] [facility] 12-27-2022 00:23-0400 Diastolic blood pressure 68 mm[Hg] [facility] 12-27-2022 00:23-0400 Heart rate 94 /min [facility] 12-27-2022 00:23-0400 Respiratory rate 18 /min [facility] 12-27-2022 00:23-0400 SaO2% (BldA) [Mass fraction] 96 % [facility] 12-27-2022 00:23-0400 Systolic blood pressure 120 mm[Hg] [facility] 12-26-2022 18:11-0400 Body height 167.64 cm [facility] 12-26-2022 18:11-0400 Body weight 116.57 kg [facility] 12-13-2022 20:34-0400 Diastolic blood pressure 58 mm[Hg] [facility] 12-13-2022 20:34-0400 Heart rate 66 /min [facility] 12-13-2022 20:34-0400 Respiratory rate 18 /min [facility] 12-13-2022 20:34-0400 SaO2% (BldA) [Mass fraction] 98 % [facility] 12-13-2022 20:34-0400 Systolic blood pressure 140 mm[Hg] [facility] 12-13-2022 16:51-0400 Body height 167.64 cm [facility] 12-13-2022 16:51-0400 Body temperature 97.7 [degF] [facility] 12-13-2022 16:51-0400 Body weight 114.3 kg [facility] 08-20-2022 10:46-0400 Diastolic blood pressure 71 mm[Hg] DENIS Castellano Work Phone: [facility] 08-20-2022 10:46-0400 Heart rate 80 /min DENIS Castellano Work Phone: [facility] 08-20-2022 10:46-0400 Respiratory rate 18 /min PA-C Jessie Nona Work Phone: [facility] 08-20-2022 10:46-0400 SaO2% (BldA) [Mass fraction] 98 % PA-C Jessie Nona Work Phone: [facility] 08-20-2022 10:46-0400 Systolic blood pressure 130 mm[Hg] PA-C Jessie Nona Work Phone: [facility] 08-20-2022 09:07-0400 Body height 167.64 cm PA-C Jessie Nona Work Phone: [facility] 08-20-2022 09:07-0400 Body temperature 97.8 [degF] PA-C Jessie Nona Work Phone: [facility] 08-20-2022 09:07-0400 Body weight 119.29 kg PA-C Jessie Nona Work Phone: [facility] 07-26-2022 15:32-0400 Diastolic blood pressure 88 mm[Hg] PA-C Jessie Nona Work Phone: [facility] 07-26-2022 15:32-0400 Heart rate 85 /min PA-C Jessie Nona Work Phone: [facility] 07-26-2022 15:32-0400 Respiratory rate 18 /min PA-C Jessie Nona Work Phone: [facility] 07-26-2022 15:32-0400 SaO2% (BldA) [Mass fraction] 100 % PA-C Jessie Nona Work Phone: [facility] 07-26-2022 15:32-0400 Systolic blood pressure 156 mm[Hg] PA-C Jessie Nona Work Phone: [facility] 07-26-2022 13:19-0400 Body height 167.64 cm PA-C Jessie Nona Work Phone: [facility] 07-26-2022 13:19-0400 Body temperature 97.7 [degF] DENIS Castellano Work Phone: [facility] 07-26-2022 13:19-0400 Body weight 119.29 kg [employer] Roman Nona Work Phone: [facility] 07-21-2022 05:30-0400 Diastolic blood pressure 63 mm[Hg] DO [facility] 07-21-2022 05:30-0400 Heart rate 88 /min DO [facility] 07-21-2022 05:30-0400 Respiratory rate 19 /min DO [facility] 07-21-2022 05:30-0400 SaO2% (BldA) [Mass fraction] 95 % DO [facility] 07-21-2022 05:30-0400 Systolic blood pressure 141 mm[Hg] DO [facility] 07-21-2022 00:26-0500 Body height 170.18 cm DO [facility] 07-21-2022 00:26-0500 Body temperature 97.8 [degF] DO [facility] 07-21-2022 00:26-0500 Body weight 129.2 kg DO [facility] 07-02-2022 16:57-0500 Diastolic blood pressure 80 mm[Hg] DO [facility] Work Phone: [facility] 07-02-2022 16:57-0500 Heart rate 87 /min DO [facility] Work Phone: [facility] 07-02-2022 16:57-0500 Respiratory rate 20 /min DO [facility] Work Phone: [facility] 07-02-2022 16:57-0500 SaO2% (BldA) [Mass fraction] 96 % DO [facility] Work Phone: [facility] 07-02-2022 16:57-0500 Systolic blood pressure 180 mm[Hg] DO Jose Keyes Work Phone: [facility] 07-02-2022 15:10-0500 Body height 167.64 cm DO Jose Keyes Work Phone: [facility] 07-02-2022 15:10-0500 Body temperature 97.5 [degF] DO Jose Keyes Work Phone: [facility] 07-02-2022 15:10-0500 Body weight 124 kg DO Jose Keyes Work Phone: [facility] 04-22-2022 14:22-0500 Diastolic blood pressure 58 mm[Hg] MD Megha Pascual Work Phone: [facility] 04-22-2022 14:22-0500 Heart rate 94 /min MD Megha Pascual Work Phone: [facility] 04-22-2022 14:22-0500 Respiratory rate 20 /min MD Megha Pascual Work Phone: [facility] 04-22-2022 14:22-0500 SaO2% (BldA) [Mass fraction] 96 % MD Megha Pascual Work Phone: [facility] 04-22-2022 14:22-0500 Systolic blood pressure 127 mm[Hg] MD Megha Pascual Work Phone: [facility] 04-22-2022 12:21-0500 Body height 170.18 cm MD Megha Pascual Work Phone: [facility] 04-22-2022 12:21-0500 Body temperature 98.6 [degF] MD Megha Pascual Work Phone: [facility] 04-22-2022 12:21-0500 Body weight 69.9 kg MD Megha Pascual Work Phone: [facility] 04-10-2022 14:45-0500 Body height 170.18 cm Donny Skyky Other [employer] Other 04-10-2022 14:45-0500 SaO2% (BldA) [Mass fraction] 99 % Donny Blake Other [facility] [employer] Other 03-06-2022 16:25-0400 Body weight 0 kg DO Jose Keyes Work Phone: [facility] 02-20-2022 17:30-0400 Body height 170.18 cm Donny Blake Other [employer] Other 02-20-2022 17:30-0400 Diastolic blood pressure 80 mm[Hg] Donny Lozano Other [employer] Other 02-20-2022 17:30-0400 SaO2% (BldA) [Mass fraction] 99 % Donny Blake Other [employer] Other 02-20-2022 17:30-0400 Systolic blood pressure 130 mm[Hg] Donny Lozano Other [email or web address] [facility] [employer] Other 02-13-2022 21:04-0400 Diastolic blood pressure 87 mm[Hg] MD Megha Pascual Work Phone: [facility] 02-13-2022 21:04-0400 Heart rate 89 /min MD Megha Pascual Work Phone: [facility] 02-13-2022 21:04-0400 Respiratory rate 18 /min MD Megha Pascual Work Phone: [facility] 02-13-2022 21:04-0400 SaO2% (BldA) [Mass fraction] 98 % MD Megha Pascual Work Phone: [facility] 02-13-2022 21:04-0400 Systolic blood pressure 146 mm[Hg] MD Megha Pascual Work Phone: [facility] 02-13-2022 16:35-0400 Body height 170.18 cm MD Megha Pascual Work Phone: [facility] 02-13-2022 16:35-0400 Body temperature 97.6 [degF] MD Megha Pascual Work Phone: [facility] 02-13-2022 16:35-0400 Body weight 123.83 kg MD Megha Pascual Work Phone: [facility] 02-06-2022 16:00-0400 Body height 170.18 cm Donny Lozano Other [employer] Other 02-06-2022 16:00-0400 Body mass index (BMI) [Ratio] 42.44 kg/m2 Donny Lozano Other [employer] Other 02-06-2022 16:00-0400 Body weight 122.93 kg Donny Lozano Other [employer] Other 02-06-2022 16:00-0400 Diastolic blood pressure 70 mm[Hg] Donny Lozano Other [employer] Other 02-06-2022 16:00-0400 SaO2% (BldA) [Mass fraction] 99 % Donny Lozano Other [employer] Other 02-06-2022 16:00-0400 Systolic blood pressure 140 mm[Hg] Donny Lozano Other [employer] Other 01-04-2022 14:37-0400 Blood Pressure Location Johnny Kenny [facility] 01-04-2022 14:37-0400 Diastolic blood pressure 82 mm[Hg] Johnny Kenny [facility] 01-04-2022 14:37-0400 Heart rate 71 /min Johnny Kenny [facility] 01-04-2022 14:37-0400 Systolic blood pressure 122 mm[Hg] Johnny Kenny [facility] 01-03-2022 14:20-0400 Body height 170.18 cm Boo Ruano Other [employer] Other 01-03-2022 14:20-0400 Body mass index (BMI) [Ratio] 39.62 kg/m2 Boo Ruano Other [employer] Other 01-03-2022 14:20-0400 Body weight 114.76 kg Boo Ruano Other [employer] Other 11-30-2021 08:19-0400 Diastolic blood pressure 63 mm[Hg] MD Megha Pascual Work Phone: [facility] 11-30-2021 08:19-0400 Heart rate 90 /min MD Megha Pascual Work Phone: [facility] 11-30-2021 08:19-0400 Respiratory rate 16 /min MD Megha Pascual Work Phone: [facility] 11-30-2021 08:19-0400 SaO2% (BldA) [Mass fraction] 100 % MD Megha Pascual Work Phone: [facility] 11-30-2021 08:19-0400 Systolic blood pressure 112 mm[Hg] MD Megha Pascual Work Phone: [facility] 11-30-2021 08:18-0400 Body height 170.18 cm MD Megha Pascual Work Phone: [facility] 11-30-2021 08:18-0400 Body weight 119.29 kg MD Megha Pascual Work Phone: [facility] 09-20-2021 16:45-0400 Diastolic blood pressure 61 mm[Hg] MD Megha Pascual Work Phone: [facility] 09-20-2021 16:45-0400 Heart rate 76 /min MD Megha Pascual Work Phone: [facility] 09-20-2021 16:45-0400 Respiratory rate 16 /min MD Megha Pascual Work Phone: [facility] 09-20-2021 16:45-0400 SaO2% (BldA) [Mass fraction] 95 % MD Megha Pascual Work Phone: [facility] 09-20-2021 16:45-0400 Systolic blood pressure 107 mm[Hg] MD Megha Pascual Work Phone: [facility] 09-20-2021 16:00-0400 Inhaled oxygen flow rate 6 L/min MD Megha Pascual Work Phone: [facility] 09-20-2021 12:45-0400 Body weight 127 kg MD Megha Pascual Work Phone: [facility] 09-20-2021 12:20-0400 Body height 167.64 cm MD Megha Pascual Work Phone: [facility] 09-20-2021 12:20-0400 Body mass index (BMI) [Ratio] 43.5 kg/m2 MD Megha Pascual Work Phone: [facility] 09-20-2021 12:20-0400 Body temperature 97.8 [degF] MD Megha Pascual Work Phone: [facility] 08-29-2021 14:15-0400 Body height 170.18 cm Freddie Julia Other [employer] Other 08-29-2021 14:15-0400 Body mass index (BMI) [Ratio] 41.5 kg/m2 Freddie Dumont Other [employer] Other 08-29-2021 14:15-0400 Body weight 120.2 kg Freddie Julia Other [employer] Other 08-13-2021 14:00-0400 Body height 170.18 cm Aliyah Gagnon Other [employer] Other 08-13-2021 14:00-0400 Body mass index (BMI) [Ratio] 41.5 kg/m2 Aliyah Gagnon Other [employer] Other 08-13-2021 14:00-0400 Body weight 120.2 kg Aliyah Gagnon Other [employer] Other 08-13-2021 14:00-0400 Diastolic blood pressure 78 mm[Hg] Aliyah Gagnon Other [employer] Other 08-13-2021 14:00-0400 Respiratory rate 20 /min Aliyah Gagnon Other [employer] Other 08-13-2021 14:00-0400 SaO2% (BldA) [Mass fraction] 97 % Aliyah Gagnon Other [employer] Other 08-13-2021 14:00-0400 Systolic blood pressure 132 mm[Hg] Aliyah Kenack Other [employer] Other 07-26-2021 14:30-0400 Body height 170.18 cm Freddie Dumont Other [employer] Other 07-26-2021 14:30-0400 Body mass index (BMI) [Ratio] 40.72 kg/m2 Freddie Dumont Other [employer] Other 07-26-2021 14:30-0400 Body weight 117.94 kg Freddie Dumont Other [employer] Other 06-19-2021 13:45-0500 Body height 170.18 cm Aliyah Gagnon Other [employer] Other Encounters Encounter Date Encounter Type Care Provider Facility Start: 10-30-2023 End: 10-30-2023 ambulatory Services [facility] Work Phone: [facility] Work Phone: Start: 10-30-2023 End: 10-30-2023 Departed Referred Services [facility] Work Phone: [facility] [place] Work Phone: Start: 09-19-2023 End: 09-19-2023 ambulatory Services [facility] Work Phone: [facility] Work Phone: Start: 09-19-2023 End: 09-19-2023 Departed Referred Services [facility] Work Phone: [facility] Start: 09-18-2023 End: 09-18-2023 Emergency department patient visit Services [facility] Work Phone: [facility] Work Phone: Start: 09-03-2023 End: 09-03-2023 ambulatory Services [facility] Work Phone: [facility] Work Phone: Start: 09-03-2023 End: 09-03-2023 Departed Referred Services [facility] Work Phone: [facility] Start: 08-12-2023 End: 08-12-2023 Discharged Recurring Services [facility] Work Phone: [facility] [place] Work Phone: Start: 08-12-2023 Registered Recurring Services [facility] Work Phone: [facility] [place] Work Phone: Start: 08-12-2023 End: 08-12-2023 ambulatory Services [facility] Work Phone: [facility] Work Phone: Start: 07-29-2023 End: 07-29-2023 ambulatory Services [facility] Work Phone: [facility] Work Phone: Start: 07-29-2023 End: 07-29-2023 Departed Referred Services [facility] Work Phone: [facility] Start: 07-22-2023 End: 07-22-2023 Patient encounter procedure Services [facility] Work Phone: [facility] [address] Work Phone: Start: 07-22-2023 End: 07-22-2023 ambulatory Laila Pittman Facility:[facility] Start: 07-16-2023 End: 07-16-2023 ambulatory Laila Pittman Facility:[facility] Start: 07-16-2023 End: 07-16-2023 Departed Referred Services [facility] Work Phone: [facility] Start: 02-04-2023 End: 02-04-2023 Emergency department patient visit [facility] Work Phone: Start: 01-06-2023 End: 01-06-2023 Emergency department patient visit [facility] Work Phone: Start: 12-26-2022 End: 12-27-2022 Emergency department patient visit [facility] Work Phone: Start: 12-26-2022 End: 12-26-2022 ambulatory Aliyah Gagnon Other [employer] Other Start: 12-26-2022 Telephone encounter Aliyah ruiz [facility] Start: 12-13-2022 End: 12-13-2022 Emergency department patient visit [facility] Work Phone: Start: 08-20-2022 End: 08-20-2022 Admission to same day surgery center DENIS Castellano Work Phone: [facility] Work Phone: Start: 08-20-2022 End: 08-20-2022 ambulatory DENIS Castellano Work Phone: [facility] Work Phone: Start: 08-19-2022 End: 08-19-2022 ambulatory Aliyah Gagnon Other [employer] Other Start: 08-19-2022 Telephone encounter Aliyah ruiz [facility] Start: 08-19-2022 Admission to same [facility] [place] DENIS Castellano Work Phone: [facility] Work Phone: Start: 07-30-2022 End: 07-30-2022 ambulatory Aliyah Gagnon Other [employer] Other Start: 07-30-2022 Telephone encounter Aliyah Walsh ck [facility] Start: 07-26-2022 End: 07-26-2022 Admission to same day surgery center DENIS Castellano Work Phone: [facility] Work Phone: Start: 07-26-2022 End: 07-26-2022 ambulatory DENIS Castellano Work Phone: [facility] Work Phone: Start: 07-21-2022 End: 07-21-2022 Emergency department patient visit DO Jose Keyes [facility] Work Phone: Start: 07-02-2022 End: 07-02-2022 Emergency department patient visit DO Jose Keyes Work Phone: [facility] Work Phone: Start: 06-04-2022 End: 06-04-2022 Admission to same day surgery center DO Jose Keyes Work Phone: [facility] Work Phone: Start: 06-04-2022 End: 06-04-2022 ambulatory DO Jose Keyes Work Phone: [facility] Work Phone: Start: 04-22-2022 End: 04-22-2022 Emergency department patient visit MD Megha Pascual Work Phone: [facility] Start: 04-10-2022 End: 04-10-2022 ambulatory Donny Lozano Other [employer] Other Start: 04-10-2022 Office outpatient visit 25 minutes Donny Lozano [facility] Start: 03-05-2022 End: 03-05-2022 ambulatory Aliyah Gagnon Other [employer] Other Start: 03-05-2022 Telephone encounter Aliyah ruiz [facility] Start: 02-27-2022 End: 02-27-2022 ambulatory Aliyah Gagnon Other [employer] Other Start: 02-27-2022 Telephone encounter Aliyah ruiz [facility] Start: 02-20-2022 End: 02-20-2022 ambulatory Donny Blake Other [employer] Other Start: 02-20-2022 Office outpatient visit 15 minutes Donny Lozano [facility] Start: 02-19-2022 End: 02-19-2022 ambulatory MD Megha Pascual Work Phone: [facility] Work Phone: Start: 02-19-2022 End: 02-19-2022 Patient encounter procedure MD Megha Pascual Work Phone[facility] Start: 02-13-2022 End: 02-13-2022 Emergency department patient visit MD Megha Pascual Work Phone: [facility] Start: 02-13-2022 End: 02-13-2022 ambulatory Aliyah Myesha Other [employer] Other Start: 02-13-2022 Telephone encounter Aliyah ruiz [facility] Start: 02-12-2022 End: 02-12-2022 ambulatory Aliyah Gagnon Other [employer] Other Start: 02-12-2022 Telephone encounter Aliyah ruiz [facility] Start: 02-07-2022 End: 02-07-2022 ambulatory Donny Blake Other [employer] Other Start: 02-07-2022 Telephone encounter Donny Blake [facility] Start: 02-06-2022 End: 02-06-2022 ambulatory Donny Lozano Other [employer] Other Start: 02-06-2022 Office outpatient visit 25 minutes Donny Lozano [facility] Start: 01-31-2022 End: 01-31-2022 ambulatory Aliyah Gagnon Other [employer] Other Start: 01-31-2022 Telephone encounter Aliyah Walsh [facility] Start: 01-09-2022 End: 01-09-2022 ambulatory Freddie Dumont Other [facility] [employer] Other Start: 01-09-2022 Office outpatient visit 15 minutes Freddie Julia [facility] Start: 01-04-2022 End: 01-04-2022 Patient encounter procedure Johnny Kenny [facility] Start: 01-03-2022 End: 01-03-2022 ambulatory Boo Ruano Other [facility] [employer] Other Start: 01-03-2022 Office outpatient ne w 30 minutes Boo Ruano [facility] Start: 12-11-2021 End: 12-11-2021 Patient encounter procedure LAILA SCHUSTER [facility] Start: 11-30-2021 End: 11-30-2021 Patient encounter procedure MD Megha Pascual Work Phone: [facility]MRI [facility] [place] Start: 11-29-2021 End: 11-29-2021 Discharged Recurring MD Megha Pascual Work Phone: [facility]-Physical Therapy [place] Start: 11-29-2021 Registered Recurring MD Megha Pascual Work Phone: [facility]-Physical Therapy [place] Start: 10-22-2021 End: 10-22-2021 Departed Referred MD Megha Pascual Work Phone: [facility] [place] Start: 10-11-2021 End: 10-11-2021 Patient encounter procedure MD Megha Pascual Work Phone: [facility]-XRay [facility] [place] Start: 09-20-2021 End: 09-20-2021 Admission to same day surgery center MD Megha Pascual Work Phone: [facility]-Surgery Center [facility] [place] Start: 09-19-2021 End: 09-19-2021 Patient encounter procedure MD Megha Pascual Work Phone: [facility]-Pre-Surgical Testing Start: 08-29-2021 End: 08-29-2021 ambulatory Freddie Dumont Other [employer] Other Start: 08-29-2021 Office outpatient visit 15 minutes Freddie Dumont [facility] Start: 08-16-2021 End: 08-16-2021 ambulatory Freddie Dumont Other [employer] Other Start: 08-16-2021 Telephone encounter Freddie Dumont [facility] Start: 08-13-2021 End: 08-13-2021 ambulatory Aliyah Gagnon Other [employer] Other Start: 08-13-2021 Office outpatient visit 15 minutes Aliyah Gagnon [facility] Start: 07-26-2021 End: 07-26-2021 ambulatory Freddie Dumont Other [employer] Other Start: 07-26-2021 Office outpatient visit 15 minutes Freddie Dumont [facility] Start: 06-19-2021 End: 06-19-2021 ambulatory Aliyah Gagnon Other [employer] Other Start: 06-19-2021 Office outpatient visit 15 minutes Aliyah [facility] Start: 10-20-2019 End: 10-23-2019 Evaluation and management of inpatient PHYSICIAN UNKNOWN Facility:[facility] Start: 09-26-2019 End: 09-29-2019 Patient encounter procedure PHYSICIAN UNKNOWN Facility:[facility] Start: 06-23-2019 End: 06-26-2019 Evaluation and management of inpatient MA Facility:[facility] Start: 12-09-2017 Patient encounter MINISTERIO Harris ility:[id number] Start: 12-08-2017 Patient encounter MINISTERIO Harris ility:[id number] Start: 12-08-2017 Patient encounter Facil [id number] Start: 03-02-2013 End: 03-02-2013 Telephone encounter Dinorah Mix (Hist) Work Phone: Gastroenterology Comment on above: Abdominal Pain Procedures Date Procedure Procedure Detail Performing Clinician Start: 08-12-2023 X-ray of left foot Services [facility] Work Phone: Start: 07-29-2023 Aerobic microbial culture Services [facility] Work Phone: Start: 07-22-2023 CT of head without contrast Services [facility] [employer] Work Phone: Start: 02-04-2023 Plain chest X-ray Start: 01-06-2023 Duplex scan of lower limb veins Start: 01-06-2023 Aerobic microbial culture Start: 01-06-2023 Blood culture for bacteria, including anaerobic screen Start: 01-06-2023 Plain chest X-ray Start: 12-26-2022 CT of abdomen and pelvis without contrast Start: 12-13-2022 Duplex scan of lower limb veins Start: 12-13-2022 Plain chest X-ray Start: 12-13-2022 Urine culture Start: 08-20-2022 Esophagogastroduodenoscopy PA-Henrietta molina Work Phone: Start: 07-26-2022 Colonoscopy PA-Henrietta Castellano Work Phone: Start: 07-21-2022 Plain chest X-ray DENIS Castellano Work Phone: Start: 07-02-2022 SARS-CoV-2, Influenza & RSV (PCR) DO Sc[facility] Keyes Work Phone: Start: 04-22-2022 SARS-CoV-2, Influenza & RSV (PCR) MD Dallas Pascual Work Phone: Start: 02-19-2022 Plain X-ray of right shoulder MD Megha Pascual Work Phone: Start: 02-19-2022 X-ray of cervical spine MD Megha Pascual Work Phone: Start: 02-19-2022 Diagnostic radiography of abdomen MD Dallas Pascual Work Phone: Start: 02-13-2022 Computed tomography of abdomen and pelvis with contrast MD Megha Pascual Work Phone: Start: 11-30-2021 MR thoracic spine wo con MD Megha Julian n Work Phone: Start: 10-11-2021 Radiography of thoracic spine MD Megha Pascual Work Phone: Start: 09-20-2021 OR Wound Debridement/I&D/Hydradenitis (Right) MD Megha Pascual Work Phone: Start: 10-20-2019 INSERTION OF INT FIX INTO R TIBIA, OPEN APPROACH ADAM EBRAHEIM Start: 10-20-2019 SUPPLEMENT RIGHT TIBIA WITH SYNTH SUB, OPEN APPROACH ADAM EBRAHEIM Start: 06-24-2019 MEASURE OF ARTERIAL SATURATION, PERIPHERAL, PERC APPROACH JAY REGINA Start: 06-22-2019 Antibody screen Comment on above: Performed By: #### [id number] #### [address] [place] [address], [facility] Aerobic microbial culture MD Megha Pascual Work Phone: Anaerobic microbial culture MD Megha Pascual Work Phone: Appendectomy LAILA SCHUSTER Comment on above: 1990 Bilateral tubal ligation Steve leighann [place] section LAILA LANZA Comment on above: 1986 1989 Cholecystectomy LAILA PERAZA RY Comment on above: 1991 Colonoscopy Johnny Buenrostro s Hysterectomy LAILA SCHUSTER Comment on above: 1989 Investigation of tra nsfusion reaction MD Megha Pascual Work Phone: left Knee Surgery 5 LAILA SCHUSTER Comment on above: 1989 Right Elbow Surgery 6 OTILIO SCHUSTER Comment on above: 2004 Urine culture MD Megha wise Work Phone: Urine culture MD Megha wise Work Phone: Plan of Treatment Date Care Activity Detail Author Start: 07-29-2023 Superficial Wound Culture Superficial Wound Culture [facility] Start: 02-04-2023 Bacteria identified in Urine by Culture [facility] Start: 01-06-2023 Duplex scan of lower limb veins US venous duplex [facility] Start: 01-06-2023 US Lower extremity vein - bilateral [facility] Start: 01-06-2023 Bacteria identified in Blood by Culture Blood Culture [facility] Start: 01-06-2023 Superficial Wound Culture Superficial Wound Culture [facility] Start: 12-13-2022 Duplex scan of lower limb veins US venous duplex [facility] Start: 12-13-2022 US Lower extremity vein - bilateral [facility] Start: 12-13-2022 Bacteria identified in Urine by Culture Urine Culture [facility] Start: 08-20-2022 [facility] Start: 08-20-2022 [facility] Start: 08-19-2022 Esophagogastroduodenoscopy DH EGD/Colonoscopy (Not Applicable) [facility] Start: 07-26-2022 [facility] Start: 07-21-2022 Plain chest X-ray XR chest 1V portable [facility] Start: 07-21-2022 XR Chest Single view [facility] Start: 02-19-2022 X-ray of cervical spine XR cervical spine w flex/ext [facility] Start: 09-20-2021 [facility] Work Phone: Start: 09-20-2021 [facility] Work Phone: Start: 01-10-2021 Influenza vaccination INFLUENZA (Season Ended) [facility] Start: 09-24-2017 Screening for malignant neoplasm of colon [facility] Start: 09-24-2017 SHINGRIX VACCINE (1 of 2) SHINGRIX VACCINE (1 of [address]) [facility] Start: 12-18-2015 DIABETES SCREEN DIABETES SCREEN [facility] Start: 09-24-2012 LIPID SCREEN LIPID SCREEN [facility] Start: [address] [facility] Start: 09-24-1997 HPV TESTING HPV TESTING [facility] Start: 09-24-1988 PAP TESTING PAP TESTING [facility] Start: 09-24-1986 Urine microalbumin profile DTAP,TDAP,TD (1 - Tdap) [facility] Start: 09-24-1985 HEPATITIS C SCREENING HEPATITIS C SCREENING [facility] Start: 09-24-1985 HIV SCREENING HIV SCREENING [facility] Start: 1979 Adult depression screening assessment [facility] Bacteria identified in Urine by Culture [facility] Patient Education [facility] Work Phone: Patient referral [facility] Work Phone: Thyroperoxidase Ab [ Units/volume] in Serum or Plasma [facility] Immunizations Immunization Date Immunization Notes Care Provider Tonja cornejo 10-25-2020 COVID-19 [id number].[id number] (Mariana) MD Megha Pascual Work Phone: [facility] 05-12-2020 SARS-CoV-2 mRNA (tozinameran 5y-11y) vaccine Johnny Kenny [facility] Comment on above: Result Comment: 4 tremayne pope 04-25-2020 influenza virus vaccine, unspecified formulation Johnny Kenny [facility] 01-25-2019 influenza virus vaccine, unspecified formulation Johnny Kenny [facility] 01-27-2017 influenza virus vaccine, unspecified formulation Johnny eKnny [facility] NEGATED: Highlighted row has not occurred!09-14-2015 influenza, seasonal, injectable Aliyah Gagnon Other [employer] Other Payers Date Payer Category Payer Medicaid [id number] 2009 Medicaid [id number] 1965 Unknown [id number] 1965 Unknown [id number] 1965 Unknown [id number] Medicare [id number] Medicare [id number] Medicare [id number] Medicare [employer] MCR [id number] Private Health Insurance [id number] Private Health Insurance [facility] [id number] Private Health Insurance [id number] Self-pay Self Pay [id number] Social History Date Type Detail Facility Start: 02-26-2013 End: 08-12-2023 Tobacco smoking status NHIS Former smoker [facility] End: 08-18-2012 History of tobacco use Current smoker [facility] End: 08-18-2012 History of tobacco use Cigarette Smoker [facility] Start: 02-26-2013 Cigarettes smoked current (pack per day) - Reported [facility] Start: 02-26-2013 Tobacco use and exposure Never used [facility] Start: 02-26-2013 Alcohol intake Current drinke r of alcohol (finding) [facility] Start: 1965 Sex Assigned At Not on file [facility] Sex Assigned At [employer] Other Start: 1965 Sex Assigned At Female F [facility] Tobacco smoking status Never [facility] Start: 12-13-2022 End: 09-18-2023 Tobacco smoking status NHIS Never smoked tobacco (finding) [facility] Goals Date Patient Goal Desired Activity /State Functional Status Date Assessment Result Facility 01-04-2022 Functional Status N/A [facility] Clinical Notes 03-02-2013 to 08-12-2023 Note Date & Type Note Facility 08-12-2023 Progress note Note Date/Time August 12, 2023 2:15 pm [facility] [address] [place] [address] Wound Center Provider Note Signed Patient: Dalia Melendez MR#: [id number] : 1965 Acct:[id number] Age/Sex: 57 / F Copies to: [facility] Senior Dalia LÓPEZ Carpio~ HPI Date of Visit Date of Visit: Date of Service: 08/12/2023 Time of Service: 14:06 Narrative HPI: 08/12/23 Dalia is a 57 year old presenting to [facility] wound care for an initial visit for eval and treatment of a left heel ulcer that appears related to her diabetes. She has hhc through [facility] and this can continue. An xray was orderedtoday to check for any bone infection or abscess. She is taking oral antibioticsand can take until gone and next visit we can culture the area. Silver alginate will be used to dry up the macerated tissue and help with microbial bioburden. We wrote for OT to eval and treat for ble lymphedema. She can use compression toboth lower legs in order to help with the edema, exercise and elevation can helpas well. Compression pumps would be of benefit to her and we can speak about this at the next visit. Her orders did discuss diet and lifestyle suggestions tosupport the healing process. Subjective Pain Left Medial Heel: Pain Intensity: 6 Wound/Ulcer History When did wound start?: July 2023 Mode of Arrival/ Housekeeper Head: Family Assistive Device Used Today: Wheelchair Lives with:: Grandchildren Appetite Description: Decreased Who helps w/ dressing change?: Home Health Why Do You Need Help?: Can't Reach Ulcer, Limited mobility and Taxing effort to leave home Smoking Status: Former smoker [facility] Medical History (Updated 08/12/23 @ 14:14 by Dalia Carpio APRN) History of sleep apnea Opiate addiction Depression Anxiety Hypothyroidism Hyperlipidemia delivery delivered x 2 Difficulty walking Uses wheelchair Uses walker Former smoker Cellulitis left leg Opioid abuse percocet abuse - clean x 2 years Cocaine abuse I've been clean 3 years. Fracture, femur Dysphagia PTSD (post-traumatic stress disorder) Suicidal ideation denies current thoughts or ideations UTI (urinary tract infection) years ago HTN (hypertension) Bipolar 1 disorder Diabetes Surgical History Hx of cholecystectomy History of appendectomy x 2 History of hysterectomy History of surgery right leg x 5 surgeries Family History Father Diabetes Hypertension Mother Diabetes Thyroid disease Father No problems noted. Sister Thyroid disease Mother No problems noted. Father Diabetes History of stroke Legacy FamHx Problem: Diagnosed with Stroke Hypertension Grandparent Legacy FamHx Relation: Maternal Grand Father Grandparent Legacy FamHx Relation: Maternal Grand Mother Grandparent Legacy FamHx Relation: Paternal Grand Father Grandparent Legacy FamHx Relation: Paternal Grand Mother Mother Diabetes Social History Smoking Status: Former smoker Tobacco Type: cigarettes Substance Use Type: None Social History Comments: raising two grandchildren Grafts History of Graft History of Graft?: No Exam Physical Exam Vital Signs: Temp Pulse Resp BP O2 Del Method 97.2 F L 86 18 145/96 H Room Air 08/12/23 13:40 08/12/23 13:40 08/12/23 13:40 08/12/23 13:40 08/12/23 13:40 Const General: cooperative, comfortable and no acute distress Nutritional Appearance: obese Orientation: alert, awake and oriented x3 Lower/Upper Extremity Exam Vascular Exam-Edema Left Lower Extremity: Edema Degree: 1+ Edema Type: Pitting Vascular Exam-Pulses Left Dorsalis Pedis: Pulse Assessment Method: Doppler Left Posterior Tibial: Pulse Assessment Method: Doppler Objective Meds/Allergies Home Medications dicyclomine 20 mg tablet 20 mg PO TID 30 days #90 tabs 10/08/19 [Rx Confirmed 08/12/23] insulin aspart U-100 100 unit/mL subcutaneous solution 1 sliding scale dose subcut ACHS 30 days #28 mL 10/08/19 [Rx Confirmed 08/12/23] amlodipine 5 mg tablet 10 mg PO DAILY 06/30/20 [History Confirmed 08/12/23] baclofen 10 mg tablet 10 mg PO TID 06/30/20 [History Confirmed 08/12/23] amitriptyline 150 mg tablet 150 mg PO DAILY 03/19/21 [History Confirmed 08/12/23] duloxetine 60 mg capsule,delayed release 60 mg PO DAILY 03/19/21 [History Confirmed 08/12/23] insulin glargine 100 unit/mL (3 mL) subcutaneous pen (Lantus Solostar U-100 Insulin) 70 unit subcut HS 03/19/21 [History Confirmed 08/12/23] levothyroxine 200 mcg tablet 200 mcg PO DAILY 03/19/21 [History Confirmed 08/12/23] lisinopril 20 mg tablet 20 mg PO DAILY 03/19/21 [History Confirmed 08/12/23] nystatin 100,000 unit/gram topical powder (Nyamyc) 30 applic topical TID 03/19/21 [History Confirmed 08/12/23] omeprazole 20 mg capsule,delayed release 20 mg PO BID 03/19/21 [History Confirmed 08/12/23] atorvastatin 40 mg tablet 40 mg PO QHS 08/12/23 [History Confirmed 08/12/23] baclofen 10 mg tablet 10 mg PO DAILY 08/12/23 [History Confirmed 08/12/23] cholecalciferol (vitamin D3) 50 mcg (2,000 unit) capsule 50 mcg PO DAILY 08/12/23 [History Confirmed 08/12/23] empagliflozin 10 mg tablet (Jardiance) 10 mg PO DAILY 08/12/23 [History Confirmed 08/12/23] ezetimibe 10 mg tablet 10 mg PO DAILY 08/12/23 [History Confirmed 08/12/23] folic acid 800 mcg tablet 0.8 mg PO DAILY 08/12/23 [History Confirmed 08/12/23] gabapentin 100 mg capsule 100 mg PO TID 08/12/23 [History Confirmed 08/12/23] glipizide 10 mg tablet 10 mg PO BID 08/12/23 [History Confirmed 08/12/23] Allergies acetaminophen [Vicodin] Allergy (Unknown, Verified 08/12/23 13:45) Unknown Reaction aripiprazole [Abilify] Allergy (Unknown, Verified 08/12/23 13:45) Unknown Reaction codeine Allergy (Unknown, Verified 08/12/23 13:45) Unknown Reaction furosemide [From Lasix] Allergy (Unknown, Unverified 08/12/23 13:45) SYNCOPE, all diuretics hydrocodone [From Vicodin] Allergy (Unknown, Unverified 08/12/23 13:45) Hives iodine Allergy (Unknown, Unverified 08/12/23 13:45) Dry Mucus Membranes tizanidine [Zanaflex] Allergy (Unknown, Verified 08/12/23 13:45) Unknown Reaction tramadol [From Ultram] Allergy (Unknown, Unverified 08/12/23 13:45) Swelling of Lip/Tongue/Throat meloxicam [From Mobic] Allergy (Verified 08/12/23 13:45) Unknown Reaction oxycodone [From Percocet] Adverse Reaction (Verified 08/12/23 13:45) HISTORY OF ADDICTION ALL DIURECTICS Allergy (Unknown, Uncoded 08/12/23 13:45) Unknown Reaction Ultram,neurontin,iodine Allergy (Unknown, Uncoded 08/12/23 13:45) ([facility]) 03/25/2011 diuretics Allergy (Uncoded 08/12/23 13:45) Unknown Reaction Wound/Ulcer Left Medial Heel: Type: Diabetic Ulcer Diabetic Ulcer Grading: Superficial ulcer of skin w/o penetration to deeper layers Bed Appearance: Beefy Red, [place] and Yellow Percent of Wound Bed Granulated/Red: 85 Percent of Devitalized: 15 Length (cm): 1.5 Width (cm): 2.0 Depth (cm): 0.3 CM Sq: 3.000 Surrounding Tissue Appearance: Macerated Surrounding Tissue Temp: Warm Drainage Amount: Large Drainage Description: Serosanguineous Drainage Odor: No Odor Lidocaine Applied Topically: 2% Jelly Results Height: 5 ft 6 in Weight: 114.759 kg Body Mass Index: 40.8 Assessment/Plan Assessment/Plan (1) 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 mellitus due to underlying condition: Qualifiers: Non-pressure ulcer stage: limited to breakdown of skin Qualified Code(s): E08.621 - Diabetes mellitus due to underlying condition with foot ulcer; L97.421 - Non-pressure chronic ulcer of left heel and midfoot limited to breakdown of skin Code(s): E08.621 - Diabetes mellitus due to underlying condition with foot ulcer; L97.429- Non-pressure chronic ulcer of left heel and midfoot with unspecified severity (2) Chronic acquired lymphedema: Code(s): I89.0 - Lymphedema, not elsewhere classified Plan: ble (3) Diabetes: Code(s): E11.9 - Type 2 diabetes mellitus without complications (4) Morbid obesity: Code(s): E66.01 - Morbid (severe) obesity due to excess calories (5) Impaired mobility and ADLs: Code(s): Z74.09 - Other reduced mobility; Z78.9 - Other specified health status (6) Papillomatosis: Code(s): D36.9 - Benign neoplasm, unspecified site Plan: ble (7) Hyperkeratosis: Code(s): L85.9 - Epidermal thickening, unspecified Plan: ble (8) Hyperpigmentation: Code(s): L81.9 - Disorder of pigmentation, unspecified Plan: ble Plan see orders and hpi Time spent with patient Time Spent With Patient (min): 16 Dictated By: Dalia Carpio APRN DD/ [id number] Signed By: <Electronically signed by LÓPEZ Carpio> 08/12/23 1415 [facility] Work Phone: [phone] 586-363804-11-2023 [facility]* Encounter Date Diagnosis Assessment Notes Treatment Notes Treatment Clinical Notes Mar, Occipital neuralgia (ICD-10 - M54.81) 56 year old female here for follow up for chronic pain. She voices complaints of neck, mid back and left shoulder pain. She also voices complaints of daily migraines. She can continue Aimovig per her neurologist, she is encouraged to give it more time to take its full effect. I independently reviewed her recent right shoulder x-ray which shows mild arthritis, her prior left shoulder x-ray also shows a mild amount of arthritis. I also independently reviewed her recent cervical spine x-ray which shows multilevel facet arthropathy. I will refer her to physical therapy for her neck pain. In the future if her headache continues we will consider an occipital nerve block. Mar, Chronic pain (ICD-10 - G89.29) Follow up in 4 weeks. Mar, Cervical spondylosis (ICD-10 - M47.812) Start physical therapy. Mar, Primary osteoarthritis of left shoulder (ICD-10 - M19.012) Stable, consider left shoulder and AC joint injection in the future if needed Mar, Primary osteoarthritis of right shoulder (ICD-10 - M19.011) Patient denies any right shoulder pain today. [employer] Other 10-25-2022 Evaluation note* Encounter Date Diagnosis Assessment Notes Treatment Notes Treatment Clinical Notes Feb, Constipation (ICD-10 - K59.00) [employer] Other 10-12-2022 Evaluation note* Encounter Date Diagnosis Assessment Notes Treatment Notes Treatment Clinical Notes Feb, Myofascial muscle pain (ICD-10 - M79.18) 56 year old female here for follow up to discuss chronic pain. She voices continued complaints of mid back pain as well as bilateral shoulder pain, worse on the right. Different treatment options were discussed in detail with the patient, and I recommend we proceed with a trigger point injection to the bilateral thoracic paraspinal muscles under ultrasound guidance today in the office as scheduled. Risks and benefits of procedure explained to patient; patient verbalizes understanding. Feb, Pain in right shoulder (ICD-10 - M25.511) I recommend patient proceed with aqua therapy as scheduled. If her pain persists, we can consider proceeding with a right shoulder & AC joint injection under fluoroscopic guidance. Feb, Chronic pain (ICD-10 - G89.29) Continue with current treatment plan. [employer] Other 10-04-2022 Evaluation note* Encounter Date Diagnosis Assessment Notes Treatment Notes Treatment Clinical Notes Feb, Constipation (ICD-10 - K59.00) [employer] Other 09-29-2022 Evaluation note* Encounter Date Diagnosis Assessment Notes Treatment Notes Treatment Clinical Notes Jan, Neck pain (ICD-10 - M54.2) [employer] Other 09-28-2022 Evaluation note* Encounter Date Diagnosis Assessment Notes Treatment Notes Treatment Clinical Notes Jan, Myofascial muscle pain (ICD-10 - M79.18) Regarding her complaints of mid back pain, we discussed considering a trigger point injection to the thoracic paraspinal muscles at her next office visit. Jan, Mid back pain (ICD-10 - M54.9) 56 y/o female here with complaints of right interscapular pain which started approx. 3 months ago after a fall. She states she was recently seen by Dr. Ruano and surgical intervention was not recommended. She was last seen here for pain management in February 2019. She is seeing Dr Epperson for treatment of the numbness and tingling in her bilateral lower extremities. Prior to examining the patient, I reviewed office notes from referring provider, Dr Ruano. Different treatment options were discussed in detail with the patient. I recommend we consider a trigger point injection at the next office visit to bilateral thoracic paraspinal muscles. Jan, Pain in right shoulder (ICD-10 - M25.511) Proceed with imaging of the right shoulder to further evaluate her pain. Jan, Fibromyalgia (ICD-10 - M79.7) Patient is encouraged to continue taking medications as prescribed. We considered Gabapentin to provide her with another element of relief, however patient states she has tried this in the past and she does not like the way this made her feel. Jan, Chronic pain (ICD-10 - G89.29) Continue with current treatment plan. Jan, Thoracic degenerative disc disease (ICD-10 - M51.34) Proceed with using TENs unit as prescribed. Jan, Neck pain (ICD-10 - M54.2) If her pain persists or worsens, we can consider other interventional options in the future. Jan, Other Medical deci ish making shows a new problem to me with further workup planned or suggested with the potential for extensive treatment options that were considered with the most applicable given this patient's situation as noted above. Treatment options considered include a combination of physical therapy approaches, pharmacologic management, and interventional procedures. Those most applicable to the patient were discussed at this time. Risk of complications and/or morbidity and mortality is high given that acute and chronic pain poses a threat to life and bodily function if undertreated, poorly treated or with failure to maintain adequate treatment and timely followup. Given the serious and fluctuating nature of pain with extensive consideration for whenever pain changes, there always remains the possibility of prolonged functional impairment requiring constant patient reassessment and high-level medical decision making. The amount and complexity of data reviewed is high given that patient labs, radiology reports, and other test were obtained, reviewed and summarized as applicable from the physician portal and/or outside medical records. Pertinent positive and negative findings were considered in medical decision-making. [employer] Other 08-31-2022 Evaluation note* Encounter Date Diagnosis Assessment Notes Treatment Notes Treatment Clinical Notes Dec, Acute pain of left shoulder (ICD-10 - M25.512) Dec, Tendinitis of left rotator cuff (ICD-10 - M75.82) Dec, Subacromial impingement of left shoulder (ICD-10 - M75.42) Dalia returns with left shoulder subacromial impingement. At this juncture we have discussed the findings and diagnosis as well as personally reviewed appropriate imaging and performed interpretation of related testing and examination with the patient in office today. Prior medical notes from myself and history have been reviewed. She wants to continue therapy and would also like to try an injection today. Risks and benefit of injection were discussed and verbal consent was obtained. Under sterile technique the patient's left shoulder was injected via the posterior with 4 cc of Marcaine and 1 cc of Kenalog, this was tolerated well without any adverse reaction. Band-Aid was applied to the area. She can return as needed The patient has been involved in our cooperative treatment plan and agrees to move forward with treatment at this time. A 1/1cc marcaine / kenalog cortisone injection was performed into the subacromial space under sterile technique. Patient tolerated the injection well with no adverse reaction. Dec, Status post fracture of right tibia (ICD-10 - Z87.81) Dec, Status post fracture of femur (ICD-10 - Z87.81) She wants to continue therapy for this we have reordered it. She was treated by Dr. Thurston [employer] Other 08-26-2022 Hospital Discharge instructions Patient Education 01/04/2022 15:07:31 24-Hour Urine Collection 24-Hour Urine Collection A 24-hour urine specimen is a lab test that requires collection of all your urine for an entire day. This is sometimes called a timed urine test. It can provide more information than a single urine sample. There are many reasons to have this test. Your health care provider may order the test to check foror monitor the following conditions: High blood pressure. Kidney disease. Kidney stones. Urinary tract infections. . Diabetes. How do I prepare for this test? You may be asked to follow a special diet during or before the collection period. Follow any instructions from your health care provider. If no special instructions are given, you may eat and drink normally. Take arfs-acm-ysnaidl and prescription medicines only as told by your health care provider. Let your health care provider know about any medicines that you are taking, including eouf-avf-tagmglo medicines, vitamins, herbs, and supplements. Choose a collection day when you can be at home or when you have a place to store the urine. All urine must be collected during the testing period. How do I do a 24-hour urine collection? When you get up in the morning, urinate in the toilet and flush. Write down the time. This will be your start time on the day of collection and your end time on the next morning. From the start time on, all of your urine should be kept in the collection jug that you received from the lab. If the jug that is given to you already has liquid in it, that is okay. Do not throw out the liquidor rinse out the jug. Some tests need the liquid to be added to your urine. Urinate into a specimen container, such as a urinal or reagan that sits over the toilet. Pour the urine from the container into the collection jug. Be careful not to spill any of the urine. Use the equipment provided by the lab. Do not let any toilet paper or stool (feces) get into the jug. This will contaminate the sample. Stop collecting your urine 24 hours after you started. Collect the last specimen as close as possible to the end of the 24-hour period. Keep the jug cool in an ice chest or keep it in the refrigerator during collection. When the 24-hour collection is complete, bring the jug to the lab. Keep the jug cool in an ice chest while you are bringing it to the lab. What do the results mean? Talk with your health care provider about what your results mean. Questions to ask your health care provider Ask your health care provider, or the department that is doing the test: When will my results be ready? How will I get my results? What are my treatment options? What other tests do I need? What are my next steps? Summary A 24-hour urine specimen is a lab test that requires collection of all your urine for an entire day. When you get up in the morning, urinate in the toilet and flush. Write down the time. For the next 24 hours, collect all of your urine in the collection jug that you received from the lab. Keep the jug cool while collecting the urine and while bringing it back to the lab. Take the jug of urine back to the lab as soon as possible after the collection period has ended. This information is not intended to replace advice given to you by your health care provider. Make sure you discuss any questions you have with your health care provider. Document Released: 07/25/2009 Document Revised: 08/16/2019 Document Reviewed: 05/11/2018 [employer] Patient Education 2020 [employer] Follow Up Care 12/11/2021 11:14:08 With:Johnny Goetz, URL Address: When:1 month [facility] 08-25-2022 Evaluation note* Encounter Date Diagnosis Assessment Notes Treatment Notes Treatment Clinical Notes Dec, Disorder of intervertebral disc of thoracic spine (ICD-10 - M51.9) Dec, Spondylosis of thoracic spine (ICD-10 - M47.814) Dec, Other chronic pain (ICD-10 - G89.29) Dec, Pain in thoracic spine (ICD-10 - M54.6) I have independently reviewed the MRI of the cervical spine and the report. There is a very small central T7-8 herniated disc. This is localized with both palpable pain and a prickly pain. This patient has numerous comorbidities. She has not walked since March other than occasionally with a walker. She has a significant leg problem. I had a discussion with her and her sister about the findings; this is a small central disc herniation that may or may not be causing the symptoms. I believe it is nonsurgical. I think this is best treated with pain management and we will give her a referral. All were happy with this [employer] Other 07-05-2022 Hospital Discharge instructions Follow Up Care 11/13/2021 13:36:28 With:MARIELY BARRIOS, LAILA Muller, URL Address: [address] [place] [facility] [address] [phone] When: Unknown [facility] 04-20-2022 Evaluation note* Encounter Date Diagnosis Assessment Notes Treatment Notes Treatment Clinical Notes Aug, Acute pain of left shoulder (ICD-10 - M25.512) Aug, Tendinitis of left rotator cuff (ICD-10 - M75.82) Aug, Subacromial impingement of left shoulder (ICD-10 - M75.42) Dalia returns with left shoulder subacromial impingement. At this juncture we have discussed the findings and diagnosis as well as personally reviewed appropriate imaging and performed interpretation of related testing and examination with the patient in office today. Prior medical notes from myself and history have been reviewed. She wants to continue therapy at this time and I agree with this. Return in another 8 weeks for reevaluation The patient has been involved in our cooperative treatment plan and agrees to move forward with treatment at this time. Aug, Status post fracture of right tibia (ICD-10 - Z87.81) Aug, Status post fracture of femur (ICD-10 - Z87.81) She wants to continue therapy for this we have reordered it. She was treated by Dr. Thurston We discussed and demonstrated gentle motion exericses as well as quadriceps and hamstring strengthening exerices. An order for physical therapy was given today. An order for Meloxicam was given today as well as directions of use. Risks and side effects of this medication was discussed in detail with the patient who voiced understanding. [employer] Other 04-04-2022 Evaluation note* Encounter Date Diagnosis Assessment Notes Treatment Notes Treatment Clinical Notes Aug, Constipation (ICD-10 - K59.00) REASSURANCE MAY USE LACTULOSE NEEDED RTO 6 MONTHS [employer] Other 03-17-2022 Evaluation note* Encounter Date Diagnosis Assessment Notes Treatment Notes Treatment Clinical Notes Jul, Acute pain of left shoulder (ICD-10 - M25.512) Jul, Tendinitis of left rotator cuff (ICD-10 - M75.82) This appears to be pain secondary to rotator cuff tendonitis. We discussed and demonstrated gentle motion exercise and rotator cuff strengthening exercise. Discussed the use of non-steroidal anti-inflammatory medication.A kenalog cortisone injection was performed into the subacromial space under sterile technique. Patient tolerated the injection well with no adverse reaction. Jul, Subacromial impingement of left shoulder (ICD-10 - M75.42) Dalia presents with left shoulder subacromial impingement. At this juncture we have discussed the findings and diagnosis as well as personally reviewed appropriate imaging and performed interpretation of related testing and examination with the patient in office today. Prior medical notes from myself and history have been reviewed. At this time I would recommend conservative treatment and the patient agrees to cortisone injection. Under sterile technique patient's left shoulder was injected via the posterior portal with 4 cc Marcaine 1 cc of Kenalog, she tolerated this well. We have also given her home exercise program and recommended physical therapy. We will plan for follow-up as needed. The patient has been involved in our cooperative treatment plan and agrees to move forward with treatment at this time. Jul, Other See orders for this visit as documented in the electronic medical record. [employer] Other 10-22-2013 Miscellaneous Notes* Telephone Encounter - Pamela Haines RN - 03/02/2013 3:57 PM EDT Patient calling Missed doctor's call yesterday while she was in bathroom Tried to return doctor's call yesterday afternoon . Went to [facility] ED last night around 10 PM Was given medications and IV fluids fentanyl and pherergan Enema, results:large amount of stool States that did not help the pain. Rates pain as 9 out of 10 now C/o burning feeling from top of throat down to stomach. Please advise [phone] + Plan note Future Appointments Appointment Date:01/03/2022 01:30:00 PM Scheduled Provider:LAILA SCHUSTER PA-C Location:[facility] Appointment Type:URO New Patient [facility] Evaluation + Plan note Future Appointments Appointment Date:02/06/2022 01:00:00 PM Scheduled Provider:Johnny Goetz Location:[facility] Appointment Type:URO Office Visit [facility] Evaluation noteNort [employer] Other Evaluation noteNo InformationNort [employer] Other evaluation noteNo assessment information available [facility] Work Phone: Evaluation note* Diagnosis Onset Date Resolution Status Constipation acute [facility] Work Phone: Evaluation note* Diagnosis Onset Date Resolution Status Constipation acute Constipation acute [facility] Work Phone: Evaluation note* Diagnosis Onset Date Resolution Status Chronic acquired lymphedema acute Diabetes acute [id number] acute Hyperkeratosis acute Hyperpigmentation acute Impaired mobility and ADLs a cute Morbid obesity acute Papillomatosis acute [facility] Work Phone: Histwfu general Narrative - [facility] [employer] Other Hisawnx general Narrative - Reported* Type Description Date Medical History gastroparesis Medical History esophageal stricture Medical History Hypothyroidism Medical History Hypertension Medical History DM2 Medical History anxiety Medical History bipolar Medical History PTSD Medical History HLP Medical History 08/24/12 EGD/Dilatati on-gastric retention, gastric gastritis, esophagus mc Medical History 04/13/12 EGD-gastric retention, esophageal spasm, antral gastritis Medical History 06/06/11 EGD-esophageal spasm, ga stric retention Medical History 12/12/10 Colonoscopy-hemorrhoids Medical History 11/15/10 EGD-gastroparesis Medical History EGD/Colonoscopy-hiat al hernia, wide open Schatzki ring, antral gastritis, diverticulosis Medical History 03/20/15 EGD with dil ation- gastric retention, 54 [place] dilatation Medical History Hairline fracture ne ar breast bone in rib on right side 07/21/15 Medical History 09/26/15 EMS- Normal Medical History Obesity Medical History Fibromyalgia Medical History broken femur on right 02/2017 Medical History RIGHT PROXIMAL TIB/FIB FRACTURE Surgical History hysterectomy Surgical History cholecystectomy Surgical History appendectomy Surgical History C section Surgical History EGD with biopsy 08/2013 Surgical History Rt leg adali d/t fx Hospitalization History SEE ABOVE Hospitalization History GASTRIC, DM 11/2013 Hospitalization History UTI- IV treatment November 10 015 Hospitalization History bowel obstruction 6 [employer] Other Hospital course Narrative No data available for this section [facility] Hospital Discharge instructions Additional Instructions Use Tylenol 1000 mg every 8 hours and Naproxen 500mg every 12 hours as needed for your headache You can also use Benadryl 25 mg every 8 hours Use Compazine for your headache and nausea Drink plenty of fluids and get plenty of rest Return for fevers, confusion, or worsening or changing symptoms[facility] Work Phone: Hospital Discharge instructions Additional Instructions Return for worsening symptoms [facility] Work Phone: Hospital Discharge instructions Additional Instructions DISCHARGE INSTRUCTIONS FOR ENDOSCOPY FOR COLONOSCOPY: -Expect a gassy or full feeling after a colonoscopy. Report any NEW abdominal pain or vomiting. FOR SEDATION FOR 24 HOURS: -NO driving -Do NOT operate machinery such as power tools, lawn mowers, snow blowers, sewing machines, etc. -Avoid alcoholic beverages and drugs for allergies, nerves, or sleep. -Do NOT stay alone. Do NOT leave your child unattended. -Do NOT make important personal or business decisions or sign any legal documents. -Eat solid foods and drink liquids in smaller amounts than usual until normal appetite returns. If you should experience an upset stomach, liquids high in sugar content (soda, Ambrose-aid, non-acid juices) are recommended. -You can resume normal activities tomorrow. FOLLOW UP Please call the office to reschedule colonoscopy -Notify the doctor if you have any problems. -Office number [phone] Hospitals [facility] Center Work Phone: Hospital Discharge instructions Additional Instructions DISCHARGE INSTRUCTIONS FOR ENDOSCOPY FOR COLONOSCOPY: -Expect a gassy or full feeling after a colonoscopy. Report any NEW abdominal pain or vomiting. -It is important to keep your appointments for follow up examinations. FOR MCKEON/EGD/ERCP/PEG: -Your throat may feel sore today from the scope that the doctor passed through your throat to visualize your stomach. Take a throat lozenge or suck on ice to ease the discomfort. -Do NOT smoke. -You may notice some streaks of blood in your sputum if the doctor has taken a biopsy. Notify the doctor if you cough up large amounts of blood. -Expect a gassy or full feeling after esophagoscopy. Report any persistent pain or vomiting. -Take it easy today. You need not stay in bed, but avoid strenuous activities such as jogging. FOR SEDATION FOR 24 HOURS: -NO driving -Do NOT operate machinery such as power tools, lawn mowers, snow blowers, sewing machines, etc. -Avoid alcoholic beverages and drugs for allergies, nerves, or sleep. -Do NOT stay alone. Do NOT leave your child unattended. -Do NOT make important personal or business decisions or sign any legal documents. -Eat solid foods and drink liquids in smaller amounts than usual until normal appetite returns. If you should experience an upset stomach, liquids high in sugar content (soda, Ambrose-aid, non-acid juices) are recommended. -You can resume normal activities tomorrow. FOLLOW UP Please call the office and make a follow up appointment to see me in 12 weeks. Lactulose 2 tablespoons p.o. 4 times daily -Notify the doctor if you have any problems. -Office number [phone] Hospitals Cleveland Medical Center Work Phone: Hospital Discharge instructions Additional Instructions Take antibiotic as instructed until gone Tylenol if needed for pain Elevate lower extremities Follow with your doctor on Friday Return here if any problems persist or worsenUniversity Hospitals Cleveland [facility] Center Work Phone: Hospital Discharge instructions Additional Instructions Follow-up with your primary care doctor Return to ED if develop worsening symptoms or concernsUniversity Hospitals [facility] Work Phone: Hospital Discharge instructions Additional Instructions Take antibiotic as instructed until gone Elevate lower extremities Follow-up with your PCP call tomorrow for appointment Please return here if you have any fevers, chills, chest pain, shortness of breath or any other concernUniversity Hospitals [facility] Work Phone: Hospital Discharge instructions Additional Instructions Follow-up with your primary care doctor Return to ED for develop worsening symptoms or concerns Antibiotic as instructed untilUniversity Hospitals Cleveland Medical Center Work Phone: Progress note No data available for this section [facility] Summary Purpose Family History No Family History Records Found Relationship Condition Age at Onset Recorded Date/T jessica father Diabetes mellitus Unknown Not Specified Diabetes mellitus Unknown father Hypertension Unknown sister Disorder of thyroid Unknown Not Specified Disorder of thyroid Unknown Relationship Condition Age at Onset Recorded Date/T jessica father Diabetes mellitus Unknown Hypertension Unknown Not Specified Diabetes mellitus Unknown Disorder of thyroid Unknown sister Disorder of thyroid Unknown Relationship Condition Age at Onset Recorded Date/T jessica father Diabetes mellitus Unknown Hypertension Unknown Not Specified Diabetes mellitus Unknown Disorder of thyroid Unknown sister Disorder of thyroid Unknown History of stroke Unknown grandparent Unknown Unknown Advance Directives No Advanced Directives Records Found Advance Directive Response Recorded Date/ Time Advance Directives No January 07, 2017 4:20pm Advance Directive Response Recorded Date/ Time Advance Directives No January 07, 2017 3:20pm Hospital Course Note MR#: [id number] I [facility] Pt. Name: Dalia Melendez Admitted: 06/23/2019 Discharged: 06/26/2019 Date of : 1965 Physician: Rey Hicks MD DISCHARGE SUMMARY DISCHARGE ATTENDING: Rey Hicks MD PRIMARY CARE PHYSICIAN: [employer]. PRINCIPAL PROBLEM: 1. Right comminuted minimally displaced tibial fibular fracture. 2. Insulin-dependent type 2 diabetes mellitus with hyperkalemia. 3. Acute urinary retention. 4. Acute hypoxic respiratory failure, opiate-induced. 5. Gastroparesis. SECONDARY DIAGNOSES: 1. Essential hypertension. 2. Dyslipidemia. 3. Bipolar disorder. 4. Anxiety. 5. PTSD. 6. Hypothyroidism. 7. Vitamin D deficiency. CONSULTANTS: Orthopedics. HOSPITAL COURSE: This is a 53-year-old female with a past medical history as above, who presented to [facility] after sustaining a fall. The patient states she slipped off her ramp at home and fell forward onto her right knee. She had immediate pain that she described (more content not included)... Note MR#: [id number] 2 [facility] Pt. Name: Dalia Melendez Admitted: 2019 Discharged: 09/28/2019 Date of : 1965 Physician: Gordon Reece MD DISCHARGE SUMMARY PRIMARY DIAGNOSES: 1. Right proximal tibia0-fibular re-fracture. 2. Insulin-dependent diabetes mellitus. 3. Hypertension. 4. Anxiety/depression. 5. Bipolar disorder. 6. Urinary tract infection. 7. Hypothyroidism. HISTORY OF PRESENT ILLNESS AND HOSPITALIZATION COURSE: The patient is a 54-year-old female, who was transferred from an outside hospital to the [facility] after she sustained a mechanical fall 2 days prior to her presentation. She reported that she had a fall from the wheelchair. The patient was found to have tibial-fibular fracture, which appears to be a re-fracture as she had a prior fracture at the same side in June 2019, resulted in proximal metaphyseal tibial and fibular fracture. The patient was evaluated by the Orthopedic team. She was followed up by them during her stay. She h (more content not included)... Note MR#: [id number] I [facility] Pt. Name: Dalia Melendez Admitted: 10/20/2019 Discharged: 10/23/2019 Date of : 1965 Physician: Adam Thurston M.D. DISCHARGE SUMMARY ADMITTING DIAGNOSIS: Right proximal tibial nonunion. PROCEDURE PERFORMED: Treatment of right proximal tibia nonunion with plate and screw fixation as well as allograft and infuse. HOSPITAL COURSE: The patient is a 54-year-old female with multiple medical comorbidities, who previously suffered a right proximal tib-fib fracture a few months back and initially was managed nonoperatively due to overall medical status, but went on to nonunion with continued pain and disability. The aforementioned procedure was offered to the patient and she elected to proceed with it. Please see operative report for surgical details. She has taken the operative suite on 10/20/2019. After the procedure, she was transferred to PACU where she recovered. Perioperative antibiotics and DVT prophylaxis were institute (more content not included)... Chief Complaint and Reason for Visit Chief Complaint Z01.812 Buttock Abscess See order R39.9 R82.90 Left shoulder/ ReEval R Leg r20.2 Chief Complaint R39.9 R82.90 Left shoulder/ ReEval R Leg r20.2 Chief Complaint Left shoulder/ ReEva l R Leg r20.2 abdominal pain Chief Complaint Left shoulder/ ReEva l R Leg r20.2 abdominal pain K59.0 M54.2 Chief Complaint abdominal pain K59.0 M54.2 FLU LIKE SX Chief Complaint FLU LIKE SX Constipation Chief Complaint FLU LIKE SX covid like sympt. Chief Complaint FLU LIKE SX covid like sympt. Leg swelling Chief Complaint covid like sympt. Leg swelling Constipation Reason for Visit Constipation Chief Complaint covid like sympt. Leg swelling Constipation Constipation, Dysphagia Constipation, Dysphagia Reason for Visit Constipation Constipation Chief Complaint bilat leg swelling Chief Complaint bilat leg swelling constipation Chief Complaint bilat leg swelling constipation leg swelling Chief Complaint bilat leg swelling constipation leg swelling Numb from teeth to toes Chief Complaint i10 e11.69 t14.8xxa I10 R25.9 R20.0 R41.3 R53.82 Non healing left heel wound Chief Complaint i10 e11.69 t14.8xxa I10 R25.9 R20.0 R41.3 R53.82 S91.302A Open Wound Choking, initial encounter;Hypothyroidism, unspeci Reason for Visit Chronic acquired lym phedema Diabetes [id number] Hyperkeratosis Hyperpigmentation Impaired mobility and ADLs Morbid obesity Papillomatosis Chief Complaint i10 e11.69 t14.8xxa I10 R25.9 R20.0 R41.3 R53.82 S91.302A Open Wound e55.9 left foot infection Reason for Visit Chronic acquired lym phedema Diabetes [id number] Hyperkeratosis Hyperpigmentation Impaired mobility and ADLs Morbid obesity Papillomatosis Chief Complaint i10 e11.69 t14.8xxa I10 R25.9 R20.0 R41.3 R53.82 S91.302A Open Wound e55.9 left foot infection Unknown Reason for Visit Chronic acquired lym phedema Diabetes [id number] Hyperkeratosis Hyperpigmentation Impaired mobility and ADLs Morbid obesity Papillomatosis Chief Complaint Open Wound e55.9 left foot infection Unknown Reason for Visit Chronic acquired lym phedema Diabetes [id number] Hyperkeratosis Hyperpigmentation Impaired mobility and ADLs Morbid obesity Papillomatosis Reason for Referral Reason *Waiting for appt Evaluate and Treat Thoracic Pain Non-Surgical Diagnosis 1 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) Referral Organization [facility] urosurgery Referring Provider First Name Boo Referring Provider Last Name Bindu Referring Provider Specialty Neurologica l Surgery Referred Organization [facility] Pain Managemen t Referred Provider Donny Lozano Referred Address [address] [place] [id number] Referred Provider Specialty Pain Medicin e Referral Priority Routine General Notes Stephanie Javier 022 03:03:12 PM >Received today and sent P2P Additional Source Comments INFORMATION SOURCE (unrecogn ized section and content) DATE CREATED AUTHOR 12/10/2017 [facility] DATE CREATED AUTHOR AUTHOR'S ORGANIZ ATION 12/11/2017 [facility] DATE CREATED AUTHOR AUTHOR'S ORGANIZ ATION 07/21/2019 [facility] DATE CREATED AUTHOR AUTHOR'S ORGANIZ ATION 06/19/2020 [facility] DATE CREATED AUTHOR AUTHOR'S ORGANIZ ATION 01/08/2022 [facility] DATE CREATED AUTHOR AUTHOR'S ORGANIZ ATION 11/01/2023 [facility] Source Comments (unrecognize d section and content) In the event this informatio n is protected by the Federal Confidentiality of Alcohol and Drug Abuse Patient Records regulations: The Federal rules restrict any use of the information to criminally investigate or prosecute any alcohol or drug abuse patient.[facility] Reason for Visit (unrecogniz ed section and content) Reason Onset Date Comments Abdominal Pain 03/02/2013 Care Teams (unrecognized sec tion and content) Team Status: Inactive Member Role Status Shanon Pascual MD Primary Care Provider Active Jeanette Adkins PA-C Attending Provider Active Team Status: Inactive Member Role Status Shanon Pascual MD Primary Care Provider Active Johnnie Shetty MD Attending Provider Active Team Status: Active Member Role Status Shanon Pascual MD Primary Care Provider Active Freddie Dumont DO Attending Provider Active Team Status: Active Member Role Status Shanon Pascual MD Primary Care Provider Active Team Status: Inactive Member Role Status Shanon Pascual MD Primary Care Provider Active Freddie Dumont DO Attending Provider Active Team Status: Inactive Member Role Status Shanon Pascual MD Primary Care Provider Active Jose Shane PA-C Emergency Provider Active Team Status: Inactive Member Role Status Shanon Pascual MD Primary Care Provider Active Donny Lozano MD Attending Provider Active Team Status: Inactive Member Role Status Shanon Pascual MD Primary Care Provider Active Aliyah Gagnon MD Attending Provider Active Team Status: Inactive Member Role Status Dates Jose Keyes DO Emergency Provider Active NON STAFF Primary Care Provider Active Team Status: Active Member Role Status Dates NON STAFF Primary Care Provider Active Team Status: Inactive Member Role Status Dates Aliyah Gagnon MD Attending Provider Active NON STAFF Primary Care Provider Active Team Status: Inactive Member Role Status Shanon Castellano PA-C Emergency Provider Active NON STAFF Primary Care Provider Active Team Status: Inactive Member Role Status Dates NON STAFF Primary Care Provider Active Shalom M Tupa , DO Emergency Provider Active Team Status: Inactive Member Role Status Dates NON STAFF Primary Care Provider Active Aliyah Gagnon MD Attending Provider Active Team Status: Active Member Role Status Dates NON STAFF Primary Care Provider Active Aliyah Gagnon MD Attending Provider Active Team Status: Inactive Member Role Status Dates NON STAFF Primary Care Provider Active Annamarie Jennings APRN Emergency Provider Active Team Status: Inactive Member Role Status Dates NON STAFF Primary Care Provider Active Josiah Castellano , DO Emergency Provider Active Team Status: Active Member Role Status Dates Services [facility] Primary Care Provider Ac tive Team Status: Inactive Member Role Status Dates Services [facility] Primary Care Provider Ac tive Start: July 16, 2023 End: July 16, 2023 Laila grayson TOLL TICKET CLERK-C Attending Provider Active Start: July 15 End: July 16, 2023 Team Status: Inactive Member Role Status Dates Laila grayson TOLL TICKET CLERK-C Attending Provider Active Start: July 21 End: July 22, 2023 [facility] Primary Care Provider Ac tive Start: July 22, 2023 End: July 22, 2023 Team Status: Inactive Member Role Status Dates [facility] Primary Care Provider Ac tive Start: July 29, 2023 End: July 29, 2023 Laila grayson TOLL TICKET CLERK-C Attending Provider Active Start: July 28 End: July 29, 2023 Team Status: Active Member Role Status Dates Dalia Carpio APRN Attending Provider Active St art: August 12, 2023 [facility] Primary Care Provider Ac tive Start: August 12, 2023 Team Status: Inactive Member Role Status Dates Laila grayson TOLL TICKET CLERK-C Attending Provider Active Start: September 02 End: September 03, 2023 Team Status: Active Member Role Status Dates PHYSICIAN NO FAMILY Primary Care Provider Active Team Status: Inactive Member Role Status Dates PHYSICIAN NO FAMILY Primary Care Provider Active Start: September 18, 2023 End: September 18, 2023 Shlaom Reed DO Emergency Provider Active St art: September 18, 2023 End: September 18, 2023 Team Status: Inactive Member Role Status Dates Luis Miguel Aguiar DPM MS Attending Provider Active Start: September 19, 2023 End: September 19, 2023 Team Status: Inactive Member Role Status Dates Dalia Carpio APRN Attending Provider Active St art: August 12, 2023 End: August 12, 2023 Services [facility] Senior Primary Care Provider Lobito julian Start: August 12, 2023 End: August 12, 2023 Team Status: Inactive Member Role Status Dates NORBERT Leone Attending Provide r Active Start: October 30, 2023 End: October 30, 2023 Goals (unrecognized section and content) Goals may be documented in a n alternate section FOR RECORDS PERTAINING TO PATIENTS WHO ARE OR HAVE BEEN ENROLLED IN A CHEMICAL DEPENDENCY/SUBSTANCEABUSE PROGRAM, SOME INFORMATION MAY BE OMITTED. This clinical summary was aggregated from multiple sources. Caution should be exercised in using it in the provision of clinical care. This summary normalizes information from multiple sources, and as a consequence, information in this document may materially change the coding, format and clinical context of patient data. In addition, data may be omitted in some cases. CLINICAL DECISIONS SHOULD BE BASED ON THE PRIMARY CLINICAL RECORDS. [facility] [employer] provides no warranty or guarantee of the accuracy or completeness of information in this document.
[2023-12-13 23:17] VITALS: BP 115/93; PULSE 91; O2SAT 99
--- NOTE | 2023-12-13 23:26 | ED.WEAKNESS1 ---
HPI - Weakness General Chief complaint: Weakness Stated complaint: GENERAL WEAKNESS Time Seen by Provider: 12/13/23 23:20 Source: patient Mode of arrival: Wheelchair History of Present Illness HPI Narrative: diabetic. chronic ulcer left heel followed by podiatry. states nursing comes out to her home to change her dressing. Presents tonight because family stated they had hard time waking her up and she feels tired. . Complains of chest pain on and off during the past week. No shortness of breath or nausea. Mild headache. No fever. Describes jerking movements of her hands and feet MD Complaint: Reports generalized weakness Related Data Home Medications ?Medication ?Instructions ?Recorded ?Confirmed amitriptyline 150 mg tablet 150 mg PO .qhs 09/18/23 11/21/23 amlodipine 5 mg tablet 5 mg PO QDAY 09/18/23 11/21/23 atorvastatin 40 mg tablet 40 mg PO .qhs 09/18/23 11/21/23 baclofen 10 mg tablet 10 mg PO Q8H 09/18/23 11/21/23 cholecalciferol (vitamin D3) 50 50 mcg PO QDAY 09/18/23 11/21/23 mcg (2,000 unit) capsule (Vitamin D3) dicyclomine 20 mg tablet 20 mg PO TID 09/18/23 11/21/23 duloxetine 60 mg capsule,delayed 60 mg PO BID 09/18/23 11/21/23 release empagliflozin 10 mg tablet 10 mg PO QDAY 09/18/23 11/21/23 (Jardiance) ezetimibe 10 mg tablet 10 mg PO DAILY 09/18/23 11/21/23 glipizide 10 mg tablet 10 mg PO BID 09/18/23 11/21/23 home oxygen BEDTIME 09/18/23 hydroxyzine HCl 50 mg tablet 50 mg PO Q8H PRN anxiety 09/18/23 11/21/23 insulin glargine 100 unit/mL (3 70 unit subcut .qam and qpm 09/18/23 11/21/23 mL) subcutaneous pen (Lantus Solostar U-100 Insulin) lisinopril 20 mg tablet 20 mg PO QDAY 09/18/23 11/21/23 omeprazole 40 mg capsule,delayed 40 mg PO QAM 09/18/23 11/21/23 release gabapentin 300 mg capsule 300 mg PO Q8H 11/21/23 11/21/23 levothyroxine 200 mcg tablet 200 mcg PO DAILY 11/21/23 11/21/23 nystatin 100,000 unit/gram topical 1 applic topical TID PRN skin 11/21/23 11/21/23 powder irritation semaglutide 2 mg/dose (8 mg/3 mL) 2 mg subcut .WEEKLY 11/21/23 11/21/23 subcutaneous pen injector (Ozempic) Previous Rx's ?Medication ?Instructions ?Recorded aspirin 81 mg tablet,delayed 81 mg PO BID 30 days #60 tabs 09/19/23 release (Adult Low Dose Aspirin) naloxone 4 mg/actuation nasal 1 spray intranasal Q2M PRN opioid 09/19/23 spray (Narcan) overdose #2 ea cefdinir 300 mg capsule 600 mg (2 x 300 mg) PO DAILY #20 11/22/23 caps doxycycline monohydrate 100 mg 100 mg PO BID 10 days #20 caps 11/22/23 capsule Allergies Allergy/AdvReac Type Severity Reaction Status Date / Time sulfamethoxazole Allergy itchy Verified 11/21/23 17:02 [From Bactrim] trimethoprim [From Bactrim] Allergy itchy Verified 11/21/23 17:02 diuretics AdvReac Severe organ Uncoded 11/21/23 17:02 failure Review of Systems ROS Status of ROS 10 or more systems reviewed and unremarkable except as noted in history and below [facility] Medical History (Updated 12/14/23 @ 02:39 by Blas Montanez MD) Ulcer of left heel and midfoot with fat layer exposed ?L97.422 - Non-pressure chronic ulcer of left heel and midfoot with fat layer exposed (ICD-10) Ulcer of left foot due to type 2 diabetes mellitus ?E11.621 - Type 2 diabetes mellitus with foot ulcer (ICD-10) ?L97.529 - Non-pressure chronic ulcer of other part of left foot with unspecified severity (ICD-10) Wound infection ?T14.8XXA - Other injury of unspecified body region, initial encounter (ICD-10) ?L08.9 - Local infection of the skin and subcutaneous tissue, unspecified (ICD-10) Diabetic foot ulcer ?E11.621 - Type 2 diabetes mellitus with foot ulcer (ICD-10) ?L97.509 - Non-pressure chronic ulcer of other part of unspecified foot with unspecified severity (ICD-10) Morbid obesity due to excess calories ?E66.01 - Morbid (severe) obesity due to excess calories (ICD-10) Type 2 diabetes mellitus with diabetic polyneuropathy ?E11.42 - Type 2 diabetes mellitus with diabetic polyneuropathy (ICD-10) Controlled diabetes mellitus with hyperglycemia, with long-term current use of insulin ?E11.65 - Type 2 diabetes mellitus with hyperglycemia (ICD-10) ?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 (ICD-10) Non-pressure chronic ulcer of other part of left foot with fat layer exposed ?L97.522 - Non-pressure chronic ulcer of other part of left foot with fat layer exposed (ICD-10) Nocturnal hypoxia ?G47.34 - Idiopathic sleep related nonobstructive alveolar hypoventilation (ICD-10) Hypothyroid ?E03.9 - Hypothyroidism, unspecified (ICD-10) High blood pressure ?I10 - Essential (primary) hypertension (ICD-10) Bipolar 1 disorder ?F31.9 - Bipolar disorder, unspecified (ICD-10) Diabetic foot ulcer ?E11.621 - Type 2 diabetes mellitus with foot ulcer (ICD-10) ?L97.509 - Non-pressure chronic ulcer of other part of unspecified foot with unspecified severity (ICD-10) T2DM (type 2 diabetes mellitus) ?E11.9 - Type 2 diabetes mellitus without complications (ICD-10) Wound infection ?T14.8XXA - Other injury of unspecified body region, initial encounter (ICD-10) ?L08.9 - Local infection of the skin and subcutaneous tissue, unspecified (ICD-10) History of heart attack ?I25.2 - Old myocardial infarction (ICD-10) Autoimmune thyroiditis ?E06.3 - Autoimmune thyroiditis (ICD-10) Gastroparesis ?K31.84 - Gastroparesis (ICD-10) Manic-depression ?F31.9 - Bipolar disorder, unspecified (ICD-10) Anxiety ?F41.9 - Anxiety disorder, unspecified (ICD-10) Diabetes ?E11.9 - Type 2 diabetes mellitus without complications (ICD-10) Surgical History (Updated 09/19/23 @ 02:37 by Joie Alvarez) Status post dilation of esophageal narrowing ?Z98.890 - Other specified postprocedural states (ICD-10) ?Z87.19 - Personal history of other diseases of the digestive system (ICD-10) S/P knee replacement ?Z96.659 - Presence of unspecified artificial knee joint (ICD-10) Femur fracture, right ?S72.91XA - Unspecified fracture of right femur, initial encounter for closed fracture (ICD-10) History of appendectomy ?Z90.49 - Acquired absence of other specified parts of digestive tract (ICD-10) History of cholecystectomy ?Z90.49 - Acquired absence of other specified parts of digestive tract (ICD-10) History of hysterectomy ?Z90.710 - Acquired absence of both cervix and uterus (ICD-10) Family History (Updated 09/18/23 @ 21:54 by Joie Alvarez) Sister Family history of cancer Family history of hypertension Mother Family history of diabetes mellitus Social History Within the past year, how often did you have a drink containing alcohol: monthly or less Smoking status: Former smoker Non-prescribed substance use: former substance user and crack/cocaine Previous occupational history: disabled Highest level of school completed/degree received: high school graduate Are you now , , , , never or living with a partner: refused to answer In a typical week, how many times do you talk on the telephone with family, friends, or neighbors: 3 or more times per week How often do you get together with friends or relatives: 3 or more times per week How often do you attend worship or anglican services: never Little interest or pleasure in doing things: several days Feeling down, depressed, or hopeless: several days Feel stressed/tense/nervous/anxious/difficulty sleeping: to some extent Do you think of yourself as: straight/heterosexual Gender Identity: female Exam Constitutional Vital Signs, click to edit/add: Last Vital Signs Temp 98.3 F 12/13/23 20:52 Pulse 84 12/14/23 02:00 Resp 15 12/14/23 02:00 BP 105/75 12/14/23 01:58 Pulse Ox 97 12/14/23 02:00 O2 Del Method Room Air 12/13/23 23:17 Common normals: no apparent distress, average body habitus, oriented x3, no limitations, healthy appearing, alert and well nourished Eye Common normals: EOMs intact bilaterally and conjunctivae normal Respiratory Common normals: normal respiratory effort, no retractions, no use of accessory muscles and clear to auscultation bilaterally Cardio Common normals: regular rate, regular rhythm, S1 normal heart sound and S2 normal heart sound GI Common normals: Normal to inspection, nondistended, normoactive bowel sounds present, soft to palpation and non-tender Extremity Other: superficial ulcer left heel. looks clean. measure approx 2.5-3cm. no surrouding erythema Neuro Common normals: oriented x3, CN's II-XII intact bilaterally, moves all extremities and no focal motor deficits Other: occ jerking of her feet Psych Appearance: grossly normal Course Vital Signs Vital signs: Vital Signs Temperature 98.3 F 12/13/23 20:52 Pulse Rate 89 12/13/23 20:52 Respiratory Rate 18 12/13/23 20:52 Blood Pressure 140/80 12/13/23 20:52 Pulse Oximetry 96 12/13/23 20:52 Oxygen Delivery Method Room Air 12/13/23 20:52 Temperature 98.3 F 12/13/23 20:52 Pulse Rate 84 12/14/23 02:00 Respiratory Rate 15 12/14/23 02:00 Blood Pressure 105/75 12/14/23 01:58 Pulse Oximetry 97 12/14/23 02:00 Oxygen Delivery Method Room Air 12/13/23 23:17 MDM - Weakness MDM Narrative Medical decision making narrative: patient presents complaining of gen. weakness for past week. Also complaining of chest pain on and off. Has superficial ulcer left heel that is followed by podiatry. Wound looks good tonight. UA concerning for UTI with positive leukocytes but also moderate epithelial cells. labs reveal elevated troponin. Repeat Troponin trending down. BNP elevated also. Clinically no findings of CHF. RA pulse ox 97% and RR 15. Cxray per my review unremarkable as well. Her EKG demonstrates ST depression I, aVL and V2. This is change from EKG/2023. Discussed with Faculty Research Assistant Dr Lake and with hospitalist and patient accepted in transfer Lab Data Labs: Lab Results 12/13/23 12/13/23 12/14/23 Range/Units 12:01 23:30 00:01 WBC 8.8 (4.0-11.0) 10^3/uL RBC 4.35 (4.20-5.40) 10^6/uL Hgb 12.8 (12.0-16.0) g/dL Hct 39.2 (36.0-48.0) % MCV 90.1 (81.0-99.0) fL MCH 29.4 (26.7-34.0) pg MCHC 32.7 (29.9-35.2) g/dL RDW 12.9 (11.0-15.0) % Plt Count 253 (150-450) 10^3/uL MPV 9.6 (9.5-13.5) fL Neut % (Auto) 46.5 (43.0-75.0) % Lymph % (Auto) 42.8 (20.5-60.0) % [place] % (Auto) 7.9 (1.7-12.0) % Eos % (Auto) 1.9 (0.9-7.0) % Baso % (Auto) 0.6 (0.2-2.0) % Neut # (Auto) 4.1 (1.4-6.5) 10^3/uL Lymph # (Auto) 3.8 (1.2-3.8) 10^3/uL [place] # (Auto) 0.7 (0.3-0.8) 10^3/uL Eos # (Auto) 0.2 (0.0-0.7) 10^3/uL Baso # (Auto) 0.1 (0.0-0.1) 10^3/uL Abs Immat Gran (auto) 0.03 (0.00-0.03) 10^3/uL Imm/Tot Granulo (auto) 0.3 (0.0-0.5) % Sodium 134 L (136-145) mmol/L Potassium 4.0 (3.5-5.1) mmol/L Chloride 99 (98-107) mmol/L Carbon Dioxide 26.6 (21.0-32.0) mmol/L Anion Gap 12.4 BUN 20.0 H (7.0-18.0) mg/dL Creatinine 1.13 H (0.55-1.02) mg/dL Est GFR ( Amer) >60 (>=60) Est GFR (Non-Af Amer) 50 L (>=60) BUN/Creatinine Ratio 17.7 Glucose 125 H (74-106) mg/dL Lactate 1.7 (0.4-2.0) mmol/L Calcium 9.2 (8.5-10.1) mg/dL Total Bilirubin 0.4 (0.2-1.0) mg/dL AST 19 (15-37) U/L ALT 32 (14-59) U/L Alkaline Phosphatase 142 H (46-116) U/L Troponin I High Sens 87.2 H* (4.0-51.3) pg/mL NT-Pro-B Natriuret Pep 1934.0 H* (<=900.0) pg/mL Total Protein 7.9 (6.4-8.2) g/dL Albumin 3.4 (3.4-5.0) g/dL Globulin 4.5 g/dL Albumin/Globulin Ratio 0.8 Urine Color Yellow (YELLOW) Urine Clarity Clear (CLEAR) Urine pH 6.0 (5.0-9.0) Ur Specific [place] 1.020 (1.005-1.025) Urine Protein Negative (NEG/TRACE) mg/dL Urine Glucose (UA) >=1000 A (NEGATIVE) mg/dL Urine Ketones Negative (NEGATIVE) mg/dL Urine Occult Blood Negative (NEGATIVE) Urine Nitrite Negative (NEGATIVE) Urine Bilirubin Negative (NEGATIVE) Urine Urobilinogen 1.0 (0.2-1.0) EU/dL Ur Leukocyte Esterase Trace A (NEGATIVE) Urine RBC 0-2 (0-2) #/HPF Urine WBC 20-50 A (NONE SEEN) #/HPF Ur Squamous Epith Cells Moderate A (NONE/RARE) #/LPF Urine Crystals None seen (None Seen) #/HPF Amorphous Sediment Few Urine Bacteria None seen (NONE SEEN) #/HPF Urine Casts None seen (NONE SEEN) #/LPF Urine Mucus None seen (NONE SEEN) Urine Yeast Seen A (NONE SEEN) Ur Culture Indicated? Yes 12/14/23 Range/Units 01:36 WBC (4.0-11.0) 10^3/uL RBC (4.20-5.40) 10^6/uL Hgb (12.0-16.0) g/dL Hct (36.0-48.0) % MCV (81.0-99.0) fL MCH (26.7-34.0) pg MCHC (29.9-35.2) g/dL RDW (11.0-15.0) % Plt Count (150-450) 10^3/uL MPV (9.5-13.5) fL Neut % (Auto) (43.0-75.0) % Lymph % (Auto) (20.5-60.0) % [place] % (Auto) (1.7-12.0) % Eos % (Auto) (0.9-7.0) % Baso % (Auto) (0.2-2.0) % Neut # (Auto) (1.4-6.5) 10^3/uL Lymph # (Auto) (1.2-3.8) 10^3/uL [place] # (Auto) (0.3-0.8) 10^3/uL Eos # (Auto) (0.0-0.7) 10^3/uL Baso # (Auto) (0.0-0.1) 10^3/uL Abs Immat Gran (auto) (0.00-0.03) 10^3/uL Imm/Tot Granulo (auto) (0.0-0.5) % Sodium (136-145) mmol/L Potassium (3.5-5.1) mmol/L Chloride (98-107) mmol/L Carbon Dioxide (21.0-32.0) mmol/L Anion Gap BUN (7.0-18.0) mg/dL Creatinine (0.55-1.02) mg/dL Est GFR ( Amer) (>=60) Est GFR (Non-Af Amer) (>=60) BUN/Creatinine Ratio Glucose (74-106) mg/dL Lactate (0.4-2.0) mmol/L Calcium (8.5-10.1) mg/dL Total Bilirubin (0.2-1.0) mg/dL AST (15-37) U/L ALT (14-59) U/L Alkaline Phosphatase (46-116) U/L Troponin I High Sens 82.7 H* (4.0-51.3) pg/mL NT-Pro-B Natriuret Pep (<=900.0) pg/mL Total Protein (6.4-8.2) g/dL Albumin (3.4-5.0) g/dL Globulin g/dL Albumin/Globulin Ratio Urine Color (YELLOW) Urine Clarity (CLEAR) Urine pH (5.0-9.0) Ur Specific [place] (1.005-1.025) Urine Protein (NEG/TRACE) mg/dL Urine Glucose (UA) (NEGATIVE) mg/dL Urine Ketones (NEGATIVE) mg/dL Urine Occult Blood (NEGATIVE) Urine Nitrite (NEGATIVE) Urine Bilirubin (NEGATIVE) Urine Urobilinogen (0.2-1.0) EU/dL Ur Leukocyte Esterase (NEGATIVE) Urine RBC (0-2) #/HPF Urine WBC (NONE SEEN) #/HPF Ur Squamous Epith Cells (NONE/RARE) #/LPF Urine Crystals (None Seen) #/HPF Amorphous Sediment Urine Bacteria (NONE SEEN) #/HPF Urine Casts (NONE SEEN) #/LPF Urine Mucus (NONE SEEN) Urine Yeast (NONE SEEN) Ur Culture Indicated? Discharge Plan Discharge Chief Complaint: Weakness Clinical Impression: Non-ST elevation CT (NSTEMI), UTI (urinary tract infection) Patient Disposition: [facility] Discharge Location: [facility] Med Prescriptions / Home Meds: No Action gabapentin 300 mg capsule 300 mg PO Q8H levothyroxine 200 mcg tablet 200 mcg PO DAILY nystatin 100,000 unit/gram powder 1 applic TOPICAL TID PRN (Reason: skin irritation) Ozempic 2 mg/dose (8 mg/3 mL) pen injector 2 mg SUBCUT .WEEKLY cefdinir 300 mg capsule 600 mg PO DAILY Qty: 20 0RF doxycycline monohydrate 100 mg capsule 100 mg PO BID 10 Days Qty: 20 0RF amitriptyline 150 mg tablet 150 mg PO .qhs amlodipine 5 mg tablet 5 mg PO QDAY atorvastatin 40 mg tablet 40 mg PO .qhs baclofen 10 mg tablet 10 mg PO Q8H cholecalciferol (vitamin D3) [Vitamin D3] 50 mcg (2,000 unit) capsule 50 mcg PO QDAY dicyclomine 20 mg tablet 20 mg PO TID duloxetine 60 mg capsule,delayed release(DR/EC) 60 mg PO BID Jardiance 10 mg tablet 10 mg PO QDAY glipizide 10 mg tablet 10 mg PO BID hydroxyzine HCl 50 mg tablet 50 mg PO Q8H PRN (Reason: anxiety) insulin glargine [Lantus Solostar U-100 Insulin] 100 unit/mL (3 mL) insulin pen 70 unit SUBCUT .qam and qpm lisinopril 20 mg tablet 20 mg PO QDAY omeprazole 40 mg capsule,delayed release(DR/EC) 40 mg PO QAM Rx Instructions: before breakfast ezetimibe 10 mg tablet 10 mg PO DAILY home oxygen BEDTIME aspirin [Adult Low Dose Aspirin] 81 mg tablet,delayed release (DR/EC) 81 mg PO BID 30 Days Qty: 60 0RF naloxone [Narcan] 4 mg/actuation spray,non-aerosol 1 spray intranasal Q2M PRN (Reason: opioid overdose) Qty: 2 0RF Rx Instructions: spray 1 dose into ONE nostril; alternate nostrils w each dose until help arrives Print Language: Indian Referrals: Physician,Non-Staff, MD [Primary Care Provider] - 1 week
--- NOTE | 2023-12-13 23:30 | ECG_ITS ---
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
[2023-12-14] VITALS (15 sets, daily range): BP systolic 79–117; BP diastolic 60–95; PULSE 80–95; O2SAT 97
[2023-12-14 00:21] LABS: Basophils Absolute Auto 0.1 10^3/uL (0.0-0.1); Basophils Percent Auto 0.6 % (0.2-2.0); Eosinophils Absolute Auto 0.2 10^3/uL (0.0-0.7); Eosinophils Percent Auto 1.9 % (0.9-7.0); Hematocrit 39.2 % (36.0-48.0); Hemoglobin 12.8 g/dL (12.0-16.0); Immature Granulocytes Abs Auto 0.03 10^3/uL (0.00-0.03); Immature Granulocytes Pct Auto 0.3 % (0.0-0.5); Lymphocytes Absolute Auto 3.8 10^3/uL (1.2-3.8); Lymphocytes Percent Auto 42.8 % (20.5-60.0); Mean Corpuscular HGB Conc 32.7 g/dL (29.9-35.2); Mean Corpuscular Hemoglobin 29.4 pg (26.7-34.0); Mean Corpuscular Volume 90.1 fL (81.0-99.0); Mean Platelet Volume 9.6 fL (9.5-13.5); Monocytes Absolute Auto 0.7 10^3/uL (0.3-0.8); Monocytes Percent Auto 7.9 % (1.7-12.0); Neutrophils Absolute Auto 4.1 10^3/uL (1.4-6.5); Neutrophils Percent Auto 46.5 % (43.0-75.0); Platelet Count 253 10^3/uL (150-450); Red Blood Count 4.35 10^6/uL (4.20-5.40); Red Cell Distribution Width 12.9 % (11.0-15.0); White Blood Count 8.8 10^3/uL (4.0-11.0)
[2023-12-14 00:22] LABS: Bilirubin Urine NEGATIVE (NEGATIVE); Blood Urine NEGATIVE (NEGATIVE); Clarity Urine CLEAR (CLEAR); Color Urine YELLOW (YELLOW); Glucose Urine UA >=1000 mg/dL (NEGATIVE); Ketones Urine NEGATIVE (NEGATIVE); Leukocyte Esterase Urine TRACE (NEGATIVE); Nitrite Urine NEGATIVE (NEGATIVE); Protein Urine NEGATIVE (NEG/TRACE)
[2023-12-14 00:23] LABS: Urine Microscopic Indicated YES
[2023-12-14 00:29] LABS: Amorphous Sediment Urine FEW; Bacteria Urine NONE SEEN #/HPF (NONE SEEN); Cast Seen? NONE SEEN #/LPF (NONE SEEN); Crystals Seen? None Seen #/HPF (None Seen); Mucus Urine NONE SEEN (NONE SEEN); RBC Urine 0-2 #/HPF (0-2); Squamous Epithelial Cell Urine MODERATE #/LPF (NONE/RARE); Urine Culture Indicated YES; WBC Urine 20-50 #/HPF (NONE SEEN)
[2023-12-14 00:39] LABS: Alanine Aminotransferase 32 U/L (14-59); Albumin Globulin Ratio 0.8; Albumin Level 3.4 g/dL (3.4-5.0); Alkaline Phosphatase 142 U/L (46-116); Anion Gap 12.4; Aspartate Amino Transferase 19 U/L (15-37); BUN Creatinine Ratio 17.7; Bilirubin Total 0.4 mg/dL (0.2-1.0); Calcium 9.2 mg/dL (8.5-10.1); Carbon Dioxide 26.6 mmol/L (21.0-32.0); Chloride 99 mmol/L (98-107); Estimated GFR (African America >60 (>=60); Estimated GFR (Non-African Ame 50 (>=60); Globulin 4.5 g/dL; Glucose 125 mg/dL (74-106); Lactate/Lactic Acid 1.7 mmol/L (0.4-2.0); Sodium 134 mmol/L (136-145); Total Protein 7.9 g/dL (6.4-8.2)
[2023-12-14 00:42] LABS: Troponin I High Sensitivity 87.2 pg/mL (4.0-51.3)
--- NOTE | 2023-12-14 00:50 | XR_ITS ---
The [address] [address] Patient Name: DALIA MELENDEZ MRN: [id number] date: 1965 Sex: F Assigned Patient Location: ER Current Patient Location: ED.MAIN Accession/Order Number: [id number] Exam Date: 12/14/2023 01:10 Report Date: 12/14/2023 03:22 At the request of: ALLIE GOTTLIEB Procedure: XR chest 1V EXAM: XR chest 1V HISTORY: weakness COMPARISON: Chest radiograph dated 10/09/2023. TECHNIQUE: One view of the chest was obtained. FINDINGS: The cardiac silhouette is stable in size. The lungs are clear. There is no significant pneumothorax or pleural effusion. No acute osseous abnormality is seen. XR/XR chest 1V IMPRESSION: 1. No acute cardiopulmonary abnormality. Electronically authenticated by: Sanjay MARTIN Date: 12/14/2023 03:22
[2023-12-14] MEDS: 0.9 % SODIUM CHLORIDE 1,000 ML 999 ML IV (01:14)
[2023-12-14] MEDS: CEFTRIAXONE 1,000 MG in 0.9 % SODIUM CHLORIDE 50 ML 100 MG IV (01:44)
[2023-12-14] MEDS: HYDROXYZINE PAMOATE 25 MG CAPSULE 50 MG PO (01:55)
[2023-12-14 02:02] LABS: Troponin I High Sensitivity 82.7 pg/mL (4.0-51.3)
[2023-12-14] MEDS: LORAZEPAM 2 MG/ML VIAL 0.5 MG IV (05:02)
== END 2023-12-14 05:40 | disposition short-term general hospital (02) ==
PROVIDERS: Emergency Provider Internal Medicine
DX: I21.4 Non-ST elevation (NSTEMI) myocardial infarction (principal); N39.0 Urinary tract infection, site not specified; Z87.891 Personal history of nicotine dependence
CPT/HCPCS: 36415; 71045; 80053; 81001; 83605; 83880; 84484; 85025; 87086; 93005; 96365; 96375; 99285; J0696; J2060; Q0177

== ENCOUNTER 2024-04-14 15:22 | Outpatient (OUT) | payer MEDICARE, MEDICAID, SELFPAY | END 2024-04-14 15:23 | disposition home or self-care (01) | LOC: WC 15:27 | PROVIDERS: Visit Provider Physician Assistant | DX: E11.621 Type 2 diabetes mellitus with foot ulcer (principal); L97.422 Non-pressure chronic ulcer of left heel and midfoot with fat layer exposed | CPT/HCPCS: G0463 ==

== ENCOUNTER 2024-09-07 10:00 | Outpatient (OUT) | payer MEDICARE, MEDICAID, SELFPAY | END 2024-09-07 10:01 | disposition home or self-care (01) | LOC: WC 09-09 09:10 | PROVIDERS: Visit Provider Physician Assistant | DX: E11.621 Type 2 diabetes mellitus with foot ulcer (principal); L97.422 Non-pressure chronic ulcer of left heel and midfoot with fat layer exposed | CPT/HCPCS: A6213; G0463 ==

== ENCOUNTER 2024-09-28 11:31 | Outpatient (OUT) | payer MEDICARE, MEDICAID, SELFPAY | END 2024-09-28 11:32 | disposition home or self-care (01) | LOC: WC 11:32 | PROVIDERS: Visit Provider Physician Assistant | DX: E11.621 Type 2 diabetes mellitus with foot ulcer (principal); L97.422 Non-pressure chronic ulcer of left heel and midfoot with fat layer exposed | CPT/HCPCS: G0463 ==

== ENCOUNTER 2024-10-20 14:03 | Outpatient (OUT) | payer MEDICARE, MEDICAID, SELFPAY ==
--- OUTSIDE RECORDS SUMMARY | 2024-10-20 14:07 | XMS_ITS | Clinical Summary ---
Author Organization [facility] Address [address] 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
--- OUTSIDE RECORDS SUMMARY | 2024-10-20 14:07 | XMS_ITS | Clinical Summary ---
Author Organization [facility] Address [address] [place] [address] Care Team Providers Care Solar Thermal Installer Name Role Phone eLvar Perez MD Unavailable Unallocated, [place] Provider Primary Care Provi oliva Laila Pittman HAND STONER Unavailable Michelle Rojo HAND STONER Unavailable [phone] Robbie Epperson DO Unavailable [phone] Sharona Alvarez HAND STONER Unavailable [phone] Allergies Active Allergy Reactions Criticality Noted Date Comments Aripiprazole Unknown 02/18/2024 Buspirone Unknown High 02/18/2024 Codeine Hives,Unknown High 02/18/2024 Empagliflozin Unknown 03/16/2024 Chronic UTI Hydrocodone-Acetaminophen Unknown 11/26/2012 Pt states she gets irritable and mean when takes this medication Iodinated Contrast Media Hives,Anaphylaxis High 12/2023 Per verbal of patient and her sister has had reactions in the past. Iodine Anaphylaxis,Hives, Rash High 09/05/2004 Other Reaction(s): cardiac arrest Loop Diuretics (Sulfonamide) Unknown 08/12/2023 Meloxicam Unknown 02/18/2024 Oxycodone 02/18/2024 Other Reaction(s): HISTORY OF ADDICTION Oxycodone-Acetaminophen Unknown 03/18/2024 Semaglutide Unknown 03/16/2024 Numbness Sulfamethoxazole Itching 12/14/2023 Tizanidine Hallucinations,Unk nown High 02/18/2024 Medications Aspirin (ASPIR-LOW PO) 81 mg 4 Active atorvastatin (Lipitor) 40 MG tablet Take 40 mg by mouth in the morning. 4 Active baclofen (Lioresal) 10 MG tablet every 8 (eight) hours Active dicyclomine (Bentyl) 20 MG tablet Take 20 mg by mouth in the morning and 20 mg at noon and 20 mg in the evening. 4 Active ezetimibe (Zetia) 10 MG tablet Take 10 mg by mouth in the morning. 4 Active hydrOXYzine HCl (Atarax) 50 MG tablet Take 25 mg by mouth every 8 (eight) hours if needed 4 Active Insulin Aspart (NovoLOG) 100 UNIT/ML solution Act nanda insulin glargine (Lantus) 100 UNIT/ML injection Inject 25 Units under the skin in the morning and 25 Units in the evening. 4 Active isosorbide mononitrate ER (Imdur) 60 MG 24 hr tablet Take 60 mg by mouth in the morning. 4 Active levothyroxine (Synthroid, Levoxyl) 200 MCG tablet 1 (one) time each day at the same time 4 Active lisinopril 20 MG tablet 1 (one) time each day at the same time Active metoprolol succinate XL (Kapspargo Sprinkle) 25 MG 24 hr capsule 25 mg 4 Active fremanezumab (Ajovy) 225 MG/1.5ML auto-injectorInd ications:Chronic migraine without aura without status migrainosus, not intractable (CMS/HCC) Inject 1 pen (225 mg) under the skin every 30 (thirty) days 1.68 mL 11 4 Active Additional Information Patient not taking.Reported on 05/03/2024 clopidogrel (Plavix) 75 MG tablet Take 75 mg by mouth Daily 4 Active gabapentin (Neurontin) 300 MG capsule 4 Active gabapentin (Neurontin) 400 MG capsule Take 400 mg by mouth in the morning and 400 mg in the evening and 400 mg before bedtime. 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 Paresthesia 09/23/2023 Backache 09/23/2023 Numbness 09/23/2023 Tension headache 09/23/2023 Trochanteric bursitis of right hip 09/23/2023 Memory loss 09/23/2023 Intractable migraine without aura and without status migrainosus 09/23/2023 Ulnar neuropathy of both upper extremities 09/22 Polyneuropathy 09/23/2023 Left arm pain 09/23/2023 Gait instability 09/23/2023 Neck pain 09/23/2023 Painful paresthesia 09/23/2023 Chronic migraine without aur a without status migrainosus, not intractable 09/23/2023 Abnormal involuntary movements 09/23/2023 Memory changes 09/23/2023 Neuropathy 09/23/2023 Chronic fatigue 09/23/2023 Encounters Date Type Department Care Team Description 09/22/2024 Results Follow-Up [facility] [address] [place] [address] Laial Pittman NP 09/21/2024 External Result Encounter [facility] External Department Unsolicited Laila Pittman NP 09/07/2024 Results Follow-Up [facility] [address] [place] [address] Laila Pittman NP 09/02/2024 External Result Encounter [facility] External Department Unsolicited Laila Pittman NP from Last 3 Months Family History Medical History Relation Name Comments Diabetes Father Hypertension Father Diabetes Mother Hypertension Mother Hyperthyroidism Mother Relation Name Status Comments Father Mother Social History Tobacco Use Types Packs/Day Years Used Date Smoking Tobacco: Never Tobacco Cessation:Counseling Given: Not Answered Alcohol Use Standard Drinks/Week Comments Never 0 (1 standard drink = 0.6 oz pur e alcohol) Comments Unknown Sex and Gender Information Value Date Recorded Sex Assigned at Not on file Legal Sex Female 7:03 PM EDT Gender Identity Not on file Sexual Orientation Not on file Last Filed Vital Signs Vital Sign Reading Time Taken Comments Blood Pressure 132/74 05/03/2024 9:13 AM EST Pulse 69 05/03/2024 9:13 AM EST Temperature - - Respiratory Rate - - Oxygen Saturation - - Inhaled Oxygen Concentration - - Weight 127 kg (280 lb) 01/08/2022 12:00 PM EDT Height 170.2 cm (5' 7 ) 01/08/2022 12:00 PM EDT Body Mass Index 43.85 01/08/2022 12:00 PM EDT Plan of Treatment Health Maintenance Due Date Last Done Comments CT Colonography 1967 Colonoscopy 1967 Colorectal Cancer Screening 1967 FIT-DNA 1967 FIT 1967 FOBT 1965 Medicare Annual Wellness (AWV) 1965 Sigmoidoscopy 1965 Diabetes: Retinopathy Screening 09/24/1977 Diabetes: Urine Protein Screening 09/24/1986 Pap Smear 09/24/1988 Cervical Cancer Screening 09/24/1997 HPV/Cotest 09/24/1997 Mammogram 2007 Diabetes: Hemoglobin A1C 07/21/2024 024, 12/14/2023, 12/14/2023 Influenza Vaccine (Season Ended) 2025 04/25/2020, 01/25/2019, 02/21/2017, Additional history exists Procedures Procedure Name Priority Date/Time Associated Diagnosis Comments T4, FREE Routine 09/21/2024 11:45 AM EDT TSH Routine 09/21/2024 11:45 AM EDT XR CHEST 2 VIEWS 09/02/2024 11:0 6 AM EDT from Last 3 Months Results * (ABNORMAL) TSH (09/21/2024 11:45 AM EDT) THYROID STIMULATING HORMONE 40.03(H) 0.45 - 5.33 u[iU]/mL 09/21/2024 2:26 PM EDT [facility] Other Topography unknown / Unknown 09/21/2024 11:45 AM EDT 09/21/2024 12:18 PM EDT Laila Pittman HAND STONER LAB BLOOD ORDERABLES Ofelia l Result Performing Organization Address City/[facility]/[place] [address], [facility] [address] [phone] * T4, free (09/21/2024 11:45 AM EDT) FREE T4 (FREE THYROXINE) 0.68 0.61 - 1.12 ng/dL 09/21/2024 2:30 PM EDT [facility] Other Topography unknown / Unknown 09/21/2024 11:45 AM EDT 09/21/2024 12:18 PM EDT Laila Pittman HAND STONER LAB BLOOD ORDERABLES Ofelia l Result Performing Organization Address City/[facility]/ZIP Co de Phone Number [place] [phone], [place] [phone] * XR chest 2 views (09/02/2024 11:06 AM EDT) Anatomical Region Laterality Modality Chest Radiographic Silke ging 09/02/2024 11:0 6 AM EDT Impressions 09/02/2024 11:09 AM EDT NO ACUTE CARDIOPULMONARY ABNORMALITY. Impression dictated by: Jason Conroy Jr., D.OAram09/02/2024 11:07 AM Dictation Location: [facility]--22 Transcribed By: PWS 09/02/24 1107 Dictated By: Jason Conroy Jr, DO 09/02/24 1106 Signed By: <Electronically signed by Jason Conroy Jr, DO in OV> 09/02/24 1107 Narrative 09/02/2024 11:09 AM EDT [address] [address] XRay Report Signed Patient: Soledad Riley MR#: [id number] 8 : 1965 Acct:[id number] Age/Sex: 58 / F ADM Date: 09/01/24 Loc: XD Room: Type: [facility] CLI Attending Dr: Laila Pittman HAND STONER-C Copies to: Laila Pittman Ordering Provider: Laila Pittman Date of Service: 09/01/24 XR/XR chest 2V*: Gastro-esophageal reflux disease without esophagitis;Hoarsen Chest 2 views CLINICAL HISTORY: Shortness of breath with exertion. COMPARISON: Chest 08/09/2024 FINDINGS: Heart normal in size. No consolidation pneumothorax pleural effusion or free air. XR/XR chest 2V* Procedure Note Jason Conroy Jr., - 09/02/2024 [place] [id number] XRay Report Signed Patient: Soledad Riley RMR#: [id number] 8 : 1965Acct:[id number] Age/Sex: 58 / FADM Date: 09/01/24 Loc: XD [facility]: Laila Pittman HAND STONER-C Copies to: Laila Pittman Ordering Provider: Laila Pittman Date of Service: 09/01/24 XR/XR chest 2V*: Gastro-esophageal refluxdisease without esophagitis;Hoarsen Chest 2 views CLINICAL HISTORY: Shortness of breath with exertion. COMPARISON: Chest 08/09/2024 FINDINGS: Heart normal in size. No consolidation pneumothorax pleural effusion orfree air. XR/XR chest 2V* IMPRESSION: NO ACUTE CARDIOPULMONARY ABNORMALITY. Impression dictated by: Jason Conroy Jr., D.OAram09/02/2024 11:07 AM Dictation Location: [place] [address] Transcribed By: [facility] 09/02/24 1107 Dictated By: Jason Conroy Jr, DO 09/02/24 1106 Signed By: <Electronically signed by Jason Conroy Jr, DO inOV> 09/02/24 1107 Laila Pittman HAND STONER IMG XR PROCEDURES Final R esult from Last 3 Months Insurance [employer] MEDICARE ADVANTAGE MEDICAID [place] Care Teams Solar Thermal Installer Relationship Specialty Start Date End Date Unallocated, [facility] MD Yojana [address] [place] [address] PCP - General Family Medicine 03/12/24 Levar Perez MD [address] [place] [address] Referring Physician Addiction Medicine 09/09/23 Laila Pittman, RAISA [address] [place] [address] Referring Physician Nurse Practitioner 03/12/24 Michelle Rojo, RAISA [address] [place] [address] Nurse Practitioner Neurology 03/18/24 Robbie Epperson DO [address] [address] Referring Physician Neurology 03/25/24 Sharona Alvarez NP [address] [address] Nurse Practitioner Neurology 03/25/24
--- OUTSIDE RECORDS SUMMARY | 2024-10-20 14:07 | XMS_ITS | Encounter Summary ---
Author Organization [facility] Address [address] [place] [address] Care Team Providers Care Last Sorter Name Role Phone Levar Perez MD Unavailable Unallocated, Noms Provider Primary Care Provi oliva Laila Pittman EDI CONSULTANT Unavailable Michelle Rojo EDI CONSULTANT Unavailable [phone] Robbie Epperson DO Unavailable [phone] Sharona Alvarez EDI CONSULTANT Unavailable [phone] Encounter Details Date Type Department Care Team (Late st Contact Info) Description 01/16/2024 Abstract [facility] [address] [place] [address] Unallocated, [facility] [place] [address] Social History Tobacco Use Types Packs/Day Years Used Date Smoking Tobacco: Never Alcohol Use Standard Drinks/Week Comments Never 0 (1 standard drink = 0.6 oz pur e alcohol) Comments Unknown Sex and Gender Information Value Date Recorded Sex Assigned at Not on file Legal Sex Female 7:03 PM EDT Gender Identity Not on file Sexual Orientation Not on file documented as of this encounter Plan of Treatment Not on file documented as of this encounter Visit Diagnoses Not on filedocumented in this encounter Care Teams Last Sorter Relationship Specialty Start Date End Date Unallocated, [place] [address] PCP - General Family Medicine 03/12/24 Levar Perez MD [address] [place], [place] [phone] Referring Physician Addiction Medicine 09/09/23 Laila Pittman NP [address] [place] [address] Referring Physician Nurse Practitioner 03/12/24 Michelle Rojo NP [address] [place] [address] Nurse Practitioner Neurology 03/18/24 Robbie Epperson DO [address] [address] Referring Physician Neurology 03/25/24 Sharona Alvarez NP [address] [address] Nurse Practitioner Neurology 03/25/24 documented as of this encounter
--- OUTSIDE RECORDS SUMMARY | 2024-10-20 14:07 | XMS_ITS | Encounter Summary ---
Author Organization [facility] Address [address] [place] [address] Care Team Providers Care Manager Global Name Role Phone Levar Perez MD Unavailable Unallocated, [place] Provider Primary Care Provi oliva Laila Pittman PLAYGROUND EQUIPMENT ERECTOR Unavailable [phone] Michelle Rojo PLAYGROUND EQUIPMENT ERECTOR Unavailable [phone] Robbie Epperson DO Unavailable Sharona Alvarez PLAYGROUND EQUIPMENT ERECTOR Unavailable [phone] Encounter Details Date Type Department Care Team (Late st Contact Info) Description 03/24/2024 Orders Only RAJAN KERI [address] [place] [address] Robbie Epperson DO [address] [place] [address] Social History Tobacco Use Types Packs/Day Years [...] on file documented as of this encounter Procedures Procedure Name Priority Date/Time Associated Diagnosis Comments EMG AND NERVE CONDUCTION STUDY Routine 01/18/2021 1:35 PM EDT EMG AND NERVE CONDUCTION STUDY Routine 08/16/2020 1:35 PM EDT EMG AND NERVE CONDUCTION STUDY Routine 08/15/2020 1:36 PM EDT EMG AND NERVE CONDUCTION STUDY Routine 08/13/2018 1:37 PM EDT EMG AND NERVE CONDUCTION STUDY Routine 07/06/2018 1:38 PM EST documented in this encounter Results * EMG AND NERVE CONDUCTION STUDY (01/18/2021 1:35 PM EDT) Robbie Epperson NEUROLOGY ORDERABLES Ofelia l Result * EMG AND NERVE CONDUCTION STUDY (08/16/2020 1:35 PM EDT) Savannah Blood NP NEUROLOGY ORDERABLES Fi nal Result * EMG AND NERVE CONDUCTION STUDY (08/15/2020 1:36 PM EDT) Savannah Blood NP NEUROLOGY ORDERABLES Fi nal Result * EMG AND NERVE CONDUCTION STUDY (08/13/2018 1:37 PM EDT) Parker Young MD NEUROLOGY ORDERABLES Final Re sult * EMG AND NERVE CONDUCTION STUDY (07/06/2018 1:38 PM EST) Result [facility] Savannah Blood NP NEUROLOGY ORDERABLES Fi nal Result documented in this encounter Visit Diagnoses Not on filedocumented in this encounter Care Teams Manager Global Relationship Specialty Start Date End Date Unallocated, [facility] MD Yojana [address] [place] [address] PCP - General Family Medicine 03/12/24 Levar Perez MD [address] [place] [address] Referring Physician Addiction Medicine 09/09/23 Laila Pittman NP [address] [place] [address] Referring Physician Nurse Practitioner 03/12/24 Michelle Rojo NP [facility] [place] [address] Nurse Practitioner Neurology 03/18/24 Robbie Epperson DO [address] [address] Referring Physician Neurology 03/25/24 Sharona Alvarez NP [address] [address] Nurse Practitioner Neurology 03/25/24 documented as of this encounter
--- OUTSIDE RECORDS SUMMARY | 2024-10-20 14:08 | XMS_ITS | Clinical Summary ---
Author Organization [facility] Address [address] [place] [address] Care Team Providers Care Well Driller Helper Name Role Phone Laila Pittman NP Primary Care Provider [phone] Allergies Active Allergy Reactions Criticality Noted Date Comments Iodinated Contrast Media Anaphylaxis High 12/18/2023 Per verbal of patient and her sister has had reactions in the past. Iodine Anaphylaxis High 01/13/2024 Other Other High 12/14/2023 Diuretic Sulfamethoxazole Itching 12/14/2023 Trimethoprim Itching 12/14/2023 Medications omeprazole (PriLOSEC) [address] capsule Take 40 mg by mouth before breakfast. Do not crush or chew. Active amitriptyline (Elavil) 150 mg tablet Take 150 mg by mouth at bedtime. Active baclofen (Lioresal) 10 mg tablet Take 10 mg by mouth three times daily. Active dicyclomine (Bentyl) 20 mg tablet Take 20 mg by mouth three times daily. Active DULoxetine (Cymbalta) [address] capsule Take 60 mg by mouth two times daily. Do not crush or chew. Active hydrOXYzine HCL (Atarax) 50 mg tablet Take 50 mg by mouth every 8 (eight) hours if needed for itching. Active gabapentin (Neurontin) 300 mg capsule Take 300 mg by mouth three times daily. 400 at night Active nystatin (Mycostatin) 100,000 unit/gram powder Apply topically if needed in the morning, at noon, and at bedtime for itching or rash. Active clopidogrel (Plavix) 75 mg tabletIndication s:NSTEMI (non-ST elevated myocardial infarction) (CMS/FORMERLY [facility]) Take 1 tablet (75 mg) by mouth in the morning for 92 doses. 92 tablet 4 04/02/20 25 Active isosorbide mononitrate ER (Imdur) 30 mg 24 hr tabletIndication s:NSTEMI (non-ST elevated myocardial infarction) (CMS/HCC) Take 1 tablet (30 mg) by mouth in the morning for 95 doses. Do not crush or chew. 95 tablet 4 04/02/20 25 Active ranolazine (Ranexa) 500 mg 12 hr tabletIndication s:NSTEMI (non-ST elevated myocardial infarction) (CMS/HCC) Take 1 tablet (500 mg) by mouth two times daily for 191 doses. Do not crush, chew, or split. 191 tablet 4 Active metoprolol succinate XL (Toprol-XL) 25 mg 24 hr tabletIndication s:NSTEMI (non-ST elevated myocardial infarction) (CMS/HCC) Take 0.5 tablets (12.5 mg) by mouth in the morning for 97 doses. Do not crush or chew. 15 tablet 2 4 04/05/20 25 Active Additional Information Patient taking differently: 25 mgoral Daily, Do not crush or chew., Reported on 04/02/2024 atorvastatin (Lipitor) 80 mg tabletIndication s:NSTEMI (non-ST elevated myocardial infarction) (CMS/HCC) Take 1 tablet (80 mg) by mouth in the morning for 91 doses. 91 tablet 4 04/02/20 25 Active lisinopril 2.5 mg tabletIndication s:NSTEMI (non-ST elevated myocardial infarction) (CMS/HCC) Take 1 tablet (2.5 mg) by mouth in the morning. 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 Follow sliding scale Maximum 10 units a day 3 mL 3 4 Active calcium carbonate-vitami n D3 500 mg-5 mcg (200 unit) tabletIndication s:Type 2 diabetes mellitus with hyperglycemia, with long-term current use of insulin ([facility]),NSTEMI (non-ST elevated myocardial infarction) ([facility]),Diabet es mellitus due to underlying condition with hyperglycemia, without long-term current use of insulin ([facility]),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 90 tablet 3 4 Active amLODIPine (Norvasc) 5 mg tablet Take 5 mg by mouth in the morning. Active cetirizine (ZyrTEC) 10 mg tablet Take 10 mg by mouth in the morning. Active ezetimibe (Zetia) 10 mg tablet Take 10 mg by mouth in the morning. Active insulin glargine (Lantus) 100 unit/mL injection vialIndications: Diabetes mellitus due to underlying condition with hyperglycemia, without long-term current use of insulin ([facility]) Inject 40 Units under the skin in the morning. 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 12/2024 Subclinical hypothyroidism 03/04/2024 Acute hyperglycemia 01/05/2024 JUDIE (acute kidney injury) 01/05/2024 Abdominal pain 01/05/2024 Cocaine use 01/05/2024 Constipation 01/05/2024 Nausea and vomiting 01/05/2024 COVID-19 01/05/2024 Dependence on wheelchair 01/05/2024 Diabetic nephropathy 01/05/2024 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 mellitus due to underlying condition 01/05/2024 Dizziness 01/05/2024 Drug overdose 01/05/2024 Dysphagia 01/05/2024 Dysuria 01/05/2024 Encounter for prophylactic measures, unspecified 01/05/2024 Esophageal stricture 01/05/2024 Fall 01/05/2024 Fibromyositis 01/05/2024 Former smoker 01/05/2024 Fracture of right femur foll owing insertion of orthopedic implant 01/05/2024 Fracture of tibia and fibula 01/05/2024 Gastroparesis due to DM 01/05/2024 Esophageal spasm 01/05/2024 Hyperkeratosis 01/05/2024 Hyperpigmentation 01/05/2024 Impaired mobility and ADLs 01/05/2024 Leukocytosis 01/05/2024 Localized dermatitis 01/05/2024 joint terminal attack controller current use of insulin 01/05/2024 Medication side effect 01/05/2024 Musculoskeletal leg pain 01/05/2024 Opioid abuse 01/05/2024 Other acute postprocedural pain 01/05/2024 Other disorders of plasma-pr otein metabolism, not elsewhere classified 01/05/2024 Papillomatosis 01/05/2024 Pseudotumor cerebri 01/05/2024 Cellulitis of both lower extremities 01/05/2024 Right ankle sprain 01/05/2024 SBO (small bowel obstruction) 01/05/2024 Status post fall 01/05/2024 Type 2 diabetes mellitus with hyperglycemia 12/11 Urinary frequency 01/05/2024 UTI (urinary tract infection) 01/05/2024 Viral infection 01/05/2024 Acute angina 12/14/2023 NSTEMI (non-ST elevated myocardial infarction) 0 12/14/2023 Primary hypertension 12/14/2023 Uncontrolled type 2 diabetes mellitus with hyperglycemia, with long-term current use of insulin 12/14/2023 Mixed hyperlipidemia 12/14/2023 Acquired hypothyroidism 12/14/2023 Chronic acquired lymphedema 12/14/2023 Morbid obesity 12/14/2023 Oxygen desaturation during sleep 12/14/2023 Elevated troponin 12/14/2023 Abnormal involuntary movements 09/23/2023 Benign paroxysmal positional vertigo 09/23/2023 Facial palsy 09/23/2023 Gait instability 09/23/2023 Insomnia, unspecified 09/23/2023 Chronic migraine without aur a without status migrainosus, not intractable 09/23/2023 Left arm pain 09/23/2023 Malaise and fatigue 09/23/2023 Memory loss 09/23/2023 Numbness 09/23/2023 Paresthesia 09/23/2023 Peripheral neuropathy 09/23/2023 Tension headache 09/23/2023 Trochanteric bursitis of right hip 09/23/2023 Ulnar neuropathy of both upper extremities 09/22 Chronic fatigue 09/23/2023 Osteoarthritis of hip 12/18/2018 Closed fracture of tibial plateau 05/21/2018 Closed fracture of shaft of femur 04/18/2017 Bipolar II disorder 03/06/2017 Diverticular disease 03/06/2017 Irritable bowel syndrome 03/06/2017 Anxiety disorder 02/21/2017 Cocaine abuse 02/21/2017 Difficulty in walking, not elsewhere classified 02/21/2017 Encounter for other orthopedic aftercare 017 Muscle weakness (generalized) 02/21/2017 Vitamin D deficiency 02/21/2017 Resolved Problems Problem Noted Date Diagnosed Date Resolved Date Diabetes mellitus due to und erlying condition with hyperglycemia, without long-term current use of insulin 12/14/2023 12/14/2023 Encounters Date Type Department Care Team Description 09/17/2024 Telephone [facility] at [address] [phone] Temo Richard MD 09/16/2024 9:40 AM EDT Follow-Up [facility] at [address] [phone] Temo Richard MD 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 (Primary Dx); Type 2 diabetes mellitus with diabetic autonomic neuropathy, with long-term current use of insulin ([facility]); Hypoglycemia 08/13/2024 Orders Only [facility] at [address] [phone] Temo Richard MD 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 (Primary Dx) 08/04/2024 Lab Requisition [facility] [address] [place] [id number] Marvin Pittman MD Type 2 diabetes mellitus with foot ulcer (CODE) (CMS/HCC) from Last 3 Months Social History Tobacco Use Types Packs/Day Years Used Date Smoking Tobacco: Former Cigarettes Q uit: 2009 Smokeless Tobacco: Never Tobacco Cessation:Counseling Given: Not Answered Alcohol Use Standard Drinks/Week Comments Not Currently 0 (1 standard drink = 0.6 oz pur e alcohol) [facility] Utilities Answer Date Recorded In the past 12 months has th e electric, gas, oil, or water company threatened to shut off services in your home? No 12/14/2023 Humiliation, Afraid, Rape, and Kick questionnair e Answer Date Recorded Within the last year, have y ou been afraid of your partner or ex-partner? No 12/14/2023 Emotionally Abused Not on file 12/14/2023 Physically Abused Not on file 12/14/2023 Sexually Abused Not on file 12/14/2023 Overall Financial Resource Strain (CARDIA) Answe r Date Recorded How hard is it for you to pa y for the very basics like food, housing, medical care, and heating? Not hard at all 12/14/2023 Transportation Answer Date Recorded In the past 12 months, has l ack of transportation kept you from medical appointments or from getting medications? No 12/14/2023 Lack of Transportation (Non-Medical) Not on file 12/14/2023 Housing Stability Vital Sign Answer Timothy e Recorded Unable to Pay for Housing in the Last Year Not o n file 12/14/2023 Number of Places Lived in the Last Year Not on f ile 12/14/2023 In the last 12 months, was t here a time when you did not have a steady place to sleep or slept in a mcc (including now)? No 12/14/2023 Hunger Vital Sign Answer Date Recorded Within the past 12 months, y ou worried that your food would run out before you got the money to buy more. Never true 12/14/19 24 Ran Out of Food in the Last Year Not on file 12/14/2023 Comments Unknown Sex and Gender Information Value Date Recorded Sex Assigned at Not on file Legal Sex Female 9:46 PM EDT Gender Identity Not on file Sexual Orientation Not on file Last Filed Vital Signs Vital Sign Reading Time Taken Comments Blood Pressure 130/80 09/16/2024 9:59 AM EDT Pulse 91 09/16/2024 9:59 AM EDT Temperature 36.7 C (98.1 F) 12/25/2023 4:20 PM EDT Respiratory Rate 14 12/25/2023 4:20 PM EDT Oxygen Saturation 97% 09/16/2024 9:59 AM EDT Inhaled Oxygen Concentration - - Weight 115 kg (253 lb 12.8 oz) 09/16/2024 9:59 A M EDT Height 167.6 cm (5' 6 ) 09/16/2024 9:59 AM EDT Body Mass Index 40.96 09/16/2024 9:59 AM EDT Plan of Treatment Upcoming Encounters Date Type Department Care Team (Late st Contact Info) Description 11/17/2024 10:20 AM EDT Follow-Up [facility] at [facility] [address] [place] [address] Temo Richard MD [address] [facility] [address] [place] [address] Health Maintenance Due Date Last Done Comments CT Colonography 1967 Colonoscopy 1965 Colorectal Cancer Screening 1965 FIT-DNA 1967 FIT 1967 FOBT 1965 Medicare Annual Wellness (AWV) 1965 Sigmoidoscopy 1965 Diabetes: Retinopathy Screening 09/24/1977 Depression Screening 1979 Hepatitis B Vaccines (1 of 3 - 19+ 3-dose series) 09/24/1986 Pneumococcal Vaccine: Pediatrics (0 to 5 Years) and At-Risk Patients (6 to 64 Years) (1 of 2 - PCV) 09/24/1986 Pap Smear 09/24/1988 Adult Tetanus 09/24/1989 Cervical Cancer Screening 09/24/1997 HPV/Cotest 09/24/1997 Mammogram 2007 Zoster Vaccines (1 of 2) 09/24/2017 COVID-19 Vaccine ( - season) 2024 Diabetes: Hemoglobin A1C 12/17/2024 025, 04/02/2024, 12/14/2023, Additional history exists Influenza Vaccine (Season Ended) 2025 04/25/2020, 04/25/2020, 01/25/2019, Additional history exists HIB Vaccines Aged Out No longer eligi ble based on patient's age to complete this topic HPV Vaccines Aged Out No longer eligi ble based on patient's age to complete this topic IPV Vaccines Aged Out No longer eligi ble based on patient's age to complete this topic Meningococcal B Vaccine Aged Out No l onger eligible based on patient's age to complete this topic Meningococcal Vaccine Aged Out No kaitlin karl eligible based on patient's age to complete this topic Rotavirus Vaccines Aged Out No longer eligible based on patient's age to complete this topic Medical Devices Implanted Type Area Diver Pumper Device Identifier Shelf Expiration Date Model / Serial / Lot Stent,Synergy Mr 2.25 X 38 - [id number] - [id number] Implanted:Qty: 1 on 12/16/2023 by Robbie Oshea MD at [facility] Drug Eluting Stent [employer] [id number] 09/23/2024 [id number] / [id number] / [id number] Procedures Procedure Name Priority Date/Time Associated Diagnosis Comments POCT GLYCOSYLATED HEMOGLOBIN (HGB A1C) Routine 09/16/2024 10:18 AM EDT Type 2 diabetes mellitus with diabetic autonomic neuropathy, with long-term current use of insulin ([facility]) T4, FREE Routine 08/04/2024 11:40 AM EDT Type 2 diabetes mellitus with foot ulcer (CODE) ([facility]) TSH Routine 08/04/2024 11:40 AM EDT Type 2 diabetes mellitus with foot ulcer (CODE) ([facility]) from Last 3 Months Results * (ABNORMAL) POCT glycosylated hemoglobin (Hb A1C) (09/16/2024 10:18 AM EDT) Hemoglobin A1C 7.7 SOURCE: blood Lot Number #[id number] EXP DATE Blood Venous blood specimen / Unknown 09/16/2024 10:18 AM EDT Temo Richard MD POINT OF CARE TEST ENTER/EDIT OR DERABLES Final Result * (ABNORMAL) TSH (08/04/2024 11:40 AM EDT) TSH 42.41(H) 0.34 - 5.60 mIU/L 08/04/2024 2:46 PM EDT [facility] ([facility]) Blood Venous blood specimen / Unknown 08/04/2024 11:40 AM EDT 08/04/2024 1:36 PM EDT Marvin Pittman MD LAB BLOOD ORDERABLES Final R esult [facility] ([facility]) [address] [place], [place] [id number] * (ABNORMAL) T4, free (08/04/2024 11:40 AM EDT) Free T4 0.60(L) 0.71 - 1.85 ng/dL 08/04/2024 2:14 PM EDT [facility] ([facility]) Blood Venous blood specimen / Unknown 08/04/2024 11:40 AM EDT 08/04/2024 1:36 PM EDT Marvin Pittman MD LAB BLOOD ORDERABLES Final R esult [facility] ([facility]) [address] [place] [address] from Last 3 Months Insurance [place] [employer] MEDICARE ADVANTAGE [employer] MEDICARE Advance Directives * Full Code (Latest Code Status on File) Date Activated Date Inactivated Comments 12/14/2023 9:54 AM 12/25/2023 10:29 PM Care Teams Well Driller Helper Relationship Specialty Start Date End Date Laila Pittman NP [address] [place] [address] PCP - General Family Medicine 12/15/23
--- OUTSIDE RECORDS SUMMARY | 2024-10-20 14:08 | XMS_ITS | Encounter Summary ---
Author Organization [facility] Address [address] [place] [address] Care Team Providers Care Irrigator Sprinkling System Name Role Phone Levar Perez MD Unavailable Unallocated, [facility]oms Provider Primary Care Provi oliva Laila Pittman BUTTON SEWING MACHINE OPERATOR Unavailable [phone] Michelle Rojo BUTTON SEWING MACHINE OPERATOR Unavailable [phone] Robbie Epperson DO Unavailable [phone] Sharona Alvarez BUTTON SEWING MACHINE OPERATOR Unavailable [phone] Encounter Details Date Type Department Care Team (Late st Contact Info) Description 09/02/2024 External Result Encounter [facility] External Department Unsolicited Laila Pittman NP [address] [place] [address] Social History Tobacco Use Types Packs/Day Years [...] Procedure Name Priority Date/Time Associated Diagnosis Comments XR CHEST 2 VIEWS 09/02/2024 11:0 6 AM EDT documented in this encounter Results * XR chest 2 views (09/02/2024 11:06 AM EDT) Anatomical Region Laterality Modality Chest Radiographic Silke ging 09/02/2024 11:0 6 AM EDT Impressions 09/02/2024 11:09 AM EDT NO ACUTE CARDIOPULMONARY ABNORMALITY. Impression dictated by: Jason Conroy Jr., D.OAram09/02/2024 11:07 AM Dictation Location: [facility] Transcribed By: IRAIS 09/02/24 1107 Dictated By: Jason Conroy Jr, DO 09/02/24 1106 Signed By: <Electronically signed by Jason Conroy Jr, in OV> 09/02/24 1107 Narrative 09/02/2024 11:09 AM EDT [facility] [place] [address] XRay Report Signed Patient: Soledad Riley MR#: [id number] 8 : 1965 Acct:[id number] Age/Sex: 58 / F ADM Date: 09/01/24 Loc: XD Room: Type: [facility] CLI Attending Dr: Laila Pittman BUTTON SEWING MACHINE OPERATOR-C Copies to: Laila Pittman Ordering Provider: Laila Pittman Date of Service: 09/01/24 XR/XR chest 2V*: Gastro-esophageal reflux disease without esophagitis;Hoarsen Chest 2 views CLINICAL HISTORY: Shortness of breath with exertion. COMPARISON: Chest 08/09/2024 FINDINGS: Heart normal in size. No consolidation pneumothorax pleural effusion or free air. XR/XR chest 2V* Procedure Note Jason Conroy Jr., - 09/02/2024 [facility] Main [address] [address] XRay Report Signed Patient: Soledad Riley RMR#: [id number] 8 : 1965Acct:[id number] Age/Sex: 58 / FADM Date: 09/01/24 Loc: XD Room:Type: [facility]P CLI Attending Dr: Laila Pittman BUTTON SEWING MACHINE OPERATOR-C Copies to: Laila Pittman Ordering Provider: Laila Pittman Date of Service: 09/01/24 XR/XR chest 2V*: Gastro-esophageal refluxdisease without esophagitis;Hoarsen Chest 2 views CLINICAL HISTORY: Shortness of breath with exertion. COMPARISON: Chest 08/09/2024 FINDINGS: Heart normal in size. No consolidation pneumothorax pleural effusion orfree air. XR/XR chest 2V* IMPRESSION: NO ACUTE CARDIOPULMONARY ABNORMALITY. Impression dictated by: Jason Conroy Jr., D.OAram09/02/2024 11:07 AM Dictation Location: [facility] Transcribed By: [facility] 09/02/24 1107 Dictated By: Jason Conroy Jr, DO 09/02/24 1106 Signed By: <Electronically signed by Jason Conroy Jr, DO inOV> 09/02/24 1107 Laila Pittman BUTTON SEWING MACHINE OPERATOR IMG XR PROCEDURES Final R esult documented in this encounter Visit Diagnoses Not on filedocumented in this encounter Care Teams Irrigator Sprinkling System Relationship Specialty Start Date End Date Unallocated, Noms MD Yojana [address] [place] [address] PCP - General Family Medicine 03/12/24 Levar Perez MD [address] [place], [place] [id number] Referring Physician Addiction Medicine 09/09/23 Laila Pittman NP [address] [place] [address] Referring Physician Nurse Practitioner 03/12/24 Michelle Rojo NP [address] [place] [address] Nurse Practitioner Neurology 03/18/24 Robbie Epperson DO [address] [id number] Referring Physician Neurology 03/25/24 Sharona Alvarez NP [address] [place] [phone] Nurse Practitioner Neurology 03/25/24 documented as of this encounter
--- OUTSIDE RECORDS SUMMARY | 2024-10-20 14:08 | XMS_ITS | Encounter Summary ---
Author Organization [facility] Address [address] [place] [address] Care Team Providers Care Processing Assistant Name Role Phone Levar Perez MD Unavailable Unallocated, Noms Provider Primary Care Provi oliva Laila Pittman NP Unavailable Michelle Rojo NP Unavailable [phone] Robbie Epperson DO Unavailable [phone] Sharona Alvarez NP Unavailable [phone] Encounter Details Date Type Department Care Team (Late st Contact Info) Description 09/22/2024 Results Follow-Up [facility] [address] [place] [address] Laila Pittman NP [address] [place] [address] Social History Tobacco Use Types [...] on file documented as of this encounter Miscellaneous Notes * Telephone Encounter - Laila Pittman NP - 09/22/2024 8:29 AM EDT Please fax labs that came in for pt to [facility] as no longer her provider. Thanks! * Telephone Encounter - Laila Pittman NP - 09/22/2024 8:29 AM EDT Result Communication Resulted Orders TSH Result Value Ref Range THYROID STIMULATING HORMONE 40.03 (H) 0.45 - 5.33 u[iU]/mL T4, free Result Value Ref Range FREE T4 (FREE THYROXINE) 0.68 0.61 - 1.12 ng/dL 8:29 AM documented in this encounter Plan of Treatment Not on file documented as of this encounter Visit Diagnoses Not on filedocumented in this encounter Care Teams Processing Assistant Relationship Specialty Start Date End Date Unallocated, Noms MD Yojana [address] [place] [address] PCP - General Family Medicine 03/12/24 Levar Perez MD [address] [place] [address] Referring Physician Addiction Medicine 09/09/23 Laila Pittman NP [address] [place] [address] Referring Physician Nurse Practitioner 03/12/24 Michelle Rojo NP [address] [place] [address] Nurse Practitioner Neurology 03/18/24 Robbie Epperson DO [address] [address] Referring Physician Neurology 03/25/24 Sharona Alvarez NP [address] [place] [phone] Nurse Practitioner Neurology 03/25/24 documented as of this encounter
--- OUTSIDE RECORDS SUMMARY | 2024-10-20 14:08 | XMS_ITS | Referral Summary ---
Author Organization [facility] Address [address] [place] [address] Care Team Providers Care Stripping And Booking Machine Operator Name Role Phone Laila Pittman NP Primary Care Provider [phone] Encounters Date Type Department Care Team Description 09/17/[address] [facility] at [address] [id number] Temo Richard MD 09/16/2024 9:40 AM EDT Follow-Up 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 15 tablet 2 4 04/05/20 Active Additional Information Patient taking differently: 25 [...] hyperglycemia, with long-term current use of insulin ([facility]),NSTEMI (non-ST elevated myocardial infarction) (CMS/HCC),Diabet es mellitus due to underlying condition with hyperglycemia, without long-term current use of insulin ([facility]),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 Follow sliding scale Maximum 10 units a day 3 mL 3 4 Active calcium carbonate-vitami n D3 500 mg-5 mcg (200 unit) tabletIndication s:Type 2 diabetes mellitus with hyperglycemia, with long-term current use of insulin ([facility]),NSTEMI (non-ST elevated myocardial infarction) ([facility]),Diabet es mellitus due to underlying condition with hyperglycemia, without long-term current use of insulin ([facility]),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 Take 1 [...] hyperglycemia, without long-term current use of insulin ([facility]) Inject 40 Units under the skin in the morning. 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 Take in addition to 25 mcg tab 90 tablet 3 Active Additional Information Patient taking differently:200 mcg [...] ADLs 01/05/2024 Leukocytosis 01/05/2024 Localized dermatitis 01/05/2024 meterman current use of insulin 01/05/2024 Medication side [...] long-term current use of insulin 12/14/2023 12/14/2023 Social History Tobacco Use Types Packs/Day Years Used Date Smoking Tobacco: Former Cigarettes Q uit: 2009 Smokeless Tobacco: Never Tobacco Cessation:Counseling Given: Not Answered Alcohol Use Standard Drinks/Week Comments Not Currently 0 (1 standard drink = 0.6 oz pur e alcohol) [facility] Utilities Answer Date Recorded In the past [...] place to sleep or slept in a senior living (including now)? No 12/14/2023 Hunger Vital Sign [...] Info) Description 11/17/2024 10:20 AM EDT Follow-Up [facility] Practice at [facility] [address] [place] [address] Temo Richard MD [address] [facility] [address] [place] [address] Medical Devices Implanted Type Area Material Spreader Device Identifier Shelf Expiration Date Model / Serial / Lot Stent,Synergy Mr 2.25 X 38 - [id number] - [id number] Implanted:Qty: 1 on 12/16/2023 by Robbie Oshea MD at [facility] Drug Eluting Stent [employer] [id number] 09/23/2024 [id number] / [id number] / [id number] Procedures Procedure Name Priority Date/Time Associated Diagnosis Comments POCT GLYCOSYLATED HEMOGLOBIN (HGB A1C) Routine 09/16/2024 10:18 AM EDT Type 2 diabetes mellitus with diabetic autonomic neuropathy, with long-term current use of insulin ([facility]) T4, FREE Routine 08/04/2024 11:40 AM EDT Type 2 diabetes mellitus with foot ulcer (CODE) ([facility]) TSH Routine 08/04/2024 11:40 AM EDT Type 2 diabetes mellitus with foot ulcer (CODE) ([facility]) from Last 3 Months Results * (ABNORMAL) [...] - 5.60 mIU/L 08/04/2024 2:46 PM EDT [facility] ([facility]) Blood Venous blood specimen / Unknown 08/04/2024 11:40 AM EDT 08/04/2024 1:36 PM EDT Marvin Pittman MD LAB BLOOD ORDERABLES Final R esult [facility] ([facility]) [address] [place] [address] * (ABNORMAL) T4, free (08/04/2024 11:40 AM EDT) Pathologist [facility] Free T4 0.60(L) 0.71 - 1.85 ng/dL 08/04/2024 2:14 PM EDT [facility]) Blood Venous blood specimen / Unknown 08/04/2024 11:40 AM EDT 08/04/2024 1:36 PM EDT Marvin Pittman MD LAB BLOOD ORDERABLES Final R esult [facility]) [address] [place], [place] [id number] from Last 3 Months Insurance MEDICAID [facility] [facility] MEDICARE ADVANTAGE [employer] MEDICARE Advance Directives * Full Code (Latest Code Status on File) Date Activated Date Inactivated Comments 12/14/2023 9:54 AM 12/25/2023 10:29 PM Care Teams Stripping And Booking Machine Operator Relationship Specialty Start Date End Date Laila Pittman NP [address] [place] [address] PCP - General Family Medicine 12/15/23
--- OUTSIDE RECORDS SUMMARY | 2024-10-20 14:08 | XMS_ITS | Encounter Summary ---
Author Organization [facility] Address [address] [place] [address] Care Team Providers Care Ware Cleaner Name Role Phone Laila Pittman NP Primary Care Provider [phone] Encounter Details Date Type Department Care Team (Late st Contact Info) Description 08/04/2024 Lab Requisition [facility] Hospital Lab [address] [place] [phone] Marvin Pittman MD [id number] Type 2 diabetes mellitus with foot ulcer (CODE) ([facility]) Social History Tobacco Use Types Packs/Day Years Used Date Smoking Tobacco: Former Cigarettes Q uit: 2009 Smokeless Tobacco: Never Alcohol Use Standard Drinks/Week Comments Not Currently 0 (1 standard drink = 0.6 oz pur e alcohol) [facility] Utilities Answer Date Recorded In the past 12 months has th e [employer], gas, oil, or water [employer] threatened to shut off services in your [...] place to sleep or slept in a custodial (including now)? No 12/14/2023 Hunger Vital Sign [...] as of this encounter Plan of Treatment Upcoming Encounters Date Type Department Care Team (Late st Contact Info) Description 11/17/2024 10:20 AM EDT Follow-Up [facility] Comprehensive Medical Practice at [facility] [address] [place] [address] Temo Richard MD [address] [facility] [address] [place] [address] documented as of this encounter Procedures Procedure Name Priority Date/Time Associated Diagnosis Comments TSH Routine 08/04/2024 11:40 AM EDT Type 2 diabetes mellitus with foot ulcer (CODE) (CMS/HCC) T4, FREE Routine 08/04/2024 11:40 AM EDT Type 2 diabetes mellitus with foot ulcer (CODE) (CMS/HCC) documented in this encounter Results * (ABNORMAL) T4, free (08/04/2024 11:40 AM EDT) Free T4 0.60(L) 0.71 - 1.85 ng/dL 08/04/2024 2:14 PM EDT [facility]) Blood Venous blood specimen / Unknown 08/04/2024 11:40 AM EDT 08/04/2024 1:36 PM EDT Marvin Pittman MD LAB BLOOD ORDERABLES Final R esult [facility] ([facility]) [address] [place] [address] * (ABNORMAL) TSH (08/04/2024 11:40 AM EDT) TSH 42.41(H) 0.34 - 5.60 mIU/L 08/04/2024 2:46 PM EDT [facility] ([facility]) Blood Venous blood specimen / Unknown 08/04/2024 11:40 AM EDT 08/04/2024 1:36 PM EDT Marvin Pittman MD LAB BLOOD ORDERABLES Final R esult [facility] ([place]) [address] [place] [address] documented in this encounter Visit Diagnoses Diagnosis Type 2 diabetes mellitus with foot ulcer (CODE) ([facility]) documented in this encounter Care Teams Ware Cleaner Relationship Specialty Start Date End Date Laila Pittman NP [address] [place] [address] PCP - General Family Medicine 12/15/23 documented as of this encounter
--- OUTSIDE RECORDS SUMMARY | 2024-10-20 14:08 | XMS_ITS | Encounter Summary ---
Author Organization [facility] Address [address] [facility] [place] [address] Care Team Providers Care Tests Superintendent Name Role Phone Levar Perez MD Unavailable Unallocated, Noms Provider Primary Care Provi oliva Laila Pittman HELP DESK SUPPORT SPECIALIST Unavailable [phone] Michelle Rojo HELP DESK SUPPORT SPECIALIST Unavailable [phone] Robbie Epperson DO Unavailable [phone] Sharona Alvarez NP Unavailable [phone] Encounter Details Date Type Department Care Team (Late st Contact Info) Description 09/07/2024 Results Follow-Up [facility] [address] [place] [address] Laila Pittman, RAISA [address] [place] [address] Social History Tobacco Use Types [...] on filedocumented in this encounter Care Teams Tests Superintendent Relationship Specialty Start Date End Date Unallocated, Noms Provider, [place] [address] PCP - General Family Medicine 03/12/24 Levar Perez MD [address], [place] [phone] Referring Physician Addiction Medicine 09/09/23 Laila Pittman NP [address] [place] [address] Referring Physician Nurse Practitioner 03/12/24 Michelle Rojo NP [address] [place] [address] Nurse Practitioner Neurology 03/18/24 Robbie Epperson DO [address] [address] Referring Physician Neurology 03/25/24 Sharona Alvarez NP [address] [address] Nurse Practitioner Neurology 03/25/24 documented as of this encounter
--- OUTSIDE RECORDS SUMMARY | 2024-10-20 14:08 | XMS_ITS ---
Author Organization [facility] enter Care Team Providers Care Coke Burner Name Role Phone Marvin Hodgson Unavailable Unavailable Allergies and adverse reactions Code CodeSystem Substance Reaction Severity StartDate Concern Status Zanaflex Unknown Unknown active 77179 RXNORM Tramadol Unknown Unknown active Lasix Unknown Unknown active 5933 RXNORM Iodine Unknown Unknown active 5489 RXNORM Hydrocodone Unknown Unknown active 2670 RXNORM Codeine Unknown Unknown active Care Team Name Role Address Phone Organization Dates Marvin Hodgson PCP [address] [place], [address], [place] (Office): : [facility] 02/21/2017 - 04/04/2017 Immunizations Immunization Status Vaccine Details Vaccine Code CodeSystem Date Notes Influenza completed Influenza, high-dose, split virus, quadrivalent, injectable, preservative free 197 CVX created date: 03/02/2017 administer ed date: 02/21/2017Jan 2017 TB 2 Step Mantoux Skin Test completed tuberculin skin test; unspecified formulation lotNumber: [id number] expiry: 07/09/2018 Mfg: Aplisol Given 0.1 ml Left Forearm intradermally Step 2 of Multi-step with next step required 98 CVX created date: 03/01/2017 consent date: 03/01/2017 administer ed date: 03/01/2017 TB 2 Step Mantoux Skin Test completed tuberculin skin test; unspecified formulation lotNumber: [id number] expiry: 03/12/2018 Mfg: [employer] Given 0.1 ml Right Forearm intradermally Step 1 of Multi-step with next step required 98 CVX created date: 02/22/2017 consent date: 02/22/2017 administer ed date: 02/22/2017 Pneumovax 23 completed lotNumber: [id number] expiry: 07/08/2018 Mfg: [employer] Given 0.5 ml Right Deltoid intramuscularly created date: 02/26/2017 consent date: 02/26/2017 administer ed date: 02/26/2017 Mental Status Section Date Assessment Total Score Description 04/04/2017 BIMS 15 cognitively int act CAM 0 No delirium ind icated PHQ-9 18 moderately jun re depression 03/21/2017 BIMS 15 cognitively int act CAM 0 No delirium ind icated PHQ-9 18 moderately jun re depression Problems Problem # Description Date of onset Resolved Date Code CodeSystem Concern Status 1 ANXIETY DISORDER, UNSPECIFIED 02/21/[address] active 2 BIPOLAR DISORDER, UNSPECIFIED 02/21/[address] active 3 COCAINE ABUSE, UNCOMPLICATED 02/21/[address] active 4 DIFFICULTY IN WALKING, NOT ELSEWHERE CLASSIFIED 02/21/[address] active 5 DISPLACED COMMINUTED FRACTURE OF SHAFT OF RIGHT FEMUR, SUBSEQUENT ENCOUNTER FOR CLOSED FRACTURE WITH ROUTINE HEALING 02/21/[address] active 6 DIVERTICULOSIS OF INTESTINE, PART UNSPECIFIED, WITHOUT PERFORATION OR ABSCESS WITHOUT BLEEDING 02/21/[address] active 7 ENCOUNTER FOR OTHER ORTHOPEDIC AFTERCARE 02/21/[address] active 8 ENCOUNTER FOR SCREENING FOR RESPIRATORY TUBERCULOSIS 02/21/[address] active 9 ESSENTIAL (PRIMARY) HYPERTENSION 02/21/[address] active 10 GASTRO-ESOPHAGEAL REFLUX DISEASE WITHOUT ESOPHAGITIS 02/21/[address] active 11 HYPERLIPIDEMIA, UNSPECIFIED 02/21/[address] active 12 HYPOTHYROIDISM, UNSPECIFIED 02/21/[address] active 13 MUSCLE WEAKNESS (GENERALIZED) 02/21/[address] active 14 POST-TRAUMATIC STRESS DISORDER, UNSPECIFIED 02/21/[address] active 15 TYPE 2 DIABETES MELLITUS WITHOUT COMPLICATIONS 02/21/[address] active 16 VITAMIN D DEFICIENCY, UNSPECIFIED 02/21/[address] active Reason for Referral No Reasons for Referral Entered Social History Social History Observation Description Start Date End Date Code Code System Current Smoking Status Tobacco smoking consumption unknown 746877212 SNOMED CT Sex Assigned At Female 1965 40033-3 [facility] Gender Identity Vital Signs Code Code System Vitals Name Values and Units Timing Information 87690-5 [facility] Pain Level Value=2.0 04/04/2017 2339-0 [facility] Blood Sugar Dfsjc=524.0 Units=mg/dL 04/04/2017 9279-1 [facility] Respiratory Rate Value=18.0 Units=/m in 04/04/2017 8462-4 [facility] Blood Pressure-Diastolic Value=97 Un its=mmHg 04/04/2017 8480-6 [facility] Blood Pressure-Systolic Kmnlz=472 Un its=mmHg 04/04/2017 8310-5 [facility] Body Temperature Value=97.4 Units= F 04/04/2017 8867-4 [facility] Heart rate Value=98.0 Units=/min 08436-1 [facility] O2 % dC Oximetry Value=96.0 Units= % 03/26/2017 29284-4 [facility] Weight Wlkky=865.9 Units=Lbs 07/2016 8302-2 [facility] Height Value=67.0 Units=Inches 02/26/2017
== END 2024-10-20 14:04 | disposition home or self-care (01) ==
LOC: WC 14:04
PROVIDERS: Visit Provider Physician Assistant
DX: E11.621 Type 2 diabetes mellitus with foot ulcer (principal); L97.422 Non-pressure chronic ulcer of left heel and midfoot with fat layer exposed
CPT/HCPCS: 11043

== ENCOUNTER 2024-11-09 13:31 | Outpatient (OUT) | payer MEDICARE, MEDICAID, SELFPAY ==
--- OUTSIDE RECORDS SUMMARY | 2024-11-09 13:34 | XMS_ITS | Encounter Summary ---
Author Organization [facility] Address [address] [place] [address] Care Team Providers Care Tower Erector Name Role Phone Levar Perez MD Unavailable Unallocated, [place] Provider Primary Care Provi oliva Laila Pittman BED CONTROL SPECIALIST Unavailable [phone] Michelle Rojo BED CONTROL SPECIALIST Unavailable [phone] Robbie Epperson DO Unavailable [phone] Sharona Alvarez BED CONTROL SPECIALIST Unavailable Unavailable Encounter Details Date Type Department Care Team (Late st Contact Info) Description 01/16/2024 Abstract [facility] [address] [place] [address] Unallocated, Noms ProviderMD [address] [place] [address] Social History Tobacco Use Types Packs/Day Years [...] on filedocumented in this encounter Care Teams Tower Erector Relationship Specialty Start Date End Date Unallocated, Edinson Dial MD [address] [place] [address] PCP - General Family Medicine 03/12/24 Levar Perez MD [address] [place] [phone] Referring Physician Addiction Medicine 09/09/23 Laila Pittman NP [address] [place] [address] Referring Physician Nurse Practitioner 03/12/24 Michelle Rojo NP [address] [place] [address] Nurse Practitioner Neurology 03/18/24 Robbie Epperson DO [address] [address] Referring Physician Neurology 03/25/24 Sharona Alvarez NP [address] [address] Nurse Practitioner Neurology 03/25/24 documented as of this encounter
--- OUTSIDE RECORDS SUMMARY | 2024-11-09 13:34 | XMS_ITS | Clinical Summary ---
Author Organization [facility] Address [address] [place] [address] Care Team Providers Care Civil Engineering Teacher Name Role Phone Levar Perez MD Unavailable Unallocated, [place] Provider Primary Care Provi oliva Laila Pittman CURRICULUM DESIGNER Unavailable Michelle Rojo CURRICULUM DESIGNER Unavailable [phone] Robbie Epperson DO Unavailable [phone] Sharona Alvarez NP Unavailable Unavailable Allergies Active Allergy Reactions Criticality Noted Date [...] 02/18/2024 Medications Aspirin (ASPIR-LOW PO) 81 mg 08/18/202 4 Active atorvastatin (Lipitor) 40 MG tablet [...] without aura without status migrainosus, not intractable Inject 1 pen (225 mg) under the skin every 30 (thirty) days 1.68 mL 4 Active Additional Information Patient not taking.Reported [...] Care Team Description 09/22/2024 Results Follow-Up [facility] [address] [place] [address] Laila Pittman NP 09/21/2024 External Result Encounter [facility] External Department Unsolicited Laila Pittman NP 09/07/2024 Results Follow-Up [facility] [address] [place] [address] Laila Pittman NP 09/02/2024 External Result Encounter [...] - 5.33 u[iU]/mL 09/21/2024 2:26 PM EDT [facility] Other Topography unknown / Unknown 09/21/2024 11:45 AM EDT 09/21/2024 12:18 PM EDT Laila Pittman CURRICULUM DESIGNER LAB BLOOD ORDERABLES Ofelia l Result Performing Organization Address City/[facility]/ZIP Co de Phone Number [address] [address], [place] [address] * T4, free (09/21/2024 11:45 AM EDT) FREE T4 (FREE THYROXINE) 0.68 0.61 - 1.12 ng/dL 09/21/2024 2:30 PM EDT [facility] Other Topography unknown / Unknown 09/21/2024 11:45 AM EDT 09/21/2024 12:18 PM EDT Liala Pittman NP LAB BLOOD ORDERABLES Ofelia l Result Performing Organization Address City/[facility]/ZIP Co de Phone Number [address] [address], [address] [address] * XR chest 2 views (09/02/2024 11:06 AM EDT) Anatomical Region Laterality Modality Chest Radiographic Silke ging 09/02/2024 11:0 6 AM EDT Impressions 09/02/2024 11:09 AM EDT NO ACUTE CARDIOPULMONARY ABNORMALITY. Impression dictated by: Jason Conroy Jr., D.OAram09/02/2024 11:07 AM Dictation Location: [facility] Transcribed By: PWS 09/02/24 1107 Dictated By: Jason Conroy Jr, DO 09/02/24 1106 Signed By: <Electronically signed by Jason Conroy Jr, DO in OV> 09/02/24 1107 Narrative 09/02/2024 11:09 AM EDT [facility] [place] [address] [place], [place] [id number] XRay Report Signed Patient: Soledad Riley MR#: [id number] 8 : 1965 Acct:[id number] Age/Sex: 58 / F ADM Date: 09/01/24 Loc: XD [facility]: Laila Pittman CURRICULUM DESIGNER-C Copies to: Laila Pittman Ordering Provider: Laila Pittman Date of Service: 09/01/24 XR/XR chest 2V*: Gastro-esophageal reflux disease without esophagitis;Hoarsen Chest 2 views CLINICAL HISTORY: Shortness of breath with exertion. COMPARISON: Chest 08/09/2024 FINDINGS: Heart normal in size. No consolidation pneumothorax pleural effusion or free air. XR/XR chest 2V* Procedure Note Jason Conroy Jr., - 09/02/2024 [facility] [place] [address] [place], [place] [address] XRay Report Signed Patient: Soledad Riley RMR#: [id number] 8 : 1965Acct:[id number] Age/Sex: 58 / FADM Date: 09/01/24 Loc: XD Room:[facility] Att[facility] Dr: Laila Pittman CURRICULUM DESIGNER-C Copies to: Laila Pittman Ordering Provider: Laila Pittman Date of Service: 09/01/24 XR/XR chest 2V*: Gastro-esophageal refluxdisease without esophagitis;Hoarsen Chest 2 views CLINICAL HISTORY: Shortness of breath with exertion. COMPARISON: Chest 08/09/2024 FINDINGS: Heart normal in size. No consolidation pneumothorax pleural effusion orfree air. XR/XR chest 2V* IMPRESSION: NO ACUTE CARDIOPULMONARY ABNORMALITY. Impression dictated by: Jason Conroy Jr., D.OAram09/02/2024 11:07 AM Dictation Location: [place] [address] Transcribed By: IRAIS 09/02/24 1107 Dictated By: Jason Conroy Jr, DO 09/02/24 1106 Signed By: <Electronically signed by Jason Conroy Jr, DO inOV> 09/02/24 1107 Laila Pittman NP IMG XR PROCEDURES Final R esult from Last 3 Months Insurance [employer] MEDICARE ADVANTAGE MEDICAID [place] Care Teams Civil Engineering Teacher Relationship Specialty Start Date End Date Unallocated, [place] MD Yojana [address] [place] [address] PCP - General Family Medicine 03/12/24 Levar Perez MD [address] [place] [address] Referring Physician Addiction Medicine 09/09/23 Laila Pittman NP [address] [place] [address] Referring Physician Nurse Practitioner 03/12/24 Michelle Rojo NP [address] [facility] [place] [address] Nurse Practitioner Neurology 03/18/24 Robbie Epperson DO [address] [address] Referring Physician Neurology 03/25/24 Sharona Alvarez NP [address] [address] Nurse Practitioner Neurology 03/25/24
--- OUTSIDE RECORDS SUMMARY | 2024-11-09 13:34 | XMS_ITS | Encounter Summary ---
Author Organization [facility] Address [address] [facility] [place] [address] Care Team Providers Care Electroencephalograph Technologist Name Role Phone Levar Perez MD Unavailable Unallocated, Noms Provider Primary Care Provi oliva Laila Pittman ELECTRICAL TECHNICIAN INSTRUCTOR Unavailable [phone] Michelle Rojo NP Unavailable [phone] Robbie Epperson DO Unavailable [phone] Sharona Alvarez NP Unavailable Unavailable Encounter Details Date Type Department Care Team (Late st Contact Info) Description 09/07/2024 Results Follow-Up [facility] [address] [place] [address] Laila Pittman, ELECTRICAL TECHNICIAN INSTRUCTOR [address] [place] [address] Social History Tobacco Use Types [...] on filedocumented in this encounter Care Teams Electroencephalograph Technologist Relationship Specialty Start Date End Date Unallocated, Noms Provider, [address] [place] [address] PCP - General Family Medicine 03/12/24 Levar Perez MD [address] [place] [phone] Referring Physician Addiction Medicine 09/09/23 Laila Pittman NP [address] [place] [address] Referring Physician Nurse Practitioner 03/12/24 Michelle Rojo NP [address] [place] [address] Nurse Practitioner Neurology 03/18/24 Robbie Epperson DO [address] [address] Referring Physician Neurology 03/25/24 Sharona Alvarez NP [address] [address] Nurse Practitioner Neurology 03/25/24 documented as of this encounter
--- OUTSIDE RECORDS SUMMARY | 2024-11-09 13:34 | XMS_ITS | Clinical Summary ---
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 Follow sliding scale Maximum 10 units a day 3 mL 3 4 Active calcium carbonate-vitami n D3 500 mg-5 mcg (200 unit) tabletIndication s:Type 2 diabetes mellitus with hyperglycemia, with long-term current use of insulin ([facility]),NSTEMI (non-ST elevated myocardial infarction) ([facility]),Diabet es mellitus due to underlying condition with hyperglycemia, without long-term current use of insulin ([facility]),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 Take 1 [...] hyperglycemia, without long-term current use of insulin ([facility]) Inject 40 Units under the skin in [...] ADLs 01/05/2024 Leukocytosis 01/05/2024 Localized dermatitis 01/05/2024 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 01/05/2024 Medication side [...] Type Department Care Team Description 09/17/2024 Telephone [facility] Practice at [address] [phone] Temo Richard MD 09/16/2024 9:40 AM EDT Follow-Up [facility] Practice at [address] [phone] Temo Richard MD 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 (Primary Dx); Type 2 diabetes mellitus with diabetic autonomic neuropathy, with long-term current use of insulin ([facility]); Hypoglycemia 08/13/2024 Orders Only [facility] Practice at [address] [phone] Temo Richard MD 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 No 12/14/2023 Hunger Vital Sign [...] 09/16/2024 9:59 AM EDT Plan of Treatment Health Maintenance Due [...] (1 of 2) 09/24/2017 COVID-19 Vaccine ( season) 2024 Diabetes: Hemoglobin A1C 12/17/2024 025, [...] this topic Medical Devices Implanted Type Area Pick Pulling Machine Tender Device Identifier Shelf Expiration Date Model / Serial / Lot Stent,Synergy Mr 2.25 X 38 - [id number] - [id number] Implanted:Qty: 1 on 12/16/2023 by Robbie Oshea MD at [facility] Drug Eluting Stent [employer] [id number] 09/23/2024 [id number] / [id number] / [id number] Procedures Procedure Name Priority Date/Time Associated Diagnosis Comments POCT GLYCOSYLATED HEMOGLOBIN (HGB A1C) Routine 09/16/2024 10:18 AM EDT Type 2 diabetes mellitus with diabetic autonomic neuropathy, with long-term current use of insulin ([facility]) from Last 3 Months Results * (ABNORMAL) POCT glycosylated hemoglobin (Hb A1C) (09/16/2024 10:18 AM EDT) Hemoglobin A1C 7.7 SOURCE: blood Lot Number #[id number] EXP DATE Blood Venous blood specimen / Unknown 09/16/2024 10:18 AM EDT Temo Richard MD POINT OF CARE TEST ENTER/EDIT OR DERABLES Final Result from Last 3 Months Insurance MEDICAID [place] AET MEDICARE ADVANTAGE [employer] MEDICARE Advance Directives * Full Code (Latest Code Status on File) Date Activated Date Inactivated Comments 12/14/2023 9:54 AM 12/25/2023 10:29 PM Care Teams Copy Manager Relationship Specialty Start Date End Date Laila Pittman NP [address] [place] [address] PCP - General Family Medicine 12/15/23
--- OUTSIDE RECORDS SUMMARY | 2024-11-09 13:34 | XMS_ITS | Encounter Summary ---
Author Organization [facility] Address [address] [place] [address] Care Team Providers Care B2B Managed Service Sales Exec Name Role Phone Levar Perez MD Unavailable Unallocated, [place] Provider Primary Care Provi oliva Laila Pittman TRUER [employer] WHEEL Unavailable Michelle Rojo NP Unavailable [phone] Robbie Epperson DO Unavailable [phone] Sharona Alvarez NP Unavailable Unavailable Encounter Details Date Type Department Care Team (Late st Contact Info) Description 03/24/2024 Orders Only [facility]ERI [address] [place] [address] Robbie Epperson DO [address] [place] [address] Social History Tobacco Use Types [...] NERVE CONDUCTION STUDY (07/06/2018 1:38 PM EST) Savannah Blood NP NEUROLOGY ORDERABLES Fi nal Result documented in this encounter Visit Diagnoses Not on filedocumented in this encounter Care Teams B2B Managed Service Sales Exec Relationship Specialty Start Date End Date Unallocated, Noms MD Yojana [address] [place] [address] PCP - General Family Medicine 03/12/24 Levar Perez MD [address] [place] [address] Referring Physician Addiction Medicine 09/09/23 Laila Pittman NP [address] [place] [address] Referring Physician Nurse Practitioner 03/12/24 Michelle Rojo NP [facility] [place] [address] Nurse Practitioner Neurology 03/18/24 Robbie Epperson DO [address] [place] [address] Referring Physician Neurology 03/25/24 Sharona Alvarez NP [address] [place] [address] Nurse Practitioner Neurology 03/25/24 documented as of this encounter
--- OUTSIDE RECORDS SUMMARY | 2024-11-09 13:34 | XMS_ITS | Encounter Summary ---
Author Organization [facility] Address [address] [place] [address] Care Team Providers Care Pattern Clerk Name Role Phone Levar Perez MD Unavailable Unallocated, Noms Provider Primary Care Provi oliva Laila Pittman NP Unavailable [phone] Michelle Rooj NP Unavailable [phone] Robbie Epperson DO Unavailable [phone] Sharona Alvarez NP Unavailable Unavailable Encounter Details Date Type Department Care Team (Late st Contact Info) Description 09/02/2024 External Result Encounter [facility] External Department Unsolicited Laila Pittman, RAISA [address] [place] [address] Social History Tobacco Use Types [...] ABNORMALITY. Impression dictated by: Jason Conroy Jr., DAramOAram09/02/2024 11:07 AM Dictation Location: [place] [address] Transcribed By: IRAIS 09/02/24 1107 Dictated By: Jason Conroy Jr, DO 09/02/24 1106 Signed By: <Electronically signed by Jason Conroy Jr, in OV> 09/02/24 1107 Narrative 09/02/2024 11:09 AM EDT [facility] [place] [address] XRay Report Signed Patient: Soledad Riley MR#: [id number] 8 : 1965 Acct:[id number] Age/Sex: 58 / F ADM Date: 09/01/24 Loc: XD Room: Type: DEP CLI Attending Dr: Laila Pittman PATIENT SERVICE ASSOCIATE-C Copies to: Laila Pittamn Ordering Provider: Laila Pittman Date of Service: 09/01/24 XR/XR chest 2V*: Gastro-esophageal reflux disease without esophagitis;Hoarsen Chest 2 views CLINICAL HISTORY: Shortness of breath with exertion. COMPARISON: Chest 08/09/2024 FINDINGS: Heart normal in size. No consolidation pneumothorax pleural effusion or free air. XR/XR chest 2V* Procedure Note Jason Conroy Jr., - 09/02/[address] [address] XRay Report Signed Patient: Soledad Riley RMR#: [id number] 8 : 1965Acct:[id number] Age/Sex: 58 / FADM Date: 09/01/24 Loc: XD Room:Type: DEP CLI Attending Dr: Laila Pittman PATIENT SERVICE ASSOCIATE-C Copies to: Laila Pittman Ordering Provider: Laila [...] 11:07 AM Dictation Location: [id number] Transcribed By: PWS 09/02/24 1107 Dictated By: Jason Conroy Jr, DO 09/02/24 1106 Signed By: <Electronically signed by Jason Conroy Jr, DO inOV> 09/02/24 1107 Laila Pittman NP IMG XR PROCEDURES Final R esult documented in this encounter Visit Diagnoses Not on filedocumented in this encounter Care Teams Pattern Clerk Relationship Specialty Start Date End Date Unallocated, Noms MD Yojana [address] [place] [address] PCP - General Family Medicine 03/12/24 Levar Perez MD [address] [place] [address] Referring Physician Addiction Medicine 09/09/23 Laila Pittman NP [address] [place] [address] Referring Physician Nurse Practitioner 03/12/24 Michelle Rojo NP [address] [place] [address] Nurse Practitioner Neurology 03/18/24 Robbie Epperson DO [address] [place] [address] Referring Physician Neurology 03/25/24 Sharona Alvarez NP [address] [place] [address] Nurse Practitioner Neurology 03/25/24 documented as of this encounter
--- OUTSIDE RECORDS SUMMARY | 2024-11-09 13:34 | XMS_ITS | Encounter Summary ---
Author Organization [facility] Address [address] [place] [address] Care Team Providers Care Instructional Services Specialist Name Role Phone Levar Perez MD Unavailable Unallocated, Nomcarmen Provider Primary Care Provi oliva Laila Pittman NP Unavailable Michelle Rojo NP Unavailable [phone] Robbie Epperson DO Unavailable [phone] Sharona Alvarez NP Unavailable Unavailable Encounter Details Date Type Department Care Team (Late st Contact Info) Description 09/22/2024 Results Follow-Up [facility] [address] [place] [address] Laila Pittman NP [address] [place] [address] Social History Tobacco Use Types [...] labs that came in for pt to [facility] as no longer her provider. Thanks! * [...] on filedocumented in this encounter Care Teams Instructional Services Specialist Relationship Specialty Start Date End Date Unallocated, Noms MD Yojana [address] [facility] [place] [address] PCP - General Family Medicine 03/12/24 Levar Perez MD [address] [place], [place] [address] Referring Physician Addiction Medicine 09/09/23 Laila Pittman NP [address] [place] [address] Referring Physician Nurse Practitioner 03/12/24 Michelle Rojo NP [address] [place] [address] Nurse Practitioner Neurology 03/18/24 Robbie Epperson DO [address] [address] Referring Physician Neurology 03/25/24 Sharona Alvarez NP [address] [address] Nurse Practitioner Neurology 03/25/24 documented as of this encounter
--- OUTSIDE RECORDS SUMMARY | 2024-11-09 13:34 | XMS_ITS | Referral Summary ---
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),NSTEMI (non-ST elevated myocardial infarction) (CMS/HCC),Diabet es mellitus due to underlying condition with hyperglycemia, without long-term current use of insulin (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),NSTEMI (non-ST elevated myocardial infarction) ([facility]/HCC),Diabet es mellitus due to underlying condition with hyperglycemia, without long-term current use of insulin (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 No 12/14/2023 Hunger Vital Sign [...] 09/16/2024 9:59 AM EDT Plan of Treatment Not on file Medical Devices Implanted Type Area Meter Shop Superintendent Device Identifier Shelf Expiration Date Model / Serial / Lot Stent,Synergy Mr 2.25 X 38 - [id number] - [id number] Implanted:Qty: 1 on 12/16/2023 by Robbie Oshea MD at [facility] Drug Eluting Stent [employer] [id number] 09/23/2024 [id number] / [id number] / [id number] Procedures Procedure Name Priority Date/Time Associated Diagnosis Comments POCT GLYCOSYLATED HEMOGLOBIN (HGB A1C) Routine 09/16/2024 10:18 AM EDT Type 2 diabetes mellitus with diabetic autonomic neuropathy, with long-term current use of insulin ([facility]) from Last 3 Months Results * (ABNORMAL) POCT glycosylated hemoglobin (Hb A1C) (09/16/2024 10:18 AM EDT) Hemoglobin A1C 7.7 SOURCE: blood Lot Number #[id number] EXP DATE Blood Venous blood specimen / Unknown 09/16/2024 10:18 AM EDT Temo Richard MD POINT OF CARE TEST ENTER/EDIT OR DERABLES Final Result from Last 3 Months Insurance MEDICAID [place] AETNA MEDICARE ADVANTAGE [employer] MEDICARE Advance Directives * Full Code (Latest Code Status on File) Date Activated Date Inactivated Comments 12/14/2023 9:54 AM 12/25/2023 10:29 PM Care Teams Tape Editor Relationship Specialty Start Date End Date Laila Pittman NP [address] [place] [address] PCP - General Family Medicine 12/15/23
--- OUTSIDE RECORDS SUMMARY | 2024-11-09 13:34 | XMS_ITS | Encounter Summary ---
Author Organization [facility] Address [address] [place] [address] Care Team Providers Care Granite Worker Name Role Phone Laila Pittman NP Primary Care Provider [phone] Encounter Details Date Type Department Care Team (Late st Contact Info) Description 08/04/2024 Lab Requisition [facility] Lab [address] [place] [phone] Marvin Pittman MD [id number] Type 2 diabetes mellitus with foot ulcer (CODE) ([facility]) Social History Tobacco Use Types Packs/Day Years Used Date Smoking Tobacco: Former Cigarettes Q uit: 2009 Smokeless Tobacco: Never Alcohol Use Standard Drinks/Week Comments Not Currently 0 (1 standard drink = 0.6 oz pur e alcohol) [facility] Utilities Answer Date Recorded In the past 12 months has th e [facility], gas, oil, or water [employer] threatened to shut off services in your [...] place to sleep or slept in a nursing home (including now)? No 12/14/2023 Hunger Vital Sign [...] 2 diabetes mellitus with foot ulcer (CODE) ([facility]) T4, FREE Routine 08/04/2024 11:40 AM EDT Type 2 diabetes mellitus with foot ulcer (CODE) ([facility]) documented in this encounter Results * (ABNORMAL) T4, free (08/04/2024 11:40 AM EDT) Free T4 0.60(L) 0.71 - 1.85 ng/dL 08/04/2024 2:14 PM EDT [facility] ([facility]ER) Blood Venous blood specimen / Unknown 08/04/2024 11:40 AM EDT 08/04/2024 1:36 PM EDT us Marvin Pittman MD LAB BLOOD ORDERABLES Final R esult [facility] ([facility]) [address] [address] * (ABNORMAL) TSH (08/04/2024 11:40 AM EDT) TSH 42.41(H) 0.34 - 5.60 mIU/L 08/04/2024 2:46 PM EDT [facility] (RAMANDEEP) Blood Venous blood specimen / Unknown 08/04/2024 11:40 AM EDT 08/04/2024 1:36 PM EDT us Marvin Pittman MD LAB BLOOD ORDERABLES Final R esult [facility] (RAMANDEEP) [address] [facility] [place] [address] documented in this encounter Visit Diagnoses Diagnosis Type 2 diabetes mellitus with foot ulcer (CODE) ([facility]) documented in this encounter Care Teams Granite Worker Relationship Specialty Start Date End Date Laila Pittman NP [address] [place] [address] PCP - General Family Medicine 12/15/23 documented as of this encounter
== END 2024-11-09 13:32 | disposition home or self-care (01) ==
LOC: WC 13:31
PROVIDERS: Visit Provider Physician Assistant
DX: E11.621 Type 2 diabetes mellitus with foot ulcer (principal); L97.422 Non-pressure chronic ulcer of left heel and midfoot with fat layer exposed; L97.512 Non-pressure chronic ulcer of other part of right foot with fat layer exposed
CPT/HCPCS: G0463